=== PATIENT | female | born 1970 | race Caucasian/White ===

== ENCOUNTER 2017-04-10 21:24 | Inpatient (IN) | payer OTHER ==
[2017-04-10] MEDS ORDERED: NS 1,000 ML IV ONE ×2 (21:32)
[2017-04-10] MEDS ORDERED: PROTAMINE SULFATE 50 MG/5 ML VIAL IVP ONE (21:36)
[2017-04-10] MEDS ORDERED: TRANEXAMIC ACID 1,000 MG in NS 100 ML IV ONE (21:36)
[2017-04-10] MEDS ORDERED: TRANEXAMIC ACID 1,000 MG in NS 500 ML IV ONE (21:36)
[2017-04-10] MEDS: NORETHINDRONE ACET 5 MG TAB PO SCH (22:23)
--- NOTE | 2017-04-10 22:23 | EDPHY ---
H & P Stated Complaint: vaginal hemmorhage with hypotension HPI/ROS: CHIEF COMPLAINT: Vaginal bleeding, hypotension HISTORY OF PRESENT ILLNESS: The patient is a 47-year-old female with history of cervical cancer treated in [place] by oncologist Dr. Joshua. She is at [facility] and around 8:45 was noticed to have vaginal bleeding. When EMS arrived she is pale, tachycardic and had a blood pressure 64/40. They started a peripheral IV and brought her here. 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 She sees Dr. Fernandez and has bilateral nephrostomy tubes due to ureteral obstruction from tumors and ureterolithiasis. She is currently in the midst of chemotherapy and has completed radiation therapy. She has not had any uterine or vaginal surgery. I am unclear as to any metastasis. EMS reports that she has gone through 7 pads prior to arrival. REVIEW OF SYSTEMS: Constitutional: denies: chills, fever, recent illness, recent injury EENTM: denies: blurred vision, double vision, nose congestion Respiratory: denies: cough, shortness of breath Cardiac: denies: chest pain, irregular heart rate, lightheadedness, palpitations Gastrointestinal/Abdominal: denies: abdominal pain, diarrhea, nausea, vomiting, blood streaked stools Genitourinary: See HPI Musculoskeletal: denies: joint pain, muscle pain Skin: denies: lesions, rash, jaundice, bruising Neurological: denies: headache, numbness, paresthesia, tingling, dizziness, weakness Hematologic/Lymphatic: denies: blood clots, easy bleeding, easy bruising Immunologic/allergic: denies: HIV/AIDS, transplant EXAM: GENERAL: Pale, in severe distress HEAD: Atraumatic, normocephalic. EYES: Pupils equal round and reactive to light, extraocular movements intact, sclera anicteric, conjunctiva are pale. ENT: TMs normal, nares patent, oropharynx clear without exudates. Moist mucous membranes. NECK: Normal range of motion, supple without lymphadenopathy or JVD. LUNGS: Breath sounds clear to auscultation bilaterally and equal. No wheezes rales or rhonchi. HEART: Regular rate and rhythm without murmurs, rubs or gallops. ABDOMEN: Mild lower abdominal tenderness : I performed an external exam. The blood does appear to be coming from her vagina. Several clots were wiped away. No sign of rectal bleeding. BACK: Bilateral nephrostomy tubes in place, fruit punch colored fluid in left bag. No tenderness EXTREMITIES: Normal range of motion, no pitting or edema. No clubbing or cyanosis. NEUROLOGICAL: Cranial nerves II through XII grossly intact. Normal speech, normal gait. 5/5 strength, normal movement in all extremities, normal sensation PSYCH: Lightheaded, nauseous SKIN: Pale Source: Patient Exam Limitations: No limitations - Personal History LMP (Females 10-55): Unknown - Medical/Surgical History Hx Asthma: No Hx Diabetes: No Hx Cardiac Disease: No Hx Renal Disease: Yes Hx Cirrhosis: No Hx Alcoholism: No Other PMH: cervical CA, IVC filter, blood clots, GERD, nephrostomy tube bilaterally - Family History Significant Family History: No pertinent family hx - Social History Alcohol Use: Sober Constitutional: Initial Vital Signs Heart Rate 139 H 04/10/17 21:32 Respiratory Rate 20 04/10/17 21:32 Blood Pressure 80/54 L 04/10/17 21:32 O2 Sat (%) 99 04/10/17 21:32 O2 Delivery Mode Nasal Cannula O2 (L/minute) 2 Allergies/Adverse Reactions: No Known Allergies Allergy (Unverified 04/10/17 22:48) Home Medications: Medication Instructions Recorded Enoxaparin [Lovenox 100 MG (*)] 100 mg SQ BID@04/10/17 FLUoxetine [Prozac 10 MG (*)] 10 mg PO DAILY 04/10/17 Gabapentin [Neurontin 300 MG (*)] 300 mg PO TID 04/10/17 Levothyroxine [Synthroid 112 mcg 112 mcg PO DAILY06 04/10/17 (*)] OLANZapine [Zyprexa] 5 mg PO HS 04/10/17 Pantoprazole Sodium [Protonix 40mg 40 mg PO DAILY 04/10/17 (*)] oxyCODONE IR [Oxycodone Ir (*)] 5 - 10 mg PO Q4 PRN 04/10/17 traMADol [Ultram 50 mg (*)] 50 mg PO Q8 PRN 04/10/17 Acetaminophen [Tylenol 325mg (*)] 650 mg PO Q4 PRN 04/11/17 Herbals/Supplements -Info Only 1 ea PO DAILY 04/11/17 Loperamide HCl [Imodium 2 mg (*)] 2 mg PO PRN PRN 04/11/17 Ondansetron [Ondansetron Odt] 8 mg PO Q8 PRN 04/11/17 Medical Decision Making - Diagnostics EKG Interpretation: An EKG obtained and was read and documented in trace view. Please see trace view for full reading and report. Sinus tachycardia right bundle branch block Imaging: Discussed imaging studies w/ hat sizer Radiologist Procedures: Procedure: Central line placement. With ultrasound guidance Indication: Hypotension, transfusion. Emergency Verbal informed consent was obtained, with the risks explained to include but not be limited to bleeding, infection, and collapsed lung. A timeout was observed and patients identity and correct procedure location confirmed. Full maximal sterile barrier technique was uses including cap, gown , sterile gloves, large sheet, hand washing and chlorhexidine prep. Ultrasound was used for direct visualization in guidance. The area anesthetized with 1% lidocaine. The left IJ was punctured with a 19 gauge finder needle, then a triple-lumen was placed using standard Seldinger technique. There were no complications. Blood return low pressure, dark blood. Patient tolerated procedure well. CXR results: Central line in good placement. X-ray was interpreted by myself. The procedure was performed by myself. ED Course/Re-evaluation: The patient was brought to room 1 emergently. Her port was accessed and fluids began. We confirm that her blood pressure was low. We ordered fluids and O negative transfusion. Left IJ central line was placed emergently. She was given protamine and TXA. I spoke with OBEDEN Candelaria over the phone who recommends transvaginal ultrasound and initiation of Auygestin. They are on their way in. She has full code. Patient states that she has not had a period in 1 year. 10:55 p.m. I have also consulted medicine Rach because of the nephrostomy tubes and help with management. 11:10 p.m. the patient will remain in the ER as OBGYN attempts to stabilize and arrange transfer to NEEDLE STRAIGHTENER/ONC surgery. Care transferred to Dr. Gui Motta. Differential Diagnosis: Partial list of the Differential diagnosis considered include but were not limited to; hemorrhage, hypertension, cervical cancer, and although unlikely based on the history and physical exam, I also considered DIC, ischemia. Critical Care Time: Critical care time spent by Dr. Mary beverly exclusive with this patient was 45 minutes, exclusive of the PA time exclusive of procedures. The organ system that was at risk was cardiovascular, and I gave IV fluids, blood, consultation to prevent worsening of the patient's condition - Data Points Laboratory Results: Laboratory Results 04/10/17 22:54 04/10/17 22:21 04/10/17 22:21 Patient ABO/Rh A POSITIVE Antibody Screen NEGATIVE Crossmatch IS Only See Detail Medications Given: Gabapentin (Neurontin) 300 mg PO TID [facility] Stop: 10/08/17 15:59 Last Admin: 04/11/17 15:28 Dose: 300 mg Morphine Sulfate (Morphine) 2 - 4 mg IVP Q4HRS PRN PRN Reason: Pain, Severe Unable to Take PO Stop: 04/21/17 00:43 Last Admin: 04/11/17 15:28 Dose: 2 mg Norethindrone Acetate (Aygestin) 5 mg PO DAILY [facility] Stop: 10/07/17 22:29 Last Admin: 04/11/17 12:53 Dose: 5 mg Ondansetron HCl (Zofran) 4 mg IVP Q4HRS [facility] Stop: 10/08/17 13:59 Last Admin: 04/11/17 15:28 Dose: 4 mg Oxycodone HCl (Oxycodone Ir) 5 - 10 mg PO Q4HRS PRN PRN Reason: Pain, Severe Able to Take PO Stop: 04/21/17 00:43 Last Admin: 04/11/17 13:27 Dose: 10 mg Promethazine HCl (Phenergan) 6.25 mg IVP Q6HRS PRN PRN Reason: Nausea/Vomiting, Can't Take PO Stop: 10/08/17 11:21 Last Admin: 04/11/17 12:52 Dose: 6.25 mg Discontinued Medications Sodium Chloride (Ns) 1,000 mls @ 0 mls/hr IV ONCE ONE; Wide Open PRN Reason: Protocol Stop: 04/10/17 21:33 Last Admin: 04/10/17 21:32 Dose: 1,000 mls Sodium Chloride (Ns) 1,000 mls @ 0 mls/hr IV ONCE ONE; Wide Open PRN Reason: Protocol Stop: 04/10/17 21:33 Last Admin: 04/10/17 21:32 Dose: 1,000 mls Tranexamic Acid 1,000 mg/ (Sodium Chloride) 110 mls @ 660 mls/hr IV ONCE ONE Stop: 04/10/17 21:45 Last Admin: 04/10/17 22:22 Dose: 110 mls Tranexamic Acid 1,000 mg/ (Sodium Chloride) 510 mls @ 63.75 mls/hr IV ONCE ONE Stop: 04/11/17 05:35 Last Admin: 04/10/17 22:45 Dose: 510 mls Calcium Gluconate 2 gm/ (Dextrose) 70 mls @ 140 mls/hr IV EDNOW ONE Stop: 04/11/17 00:22 Last Admin: 04/11/17 00:25 Dose: 70 mls Calcium Gluconate (Calcium Gluconate 1 Gm (Premix)) 50 mls @ 100 mls/hr IV ONCE ONE Stop: 04/11/17 08:29 Last Admin: 04/11/17 11:13 Dose: 50 mls Potassium Chloride (Potassium Cl 20 Meq (Premix)) 50 mls @ 25 mls/hr IV Q2H SARAH Stop: 04/11/17 11:29 Last Admin: 04/11/17 10:21 Dose: 50 mls Magnesium Sulfate (Magnesium Sulf 2 Gm (Premix)) 50 mls @ 50 mls/hr IV ONCE ONE Stop: 04/11/17 09:29 Last Admin: 04/11/17 07:54 Dose: 50 mls Norethindrone Acetate (Aygestin) 5 mg PO EDNOW ONE Stop: 04/10/17 23:31 Last Admin: 04/10/17 23:42 Dose: 5 mg Ondansetron HCl (Zofran) 4 mg IVP Q4HRS PRN PRN Reason: Nausea/Vomiting, Can't Take PO Stop: 10/08/17 00:43 Last Admin: 04/11/17 09:02 Dose: 4 mg Oxycodone HCl (Oxycodone Ir) 10 mg PO ONCE ONE Stop: 04/11/17 00:31 Last Admin: 04/11/17 00:33 Dose: 10 mg Protamine Sulfate (Protamine Sulfate) 100 mg IVP ONCE ONE Stop: 04/10/17 21:37 Last Admin: 04/10/17 22:25 Dose: 100 mg Departure - Departure Disposition: [facility] Inpatient Acute Clinical Impression: Hemorrhage Hypotension Qualifiers: Hypotension type: unspecified hypotension type Qualified Code(s): I95.9 - Hypotension, unspecified Condition: Critical
[2017-04-10 22:39] LABS: INR 1.65 (0.83-1.16); PROTIME(PATIENT) 19.6 SEC (12.0-15.0)
[2017-04-10 22:40] LABS: APTT 54.2 SEC (23.0-38.0)
[2017-04-10 22:44] LABS: ABSOLUTE NRBC COUNT 0.03 10^3/uL (0-0.01); ADD DIFF? YES; ADD MORPH? NO; ATYPICAL LYMPHOCYTE FLAG 0 (0-99); FRAGMENT RBC FLAG 0 (0-99); HEMATOCRIT 27.3 % (38.0-47.0); HEMOGLOBIN 8.9 g/dL (12.6-16.3); LIPEMIA HEMOLYSIS FLAG 80 (0-99); MEAN CELL HEMOGLOBIN 29.7 pg (27.9-34.1); MEAN CELL HEMOGLOBIN CONCENTR. 32.6 g/dL (32.4-36.7); NRBC-AUTO% 0.3 % (0.0-0.2); PLATELET CLUMPS FLAG 0 (0-99); PLATELET COUNT 54 10^3/uL (150-400); RED CELL DISTRIBUTION WIDTH 15.5 % (11.5-15.2)
[2017-04-10 22:46] LABS: ANION GAP 9 mEq/L (8-16); CALCIUM 6.6 mg/dL (8.5-10.4); CARBON DIOXIDE 22 mEq/l (22-31); CHLORIDE 103 mEq/L (97-110); CREATININE 0.8 mg/dL (0.6-1.0); GLOMERULAR FILTRATION RATE > 60; GLUCOSE 127 mg/dL (70-100); LEFT SHIFT FLG 110 (0-99); POTASSIUM 3.7 mEq/L (3.5-5.2); SODIUM 134 mEq/L (134-144)
[2017-04-10 22:47] LABS: ADD SCAN? NO
--- NOTE | 2017-04-10 22:50 | CPEKG ---
Heart Rate: 131 RR Interval: 458 P-R Interval: 91 QRSD Interval: 102 QT Interval: 320 QTC Interval: 473 P Albion: 71 QRS Albion: 83 T Wave Albion: 49 EKG Severity - BORDERLINE ECG - EKG Impression: SINUS TACHYCARDIA EKG Impression: LOW VOLTAGE THROUGHOUT Electronically Signed By: Mark Hernandez 10-Apr-2017 23:03:20
[2017-04-10 23:20] LABS: ACANTHOCYTES 1+; PLATELET ESTIMATE DECREASED (ADEQ)
[2017-04-10 23:22] LABS: ABSOLUTE NRBC COUNT 0.03 10^3/uL (0-0.01); ADD DIFF? YES; ADD MORPH? NO; ATYPICAL LYMPHOCYTE FLAG 0 (0-99); FRAGMENT RBC FLAG 0 (0-99); HEMATOCRIT 27.4 % (38.0-47.0); LIPEMIA HEMOLYSIS FLAG 80 (0-99); MEAN CELL HEMOGLOBIN 29.6 pg (27.9-34.1); MEAN CELL HEMOGLOBIN CONCENTR. 32.8 g/dL (32.4-36.7); MEAN CELL VOLUME 90.1 fL (81.5-99.8); MEAN PLATELET VOLUME 10.8 fL (8.7-11.7); NRBC-AUTO% 0.4 % (0.0-0.2); PLATELET CLUMPS FLAG 0 (0-99); RED BLOOD CELL COUNT 3.04 10^6/uL (4.18-5.33); RED CELL DISTRIBUTION WIDTH 14.9 % (11.5-15.2)
[2017-04-10 23:26] LABS: LEFT SHIFT FLG 150 (0-99); PLATELET COUNT 37 10^3/uL (150-400)
[2017-04-10 23:27] LABS: ADD SCAN? NO
[2017-04-10] MEDS ORDERED: NORETHINDRONE ACET 5 MG TAB PO ONE (23:30)
[2017-04-10] MEDS ORDERED: CALCIUM GLUCONATE 2 GM in D5W 50 ML IV ONE (23:53)
[2017-04-11 00:24] LABS: ACANTHOCYTES 1+; PLATELET ESTIMATE DECREASED (ADEQ)
[2017-04-11] MEDS ORDERED: oxyCODONE IR 5 MG TAB PO ONE (00:30)
[2017-04-11] MEDS ORDERED: oxyCODONE IR 5 MG TAB ONE (00:33)
--- NOTE | 2017-04-11 00:48 | PDGENHP ---
History and Physical - Chief Complaint Vaginal bleeding - History of Present Illness 47 yo F w/ hx of cervical cancer and various blood clots presents with vaginal bleeding. She was recently discharged from [facility] to a [facility]. Today at the SNF she noticed vaginal bleeding, which is a new problem for her. She soaked several pads and was then brought to the ED for evaluation. Upon arrival to the ED she was hypotensive and tachycardic. She was resuscitated with 4 units of pRBCs, 2 units platelets, 2 L IVF. She was stable and conversing without confusion by the time of my evaluation. She has a hx of various blood clots, for which she is on therapeutic anticoagulation. She was previously on rivaroxaban but was discharged with Lovenox to be administered at the [facility]. As a result, she received protamine and TXA in the ED. History Information - Allergies/Home Medication List Allergies/Adverse Reactions: No Known Allergies Allergy (Unverified 04/10/17 22:48) Home Medications: Gabapentin 04/10/17 [Last Taken Unknown] Lactobacillus Acidophilus 04/10/17 [Last Taken Unknown] Lovenox 100 MG (*) 04/10/17 [Last Taken Unknown] Oxycodone HCl 04/10/17 [Last Taken Unknown] Protonix 04/10/17 [Last Taken Unknown] Prozac 10 MG (*) 04/10/17 [Last Taken Unknown] Synthroid 04/10/17 [Last Taken Unknown] Tramadol HCl 04/10/17 [Last Taken Unknown] Zyprexa 04/10/17 [Last Taken Unknown] I have personally reviewed and updated: family history, medical history - Past Medical History cancer, DVT - Surgical History Reports: no pertinent surgical hx - Family History Additional family history: Denies family hx of bleeding or clotting - Social History Smoking Status: Never smoked Alcohol Use: Sober Drug Use: None Review of Systems ROS: 10pt was reviewed & negative except for what was stated in HPI & below Physical Exam Temp Pulse Resp BP Pulse Ox 37.3 C 123 H 18 113/85 H 100 04/10/17 23:32 04/10/17 23:32 04/10/17 23:32 04/10/17 23:32 04/10/17 23:32 O2 (L/minute) 2 Constitutional: no apparent distress, chronically ill appearing Eyes: PERRL, EOMI, pale conjunctiva Ears, Nose, Mouth, Throat: no oral mucosal ulcers, dry mucous membranes Cardiovascular: no murmur, rub, or gallop, tachycardia Respiratory: no respiratory distress, clear to auscultation Gastrointestinal: normoactive bowel sounds, soft, non-tender abdomen, other ( Masses palpable in lower abdomen) Genitourinary: other (Bilateral nephrostomy tubes with bloody urine present ) Skin: warm, other (Pale) Musculoskeletal: full muscle strength, no muscle tenderness Neurologic: AAOx3, CN II-XII Intact Psychiatric: interacting appropriately, not anxious Lab Data & Imaging Review 04/10/17 22:54 04/10/17 22:21 WBC 8.43 10^3/uL (3.80-9.50) 04/10/17 22:54 RBC 3.04 10^6/uL (4.18-5.33) L 04/10/17 22:54 Hgb 9.0 g/dL (12.6-16.3) L 04/10/17 22:54 POC Hgb 8.5 gm/dL (12.6-16.3) L 04/10/17 22:29 Hct 27.4 % (38.0-47.0) L 04/10/17 22:54 POC Hct 25 % (38-47) L 04/10/17 22:29 MCV 90.1 fL (81.5-99.8) 04/10/17 22:54 MCH 29.6 pg (27.9-34.1) 04/10/17 22:54 MCHC 32.8 g/dL (32.4-36.7) 04/10/17 22:54 RDW 14.9 % (11.5-15.2) 04/10/17 22:54 Plt Count 37 10^3/uL (150-400) L 04/10/17 22:54 MPV 10.8 fL (8.7-11.7) 04/10/17 22:54 Neut % (Auto) Not Reported 04/10/17 22:54 Lymph % (Auto) Not Reported 04/10/17 22:54 [place] % (Auto) Not Reported 04/10/17 22:54 Eos % (Auto) Not Reported 04/10/17 22:54 Baso % (Auto) Not Reported 04/10/17 22:54 Nucleat RBC Rel Count 0.4 % (0.0-0.2) H 04/10/17 22:54 Absolute Neuts (auto) Not Reported 04/10/17 22:54 Absolute Lymphs (auto) Not Reported 04/10/17 22:54 Absolute Monos (auto) Not Reported 04/10/17 22:54 Absolute Eos (auto) Not Reported 04/10/17 22:54 Absolute Basos (auto) Not Reported 04/10/17 22:54 Absolute Nucleated RBC 0.03 10^3/uL (0-0.01) H 04/10/17 22:54 Immature Gran % Not Reported 04/10/17 22:54 Seg Neutrophils % 74 % 04/10/17 22:54 Band Neutrophils % 7 % 04/10/17 22:54 Lymphocytes % 13 % 04/10/17 22:54 Monocytes % 6 % 04/10/17 22:54 Metamyelocytes % 1 % 04/10/17 22:21 Immature Gran # Not Reported 04/10/17 22:54 Absolute Seg Neuts 6.24 10^/uL (1.70-6.50) 04/10/17 22:54 Absolute Band Neuts 0.59 10^3/uL (0.00-0.70) 04/10/17 22:54 Absolute Lymphocytes 1.10 10^3/uL (1.00-3.00) 04/10/17 22:54 Absolute Monocytes 0.51 10^3/uL (0.30-0.80) 04/10/17 22:54 Absolute Metamyelocyte 0.09 10^3/mL (0.00-0.00) H 04/10/17 22:21 Platelet Estimate DECREASED (ADEQ) L 04/10/17 22:54 Acanthocytes (Spur) 1+ H 04/10/17 22:54 PT 19.6 SEC (12.0-15.0) H 04/10/17 22:21 INR 1.65 (0.83-1.16) H 04/10/17 22:21 APTT 54.2 SEC (23.0-38.0) H 04/10/17 22:21 POC Sodium 140 mEq/L (134-144) 04/10/17 22:29 Sodium 134 mEq/L (134-144) 04/10/17 22:21 POC Potassium 3.8 mEq/L (3.3-5.0) 04/10/17 22:29 Potassium 3.7 mEq/L (3.5-5.2) 04/10/17 22:21 POC Chloride 101 mEq/L (97-110) 04/10/17 22:29 Chloride 103 mEq/L (97-110) 04/10/17 22:21 Carbon Dioxide 22 mEq/l (22-31) 04/10/17 22:21 Anion Gap 9 mEq/L (8-16) 04/10/17 22:21 POC BUN 9 mg/dL (7-23) 04/10/17 22:29 BUN 11 mg/dL (7-23) 04/10/17 22:21 Creatinine 0.8 mg/dL (0.6-1.0) 04/10/17 22:21 POC Creatinine 1.0 mg/dL (0.6-1.0) 04/10/17 22:29 Estimated GFR > 60 04/10/17 22:21 Glucose 127 mg/dL (70-100) H 04/10/17 22:21 POC Glucose 134 mg/dL (70-100) H 04/10/17 22:29 Calcium 6.3 mg/dL (8.5-10.4) L 04/10/17 23:00 Patient ABO/Rh A POSITIVE 04/10/17 22:21 Antibody Screen NEGATIVE 04/10/17 22:21 Crossmatch IS Only See Detail 04/10/17 22:21 Imaging Review: Indeterminate pelvic US performed in ED. Visualized and Interpreted EKG results: Yes EKG additional interpertation: Sinus tachycardia, incomplete RBBB, subtle ST depressions in lateral leads Assessment & Plan Assessment: 47 yo F w/ hx of cervical cancer and VTE presents with hypovolemic shock due to ABLA from cancer related vaginal bleeding. Plan: 1. Hemorrhagic shock - Copious vaginal bleeding related to gynecologic malignancy. Stabilized after 4u pRBCs, 2u platelets, norethindrone x2, TXA, protamine, and 2L IVF. Unclear if cancer progression is contributing, but clearly complicated by ongoing therapeutic anticoagulation. - Evaluated by pipe roller in ED who does not feel patient needs surgery at this time , appreciate ongoing assistance - IR aware, patient has stabilized and does not require embolization currently - Continue to closely monitor H/H - Hold anticoagulation 2. Thrombocytopenia - Perhaps due to chemotherapy and active malignancy. S/p 2u platelets, continue to monitor. 3. Hypocalcemia - Likely 2/2 transfusions, will place on replacement protocol. 4. Cervical CA - S/p chemotherapy and radiation, with last cycle of chemotherapy currently on hold 2/2 poor functional status. Genetics Teacher and Outside Operator/Onc aware. 5. Hx of VTE - Multiple blood clots over the course of the last year. Previously on rivaroxaban but more recently on Lovenox. - Hold anticoagulation as above Diet - NPO Code - Full Ppx - SCDs Dispo - Admit to ICU for close monitoring and supportive care
[2017-04-11] MEDS ORDERED: PROTOCOL CALCIUM 1 DOSE IV PRN (00:58)
[2017-04-11] MEDS: ONDANSETRON 4 MG/2 ML VIAL IVP PRN ×2 (01:26→09:02)
--- NOTE | 2017-04-11 01:26 | GHP ---
[f rep st] HISTORY AND PHYSICAL DATE OF ADMISSION: 04/10/2017 ADMITTING DIAGNOSES: 1. Vaginal bleeding. 2. History of cervical cancer. HISTORY OF PRESENT ILLNESS: The patient is a 47-year-old female, G1, P1, with past medical history notable for cervical cancer diagnosed early this year in December, who presents to the emergency room with complaints of heavy vaginal bleeding that started this evening. She states bright red active bleeding with small clots noted. She has soaked through 5-6 pads here in the emergency room. She endorses some nausea. No vomiting. Also endorses lower pelvic cramping and vaginal soreness. Denies any fevers, chills, chest pain, or shortness of breath. Patient is followed by gynecologic oncology, Dr. Sheba Cazares through [facility], and Dr. Joshua at the [facility]. She is currently undergoing chemo. She has completed 22 cycles of radiation and has a Caio sleeve placed for brachytherapy that was supposed to be removed. She had chemo 3 weeks ago and does not need any further chemo for at least 6 weeks. Patient was on Xarelto. This is being held due to thrombocytopenia. She is maintained on Lovenox, and she has been on this for the past 4 or 5 days, 100 mg twice a day. 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 She follows with Dr. Fernandez. She has plans to follow with Urology for ureteral stent exchange in mid April with Dr. Fernandez, and also for removal of the Caio sleeve by Dr. Sheba Cazares. Patient states she does not have a usability strategist, and she lives here at the [facility]. Patient also has a history of DVT , 2 in bilateral lower extremities and left arm with placement of an IVC filter early this year. Patient did receive 3 units of blood prior to me seeing her in the ER and 1 pack of platelets. PAST OBSTETRICAL HISTORY: A full-term, uncomplicated, vaginal delivery x1. GYNECOLOGICAL HISTORY: Notable for cervical cancer status post radiation and currently chemotherapy. Patient denies any history of sexually transmitted diseases and currently has not had a period for the last year or so, unsure due to chemoradiation or menopause. PAST MEDICAL HISTORY: Cervical cancer, history of DVT with IVC filter in place , ureteral obstruction secondary to tumors, urethrolysis with bilateral nephrostomy tube placement. MDR urine infections. PAST SURGICAL HISTORY: IVC filter, nephrostomy tube placement, ureteral stent. MEDICATIONS: Gabapentin, lactobacillus salivarius, Lovenox 100 mg, oxycodone HCL, Protonix, Prozac, Synthroid, tramadol, Zyprexa. ALLERGIES: No known drug allergies. FAMILY HISTORY: Noncontributory. SOCIAL HISTORY: Patient is in a longterm. Denies alcohol, tobacco, or illicit drug use. REVIEW OF SYSTEMS: A 10-point review of systems is negative. Pertinent positives noted in HPI. LABS: H and H were 8.9 and 27.3, white count 8.5, platelets 54. STUDIES: Transvaginal ultrasound was done. Pelvis was evaluated through a nondistended bladder. Uterus could not be visualized. No masses were appreciated. Subsequent endovaginal ultrasound was performed. There was a structure in the pelvis that was indeterminate. Could represent bowel versus uterus. This structure measured 6.7 x 3 cm longitudinal AP dimensions. Central along the echogenic structure measured 8 mm that could possibly represent endometrial stripe. Imaging was limited secondary to patient's medical condition. PHYSICAL EXAMINATION: ADMISSION VITAL SIGNS: Blood pressure 83/62, heart rate 137, saturating 96%. Patient did receive a couple liters of fluids and is now hemodynamically stable. Most recent blood pressure 113/85, heart rate 123, respiratory rate 18, and saturating at 100% with 2 L of oxygen. Temperature 37.3. GENERAL: Alert, oriented x3, well-nourished, well-developed female, pale , in mild distress. LUNGS: Clear to auscultation bilaterally. HEART: Regular rhythm. She is tachycardic. ABDOMEN: Mild lower abdominal tenderness bilaterally. No rebound, no guarding. PELVIC: There is active bleeding noted with blood clots in the vault. I think I see the Caio sleeve attached to the cervix. This is sutured in. No lacerations. No other abnormalities. ASSESSMENT AND PLAN: Patient is a 47-year-old, 1, para 1, with a past medical history notable for cervical cancer with vaginal bleeding. 1. Believe vaginal bleeding secondary to recent switch to Lovenox. Do not find other sources of vaginal bleeding at this time. 2. Did consult with her regulatory specialist oncologist, Delilah Cazares, as well as her doctor at the [facility], Dr. Joshua. They have recommended that surgery is not needed at this time and that they feel, too, it is the Lovenox, and that if she continues to bleed despite a reverse in Lovenox, to get in touch with Interventional Radiology for embolization. 3. Consulted with IR, Dr. Cornelio Sequeira who will see the patient in the morning. 4. Patient is hemodynamically stable at this time, and bleeding has slowed down immensely. 5. Patient will be admitted to the ICU for observation. 6. Will continue pad count throughout the night. 7. Will sign out to Dr. Sara Schneider, INTERNAL CONTROLS CONSULTANT, who will be incident response engineer in the morning. /[id number]/MODL MTDD
[2017-04-11 02:36] LABS: ABSOLUTE NRBC COUNT 0.03 10^3/uL (0-0.01); ADD DIFF? YES; ADD MORPH? NO; ATYPICAL LYMPHOCYTE FLAG 0 (0-99); FRAGMENT RBC FLAG 0 (0-99); HEMATOCRIT 28.6 % (38.0-47.0); HEMOGLOBIN 10.1 g/dL (12.6-16.3); LIPEMIA HEMOLYSIS FLAG 90 (0-99); MEAN CELL HEMOGLOBIN 30.5 pg (27.9-34.1); MEAN CELL HEMOGLOBIN CONCENTR. 35.3 g/dL (32.4-36.7); MEAN CELL VOLUME 86.4 fL (81.5-99.8); MEAN PLATELET VOLUME 10.2 fL (8.7-11.7); NRBC-AUTO% 0.2 % (0.0-0.2); PLATELET CLUMPS FLAG 0 (0-99); RED BLOOD CELL COUNT 3.31 10^6/uL (4.18-5.33); RED CELL DISTRIBUTION WIDTH 14.7 % (11.5-15.2)
[2017-04-11 02:38] LABS: ADD SCAN? NO; LEFT SHIFT FLG 190 (0-99); PLATELET COUNT 44 10^3/uL (150-400)
[2017-04-11 03:27] LABS: PLATELET ESTIMATE DECREASED (ADEQ)
[2017-04-11 06:48] LABS: ADD DIFF? YES; ADD MORPH? NO; ADD SCAN? YES; ATYPICAL LYMPHOCYTE FLAG 0 (0-99); FRAGMENT RBC FLAG 0 (0-99); HEMATOCRIT 27.3 % (38.0-47.0); HEMOGLOBIN 9.5 g/dL (12.6-16.3); LIPEMIA HEMOLYSIS FLAG 90 (0-99); MEAN CELL HEMOGLOBIN 30.2 pg (27.9-34.1); MEAN CELL HEMOGLOBIN CONCENTR. 34.8 g/dL (32.4-36.7); MEAN CELL VOLUME 86.7 fL (81.5-99.8); MEAN PLATELET VOLUME 10.8 fL (8.7-11.7); PLATELET CLUMPS FLAG 0 (0-99); RED BLOOD CELL COUNT 3.15 10^6/uL (4.18-5.33); RED CELL DISTRIBUTION WIDTH 15.2 % (11.5-15.2)
[2017-04-11 06:53] LABS: LEFT SHIFT FLG 170 (0-99); PLATELET COUNT 46 10^3/uL (150-400)
[2017-04-11 06:57] LABS: INR 1.45 (0.83-1.16); PROTIME(PATIENT) 17.6 SEC (12.0-15.0)
[2017-04-11 06:58] LABS: APTT 46.8 SEC (23.0-38.0)
[2017-04-11 06:59] LABS: IONIZED CALCIUM 1.02 MMOL/L (1.12-1.30)
[2017-04-11 07:11] LABS: ANION GAP 6 mEq/L (8-16); CALCIUM 6.7 mg/dL (8.5-10.4); CARBON DIOXIDE 24 mEq/l (22-31); CHLORIDE 106 mEq/L (97-110); CREATININE 0.8 mg/dL (0.6-1.0); GLOMERULAR FILTRATION RATE > 60; GLUCOSE 98 mg/dL (70-100); MAGNESIUM 1.2 mg/dL (1.6-2.3); POTASSIUM 3.2 mEq/L (3.5-5.2); SODIUM 136 mEq/L (134-144)
[2017-04-11] MEDS ORDERED: PROTOCOL MAGNESIUM 1 DOSE IV PRN (07:16)
[2017-04-11] MEDS ORDERED: PROTOCOL POTASSIUM 1 DOSE MISC PRN ×2 (07:16)
[2017-04-11 07:37] LABS: PLATELET ESTIMATE DECREASED (ADEQ)
[2017-04-11] MEDS ORDERED: CALCIUM GLUCONATE 50 ML IV ONE (08:00)
[2017-04-11] MEDS ORDERED: MAGNESIUM SULF 2 GM/WATER 50 ML IV ONE (08:30)
[2017-04-11] MEDS: POTASSIUM Cl (KCl) 50 ML IV SCH ×2 (08:58→10:21)
[2017-04-11] MEDS: PROMETHAZINE HCL 25 MG/ML INJ IVP PRN (12:52)
[2017-04-11] MEDS: NORETHINDRONE ACET 5 MG TAB PO SCH (12:53)
[2017-04-11] MEDS: oxyCODONE IR 5 MG TAB PO PRN ×3 (13:27→23:35)
[2017-04-11] MEDS ORDERED: oxyCODONE IR 5 MG TAB PO PRN (14:06)
[2017-04-11] MEDS ORDERED: traMADol 50 MG TAB PO PRN (14:06)
[2017-04-11] MEDS ORDERED: ONDANSETRON DISINTEGRATING 4 MG TAB PO PRN (14:13)
[2017-04-11] MEDS: ONDANSETRON 4 MG/2 ML VIAL IVP SCH ×3 (15:28→21:53)
[2017-04-11] MEDS: GABAPENTIN 300 MG CAP PO SCH ×2 (15:28→21:53)
[2017-04-11 15:42] LABS: POTASSIUM 3.7 mEq/L (3.5-5.2)
--- NOTE | 2017-04-11 16:00 | ASMTCMCOM ---
CM Note CM Note Notes: 47 year old female recently at [facility] due to cervical CA -for chemo and discharged to [facility] for rehab. Admitted to [facility] for vaginal bleeding, hemorrhage, HTN, DVT's. Patient lives in [place] but family in [facility]. Patient would like to go to [facility] on discharge [phone] Family aware that they will have to transport patient to her doctor appointments in the [place] area. Spoke to admissions and they asked to go through their company, [employer]-[phone]. Left message at that number. also sent a referral through [employer] to [facility]. Date Signed: 04/11/2017 03:59 PM Electronically Signed By:Caron Lama
[2017-04-11] MEDS ORDERED: POTASSIUM Cl (KCl) 50 ML IV ONE (16:18)
--- NOTE | 2017-04-11 17:35 | HOSPPROG ---
Hospitalist Progress Note Assessment/Plan: * Cervical cancer -XRT complete -chemo on hold until functional status improved * Vaginal bleed - improved with DC lovenox -Caio Sleeve in cervix for XRT - was due for removal weeks ago -d/w leathersmith/onc at [facility] - Dr. Cazares -cell [phone] or office [phone] -she requests leathersmith remove Caio Sleeve this admission -attempted call Dr. Schneider with no response -simple speculum procedure - remove sutures and sleeve comes out * ABL anemia - follow serial HH - bleeding significantly reduced off anti-coag -currently no indication for embolization - d/w Dr. Sequeira * Recurrent DVT - has IVC filter -when bleeding stopped, recommend start IV heparin -did better on Xarelto than SubQ lovenox -if tolerates heparin, then suggest Xarelto at discharge -removing Caio Sleeve may help * Bilateral nephrostomy tubes -has plastic ureteral stents - overdue for change -scheduled for change to metal stents at OP next week -difficult for patient to f/u as outpatient as she has not walked in weeks -Dr. Cazares requests urology procedure be performed at inpatient here -Dr. Gillis to see Subjective: Bleeding still continues but much much less Objective: Vital Signs Temp Pulse Resp BP Pulse Ox 36.7 C 97 16 98/66 L 100 04/11/17 16:00 04/11/17 16:00 04/11/17 16:00 04/11/17 16:00 04/11/17 16:00 Laboratory Results 04/11/17 06:10 04/11/17 15:20 04/10/17 04/11/17 04/12/17 05:59 05:59 05:59 Intake Total 4725 Output Total 330 Balance 4395 PT 17.6 SEC (12.0-15.0) H 04/11/17 06:10 INR 1.45 (0.83-1.16) H 04/11/17 06:10 tele - NSR - Physical Exam Constitutional: no apparent distress, appears nourished, not in pain Cardiovascular: regular rate and rhythym, no murmur, rub, or gallop Respiratory: no respiratory distress, no rales or rhonchi, clear to auscultation Gastrointestinal: normoactive bowel sounds, soft, non-tender abdomen, no palpable masses Skin: no rashes or abrasions, no fluctuance, no induration Neurologic: AAOx3, sensation intact bilaterally Psychiatric: interacting appropriately, not anxious, not encephalopathic, thought process linear ICD10 Worksheet Patient Problems: Problems Problem Status Onset Hemorrhage Acute Hypotension Acute
[2017-04-11] MEDS: POTASSIUM Cl (KCl) 100 ML IV SCH ×2 (18:10→19:35)
[2017-04-11] MEDS: OLANZapine 5 MG TAB PO SCH (22:15)
[2017-04-11] MEDS: NS 1,000 ML IV SCH (23:37)
--- NOTE | 2017-04-12 03:59 | GCON ---
[f rep st] CONSULTATION CRITICAL CARE CONSULT DATE OF CONSULTATION: 04/11/2017 HISTORY OF PRESENT ILLNESS: The patient is a 47-year-old female with a diagnosis of cervical cancer who has been treated with radiation and chemotherapy, whose radiation involved brachytherapy and admi nistered in high-dose radiation fashion involving a Caio sleeve approach. She also has a history of multiple deep vein thromboses in September and November of this year. Originally treated with Lovenox fo llowed by Meena. She had her recent hospitalization at [facility] due to nausea vomiting and diarrhea, as well as thrombocytopenia, thought to be due to her chemotherapy. Because of that, I bel ieve her Xarelto was changed to Lovenox and she was discharged to [facility] for ongoing recovery . There, she developed substantial vaginal bleeding requiring multiple pads and was brought to the e mergency department and was hypotensive. There she received 4 units of blood, as well as protamine t ranexamic acid as well as platelet transfusion with recovery of her hypotension. Since that time, th e bleeding has stopped. She has been hemodynamically stable and we await other consult of services. PAST MEDICAL HISTORY: Includes: 1. Cervical cancer, as described above. Deep vein thrombosis. 1. Ureteral obstruction. 2. Multi-drug resistant urinary tract infections in the past. PAST SURGICAL HISTORY: Includes: 1. Bilateral nephrostomy tubes. 2. Inferior vena cava filter placement. 3. Ureteral stents that are currently under evaluation for possible replacement. SOCIAL HISTORY: She is a nonsmoker. No alcohol or IV drug use. FAMILY HISTORY: Noncontributory. MEDICATIONS: Currently involve Prozac, Neurontin, Synthroid, norethindrone, Zofran, oxycodone, Ana nix, Phenergan, Ultram. PHYSICAL EXAMINATION: VITAL SIGNS: She was afebrile. Blood pressure 103/68. Heart rate 98, respir ations 13, oxygen saturation 100% on room air. GENERAL: She is a very pleasant woman in no apparent distress. She was able to speak in full sentences without using accessory muscles for breathing. S he was also obese. HEENT: Pupils equally round and reactive to light. Nonicteric and noninjected. Mucous membranes are moist without erythema or exudate. NECK: Supple without adenopathy or jugular vein distention. Breath sounds were clear to auscultation bilaterally without wheezes, rubs or rale s. HEART: Regular rate and rhythm without obvious murmur, rub, or gallop. ABDOMEN: Soft, nontende r, nondistended without hepatosplenomegaly. EXTREMITIES: Show no clubbing, cyanosis, or edema. JAMIN ROLOGIC: Nonfocal, including cranial nerves and deep tendon reflexes. OBJECTIVE DATA: Includes a white count today of 12.09, hematocrit 27.3 and stable, platelets of 46 w hich are up from 37 earlier. Her INR is 1.45. Basic metabolic panels are unremarkable, save for pot assium at 3.2, ionized calcium of 1.02, magnesium 1.2. ASSESSMENT AND PLAN: 1. Vaginal bleeding. This is likely due to a combination of factors which may involve the low molec ular weight heparin that she was given, as well as her cervical cancer and radiation therapy, which I believe has been completed. Apparently, a discussion was had with her existing FILLING TECHNICIAN oncologist who s uggested that the Caio sleeve be removed by either local FILLING TECHNICIAN or Interventional Radiology. We are akiko raineyg further followup from a current PRACTICE SUPPORT SPECIALIST for discussion about how this is to be accomplished, but she seems to be hemodynamically stable at this time and does not require any more blood products. 2. Deep vein thromboses. She had clots in both her lower extremities, as well as I believe left upp er extremity, and has an active malignancy I believe requires ongoing anticoagulation. I think that her thrombocytopenia may have been a factor here as well as the low molecular weight heparin. Until her platelets recover, which they should start to be recovering soon, if in fact they are from chemot herapy, then we can map out an anticoagulation plan. Low-molecular weight heparins such as daltepari n and Lovenox have shown to be very effective in preventing recurrence of venous thromboses without e xcess bleeding. Fondaparinux or Arixtra has been shown to be less effective, although is still a pos sible alternative. Oral anticoagulants have not been studied nearly as well with far less data, but is a reasonable way to anticoagulate somebody who was adverse to injections. Given her bleeding epis ode, we want to make sure that no procedures are planned, such as removal of the Caio sleeve and then I would treat her with unfractionated heparin, given its ability to rapidly reversed. When she prov es that she can tolerate anticoagulation, assuming that her platelets have recovered, then I would co nsider Xarelto or dalteparin moving forward to prevent recurrence of deep vein thrombosis. In the me antime, she does have an IVC filter in place. 3. Thrombocytopenia, presumably this is related to her chemo. May have been exacerbated by consumpt ion coagulopathy, given her recent bleeding. We will simply follow these for now and once she receiv es an adequate level of recovery, consider re-anticoagulating. 4. Ureteral stents. According to the patient, she currently has plastic ureteral stents in place an d her urologist at [place] suggested metal stents, as would be an alternative that might improve her urine output and result in removal of her current nephrostomy tubes. Urology has been consulted and we will await their 2nd opinion as requested by the family. /[id number]/MODL
[2017-04-12 04:53] LABS: POTASSIUM 3.6 mEq/L (3.5-5.2)
[2017-04-12 05:17] LABS: IONIZED CALCIUM 1.12 MMOL/L (1.12-1.30)
[2017-04-12 05:20] LABS: ADD DIFF? YES; ADD MORPH? NO; ATYPICAL LYMPHOCYTE FLAG 0 (0-99); FRAGMENT RBC FLAG 0 (0-99); HEMATOCRIT 23.7 % (38.0-47.0); HEMOGLOBIN 8.2 g/dL (12.6-16.3); LIPEMIA HEMOLYSIS FLAG 90 (0-99); MEAN CELL HEMOGLOBIN 30.5 pg (27.9-34.1); MEAN CELL HEMOGLOBIN CONCENTR. 34.6 g/dL (32.4-36.7); MEAN CELL VOLUME 88.1 fL (81.5-99.8); MEAN PLATELET VOLUME 10.4 fL (8.7-11.7); PLATELET CLUMPS FLAG 10 (0-99); PLATELET COUNT 91 10^3/uL (150-400); RED BLOOD CELL COUNT 2.69 10^6/uL (4.18-5.33); RED CELL DISTRIBUTION WIDTH 16.4 % (11.5-15.2)
[2017-04-12 05:24] LABS: ADD SCAN? NO; LEFT SHIFT FLG 120 (0-99)
[2017-04-12] MEDS: ONDANSETRON 4 MG/2 ML VIAL IVP SCH ×6 (05:24→21:17)
[2017-04-12] MEDS: LEVOTHYROXINE 112 MCG TAB PO SCH (05:26)
[2017-04-12 05:32] LABS: ANION GAP 5 mEq/L (8-16); CALCIUM 7.2 mg/dL (8.5-10.4); CARBON DIOXIDE 24 mEq/l (22-31); CHLORIDE 105 mEq/L (97-110); CREATININE 0.9 mg/dL (0.6-1.0); GLOMERULAR FILTRATION RATE > 60; GLUCOSE 70 mg/dL (70-100); MAGNESIUM 1.8 mg/dL (1.6-2.3); POTASSIUM 3.7 mEq/L (3.5-5.2); SODIUM 134 mEq/L (134-144)
[2017-04-12] MEDS: NS 1,000 ML IV SCH ×2 (06:27→13:17)
[2017-04-12 06:44] LABS: PLATELET ESTIMATE DECREASED (ADEQ)
[2017-04-12] MEDS ORDERED: POTASSIUM CL 10 MEQ TAB PO ONE ×2 (08:05→22:30)
[2017-04-12] MEDS: oxyCODONE IR 5 MG TAB PO PRN ×2 (10:37→18:00)
[2017-04-12] MEDS: PANTOPRAZOLE SODIUM 40 MG TAB PO SCH (10:37)
[2017-04-12] MEDS: GABAPENTIN 300 MG CAP PO SCH ×3 (10:38→21:17)
[2017-04-12] MEDS: FLUoxetine 10 MG CAP PO SCH (11:15)
[2017-04-12] MEDS: NORETHINDRONE ACET 5 MG TAB PO SCH (11:15)
--- NOTE | 2017-04-12 14:15 | SOAPPROG ---
CAM Progress Note Assessment/Plan: Assessment: Bilateral ureteral obstruction, s/p most recent replacement of bilateral nephroureteral stents on 03/27. Had extensive discussion w/ pt. last evening and her uncle (her POA) this afternoon and all questions answered regarding current drainage method vs. attempted insertion of metallic stents. It's basically a 50/50 chance that metallic stents will be effective in maintaining ureteral patency without the need for nephrostomy tubes. Plan: May discharge at anytime from a standpoint, then FU as scheduled on 04/19 for metallic ureteral stent placement w/ Dr. Fernandez at [facility]. (Full consult note dictated -- # [id number]). Objective: Vital Signs Temp Pulse Resp BP Pulse Ox 36.7 C 105 H 20 100/72 97 04/12/17 11:48 04/12/17 11:48 04/12/17 11:48 04/12/17 11:48 04/12/17 11:48 Laboratory Results 04/12/17 04:50 04/12/17 04:50 04/11/17 04/12/17 04/13/17 05:59 05:59 05:59 Intake Total 4725 200 2061 Output Total 330 300 350 Balance 4395 -100 1711 PT 17.6 SEC (12.0-15.0) H 04/11/17 06:10 INR 1.45 (0.83-1.16) H 04/11/17 06:10 ICD10 Worksheet Patient Problems: Problems Problem Status Onset Hemorrhage Acute Hypotension Acute
--- NOTE | 2017-04-12 15:23 | WOCRNPDOC ---
WOCRN Advanced Assessment Note - Skin Integrity Problem, Advanced Assess Perianal Dermatitis Dressing Type: Open to Air Deann Wound Tissue: Blanching, Erythema Wound Bed Color: [place], Red, Yellow Wound Bed Constitution: Smooth Tissue, Loose Slough Site Measurement - Head-to-Toe Length X Width X Depth (cm): 1.2x0.3x0.2 Skin Integrity Problem Comment: Moisture/incontinence associated dermatitis with skin breakdown. Treat with Calazime cream BID. Wound care will not follow. Right Sacrum Dressing Type: Open to Air Wound Bed Color: Purple Site Measurement - Head-to-Toe Length X Width X Depth (cm): 2x1x0 Skin Integrity Problem Comment: Uknown etiology. Surrounding skin is non erythematic and area is not tender. Query DTI vs contusion. Will round again to check next week at which point the etiology will be clear. If it begins to resolve without opening then it is a contusion, however if it opens then it is a DTI. Patient does not endorse falling recently nor hitting it on anything.
--- NOTE | 2017-04-12 17:02 | HOSPPROG ---
Hospitalist Progress Note Assessment/Plan: 47 yo F with complicated PMH including cervical cancer largely previously treated at [facility] presenting here with vaginal bleed # vaginal bleed: in setting of known cervical cancer and with fredi sleeve in cervix for XRT, has been seen by OB, bleeding seems to have largely resolved, s/ p transfusion of 4 units PRBC # cervical cancer: s/p XRT and chemo with associated ureteral obstruction as next. Is followed by WET END HELPER/Onc Dr. Joshua. Reviewed care plan with Dr. Castro who evaluated patient in ER and feels that patient needs to f/u with her primary medical/surgery registered nurse/onc and they do not feel that it is either appropriate or indicated to have the fredi sleeve removed by our medical/surgery registered nurse group in house. # bilateral ureteral obstruction: with bilateral nephrostomy tubes and B ureteral stents that are being considered for replacement with metal stents from plastic as these may lead to improvement in her kidney drainage. Appreciate urology evaluation, they recommend that she follow up with her usual urologist as scheduled for this procedure after discharge rather than proceed with any other interventions now. 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 H/h have trended down overnight though sorin bleeding seems to have ceased. Will start heparin gtt in am if h/h stable and no recurrent bleeding. Would likely opt to dc back on xarelto. # acute blood loss anemia: requiring 4 units PRBCs in the setting of above, again, overnight h/h have trended down, monitoring # thrombocytopenia: transfused 2 units of platelets given concurrent bleeding, improved today, monitoring # IP status Patient new to my care. Old records reviewed including records from [facility]. Care plan reviewed with Doctor Of Veterinary Medicine. Subjective: no significant overnight events, patient is currently feeling better than when she came in though she still feels quite weak Objective: Vital Signs Temp Pulse Resp BP Pulse Ox 36.7 C 105 H 20 100/72 97 04/12/17 11:48 04/12/17 11:48 04/12/17 11:48 04/12/17 11:48 04/12/17 11:48 Laboratory Results 04/12/17 04:50 04/12/17 04:50 04/11/17 04/12/17 04/13/17 05:59 05:59 05:59 Intake Total 4725 200 2061 Output Total 330 300 725 Balance 4395 -100 1336 PT 17.6 SEC (12.0-15.0) H 04/11/17 06:10 INR 1.45 (0.83-1.16) H 04/11/17 06:10 awake alert chronically ill appearing anicteric pale op clear rrr mildly tachy cta b to ant exam soft nt nd no cce warm dry pale oriented appropriate ICD10 Worksheet Patient Problems: Problems Problem Status Onset Hemorrhage Acute Hypotension Acute
[2017-04-12] MEDS: OLANZapine 5 MG TAB PO SCH (21:17)
[2017-04-12 21:37] LABS: POTASSIUM 3.7 mEq/L (3.5-5.2)
[2017-04-13] MEDS: NS 1,000 ML IV SCH ×3 (01:50→20:59)
[2017-04-13] MEDS: ONDANSETRON 4 MG/2 ML VIAL IVP SCH ×6 (01:53→21:02)
[2017-04-13] MEDS: LEVOTHYROXINE 112 MCG TAB PO SCH (05:45)
[2017-04-13 06:11] LABS: IONIZED CALCIUM 1.09 MMOL/L (1.12-1.30)
[2017-04-13 06:38] LABS: ADD MORPH? NO; ADD SCAN? YES; ANION GAP 4 mEq/L (8-16); ATYPICAL LYMPHOCYTE FLAG 0 (0-99); CALCIUM 7.1 mg/dL (8.5-10.4); CARBON DIOXIDE 22 mEq/l (22-31); CHLORIDE 107 mEq/L (97-110); CREATININE 0.9 mg/dL (0.6-1.0); FRAGMENT RBC FLAG 0 (0-99); GLOMERULAR FILTRATION RATE > 60; GLUCOSE 69 mg/dL (70-100); HEMATOCRIT 23.9 % (38.0-47.0); HEMOGLOBIN 7.9 g/dL (12.6-16.3); LIPEMIA HEMOLYSIS FLAG 80 (0-99); MAGNESIUM 1.5 mg/dL (1.6-2.3); MEAN CELL HEMOGLOBIN 29.9 pg (27.9-34.1); MEAN CELL HEMOGLOBIN CONCENTR. 33.1 g/dL (32.4-36.7); MEAN CELL VOLUME 90.5 fL (81.5-99.8); MEAN PLATELET VOLUME 10.2 fL (8.7-11.7); PLATELET CLUMPS FLAG 10 (0-99); PLATELET COUNT 81 10^3/uL (150-400); POTASSIUM 3.8 mEq/L (3.5-5.2); RED BLOOD CELL COUNT 2.64 10^6/uL (4.18-5.33); RED CELL DISTRIBUTION WIDTH 16.3 % (11.5-15.2); SODIUM 133 mEq/L (134-144)
[2017-04-13 06:39] LABS: LEFT SHIFT FLG 110 (0-99)
[2017-04-13 07:01] LABS: ADD DIFF? YES; SCAN POSITIVE
[2017-04-13 07:05] LABS: MACROCYTES 1+; PLATELET ESTIMATE DECREASED (ADEQ)
[2017-04-13] MEDS ORDERED: CALCIUM GLUCONATE 50 ML IV ONE (08:42)
[2017-04-13] MEDS ORDERED: POTASSIUM CL 10 MEQ TAB PO ONE (09:00)
[2017-04-13] MEDS: FLUoxetine 10 MG CAP PO SCH (09:00)
[2017-04-13] MEDS: PANTOPRAZOLE SODIUM 40 MG TAB PO SCH (09:00)
[2017-04-13] MEDS: NORETHINDRONE ACET 5 MG TAB PO SCH (09:00)
[2017-04-13] MEDS ORDERED: MAGNESIUM SULF 1 GM/DEXTROSE 100 ML IV ONE (09:00)
[2017-04-13] MEDS: GABAPENTIN 300 MG CAP PO SCH ×3 (09:00→21:03)
--- NOTE | 2017-04-13 14:18 | HOSPPROG ---
Hospitalist Progress Note Assessment/Plan: 47 yo F with complicated PMH including cervical cancer largely previously treated at [facility] presenting here with vaginal bleed # vaginal bleed: in setting of known cervical cancer and with fredi sleeve in cervix for XRT, has been seen by OB, bleeding has slowed but still having fairly constant oozing, s/p transfusion of 4 units PRBC on admission, h/h remains low but essentially stable # cervical cancer: s/p XRT and chemo with associated ureteral obstruction as next. Is followed by CUSTOMIZER/Onc Dr. Joshua. Reviewed care plan with Dr. Castro who evaluated patient in ER and feels that patient needs to f/u with her primary pipe coverer helper/onc and they do not feel that it is either appropriate or indicated to have the fredi sleeve removed by our pipe coverer helper group in house. # bilateral ureteral obstruction: with bilateral nephrostomy tubes and B ureteral stents that are being considered for replacement with metal stents from plastic as these may lead to improvement in her kidney drainage. Appreciate urology evaluation, they recommend that she follow up with her usual urologist as scheduled for this procedure after discharge rather than proceed with any other interventions now. 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 Given continued bleeding will not resume AC at this point and may be too high risk in the near future as well. Will # acute blood loss anemia: as above 2/2 vaginal bleeding, monitoring but h/h stable overnight # thrombocytopenia: transfused 2 units of platelets given concurrent bleeding, stable # IP status--will likely dc to SNF in the am. Subjective: no significant overnight events, discussed with patient what her goals are in terms of treatment, especially given that she has been largely immobile Objective: Vital Signs Temp Pulse Resp BP Pulse Ox 37.1 C 110 H 17 106/65 99 04/13/17 09:00 04/13/17 11:50 04/13/17 09:00 04/13/17 11:50 04/13/17 11:50 Laboratory Results 04/13/17 06:00 04/13/17 06:00 04/12/17 04/13/17 04/14/17 05:59 05:59 05:59 Intake Total 200 4217 Output Total 300 1300 350 Balance -100 2917 -350 PT 17.6 SEC (12.0-15.0) H 04/11/17 06:10 INR 1.45 (0.83-1.16) H 04/11/17 06:10 awake alert chronically ill appearing anicteric pale op clear rrr mildly tachy cta b to ant exam soft nt nd no cce warm dry pale oriented appropriate - Time Spent With Patient Time Spent with Patient: greater than 35 minutes Time Spent with Patient: Greater than 35 minutes spent on this patients care, greater than 50% of time spent counseling, educating, and coordinating care regarding the above mentioned plan. ICD10 Worksheet Patient Problems: Problems Problem Status Onset Hemorrhage Acute Hypotension Acute
[2017-04-13] MEDS: oxyCODONE IR 5 MG TAB PO PRN ×2 (14:47→20:38)
[2017-04-13 17:10] LABS: POTASSIUM 4.2 mEq/L (3.5-5.2)
[2017-04-13] MEDS: OLANZapine 5 MG TAB PO SCH (20:37)
--- NOTE | 2017-04-13 21:57 | GCON ---
[f rep st] CONSULTATION UROLOGY CONSULTATION PHYSICIAN REQUESTING CONSULTATION: Hospitalists service. REASON FOR CONSULTATION: Bilateral ureteral obstruction. HISTORY: This is a 47-year-old woman who was diagnosed with advanced cervical cancer earlier this year, at which time she was noted to have bilateral distal ureteral obstruction and underwent placement of nephroureteral stents. After previously discussing the case and the situation with Dr. Fernandez (who is her primary urologist) in the office, the patient opted to proceed with attempted metallic ureteral stent placement which is scheduled for April 19 at [facility]. Nonetheless, I was asked to see the patient for a "2nd opinion " regarding ureteral regarding the planned procedure and answer any other questions that she had regarding her urologic situation. She last underwent replacement of her nephroureteral stents on March 27 through [facility]. The patient denies any pain related to these nephroureteral stents and has no other voiding complaints at this time. PAST MEDICAL HISTORY: As noted above, notable for stage IV cervical cancer ( for which she has been undergoing chemotherapy and radiation), secondary extrinsic bilateral ureteral obstruction, history of acute renal failure, history of left upper extremity and right lower extremity deep venous thromboses , anemia of chronic disease, and bipolar disease. She was admitted earlier today because of vaginal bleeding, for which she has received 4 units of packed red blood cells. PAST SURGICAL HISTORY: Includes attempted retrograde bilateral ureteral stent placement previously earlier this year. ADMISSION MEDICATIONS: Include Prozac 10 mg daily, Neurontin 300 mg t.i.d., levothyroxine 112 mcg daily, morphine 2-4 mg IV q.4 hours p.r.n., norethindrone 5 mg daily, olanzapine 5 mg q.h.s., Zofran p.r.n., oxycodone IR 5-10 mg q.4 hours p.r.n., Protonix 40 mg daily, potassium chloride p.r.n., tramadol 50 mg q.8 hours p.r.n., and Lovenox 100 mg twice daily. MEDICAL ALLERGIES: None known. FAMILY HISTORY: Not contributory. SOCIAL HISTORY: The patient currently resides at [facility]. She is single and denies current use of tobacco and alcohol products. She has an uncle and aunt nearby, who both serve as Power of Exhauster Engineer. REVIEW OF SYSTEMS: Generalized malaise with intermittent nausea and emesis. She is essentially nonambulatory due to significant weakness. PHYSICAL EXAM: GENERAL: Chronically ill-appearing overweight white female lying supine in bed, in no acute distress. VITAL SIGNS: Blood pressure 98/66, pulse 97, respirations 16, oxygen saturation 100% on room air, temperature 36.7 Celsius. HEENT: Normocephalic, atraumatic. NECK: Supple. HEART: Regular rate. CHEST: Unlabored respiratory pattern. ABDOMEN: Obese with no palpable abnormal masses. No obvious tenderness. BACK: Bilateral nephrostomy tubes in place, draining relatively clear-colored urine. VASCULAR: Normal femoral and dorsalis pedis pulses bilaterally. NEUROLOGIC: She is alert and oriented. She answers all questions appropriately with normal mood and affect. PERTINENT LABORATORY: CBC today notable for white blood cell count 12,000, hemoglobin 9.5, hematocrit 27.3, platelet count 46,000. Chemistry panel notable for potassium 3.2, creatinine 0.8. RADIOGRAPHIC STUDIES: None pertinent related to this admission from a genitourinary standpoint. IMPRESSION: Bilateral distal ureteral obstruction secondary to advanced cervical cancer, status post most recent bilateral nephroureteral stent placement through [facility] Interventional Radiology on 03/27. Patient had numerous questions regarding the probable success of metallic stent placement. I reviewed the procedure in detail with the patient and answered all her questions regarding probability of success (which I would estimate to be approximately 50%, at best). I also reviewed the case with her uncle by telephone (who has Power of Exhauster Engineer) as well and answered all his questions. The case has also been reviewed with Dr. Fernandez by telephone. PLAN: The patient will proceed with scheduled bilateral metallic ureteral stent placement with Dr. Fernandez at [facility] on April 19. She understands that there is a possibility she will develop subsequent bilateral ureteral obstruction and thereafter require indefinite nephrostomy tubes to prevent the development of renal failure. Thank you for this consultation. Copy requested to: Dr. Debora Lynn /[id number]/MODL MTDD
[2017-04-13] MEDS ORDERED: MAGNESIUM CITRATE 300 ML BOTTLE PO ONE (23:33)
[2017-04-13] MEDS: HYDROmorphONE/DILAUDID 1 MG/ML INJ IVP PRN (23:42)
[2017-04-14] MEDS ORDERED: BISACODYL 10 MG SUPP PR PRN (00:15)
[2017-04-14] MEDS ORDERED: BISACODYL 10 MG SUPP PR ONE (00:15)
[2017-04-14 00:53] LABS: COLOR YELLOW; LEUKOCYTE ESTERASE,URINE 2+ (NEGATIVE); NITRITE,URINE NEGATIVE (NEGATIVE)
[2017-04-14] MEDS: LORazepam 2 MG/ML INJ IVP PRN (00:59)
[2017-04-14] MEDS: ONDANSETRON 4 MG/2 ML VIAL IVP SCH ×6 (01:02→21:31)
[2017-04-14 01:03] LABS: AMORPHOUS PRESENT /hpf (NONE-1+); BACTERIA 4+ /hpf (NONE SEEN); MUCUS 4+ /lpf (NONE-1+); RBC,URINE 50-182 /hpf (0-3); WBC,URINE 50-182 /hpf (0-3)
[2017-04-14] MEDS ORDERED: IOPAMIDOL (ISOVUE 370) 100 ML BTL IV ONE (01:56)
--- NOTE | 2017-04-14 02:03 | HOSPPROG ---
Hospitalist Progress Note Assessment/Plan: 45 minutes of critical care time spent with patient, at bedside with RN and patient, addressing the following issues: -earlier in the shift the nurse notified me that the patient was experiencing severe, 10/10, right lower quadrant pain which was refractory to 4 mg of IV morphine and 1 mg of IV Dilaudid, patient was experiencing tachycardia in the setting of this, and was mentating at her baseline which is fully oriented and conversant -abdominal x-ray was performed which demonstrated colonic distension pharmaceutical representative of constipation, possible partial small bowel obstruction, no evidence of free air -administered 1 mg of IV Ativan for adjuvant pain relief, patient's mental status abruptly became altered, minimally conversant, minimally verbally responsive, able to only follows some commands, but patient's pain did appear to be relieved and patient no longer appeared to be uncomfortable -despite adequate pain control, patient's heart rate rubi from the 130s to 150s , and has been persistent, systolic blood pressure around 110 -evaluated patient, she is alert awake oriented times 0, minimally verbally interactive, eyes are open but she is not consistently tracking, she may have a little bit of neglect on left side but is able to move both hands, with 5/5 motor strength, heart rhythm is regular with some intermittent irregularity, tachycardic, breath sounds are equal bilaterally but with poor inspiratory effort, abdomen is soft, tender to palpation in the bilateral lower quadrants, bowel sounds hypoactive -reviewed progress notes, noted patient's history of DVT with IVC filter, currently off systemic anticoagulation given vaginal bleeding -get EKG to ensure this is sinus tach, placed on telemetry -given her history of DVT, her clinical deterioration, will get CT angiogram of the chest to rule out evolving pulmonary embolism which would necessitate reconsideration of systemic anticoagulation -will get noncontrast head CT to rule out intracranial hemorrhage -will get abdominal CT with IV contrast to evaluate for perinephric stranding which could be indicative of urinary tract infection/pyelonephritis, rule out hydronephrosis, rule out appendicitis, rule out intra-abdominal abscess -will also repeat hemoglobin level to ensure no internal bleeding -will evaluate for end-organ hypoperfusion with lactic acid level -will evaluate for infection given her ureteral stricture and risk of recurrent urinary infections with urinalysis, urine culture, procalcitonin, CBC, blood cultures -will hold on antibiotics until the above information has been gathered, will hold on additional volume expanders but will choose albumin as our 1st option if needed -will transfer to step-down unit given the high complexity of care, critical illness, high risk of worsening morbidity and/or mortality Objective: Vital Signs Temp Pulse Resp BP Pulse Ox 37.3 C 145 H 20 122/80 H 86 L 04/14/17 01:16 04/14/17 01:16 04/14/17 01:16 04/14/17 01:16 04/14/17 01:16 Laboratory Results 04/13/17 06:00 04/13/17 16:45 04/12/17 04/13/17 04/14/17 05:59 05:59 05:59 Intake Total 200 4217 1036 Output Total 300 1300 1320 Balance -100 2917 -284 PT 17.6 SEC (12.0-15.0) H 04/11/17 06:10 INR 1.45 (0.83-1.16) H 04/11/17 06:10 ICD10 Worksheet Patient Problems: Problems Problem Status Onset Hemorrhage Acute Hypotension Acute
--- NOTE | 2017-04-14 02:06 | CPEKG ---
Heart Rate: 146 RR Interval: 411 QRSD Interval: 110 QT Interval: 296 QTC Interval: 462 QRS [place]: 67 T Wave [place]: 22 EKG Severity - ABNORMAL ECG - EKG Impression: LIKELY SINUS TACHYCARDIA EKG Impression: INCOMPLETE RIGHT BUNDLE BRANCH BLOCK Electronically Signed By: Jenny Cole 14-Apr-2017 21:35:43
[2017-04-14 02:18] LABS: ADD MORPH? NO; ADD SCAN? YES; ATYPICAL LYMPHOCYTE FLAG 0 (0-99); FRAGMENT RBC FLAG 0 (0-99); HEMATOCRIT 31.1 % (38.0-47.0); HEMOGLOBIN 10.3 g/dL (12.6-16.3); LIPEMIA HEMOLYSIS FLAG 80 (0-99); MEAN CELL HEMOGLOBIN 30.1 pg (27.9-34.1); MEAN CELL HEMOGLOBIN CONCENTR. 33.1 g/dL (32.4-36.7); MEAN CELL VOLUME 90.9 fL (81.5-99.8); PLATELET CLUMPS FLAG 0 (0-99); PLATELET COUNT 96 10^3/uL (150-400); RED BLOOD CELL COUNT 3.42 10^6/uL (4.18-5.33); RED CELL DISTRIBUTION WIDTH 16.4 % (11.5-15.2)
[2017-04-14 02:19] LABS: LEFT SHIFT FLG 180 (0-99)
[2017-04-14 02:21] LABS: ADD DIFF? YES; SCAN POSITIVE
[2017-04-14 02:44] LABS: GLUCOSE 73 mg/dL (70-100)
[2017-04-14 03:01] LABS: PLATELET ESTIMATE DECREASED (ADEQ)
[2017-04-14 03:04] LABS: POLYCHROMASIA 1+; TOXIC VACUOLIZATION PRESENT
[2017-04-14 03:07] LABS: PROCALCITONIN 0.89 ng/mL (0.02-0.10)
[2017-04-14] MEDS ORDERED: ERTAPENEM 1 GM in NS 100 ML IV ONE (03:39)
[2017-04-14 04:21] LABS: ANION GAP 9 mEq/L (8-16); CALCIUM 7.3 mg/dL (8.5-10.4); CARBON DIOXIDE 19 mEq/l (22-31); CHLORIDE 107 mEq/L (97-110); CREATININE 0.9 mg/dL (0.6-1.0); GLOMERULAR FILTRATION RATE > 60; GLUCOSE 66 mg/dL (70-100); SODIUM 135 mEq/L (134-144)
--- NOTE | 2017-04-14 04:56 | SOAPPROG ---
SOAP Progress Note Assessment/Plan: Assessment: UNFORTUNATE 47 FEMALE WITH CERVICAL CANCER ON CHEMO AND RADIATION AND OBSTRUCTED URETERS/ PRESENTED WITH VAGINAL BLEEDING APPEARS TO HAVE PERFED COLON WITH PERITONITIS AND SMALL AMOUNT OF FREE AIR THROMBOCYTOPENIA, ANEMIA, INR 1.7 LACTATE OK, AFEBRILE TACHY AT 140/ ABD SOFT BUT VERY TENDER LLQ RISKS AND OPTIONS FULLY DISCUSSED WITH PT AND POA Plan:LAPAROTOMY, PROBABLE COLOSTOMY 04/14/17 04:50 Objective: Vital Signs Temp Pulse Resp BP Pulse Ox 37.4 C 139 H 16 103/69 96 04/14/17 03:35 04/14/17 03:35 04/14/17 03:35 04/14/17 03:35 04/14/17 03:35 Laboratory Results 04/14/17 02:00 04/14/17 03:45 04/12/17 04/13/17 04/14/17 05:59 05:59 05:59 Intake Total 200 4217 1036 Output Total 300 1300 1320 Balance -100 2917 -284 PT 17.6 SEC (12.0-15.0) H 04/11/17 06:10 INR 1.45 (0.83-1.16) H 04/11/17 06:10 ICD10 Worksheet Patient Problems: Problems Problem Status Onset Hemorrhage Acute Hypotension Acute
[2017-04-14] MEDS: NS 1,000 ML IV SCH (05:11)
[2017-04-14] MEDS ORDERED: fentaNYL 100 MCG/2 ML INJ ONE ×2 (05:12→06:59)
[2017-04-14] MEDS ORDERED: PROPOFOL/EMULSION 500 MG/50 ML BOTTLE IV ONE (05:14)
[2017-04-14 05:18] LABS: INR 1.67 (0.83-1.16); PROTIME(PATIENT) 19.7 SEC (12.0-15.0)
--- NOTE | 2017-04-14 05:18 | PDANEPAE ---
ANE History of Present Illness septic with suspected bowel perforation. To OR for ex lap ANE Past Medical History - Cardiovascular History Hx Hypertension: No Hx Arrhythmias: No Hx Chest Pain: No Hx Coronary Artery / Peripheral Vascular Disease: No Hx CHF / Valvular Disease: No Hx Palpitations: No - Pulmonary History Hx COPD: No Hx Asthma/Reactive Airway Disease: No Hx Recent Upper Respiratory Infection: No Hx Oxygen in Use at Home: No Hx Sleep Apnea: No - Neurologic History Hx Cerebrovascular Accident: No Hx Seizures: No Hx Dementia: No - Endocrine History Hx Diabetes: No Hypothyroid: No Hyperthyroid: No Obesity: moderate - Renal History Hx Renal Disorders: Yes Renal History Comment: bilateral ureteral obstruction. Bilateral nephrostomy tubes - Liver History Hx Hepatic Disorders: No - Neurological & Psychiatric Hx Hx Neurological and Psychiatric Disorders: Yes Neurological / Psychiatric History Comment: acute mental status changes overnight, Bipolar - Cancer History Hx Cancer: Yes Cancer History Comment: cervical cancer s/p chemo radiation - Congenital Disorder History Hx Congenital Disorders: No - GI History Hx Gastrointestinal Disorders: No - Other Health History Other Health History: history of DVT s/p IVC filter - Chronic Pain History Chronic Pain: Yes - Surgical History Prior Surgeries: nephrostomy tubes, IVC filter ANE Review of Systems Review of systems is: negative Review of Systems: - Exercise capacity Exercise capacity: <4 METS ANE Patient History - Allergies Allergies/Adverse Reactions: No Known Allergies Allergy (Unverified 04/10/17 22:48) - Home Medications Home Medications: Enoxaparin [Lovenox 100 MG (*)] 100 mg SQ BID@05,17 04/10/17 [Last Taken 17:00] FLUoxetine [Prozac 10 MG (*)] 10 mg PO DAILY 04/10/17 [Last Taken 04/10/17 08:00 ] Gabapentin [Neurontin 300 MG (*)] 300 mg PO TID 04/10/17 [Last Taken 04/10/17 17 :00] Levothyroxine [Synthroid 112 mcg (*)] 112 mcg PO DAILY06 04/10/17 [Last Taken 07:00] OLANZapine [Zyprexa] 5 mg PO HS 04/10/17 [Last Taken 04/09/17 21:00] Pantoprazole Sodium [Protonix 40mg (*)] 40 mg PO DAILY 04/10/17 [Last Taken 11/21 08:00] oxyCODONE IR [Oxycodone Ir (*)] 5 - 10 mg PO Q4 PRN 04/10/17 [Last Taken 13:00] traMADol [Ultram 50 mg (*)] 50 mg PO Q8 PRN 04/10/17 [Last Taken Unknown] Acetaminophen [Tylenol 325mg (*)] 650 mg PO Q4 PRN 04/11/17 [Last Taken Unknown] Herbals/Supplements -Info Only 1 ea PO DAILY 04/11/17 [Last Taken 04/10/17 08:00 ] Loperamide HCl [Imodium 2 mg (*)] 2 mg PO PRN PRN 04/11/17 [Last Taken Unknown] Ondansetron [Ondansetron Odt] 8 mg PO Q8 PRN 04/11/17 [Last Taken 04/10/17 08:30 ] - NPO status NPO Status: no food or drink >8 hours - Smoking Hx Smoking Status: Never smoked - Alcohol Use Alcohol Use: Sober ANE Labs/Vital Signs - Labs Result Diagrams: 04/14/17 02:00 04/14/17 03:45 - Vital Signs Blood Pressure: 98/66 Heart Rate: 136 Respiratory Rate: 18 O2 Sat (%): 100 Height: 167.64 cm Weight: 220.9 kg ANE Physical Exam - Airway Neck exam: FROM Mallampati Score: Class 1 Mouth exam: normal dental/mouth exam - Pulmonary Pulmonary: no respiratory distress - Cardiovascular Cardiovascular: regular rate and rhythym - ASA Status ASA Status: IV, E ANE Anesthesia Plan Anesthesia Plan: general endotracheal anesthesia Lines/Monitors: arterial line Urgent/Emergent Case: Guille jimenes completed preop but documented later for safe timely pt care (septic acutely ill, to OR for emegergent ex-lap)
[2017-04-14] MEDS ORDERED: D5W LR 1,000 ML IV SCH (05:30)
--- NOTE | 2017-04-14 05:32 | GCON ---
[f rep st] CONSULTATION DATE OF CONSULTATION: 04/14/2017 HISTORY OF PRESENT ILLNESS: A 47-year-old female with cervical cancer, metastatic, causing her obstr ucted ureters bilaterally, who presented with vaginal bleeding after radiation treatment and chemothe rapy for cervical cancer. I was consulted tonight because of increasing abdominal pain, tachycardia, and probable perforated sigmoid colon with small amount of free air on a CAT scan. Present illness is complicated by recent anticoagulation which has been stopped, but she has bilateral nephroureteral stents. She does have some thrombocytopenia and anemia, and has received 4 units of blood. At the present time she is somewhat sedated from some Ativan, but I have discussed the risks and options wit h the patient and her POA, who wished to proceed with surgery. PAST MEDICAL HISTORY: Includes DVTs for which she has an IVC filter. She has had bilateral nephrost marcelina tubes and ureteral stents, and chemo radiation for cervical cancer. ALLERGIES: None. MEDICATIONS: Gabapentin, Lovenox, oxycodone, Protonix, Prozac, Synthroid, Zyprexa, tramadol. FAMILY HISTORY: Noncontributory. PHYSICAL EXAMINATION: GENERAL: Reveals a 47-year-old female who appears in some distress. She appe ars much older than her stated age. HEAD AND NECK: Reveals alopecia. She is nonicteric. Conjuncti va pale. No oral lesions. No cervical adenopathy. Pupils are normal. CHEST: Clear and symmetric except for some mild dullness in the left base. CARDIAC: Regular tachycardia. ABDOMEN: Soft but v hannah tender in the left lower quadrant with some rebound. Bowel sounds are decreased. She is not par ticularly distended. PELVIC: Reveals bloody foul discharge. EXTREMITIES: Reveal full range of mot ion. Full pulses. IMPRESSION: Probable perforated sigmoid colon of uncertain etiology. PLAN: A laparotomy with probable colostomy. Risks and options fully discussed and she wishes to pro ceed, as well as her POA. /[id number]/MODL
[2017-04-14] MEDS ORDERED: BUPIVACAINE 0.5% 30 ML SDV ONE (07:01)
--- NOTE | 2017-04-14 07:55 | POSTANESTH ---
Post Anesthetic Evaluation Cardiovascular Status: Similar to Pre-Op Cond Respiratory Status: Similar to Pre-op Cond. Level of Consciousness/Mental Status: Mildly Sleepy, Arousable Pain Control: Adequate, Prn Tx Ordered Nausea/Vomiting Control: Adequate, Prn Tx Ordered Complications Possibly Related to Anesthesia: None Noted
--- NOTE | 2017-04-14 08:04 | POSTOPPROG ---
Post Op Note Date of Operation: 04/14/17 Surgeon: Hung Gamez Anesthesiologist: ANN Pre-op Diagnosis: PERFED VISCUS Post-op Diagnosis: PERFED CECUM WITH PELVIC ABSCESS Indication: FREE AIR, PERITONITIS Procedure: LAPAROTOMY, DRAINAGE PELVIC ABSCESS, PARTIAL CECECTOMY, APPE Findings: PERFORATED CECUM WITH PELVIC ABSCESS Inf/Abcess present in the surg proc area at time of surgery?: Yes Depth: Organ Space EBL: Minimal Complications: 0 Drains: Bao Rahman Specimen(s): APPENDIX, SEGMENT OF CECUM
[2017-04-14] MEDS: D5W 1/2 NS W/ 20 KCl/L 1,000 ML IV SCH (08:24)
[2017-04-14] MEDS ORDERED: ALBUMIN 5% 500 ML BOTTLE IV ONE (08:38)
[2017-04-14] MEDS ORDERED: ALBUMIN 5% 500 ML IV ONE ×3 (08:38→11:04)
[2017-04-14] MEDS ORDERED: ERTAPENEM 1 GM in NS 100 ML IV SCH (09:00)
[2017-04-14 10:42] LABS: HEMATOCRIT 18.3 % (38.0-47.0)
[2017-04-14 10:44] LABS: HEMOGLOBIN 6.1 g/dL (12.6-16.3)
[2017-04-14] MEDS: FLUoxetine 10 MG CAP PO SCH (10:55)
[2017-04-14] MEDS: GABAPENTIN 300 MG CAP PO SCH ×3 (10:55→21:31)
[2017-04-14] MEDS: NORETHINDRONE ACET 5 MG TAB PO SCH (10:56)
[2017-04-14] MEDS ORDERED: LEVOTHYROXINE 100 MCG/5 ML SYR IVP SCH (11:00)
[2017-04-14 11:47] LABS: IONIZED CALCIUM 1.13 MMOL/L (1.12-1.30)
[2017-04-14] MEDS: LEVOTHYROXINE 100 MCG/5 ML SYR IVP SCH (11:48)
[2017-04-14 11:50] LABS: % IMMATURE GRANULYOCYTES 0.9 % (0.0-1.1); ABSOLUTE IMMATURE GRANULOCYTES 0.07 10^3/uL (0.00-0.10); ADD DIFF? NO; ADD MORPH? YES; ADD SCAN? YES; ATYPICAL LYMPHOCYTE FLAG 0 (0-99); FRAGMENT RBC FLAG 10 (0-99); HEMATOCRIT 18.1 % (38.0-47.0); LIPEMIA HEMOLYSIS FLAG 80 (0-99); MEAN CELL HEMOGLOBIN 30.7 pg (27.9-34.1); MEAN CELL HEMOGLOBIN CONCENTR. 33.7 g/dL (32.4-36.7); MEAN PLATELET VOLUME 9.7 fL (8.7-11.7); PLATELET CLUMPS FLAG 0 (0-99); PLATELET COUNT 68 10^3/uL (150-400); RED CELL DISTRIBUTION WIDTH 16.3 % (11.5-15.2)
[2017-04-14 11:58] LABS: HEMOGLOBIN 6.1 g/dL (12.6-16.3); LEFT SHIFT FLG 300 (0-99)
[2017-04-14 12:02] LABS: RED BLOOD CELL COUNT 1.99 10^6/uL (4.18-5.33)
[2017-04-14] MEDS: PANTOPRAZOLE SODIUM 40 MG in NS 100 ML IV SCH ×2 (12:02→20:27)
[2017-04-14 12:11] LABS: ALANINE AMINOTRANSFERASE 21 IU/L (9-52); ALBUMIN 2.2 g/dL (3.5-5.0); ALKALINE PHOSPHATASE 65 IU/L (38-126); ANION GAP 11 mEq/L (8-16); ASPARTATE AMINOTRANSFERASE 10 IU/L (14-46); BILIRUBIN,TOTAL 0.7 mg/dL (0.1-1.4); CALCIUM 7.3 mg/dL (8.5-10.4); CARBON DIOXIDE 20 mEq/l (22-31); CHLORIDE 106 mEq/L (97-110); CREATININE 0.9 mg/dL (0.6-1.0); GLOMERULAR FILTRATION RATE > 60; GLUCOSE 106 mg/dL (70-100); MAGNESIUM 1.3 mg/dL (1.6-2.3); POTASSIUM 3.6 mEq/L (3.5-5.2); SODIUM 137 mEq/L (134-144); TOTAL PROTEIN 4.1 g/dL (6.3-8.2)
[2017-04-14 12:29] LABS: SCAN POSITIVE
[2017-04-14 12:34] LABS: HYPOCHROMIA 1+; PLATELET ESTIMATE DECREASED (ADEQ)
[2017-04-14 12:35] LABS: POLYCHROMASIA 1+
[2017-04-14] MEDS: LEVOTHYROXINE 112 MCG TAB PO SCH (13:50)
[2017-04-14] MEDS: PANTOPRAZOLE SODIUM 40 MG TAB PO SCH (13:50)
--- NOTE | 2017-04-14 14:29 | HOSPPROG ---
Hospitalist Progress Note Assessment/Plan: 47 yo F with complicated PMH including cervical cancer largely previously treated at [facility] presenting here with vaginal bleed and hospital course complicated by colon perforation # colon perforation: with free air found on ct (personally reviewed) and taken urgently to OR overnight and found to have pelvic abscess with perforated cecum , s/p partial colectomy. Started on invanz and ID consulted. # acute blood loss anemia: h/h again decreasing over the course of the day today , is having continued vaginal bleeding as next and post op blood loss but unclear if other source of bleeding. Transfusing again today, will trend h/h. # vaginal bleed: in setting of known cervical cancer and with fredi sleeve in cervix for XRT, has been seen by OB, bleeding has slowed but still having fairly constant oozing, s/p transfusion of 4 units PRBC on admission, h/h trending back down post operatively # hypotension: so far has been responsive to albumin/fluid resuscitation, monitoring closely in ICU # cervical cancer: s/p XRT and chemo with associated ureteral obstruction as next. Is followed by [facility]/Onc Dr. Joshua. Reviewed care plan with Dr. Castro who evaluated patient in ER and feels that patient needs to f/u with her primary concrete paving supervisor/onc and they do not feel that it is either appropriate or indicated to have the fredi sleeve removed by our concrete paving supervisor group in house. # bilateral ureteral obstruction: with bilateral nephrostomy tubes and B ureteral stents that are being considered for replacement with metal stents from plastic as these may lead to improvement in her kidney drainage. Appreciate urology evaluation, they recommend that she follow up with her usual urologist as scheduled for this procedure after discharge rather than proceed with any other interventions now. 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 Given continued bleeding will not resume AC # thrombocytopenia: transfused 2 units of platelets given concurrent bleeding, has trended down slightly with recurrent bleeding, trending # IP status--currently in ICU given acute decompensation overnight and tenuous status Subjective: patient with acute decompensation overnight requiring urgent surgery , quite somnolent today and hypotensive Objective: Vital Signs Temp Pulse Resp BP Pulse Ox 36.8 C 116 H 18 103/76 100 04/14/17 12:00 04/14/17 14:00 04/14/17 14:00 04/14/17 14:00 04/14/17 14:00 Laboratory Results 04/14/17 11:15 04/14/17 11:15 04/13/17 04/14/17 04/15/17 05:59 05:59 05:59 Intake Total 4217 1036 Output Total 1300 1370 Balance 2917 -334 PT 19.7 SEC (12.0-15.0) H 04/14/17 04:50 INR 1.67 (0.83-1.16) H 04/14/17 04:50 chronically ill appearing, somnolent, arousable anicteric, pale op clear rrr tachy cta to ant exam soft, dec bs, mild ttp trace ble edema warm pale somnolent but arousable, moves all 4 ICD10 Worksheet Patient Problems: Problems Problem Status Onset Hemorrhage Acute Hypotension Acute
[2017-04-14] MEDS ORDERED: MAGNESIUM SULF 2 GM/WATER 50 ML IV ONE (14:34)
--- NOTE | 2017-04-14 15:08 | PDINTPN ---
City Surveyor Progress Note Assessment/Plan: Assessment/plan: 47 F with known cervical cancer treated with HDR via Caio sleeve, complicated by DVT in Sep and November 2016. She developed substantial vag bleeding after switching to LMWH recently, but stabilized after reversal and blood products. She was recovering on the floor when she developed abdominal symptoms and a CT revealed perforated viscous. She was taken to the OR 04/14 where she underwent laparotomy, partial cecectomy, appy, and pelvic abscess drainage. Postop she has been hypotensive but responsive to IVF (mostly albumin) and marginally hypoxic that recovers easily when she is more awake. * Peritonitis 2/2 perforated cecum and abscess- her WBC came down and is currently on ertapenem. Consider ID consult for clarification of abx. Blood cx pending, but no cultures from abscess. * Hypotension- she has been fluid responsive and her repeat Hct is down to 18. RBC pending, but may need repeat CT if followup H/H remain low. Some vaginal bleeding as well. Recheck INR now; transfuse FFP if >1.5. Platelets 67, so not likely required at the moment. Not needing pressors at the moment. Doubt ACS or sepsis (though possible). * DVT- IVC filter placed. Hold all anticoag for now. * Ureteral obstruction- bilateral nephrostomy tubes remain. Eventual re-eval for metal stents. Subjective: developed cecum perofration and required resection last PM. Objective: Vital Signs Temp Pulse Resp BP Pulse Ox 36.8 C 116 H 18 103/76 100 04/14/17 12:00 04/14/17 14:00 04/14/17 14:00 04/14/17 14:00 04/14/17 14:00 Laboratory Results 04/14/17 11:15 04/14/17 11:15 04/13/17 04/14/17 04/15/17 05:59 05:59 05:59 Intake Total 4217 1036 Output Total 1300 1370 1040 Balance 2917 -334 -1040 PT 19.7 SEC (12.0-15.0) H 04/14/17 04:50 INR 1.67 (0.83-1.16) H 04/14/17 04:50 Physical Exam - Physical Exam General Appearance: no apparent distress, other (sleepy but arousable) EENT: PERRL/EOMI Neck: supple Respiratory: lungs clear, normal breath sounds, No respiratory distress Cardiac/Chest: regular rate, rhythm, No edema Abdomen: non-tender, soft, No distended Skin: normal color, warm/dry Lymphatic: no adenopathy Extremities: No pedal edema Neuro/Psych: depressed affect ICD10 Worksheet Patient Problems: Problems Problem Status Onset Hemorrhage Acute Hypotension Acute
[2017-04-14] MEDS: POTASSIUM Cl (KCl) 50 ML IV SCH ×3 (15:15→15:38)
[2017-04-14 16:31] LABS: HEMATOCRIT 22.5 % (38.0-47.0); HEMOGLOBIN 7.8 g/dL (12.6-16.3)
[2017-04-14 16:41] LABS: INR 1.92 (0.83-1.16); PROTIME(PATIENT) 22.1 SEC (12.0-15.0)
--- NOTE | 2017-04-14 17:30 | SOAPPROG ---
SOAP Progress Note Assessment/Plan: Assessment: UNFORTUNATE 47 FEMALE WITH CERVICAL CANCER ON CHEMO AND RADIATION AND OBSTRUCTED URETERS/ PRESENTED WITH VAGINAL BLEEDING APPEARS TO HAVE PERFED COLON WITH PERITONITIS AND SMALL AMOUNT OF FREE AIR THROMBOCYTOPENIA, ANEMIA, INR 1.7 LACTATE OK, AFEBRILE TACHY AT 140/ ABD SOFT BUT VERY TENDER LLQ RISKS AND OPTIONS FULLY DISCUSSED WITH PT AND POA Plan:LAPAROTOMY, PROBABLE COLOSTOMY 04/14/17 04:50 04/14/17 17:29 POSTOP REASONABLY STABLE / BP 103 PULSE 100 / AFEBRILE / MODERATE SEROUS DRAINAGE FROM THE TAYE / WOUND OKAY / TRANSFUSING 2 UNITS FOR HEMATOCRIT OF 16 Objective: Vital Signs Temp Pulse Resp BP Pulse Ox 36.4 C 87 16 101/69 100 04/14/17 16:00 04/14/17 17:00 04/14/17 17:00 04/14/17 17:00 04/14/17 17:00 Laboratory Results 04/14/17 16:17 04/14/17 11:15 04/13/17 04/14/17 04/15/17 05:59 05:59 05:59 Intake Total 4217 1036 Output Total 1300 1370 1340 Balance 3777 -334 -1340 PT 22.1 SEC (12.0-15.0) H 04/14/17 16:17 INR 1.92 (0.83-1.16) H 04/14/17 16:17 ICD10 Worksheet Patient Problems: Problems Problem Status Onset Hemorrhage Acute Hypotension Acute
[2017-04-14] MEDS: OLANZapine 5 MG TAB PO SCH (20:28)
[2017-04-14 20:42] LABS: HEMATOCRIT 25.6 % (38.0-47.0); HEMOGLOBIN 8.7 g/dL (12.6-16.3)
[2017-04-14 20:58] LABS: POTASSIUM 3.9 mEq/L (3.5-5.2)
[2017-04-14] MEDS ORDERED: POTASSIUM Cl (KCl) 50 ML IV ONE (21:07)
[2017-04-14] MEDS: HYDROmorphONE/DILAUDID 1 MG/ML INJ IVP PRN (23:56)
[2017-04-15 02:40] LABS: HEMATOCRIT 25.5 % (38.0-47.0); HEMOGLOBIN 8.9 g/dL (12.6-16.3)
[2017-04-15] MEDS: ONDANSETRON 4 MG/2 ML VIAL IVP SCH ×6 (03:17→21:33)
[2017-04-15] MEDS: HYDROmorphONE/DILAUDID 1 MG/ML INJ IVP PRN ×3 (04:48→17:01)
[2017-04-15] MEDS: D5W 1/2 NS W/ 20 KCl/L 1,000 ML IV SCH ×3 (04:51→23:00)
[2017-04-15 06:15] LABS: IONIZED CALCIUM 1.16 MMOL/L (1.12-1.30)
[2017-04-15 06:31] LABS: INR 1.68 (0.83-1.16); PROTIME(PATIENT) 19.8 SEC (12.0-15.0)
[2017-04-15 06:32] LABS: APTT 38.3 SEC (23.0-38.0)
[2017-04-15 07:13] LABS: ALANINE AMINOTRANSFERASE 24 IU/L (9-52); ALBUMIN 2.2 g/dL (3.5-5.0); ALKALINE PHOSPHATASE 82 IU/L (38-126); ANION GAP 8 mEq/L (8-16); ASPARTATE AMINOTRANSFERASE 11 IU/L (14-46); CALCIUM 7.5 mg/dL (8.5-10.4); CARBON DIOXIDE 21 mEq/l (22-31); CHLORIDE 109 mEq/L (97-110); CREATININE 0.8 mg/dL (0.6-1.0); GLOMERULAR FILTRATION RATE > 60; GLUCOSE 77 mg/dL (70-100); MAGNESIUM 1.7 mg/dL (1.6-2.3); POTASSIUM 3.8 mEq/L (3.5-5.2); SODIUM 138 mEq/L (134-144); TOTAL PROTEIN 4.2 g/dL (6.3-8.2)
[2017-04-15 07:22] LABS: % IMMATURE GRANULYOCYTES 1.2 % (0.0-1.1); ADD DIFF? NO; ADD MORPH? NO; ADD SCAN? YES; ATYPICAL LYMPHOCYTE FLAG 0 (0-99); FRAGMENT RBC FLAG 0 (0-99); HEMATOCRIT 25.3 % (38.0-47.0); HEMOGLOBIN 8.6 g/dL (12.6-16.3); LIPEMIA HEMOLYSIS FLAG 90 (0-99); MEAN CELL HEMOGLOBIN 30.2 pg (27.9-34.1); MEAN CELL VOLUME 88.8 fL (81.5-99.8); MEAN PLATELET VOLUME 10.2 fL (8.7-11.7); PLATELET CLUMPS FLAG 0 (0-99); PLATELET COUNT 53 10^3/uL (150-400); RED BLOOD CELL COUNT 2.85 10^6/uL (4.18-5.33); RED CELL DISTRIBUTION WIDTH 16.3 % (11.5-15.2)
[2017-04-15 07:30] LABS: LEFT SHIFT FLG 240 (0-99)
[2017-04-15 07:58] LABS: SCAN POSITIVE
[2017-04-15 08:05] LABS: PLATELET ESTIMATE DECREASED (ADEQ)
[2017-04-15] MEDS ORDERED: MAGNESIUM SULF 1 GM/DEXTROSE 100 ML IV ONE (08:11)
[2017-04-15] MEDS ORDERED: POTASSIUM Cl (KCl) 50 ML IV ONE (08:11)
[2017-04-15] MEDS: PANTOPRAZOLE SODIUM 40 MG in NS 100 ML IV SCH ×2 (08:36→21:33)
[2017-04-15] MEDS: ERTAPENEM 1 GM in NS 100 ML IV SCH (08:49)
--- NOTE | 2017-04-15 10:52 | SOAPPROG ---
SOAP Progress Note Assessment/Plan: Assessment: UNFORTUNATE 47 FEMALE WITH CERVICAL CANCER ON CHEMO AND RADIATION AND OBSTRUCTED URETERS/ PRESENTED WITH VAGINAL BLEEDING APPEARS TO HAVE PERFED COLON WITH PERITONITIS AND SMALL AMOUNT OF FREE AIR THROMBOCYTOPENIA, ANEMIA, INR 1.7 LACTATE OK, AFEBRILE TACHY AT 140/ ABD SOFT BUT VERY TENDER LLQ RISKS AND OPTIONS FULLY DISCUSSED WITH PT AND POA Plan:LAPAROTOMY, PROBABLE COLOSTOMY 04/14/17 04:50 04/14/17 17:29 POSTOP REASONABLY STABLE / BP 103 PULSE 100 / AFEBRILE / MODERATE SEROUS DRAINAGE FROM THE TAYE / WOUND OKAY / TRANSFUSING 2 UNITS FOR HEMATOCRIT OF 16 04/15/17 10:50 ALERT/ VS IMPROVED AND STABLE/ LARGE SEROUS TAYE OUTPUT/ AFEBRILE/ WOUND OK/ UO ADEQUATE/ HCT 25,STABLE PLAN ADD DIFLUCAN/ ID CONSULT Objective: Vital Signs Temp Pulse Resp BP Pulse Ox 36.8 C 104 H 10 L 111/70 95 04/15/17 08:00 04/15/17 10:00 04/15/17 10:00 04/15/17 10:00 04/15/17 10:00 Laboratory Results 04/15/17 06:00 04/15/17 06:00 04/14/17 04/15/17 04/16/17 05:59 05:59 05:59 Intake Total 1036 4408 Output Total 1370 3110 270 Balance -334 1298 -270 PT 19.8 SEC (12.0-15.0) H 04/15/17 06:00 INR 1.68 (0.83-1.16) H 04/15/17 06:00 ICD10 Worksheet Patient Problems: Problems Problem Status Onset Hemorrhage Acute Hypotension Acute
[2017-04-15] MEDS: FLUoxetine 10 MG CAP PO SCH (11:07)
[2017-04-15] MEDS: GABAPENTIN 300 MG CAP PO SCH ×3 (11:11→21:33)
[2017-04-15] MEDS: NORETHINDRONE ACET 5 MG TAB PO SCH (11:12)
[2017-04-15 12:25] LABS: HEMATOCRIT 27.5 % (38.0-47.0); HEMOGLOBIN 9.3 g/dL (12.6-16.3)
[2017-04-15] MEDS: FLUCONAZOLE IV SCH (12:37)
[2017-04-15] MEDS: LEVOTHYROXINE 100 MCG/5 ML SYR IVP SCH (12:37)
[2017-04-15] MEDS: SODIUM CHLORIDE IV SCH (12:37)
--- NOTE | 2017-04-15 13:18 | HOSPPROG ---
Hospitalist Progress Note Assessment/Plan: 47 yo F with complicated PMH including cervical cancer largely previously treated at [facility] presenting here with vaginal bleed and hospital course complicated by colon perforation # colon perforation: with free air found on ct (personally reviewed) and taken urgently to OR overnight and found to have pelvic abscess with perforated cecum , s/p partial colectomy. Started on invanz and ID consulted. # acute blood loss anemia: h/h stable overnight since tx yesterday, in setting of post op state as well as continuous vaginal bleeding # vaginal bleed: in setting of known cervical cancer and with fredi sleeve in cervix for XRT, has been seen by OB, bleeding has slowed but still having fairly constant oozing, s/p transfusion of 6 units of prbcs since admission # hypotension: so far has been responsive to albumin/fluid resuscitation, monitoring closely in ICU # cervical cancer: s/p XRT and chemo with associated ureteral obstruction as next. Is followed by [facility]/Onc Dr. Joshua. Reviewed care plan with Dr. Castro who evaluated patient in ER and feels that patient needs to f/u with her primary marine consultant/onc and they do not feel that it is either appropriate or indicated to have the fredi sleeve removed by our marine consultant group in house. # bilateral ureteral obstruction: with bilateral nephrostomy tubes and B ureteral stents that are being considered for replacement with metal stents from plastic as these may lead to improvement in her kidney drainage. Appreciate urology evaluation, they recommend that she follow up with her usual urologist as scheduled for this procedure after discharge rather than proceed with any other interventions now. As below, would consider tx to [facility]. 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 Given continued bleeding will not resume AC # thrombocytopenia: transfused 2 units of platelets given concurrent bleeding, has trended down slightly with recurrent bleeding, trending # IP status--currently in ICU given acute decompensation overnight and tenuous status. Given her need to be followed with her usual doctors, if patient becomes more stable would strongly consider transfer to [facility] where her marine consultant/onc and urologists are located. Subjective: no significant overnight events, patient is currently feeling a bit better than yesterday though still very somnolent Objective: Vital Signs Temp Pulse Resp BP Pulse Ox 36.7 C 107 H 19 109/73 99 04/15/17 12:00 04/15/17 12:00 04/15/17 12:00 04/15/17 12:00 04/15/17 12:00 Laboratory Results 04/15/17 12:00 04/15/17 06:00 04/14/17 04/15/17 04/16/17 05:59 05:59 05:59 Intake Total 1036 4408 Output Total 1370 3110 270 Balance -334 1298 -270 PT 19.8 SEC (12.0-15.0) H 04/15/17 06:00 INR 1.68 (0.83-1.16) H 04/15/17 06:00 chronically ill appearing, somnolent, arousable anicteric, pale op clear rrr tachy cta to ant exam soft, dec bs, mild ttp trace ble edema warm pale somnolent but arousable, moves all 4 ICD10 Worksheet Patient Problems: Problems Problem Status Onset Hemorrhage Acute Hypotension Acute
--- NOTE | 2017-04-15 14:24 | PDINTPN ---
Lens Finisher Progress Note Assessment/Plan: Assessment/plan: 47 F with known cervical cancer treated with HDR via Caio sleeve, complicated by DVT in Sep and November 2016. She developed substantial vag bleeding after switching to LMWH recently, but stabilized after reversal and blood products. She was recovering on the floor when she developed abdominal symptoms and a CT revealed perforated viscous. She was taken to the OR 04/14 where she underwent laparotomy, partial cecectomy, appy, and pelvic abscess drainage. Postop she has been hypotensive but responsive to IVF (mostly albumin) and marginally hypoxic that recovers easily when she is more awake. * Peritonitis 2/2 perforated cecum and abscess- her WBC came down and is currently on ertapenem. ID consult pending * Hypotension- responded to IVF and blood transfusion with normalization of HCT after RBC and FFP. Watch closely today. * DVT- IVC filter placed. Hold all anticoag for now. * Ureteral obstruction- bilateral nephrostomy tubes remain. Eventual re-eval for metal stents. 04/15/17 14:23 Objective: Vital Signs Temp Pulse Resp BP Pulse Ox 36.4 C 108 H 15 101/70 94 04/15/17 13:58 04/15/17 13:58 04/15/17 13:58 04/15/17 13:58 04/15/17 13:58 Laboratory Results 04/15/17 12:00 04/15/17 06:00 04/14/17 04/15/17 04/16/17 05:59 05:59 05:59 Intake Total 1036 4408 Output Total 1370 3110 270 Balance -334 1298 -270 PT 19.8 SEC (12.0-15.0) H 04/15/17 06:00 INR 1.68 (0.83-1.16) H 04/15/17 06:00 Physical Exam - Physical Exam General Appearance: no apparent distress EENT: PERRL/EOMI Neck: supple Respiratory: lungs clear, normal breath sounds, No respiratory distress Cardiac/Chest: regular rate, rhythm, edema Abdomen: normal bowel sounds, soft, No distended Skin: normal color, warm/dry Lymphatic: no adenopathy Extremities: pedal edema Neuro/Psych: alert, oriented x 3 ICD10 Worksheet Patient Problems: Problems Problem Status Onset Hemorrhage Acute Hypotension Acute
--- NOTE | 2017-04-15 15:35 | GCON ---
[f rep st] CONSULTATION INFECTIOUS DISEASE CONSULTATION DATE OF CONSULTATION: 04/15/2017 REFERRING PHYSICIAN: Rubin Waite MD REASON FOR CONSULTATION: Peritonitis and pelvic abscess for further evaluation and opinion. CHIEF COMPLAINT: Abdominal pain. HISTORY OF PRESENT ILLNESS: This is a 47-year-old female with a past medical history signi ficant for cervical cancer (is on chemotherapy and radiation), ureteral obstruction (status post bila teral nephrostomy tubes), and multiple DVTs, who was admitted here on the due to excessive vaginal bleeding. She had apparently been at [facility] for nausea, vomiting and thrombocytopeni a, and at the time was transferred over to a residential facility. At that facility, she was not ed to have excessive vaginal bleeding and was transferred here for further evaluation. She was hypot ensive and tachycardic. During the course of her hospitalization, she began to have increasing abdom inal pain. She had an abdominal CAT done on April 14 which showed a 6 cm abnormal length of sig moid colon with adjacent free air and potential vaginal perforation. She was taken to the OR yesterd ay, and the preliminary operative note suggests a perforated cecum with pelvic abscess, and she is st atus post a laparotomy with drainage of the pelvic abscess, partial cecectomy, and appendectomy. She was started on Invanz therapy yesterday, and fluconazole was added today. She remains in the intens vern care unit and Infectious Disease consulted for further evaluation and opinion on above. REVIEW OF SYSTEMS: GENERAL: Diffuse shaking chills. EYES: No changes in vision. HEAD: No headac hes. ENT: No sore throat. She does have an NG tube in place. CARDIOVASCULAR: Denies any chest pa in or rapid heartbeat. RESPIRATORY: Denies any shortness of breath, cough, or sputum production. A BDOMEN: She continues to have some lower abdominal pain all across, which is about 6/10 in nature, w ith intermittent nausea. She is having loose stools, as well. : She has bilateral nephrostomy tu bes in place. MUSCULOSKELETAL: No joint pains or muscle aches. Rest of 10-point review of systems essentially negative except as above. PAST MEDICAL HISTORY: Significant for cervical cancer on chemotherapy and radiation, multiple DVTs, and ureteral obstruction. PAST SURGICAL HISTORY: Significant for IVC filter, ureteral stents, and bilateral nephrostomy tubes. SOCIAL HISTORY: She is a nonsmoker and nondrinker. She has an uncle who lives in [place] who i s her POA. ALLERGIES: No known drug allergies. FAMILY HISTORY: Reviewed and found to be noncontributory. PHYSICAL EXAMINATION: VITAL SIGNS: Temperature current 36.7, pulse is 107, blood pressure 109/73, r espiratory rate is 19, and saturation 99% on room air. GENERAL: Resting comfortably in bed. No acu te respiratory distress. Awake, alert, and oriented. HEENT: Eyes without conjunctival injection or petechiae. Oropharynx without thrush. NG tube in place. CARDIOVASCULAR: S1, S2. Regular rate an d rhythm. No obvious murmurs appreciated. RESPIRATORY: Limited exam but anteriorly sounds clear to auscultate. ABDOMEN: Bowel sounds are quiet. She has midline incision with poonam in place that are intact without drainage or erythema. She has 2 TAYE drains on either side with serosanguineous jericho inage in it. She also has bilateral nephrostomy tubes noted. EXTREMITIES: Lower extremity edema pr esent. No obvious joint effusions. LABORATORY DATA: White blood cell count 8.5, hemoglobin 8.6, platelets 53; neutrophil count is 90%, bands 9%. Sodium 138, potassium 3.8, chloride 79, bicarb is 21, BUN is 6, creatinine 0.8. AST 11, A LT 24, alk phos 82, total bilirubin 1.0. Blood cultures x2 sets done yesterday are no growth to date . Imaging results have all been reviewed by me. Chest CT done yesterday showed no new issues. Head CT : Nothing acute identified. ASSESSMENT: Perforated cecum with peritonitis/pelvic abscess, status post incision and drainage. PLAN: Continue with Invanz and fluconazole for now. Will continue to monitor her closely clinically , as well as with labs, to ensure she is improving on this current regimen. We will follow her blood cultures. Will cover her broadly for now given the above. Thank you much for providing the opportunity to care for your patient in consultation. /[id number]/MODL
--- NOTE | 2017-04-15 16:31 | SOAPPROG ---
SOAP Progress Note Assessment/Plan: Assessment: 47 yo F w h/o cervical ca, ureteral obstruction s/p bilat nephroureteral tubes, and DVT s/p filter who presented on 04/10 with vaginal bleeding, blood in her nephroureteral tubes and hypotension. She had recently started Lovenox for DVT. IR was initially consulted for consideration of embolization. She responded well to resuscitation and blood products. Bleeding from the vagina slowed and her nephroureteral output began to clear, so no embolization was indicated. Her hospital course was then complicated by bowel perf requiring urgent surg and continued ICU care. Per her nurse, the right-sided tube was working well until this am, when output essentially stopped. The left-sided tube works well. IR was called today for tube evaluation and possible exchange. On exam on bedside, the right-sided tube flushes easily but contains small dark clots which likely impeded flow. The tube was gently flushed with sterile NS until these clots were cleared. The left-sided tube was also flushed. She says that on admission, the right-sided tube had more blood in it that the left. Suspect that clots in the tube today represent old clot from earlier in the week, less likely slow continued oozing. Her tubes were last changed in December 2016. Plan/recs: 1. Monitor UOP overnight. If output from right-sided tube improves, will plan for routine bilateral exchange on Monday, 04/18, or Monday, 04/17, if schedule permits. She is currently due for bilateral exchange. 2. Trend H&H. 3. Continued care per primary team/ICU. Case and plan for exchange was discussed with Dr. Rubin Waite. She's Ok with routine exchange on Monday since it looks like we were able to get the right-sided tube working today. 04/15/17 16:31 04/15/17 16:32 04/15/17 21:03 04/15/17 21:21 04/15/17 21:57 Subjective: Pt seen and examined this afternoon. Fatigued with mild abdominal pain, but otherwise no specific complaints. Objective: Vital Signs Temp Pulse Resp BP Pulse Ox 36.4 C 108 H 19 109/75 98 04/15/17 13:58 04/15/17 16:00 04/15/17 16:00 04/15/17 16:00 04/15/17 16:00 Laboratory Results 04/15/17 12:00 04/15/17 06:00 04/14/17 04/15/17 04/16/17 05:59 05:59 05:59 Intake Total 1036 4408 Output Total 1370 3110 810 Balance -334 1298 -810 PT 19.8 SEC (12.0-15.0) H 04/15/17 06:00 INR 1.68 (0.83-1.16) H 04/15/17 06:00 Gen: Awake, somnolent, NAD Heart: Tachy Lungs: Normal effort, equal excursions Abd: Appropriately TTP, bilateral nephrostomy tubes in place, left back contains clear urine, right bag contains small blood-tinged urine and sediment, TAYE drains in place MSK: Trace BLE edema ICD10 Worksheet Patient Problems: Problems Problem Status Onset Hemorrhage Acute Hypotension Acute
[2017-04-15 18:10] LABS: HEMATOCRIT 27.7 % (38.0-47.0); HEMOGLOBIN 9.6 g/dL (12.6-16.3)
[2017-04-15 18:16] LABS: POTASSIUM 4.1 mEq/L (3.5-5.2)
[2017-04-15] MEDS: OLANZapine 5 MG TAB PO SCH (21:33)
[2017-04-16 00:50] LABS: HEMATOCRIT 26.2 % (38.0-47.0)
[2017-04-16] MEDS: ONDANSETRON 4 MG/2 ML VIAL IVP SCH ×5 (01:54→17:04)
[2017-04-16 05:18] LABS: IONIZED CALCIUM 1.16 MMOL/L (1.12-1.30)
[2017-04-16 05:19] LABS: HEMOGLOBIN 9.3 g/dL (12.6-16.3); LIPEMIA HEMOLYSIS FLAG 90 (0-99); MEAN CELL HEMOGLOBIN 30.6 pg (27.9-34.1); MEAN CELL HEMOGLOBIN CONCENTR. 34.4 g/dL (32.4-36.7); MEAN CELL VOLUME 88.8 fL (81.5-99.8); PLATELET CLUMPS FLAG 10 (0-99); RED BLOOD CELL COUNT 3.04 10^6/uL (4.18-5.33); RED CELL DISTRIBUTION WIDTH 16.4 % (11.5-15.2)
[2017-04-16 05:25] LABS: PLATELET COUNT 48 10^3/uL (150-400)
[2017-04-16 05:36] LABS: ALANINE AMINOTRANSFERASE 23 IU/L (9-52); ALBUMIN 2.1 g/dL (3.5-5.0); ALKALINE PHOSPHATASE 102 IU/L (38-126); ANION GAP 7 mEq/L (8-16); ASPARTATE AMINOTRANSFERASE 12 IU/L (14-46); BILIRUBIN,TOTAL 0.8 mg/dL (0.1-1.4); CALCIUM 7.5 mg/dL (8.5-10.4); CARBON DIOXIDE 20 mEq/l (22-31); CHLORIDE 108 mEq/L (97-110); CREATININE 0.8 mg/dL (0.6-1.0); GLOMERULAR FILTRATION RATE > 60; GLUCOSE 77 mg/dL (70-100); MAGNESIUM 1.6 mg/dL (1.6-2.3); POTASSIUM 4.2 mEq/L (3.5-5.2); SODIUM 135 mEq/L (134-144); TOTAL PROTEIN 4.2 g/dL (6.3-8.2)
[2017-04-16] MEDS: HYDROmorphONE/DILAUDID 1 MG/ML INJ IVP PRN ×5 (05:38→22:19)
[2017-04-16] MEDS: D5W 1/2 NS W/ 20 KCl/L 1,000 ML IV SCH ×2 (05:40→13:15)
[2017-04-16 05:41] LABS: PLATELET ESTIMATE DECREASED (ADEQ)
[2017-04-16] MEDS ORDERED: MAGNESIUM SULF 1 GM/DEXTROSE 100 ML IV ONE (07:21)
[2017-04-16] MEDS: GABAPENTIN 300 MG CAP PO SCH ×3 (08:31→22:19)
[2017-04-16] MEDS: ERTAPENEM 1 GM in NS 100 ML IV SCH (08:31)
[2017-04-16] MEDS: FLUoxetine 10 MG CAP PO SCH (08:31)
[2017-04-16] MEDS: NORETHINDRONE ACET 5 MG TAB PO SCH (08:31)
--- NOTE | 2017-04-16 08:39 | SOAPPROG ---
SOAP Progress Note Assessment/Plan: Assessment: UNFORTUNATE 47 FEMALE WITH CERVICAL CANCER ON CHEMO AND RADIATION AND OBSTRUCTED URETERS/ PRESENTED WITH VAGINAL BLEEDING APPEARS TO HAVE PERFED COLON WITH PERITONITIS AND SMALL AMOUNT OF FREE AIR THROMBOCYTOPENIA, ANEMIA, INR 1.7 LACTATE OK, AFEBRILE TACHY AT 140/ ABD SOFT BUT VERY TENDER LLQ RISKS AND OPTIONS FULLY DISCUSSED WITH PT AND POA Plan:LAPAROTOMY, PROBABLE COLOSTOMY 04/14/17 04:50 04/14/17 17:29 POSTOP REASONABLY STABLE / BP 103 PULSE 100 / AFEBRILE / MODERATE SEROUS DRAINAGE FROM THE ROSA / WOUND OKAY / TRANSFUSING 2 UNITS FOR HEMATOCRIT OF 16 04/15/17 10:50 ALERT/ VS IMPROVED AND STABLE/ LARGE SEROUS ROSA OUTPUT/ AFEBRILE/ WOUND OK/ UO ADEQUATE/ HCT 25,STABLE PLAN ADD DIFLUCAN/ ID CONSULT 04/16/17 08:37 more alert/ vs stable/ afebrile/ hct stable 27/ wounds ok/ rosa serous drainage/ +bs, -flatus or bm/ ng minimal out Objective: Vital Signs Temp Pulse Resp BP Pulse Ox 36.5 C 105 H 12 107/68 98 04/16/17 07:00 04/16/17 08:00 04/16/17 08:00 04/16/17 08:00 04/16/17 08:00 Laboratory Results 04/16/17 05:00 04/16/17 05:00 04/15/17 04/16/17 04/17/17 05:59 05:59 05:59 Intake Total 4408 3482 Output Total 3110 2100 130 Balance 1298 1382 -130 PT 19.8 SEC (12.0-15.0) H 04/15/17 06:00 INR 1.68 (0.83-1.16) H 04/15/17 06:00 ICD10 Worksheet Patient Problems: Problems Problem Status Onset Hemorrhage Acute Hypotension Acute
--- NOTE | 2017-04-16 08:55 | PDINTPN ---
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 She developed substantial vag bleeding after switching to LMWH recently, but stabilized after reversal and blood products. She was recovering on the floor when she developed abdominal symptoms and a CT revealed perforated viscous. She was taken to the OR 04/14 where she underwent laparotomy, partial cecectomy, appy, and pelvic abscess drainage. Postop she has been hypotensive but responsive to IVF (mostly albumin) and marginally hypoxic that recovers easily when she is more awake. * Peritonitis 2/2 perforated cecum and abscess- stable on ertapenem and flucon. No pressors. Normal wbc. * Hypotension- responded to IVF and blood transfusion with normalization of HCT after RBC and FFP. Stable Hct * DVT- IVC filter placed. Hold all anticoag for now. * Ureteral obstruction- bilateral nephrostomy tubes remain. Temporarily obstructed 04/15 but functioning normally today. Plan on changing 04/18 as they are due anyway via IR. Subjective: feels OK. Neprhostomy tube obstruction yesterday, cleared with flushing Objective: Vital Signs Temp Pulse Resp BP Pulse Ox 36.5 C 105 H 12 107/68 98 04/16/17 07:00 04/16/17 08:00 04/16/17 08:00 04/16/17 08:00 04/16/17 08:00 Laboratory Results 04/16/17 05:00 04/16/17 05:00 04/15/17 04/16/17 04/17/17 05:59 05:59 05:59 Intake Total 4408 3482 Output Total 3110 2100 130 Balance 1298 1382 -130 PT 19.8 SEC (12.0-15.0) H 04/15/17 06:00 INR 1.68 (0.83-1.16) H 04/15/17 06:00 Physical Exam - Physical Exam General Appearance: WD/WN, alert, obese EENT: PERRL/EOMI Neck: supple Respiratory: lungs clear, normal breath sounds, No respiratory distress Cardiac/Chest: normal peripheral pulses, regular rate, rhythm, edema Abdomen: non-tender, soft, No distended Skin: normal color, warm/dry Lymphatic: no adenopathy Extremities: pedal edema Neuro/Psych: alert, normal mood/affect, oriented x 3 ICD10 Worksheet Patient Problems: Problems Problem Status Onset Hemorrhage Acute Hypotension Acute
[2017-04-16] MEDS: PANTOPRAZOLE SODIUM 40 MG in NS 100 ML IV SCH (09:11)
[2017-04-16] MEDS: SODIUM CHLORIDE IV SCH (10:05)
[2017-04-16] MEDS: FLUCONAZOLE IV SCH (10:05)
[2017-04-16] MEDS: LEVOTHYROXINE 100 MCG/5 ML SYR IVP SCH (10:18)
--- NOTE | 2017-04-16 11:51 | HOSPPROG ---
Hospitalist Progress Note Assessment/Plan: 47 yo F with complicated PMH including cervical cancer largely previously treated at [facility] presenting here with vaginal bleed and hospital course complicated by colon perforation # colon perforation/peritonitis: with associated pelvic abscess and now s/p partial colectomy. On invanz/fluconazole without cx data. ID following. # acute blood loss anemia: h/h stable for last 2 days, in setting of post op state as well as continuous vaginal bleeding, has gotten 6 units prbcs # vaginal bleed: in setting of known cervical cancer and with fredi sleeve in cervix for XRT, has been seen by OB, bleeding has slowed but still having fairly constant oozing. Will need to f/u with her hardboard panel printer/oncologist # hypotension: has been fluid responsive, improved # cervical cancer: s/p XRT and chemo with associated ureteral obstruction as next. Is followed by [facility]ISTANT/Onc Dr. Joshua. Plan is for her to f/u with her usual hardboard panel printer/onc when she is ready for dc. # bilateral ureteral obstruction: with bilateral nephrostomy tubes and B ureteral stents that are being considered for replacement with metal stents from plastic as these may lead to improvement in her kidney drainage. Appreciate urology evaluation, they recommend that she follow up with her usual urologist as scheduled for this procedure after discharge rather than proceed with any other interventions now. Plan to change nephrostomy tubes per IR on Monday. 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 Given continued bleeding will not resume AC at this point. Could consider down the road if stabilizes # thrombocytopenia: transfused 2 units of platelets given concurrent bleeding, has trended down slightly with recurrent bleeding, trending # IP status--remains in ICU for ongoing high level of care needs. Given her need to be followed with her usual doctors, if patient becomes more stable would strongly consider transfer to [facility] where her hardboard panel printer/onc and urologists are located. Subjective: no significant overnight events, patient is currently stable and resting, still quite somnolent Objective: Vital Signs Temp Pulse Resp BP Pulse Ox 36.5 C 108 H 12 108/80 97 04/16/17 07:00 04/16/17 11:00 04/16/17 11:00 04/16/17 11:00 04/16/17 11:00 Laboratory Results 04/16/17 05:00 04/16/17 05:00 04/15/17 04/16/17 04/17/17 05:59 05:59 05:59 Intake Total 4408 3482 Output Total 3110 2100 130 Balance 1298 1382 -130 PT 19.8 SEC (12.0-15.0) H 04/15/17 06:00 INR 1.68 (0.83-1.16) H 04/15/17 06:00 chronically ill appearing, somnolent, arousable anicteric, pale op clear rrr tachy cta to ant exam soft, dec bs, mild ttp trace ble edema warm pale somnolent but arousable, moves all 4 ICD10 Worksheet Patient Problems: Problems Problem Status Onset Hemorrhage Acute Hypotension Acute
--- NOTE | 2017-04-16 12:11 | GOP ---
[f rep st] OPERATIVE REPORT DATE OF OPERATION: 04/14/2017 SURGEON: Hung Gamez MD LOGISTICS ACCOUNT MANAGER: There was no medical assistant cardiology. ANESTHESIOLOGIST: Dr. Umana. PREOPERATIVE DIAGNOSIS: Perforated viscus. POSTOPERATIVE DIAGNOSIS: Perforated cecum with pelvic abscess. PROCEDURE PERFORMED: Laparotomy, drainage of pelvic abscess, partial cecectomy and appendectomy. FINDINGS: The patient was found to have a perforated cecum with pelvic abscess. Her parapelvic area was somewhat frozen with inflammatory adhesions secondary to her previous radiation and the current infection. No obvious evidence of recurrent cancer was identified. INDICATIONS: The patient had peritonitis and free air on CT scan. DESCRIPTION OF PROCEDURE: The patient taken to the operating room where she received satisfactory general endotracheal anesthesia by Dr. Umana. Placed in the supine position, prepped and draped in usual sterile fashion. A lower abdominal midline incision was made, carried through the linea alba. The abdomen was carefully entered. Adhesions were taken down. The omentum was freed up and dissected off the anterior abdominal wall and out of the pelvis. The incision was steadily enlarged for better and better exposure. The sigmoid colon was fixed down in the area. It was dissected free and freed up from the lateral peritoneal reflection. However, no perforation in the sigmoid could be identified. The abscess pocket was encountered and this was sent for culture and suctioned free. The appendix was identified and appeared to be normal. The perforation site appeared to be in the cecum, separate from the appendix, and this was freed up from the inflammatory reaction. The appendix was freed up by dividing the mesoappendix with the Harmonic Scalpel and then the appendix was divided with a LELA stapler. The cecum was further mobilized by dividing the lateral peritoneal reflection until they could be elevated up out of the wound. The distal portion of the cecum was then excised using a LELA stapler, sparing the ileocecal valve. This staple line was then oversewn with a running 3-0 Vicryl suture and appeared to be adequate. The abscess pocket was copiously irrigated. A 15 round silicone TAYE drain was brought out through a separate stab incision and placed in this abscess cavity, secured to the skin with a 3-0 silk suture. The abdomen was fully explored and all interloop fluid collections were broken down and freed up and the wound was massively irrigated until clear. No other areas of major abnormality were encountered. The abdomen was then closed with a running #1 PDS suture. The skin was closed with skin poonam. This was done over a 15 round silicone TAYE drain, which was also brought out through a separate stab incision and secured to the skin with a 3-0 silk suture. She tolerated the procedure quite well. She was taken to the recovery room in good condition. /[id number]/MODL MTDD
--- NOTE | 2017-04-16 15:42 | PCMIDPN ---
Assessment/Plan: Assessment/Plan: 1. Sepsis secondary to perforated cecum/peritonitis/pelvic abscess: - s/p wash out, cecectomy 04/14/17 - Currently on empiric invanz, fluconzole -wbc has improved since surgery. -no fevers. -Will continue with this for now, with close clinical monitoring. if fevers recur, wbc increases, worsens clinically then will need to likely broaden atbx, re-image etc. 2. URine culture with PsA, Enterobacter -Patient with b/l nephrostomy tubes, stents. -Reviewed records from [facility]. REcent admit to [facility] revealed she had ; positive UA/culture with Enterobacter (greater than 100,000).Fairly resistant organism, only sensitve ti bactrim and gent. -She did recieved short course of bactrim. Stents were changed on 03/27 and tubes changed on 03/29. ATbx were stopped due to likely colonization. -Given she is not on any coverage and clinically not worse will hold off any broadening antibiotic coverage for now , but will monitor for clinical changes closely. -care coordinated with Rn. Shelly gr fluconazole. Subjective: Afebrile. remains in icu. disoriented today.c/o abd pain. foul smell in room. c/ o nausea. denies sob. Objective: Vital Signs Temp Pulse Resp BP Pulse Ox 36.9 C 104 H 11 L 118/88 H 98 04/16/17 12:00 04/16/17 15:00 04/16/17 15:00 04/16/17 13:00 04/16/17 15:00 Laboratory Results 04/16/17 05:00 04/16/17 05:00 04/15/17 04/16/17 04/17/17 05:59 05:59 05:59 Intake Total 4408 3482 Output Total 3110 2100 1150 Balance 1298 1382 -1150 - Physical Exam General Appearance: alert, other (intermittently disoriented) Respiratory: lungs clear (anteriorly,limited exam) Cardiac/Chest: regular rate, rhythm Extremities: swelling (anasarca) Abdomen: other (BS quiet, distended, tender to palpate bilaterally, midline incisoin, rosa drains on both sides, ) Back: other (bilateral nephrostomy tubes.) Skin: No erythema - Time Spent With Patient Time Spent with Patient: greater than 35 minutes Time Spent with Patient: Greater than 35 minutes spent on this patients care, greater than 50% of time spent counseling, educating, and coordinating care regarding the above mentioned plan. ICD10 Worksheet Patient Problems: Problems Problem Status Onset Hemorrhage Acute Hypotension Acute
--- NOTE | 2017-04-16 17:04 | ASMTCMCOM ---
CM Note CM Note Notes: Lima from [place] ([facility] [phone]) requested therapy notes and latest MD notes. They called back in PM after receiving updates. They have not decided whether or not they will take yet, mostly due to pt's continuing chemo treatments. Spoke with pt about treatment plan. She stated that she will not be receiving further chemo until after she regains her strength at a SNF. Alerted Lima to this. C/M to follow Date Signed: 04/12/2017 03:46 PM Electronically Signed By:Kelly Tarango
--- NOTE | 2017-04-16 17:05 | ASMTCMCOM ---
CM Note CM Note Notes: Lima from [place] ([facility] [phone]) has called throughout yesterday and today requesting additional information as they make their decision whether to take pt. Their first question was about chemo. Spoke with pt about treatment plan. She stated that she will not be receiving further chemo until after she regains her strength at a SNF. Also spoke with her uncle Young ([phone]). He plans to take pt to appts in [place]. [facility] finally agreed to accept but still awaiting ins auth. Level 2 PASRR submitted to Belinda Mcbride. She will evaluate tomorrow. If PASRR approved, and ins auth received, pt may be able to DC tomorrow. Transport to [facility] will need to be arranged. C/M to follow Date Signed: 04/13/2017 04:18 PM Electronically Signed By:Kelly Tarango
--- NOTE | 2017-04-16 17:05 | ASMTCMCOM ---
CM Note CM Note Notes: Pt had emergency surgery in middle of the night for a perforated bowel. Pt is now in ICU. Alerted [facility] that pt will not be going there at this time. LM with pt's Young to offer support. C/M will continue to follow. Date Signed: 04/14/2017 10:10 AM Electronically Signed By:Kelly Tarango
--- NOTE | 2017-04-16 17:07 | ASMTCMCOM ---
CM Note CM Note Notes: Spoke with Young, patient's uncle. Please see notes in patient chart for spiritual services. Patient's daughter and sister will arrive tonight. Made arrangements for Dr. Mejias to speak with Young re: the medical picture and prognosis so he is able to talk with her sister and daughter in a realistic manner. Informed Young of family meeting opportunities and let him know we can set that up to include Alise (daughter) and Roxy (sister). Daughter Alise may need Social Work support while she is here. She has just started college and hasn't been in close touch with her mom and what is going on. They have had a close relationship in the past. Alise is somewhat withdrawn currently and Young is concerned about her emotional process, how she is coping and how she is making decisions. CM will follow. Date Signed: 04/14/2017 04:22 PM Electronically Signed By:Hyun Fermin
--- NOTE | 2017-04-16 17:07 | ASMTCMCOM ---
CM Note CM Note Notes: Pt tx to ICU for emergency surgery early this AM. Spoke with pt's uncle Young, who was present at bedside, for support. Young stated that pt's dtr is coming from [place] and her sister is coming from [place]. Both are due to arrive late this evening. Young's frank will lalso be available. Young is scheduled to leave for a business trip tomorrow evening. C/M to follow. Date Signed: 04/14/2017 02:28 PM Electronically Signed By:Kelly Tarango
--- NOTE | 2017-04-16 17:09 | ASMTCMCOM ---
CM Note CM Note Notes: Patient has had a colon perforation, pelvic abscess and partial colectomy-ID following. Cervical CA with ureteral obstruction, vaginal bleeding, DVT, Hypotension. Hospitalist wonders if patient should return to [facility] where MD's familar with her care are located. Patient would like to go to [facility] in [facility]. They have accepted her. The Pasrr Level 2 has been completed and in the chart. Case Management to follow. Date Signed: 04/16/2017 04:42 PM Electronically Signed By:Caron Lama
[2017-04-16 19:01] LABS: POTASSIUM 4.4 mEq/L (3.5-5.2)
[2017-04-16] MEDS: OLANZapine 5 MG TAB PO SCH (22:19)
[2017-04-16] MEDS: PANTOPRAZOLE SODIUM 40 MG TAB PO SCH (22:19)
[2017-04-17] MEDS: ONDANSETRON 4 MG/2 ML VIAL IVP SCH ×7 (00:58→23:16)
[2017-04-17 05:19] LABS: IONIZED CALCIUM 1.15 MMOL/L (1.12-1.30)
[2017-04-17 05:39] LABS: ALANINE AMINOTRANSFERASE 25 IU/L (9-52); ALKALINE PHOSPHATASE 103 IU/L (38-126); ANION GAP 6 mEq/L (8-16); ASPARTATE AMINOTRANSFERASE 11 IU/L (14-46); BILIRUBIN,TOTAL 0.9 mg/dL (0.1-1.4); CALCIUM 7.7 mg/dL (8.5-10.4); CARBON DIOXIDE 21 mEq/l (22-31); CHLORIDE 106 mEq/L (97-110); CREATININE 0.9 mg/dL (0.6-1.0); GLOMERULAR FILTRATION RATE > 60; GLUCOSE 66 mg/dL (70-100); MAGNESIUM 1.7 mg/dL (1.6-2.3); POTASSIUM 4.3 mEq/L (3.5-5.2); SODIUM 133 mEq/L (134-144); TOTAL PROTEIN 4.3 g/dL (6.3-8.2)
[2017-04-17] MEDS ORDERED: MAGNESIUM SULF 1 GM/DEXTROSE 100 ML IV ONE (07:47)
[2017-04-17] MEDS: HYDROmorphONE/DILAUDID 1 MG/ML INJ IVP PRN ×3 (08:06→20:15)
--- NOTE | 2017-04-17 08:58 | HOSPPROG ---
Hospitalist Progress Note Assessment/Plan: #Sepsis: resolved. Due to perforated cecum/peritonitis/pelvic abscess, I/D by Dr. Gamez 04/14. -Ertapenem, Fluconazole #Pseudomonas/Enterobacter UTI: suspect colonization per ID's review OSH records. Hold off on additional abx #Acute blood loss anemia: stable. s/p 6 units RBCs. Due to surgical losses and vaginal bleed from cervical cancer #Cervical cancer: last chemo/XRT 3 weeks ago. 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 Hold AC with acute blood loss #Volume overload: trial Lasix and albumin #Ureteral obstruction: IR flushed 04/15. Plan for exchange this week #Hypotension: resolved with blood and IVFs. Caution with IVFs #Acute encephalopathy: multifactorial with infection, ICU. Zyprexa PRN #Diet: trial clears. Talk with surgery for enteral vs. TPN #DVT ppx: SCDs #Disp: warrants inpt admission with sepsis, blood loss Subjective: nausea this morning, intermittent abd pain Objective: Vital Signs Temp Pulse Resp BP Pulse Ox 37.1 C 104 H 17 110/75 97 04/17/17 08:00 04/17/17 08:00 04/17/17 08:00 04/17/17 08:00 04/17/17 08:00 Laboratory Results 04/16/17 05:00 04/17/17 05:10 04/16/17 04/17/17 04/18/17 05:59 05:59 05:59 Intake Total 3482 2225 Output Total 2100 3965 Balance 1382 -1740 PT 19.8 SEC (12.0-15.0) H 04/15/17 06:00 INR 1.68 (0.83-1.16) H 04/15/17 06:00 - Physical Exam Constitutional: chronically ill appearing Eyes: PERRL Ears, Nose, Mouth, Throat: moist mucous membranes Cardiovascular: regular rate and rhythym, No edema (+2-3 ) Respiratory: no respiratory distress, reduced air movement (at bases) Gastrointestinal: normoactive bowel sounds, other (surgical incision stapled. TAYE in place. ) Genitourinary: no bladder fullness Skin: warm Musculoskeletal: generalized weakness Neurologic: CN II-XII Intact Psychiatric: interacting appropriately, flat affect ICD10 Worksheet Patient Problems: Problems Problem Status Onset Hemorrhage Acute Hypotension Acute
[2017-04-17] MEDS: ERTAPENEM 1 GM in NS 100 ML IV SCH (09:47)
[2017-04-17] MEDS: SODIUM CHLORIDE IV SCH (09:47)
[2017-04-17] MEDS: FLUCONAZOLE IV SCH (09:47)
[2017-04-17] MEDS: FLUoxetine 10 MG CAP PO SCH (09:47)
[2017-04-17] MEDS: GABAPENTIN 300 MG CAP PO SCH ×3 (09:48→23:17)
[2017-04-17] MEDS: NORETHINDRONE ACET 5 MG TAB PO SCH (09:48)
[2017-04-17] MEDS: PANTOPRAZOLE SODIUM 40 MG TAB PO SCH ×2 (09:48→20:16)
--- NOTE | 2017-04-17 10:21 | SOAPPROG ---
SOAP Progress Note Assessment/Plan: Assessment: 47yo female POD #3 s/p laparotomy, drainage of pelvic abscess, partial cecectomy and appendectomy 2/2 perforated colon with peritonitis and free air. Hx of cervical cancer on chemo/ rad originally presented with obstructed ureters and vaginal bleeding. Afebrile, WBC wNL Clamp NGT and clear liquids today. TPN if not eating later today. Cont pain control Cont drains S: Pt drowsy after having received pain meds. Reporting no pain. Passing flatus , no BM. Appetite low. No N/V. O: Afebrile Tachy. Reg rate Lungs CTAB Minimal BS. Abdomen soft. TTP Objective: Vital Signs Temp Pulse Resp BP Pulse Ox 37.1 C 107 H 17 107/69 99 04/17/17 10:00 04/17/17 10:00 04/17/17 10:00 04/17/17 10:00 04/17/17 10:00 Laboratory Results 04/16/17 05:00 04/17/17 05:10 04/16/17 04/17/17 04/18/17 05:59 05:59 05:59 Intake Total 3482 2225 Output Total 2100 3965 Balance 1382 -1740 PT 19.8 SEC (12.0-15.0) H 04/15/17 06:00 INR 1.68 (0.83-1.16) H 04/15/17 06:00 ICD10 Worksheet Patient Problems: Problems Problem Status Onset Hemorrhage Acute Hypotension Acute
[2017-04-17] MEDS: LEVOTHYROXINE 100 MCG/5 ML SYR IVP SCH (14:40)
[2017-04-17 15:17] LABS: % IMMATURE GRANULYOCYTES 0.7 % (0.0-1.1); ABSOLUTE IMMATURE GRANULOCYTES 0.05 10^3/uL (0.00-0.10); ADD DIFF? NO; ADD MORPH? NO; ADD SCAN? YES; ATYPICAL LYMPHOCYTE FLAG 0 (0-99); FRAGMENT RBC FLAG 0 (0-99); HEMATOCRIT 27.9 % (38.0-47.0); HEMOGLOBIN 9.5 g/dL (12.6-16.3); LIPEMIA HEMOLYSIS FLAG 90 (0-99); MEAN CELL HEMOGLOBIN 30.5 pg (27.9-34.1); MEAN CELL HEMOGLOBIN CONCENTR. 34.1 g/dL (32.4-36.7); MEAN CELL VOLUME 89.7 fL (81.5-99.8); MEAN PLATELET VOLUME 11.1 fL (8.7-11.7); PLATELET CLUMPS FLAG 0 (0-99); RED BLOOD CELL COUNT 3.11 10^6/uL (4.18-5.33); RED CELL DISTRIBUTION WIDTH 16.3 % (11.5-15.2)
[2017-04-17 15:22] LABS: LEFT SHIFT FLG 120 (0-99); PLATELET COUNT 40 10^3/uL (150-400)
--- NOTE | 2017-04-17 15:25 | PDINTPN ---
K 9 Handler/ Deputy Progress Note Assessment/Plan: Assessment: 47 F with known cervical cancer treated with HDR via Caio sleeve, complicated by DVT in Sep and November 2016. She developed substantial vag bleeding after switching to LMWH recently, but stabilized after reversal and blood products. She was recovering on the floor when she developed abdominal symptoms and a CT revealed perforated viscous. She was taken to the OR 04/14 where she underwent laparotomy, partial cecectomy, appy, and pelvic abscess drainage. Postop she has been hypotensive but responsive to IVF (mostly albumin) and marginally hypoxic that recovers easily when she is more awake. * Peritonitis 2/2 perforated cecum and abscess- stable on ertapenem and flucon. No pressors. Normal wbc. * Cervical cancer s/p radiation/brachytherapy/chemotherapy * Hypotension- responded to IVF and blood transfusion with normalization of HCT after RBC and FFP. Stable Hct * DVT- IVC filter placed. Hold all anticoag for now. * Ureteral obstruction- bilateral nephrostomy tubes remain. Temporarily obstructed 04/15 but functioning normally today. Plan on changing 04/18 as they are due anyway via IR. * Thrombocytopenia: Trending down slightly last few days. Plan: Try to advance diet, although she has nausea that, at this point, will likely preclude her achieving 100% of her nutritional needs in the next few days. Will need to consider feeding tube or TPN. Follow H/H, Plt. Lasix/albumin for extensive edema with hypoalbuminemia and recent hypotension ( currently normal). 04/17/17 15:57 Subjective: Denies pain. Nauseated with attempts to eat, has taken only water and broth. Able to get to chair with assist. Objective: Vital Signs Temp Pulse Resp BP Pulse Ox 36.8 C 102 H 14 129/80 H 99 04/17/17 14:00 04/17/17 14:00 04/17/17 14:00 04/17/17 14:00 04/17/17 14:00 Microbiology 04/14/17 01:00 Blood Panel (PCR) - Final Blood No Organism Detected Laboratory Results 04/17/17 05:10 04/16/17 04/17/17 04/18/17 05:59 05:59 05:59 Intake Total 3482 2225 Output Total 2100 3965 585 Balance 1382 -1740 -585 PT 19.8 SEC (12.0-15.0) H 04/15/17 06:00 INR 1.68 (0.83-1.16) H 04/15/17 06:00 Physical Exam - Physical Exam General Appearance: alert, no apparent distress EENT: normal ENT inspection Neck: normal inspection Respiratory: normal breath sounds Cardiac/Chest: regular rate, rhythm, edema (3+ to hips) Abdomen: normal bowel sounds, non-tender Pelvic Exam: normal external exam Skin: normal color, warm/dry Extremities: normal inspection Neuro/Psych: alert, normal mood/affect, oriented x 3 ICD10 Worksheet Patient Problems: Problems Problem Status Onset Hemorrhage Acute Hypotension Acute
[2017-04-17 15:46] LABS: SCAN NEGATIVE
[2017-04-17 15:47] LABS: PLATELET ESTIMATE DECREASED (ADEQ)
[2017-04-17] MEDS ORDERED: ALBUMIN 25% 100 ML IV ONE (15:57)
[2017-04-17] MEDS: FUROSEMIDE 20 MG/2 ML VIAL IVP SCH ×2 (16:13→23:16)
--- NOTE | 2017-04-17 16:24 | PCMIDPN ---
Assessment/Plan: Assessment: Peritonitis secondary to perforated cecum. Patient has no cultures from abdominal source pending. Patient being managed on empiric ertapenem and fluconazole. Will continue this empiric regimen. Patient appears to be slowly improving. Plan: 1. Continue both IV ertapenem and fluconazole. 2. Ignore urinary isolates as possible pathogens at this point. They are likely colonizers. 3. Continue to follow lab data as well as clinical course. 04/17/17 16:21 Subjective: Patient is resting comfortably in her hospital bed. Patient states she is thirsty but is quite specific that she can only have certain types of liquid. Ice water is okay with her. No new fevers or chills. Objective: Ertapenem # 3 Fluconazole # 3 Vital Signs Temp Pulse Resp BP Pulse Ox 36.8 C 93 16 115/87 H 99 04/17/17 14:00 04/17/17 16:00 04/17/17 16:00 04/17/17 16:00 04/17/17 16:00 Microbiology 04/14/17 01:00 Blood Panel (PCR) - Final Blood No Organism Detected Laboratory Results 04/17/17 15:12 04/17/17 05:10 04/16/17 04/17/17 04/18/17 05:59 05:59 05:59 Intake Total 3482 2225 Output Total 2100 3965 585 Balance 1527 -4848 -865 - Physical Exam General Appearance: WD/WN, alert, no apparent distress, non-toxic Respiratory: lungs clear, normal breath sounds, No respiratory distress Cardiac/Chest: regular rate, rhythm, No tachycardia Extremities: non-tender, normal inspection Abdomen: soft, No non-tender, No mass, No rigid Skin: normal color, warm/dry, No rash Neuro/Psych: alert, normal mood/affect ICD10 Worksheet Patient Problems: Problems Problem Status Onset Hemorrhage Acute Hypotension Acute
--- NOTE | 2017-04-17 17:05 | ASMTCMCOM ---
CM Note CM Note Notes: Contacted [facility] and faxed additional reports, Therapy Notes, etc. Lima with [facility] reported that they had taken patient off their referral list because they had heard she had taken a turn for the worse. Brigette lee concerned that patient is still acute care and may need an LTAC on discharge. This Money Manager reported back that patient is still in ICU not ready for discharge but would like the referral to stay open. Date Signed: 04/17/2017 05:04 PM Electronically Signed By:Caron Lama
[2017-04-17] MEDS: OLANZapine 5 MG TAB PO SCH (20:16)
[2017-04-17] MEDS: LORazepam 2 MG/ML INJ IVP PRN (20:16)
[2017-04-17 23:49] LABS: POTASSIUM 3.9 mEq/L (3.5-5.2)
[2017-04-18] MEDS ORDERED: POTASSIUM Cl (KCl) 50 ML IV ONE (00:37)
[2017-04-18] MEDS: ONDANSETRON 4 MG/2 ML VIAL IVP SCH ×4 (02:00→13:51)
[2017-04-18 06:44] LABS: HEMATOCRIT 27.3 % (38.0-47.0); HEMOGLOBIN 9.2 g/dL (12.6-16.3); IONIZED CALCIUM 1.12 MMOL/L (1.12-1.30); LIPEMIA HEMOLYSIS FLAG 80 (0-99); MEAN CELL HEMOGLOBIN 30.5 pg (27.9-34.1); MEAN CELL HEMOGLOBIN CONCENTR. 33.7 g/dL (32.4-36.7); MEAN CELL VOLUME 90.4 fL (81.5-99.8); PLATELET CLUMPS FLAG 0 (0-99); RED BLOOD CELL COUNT 3.02 10^6/uL (4.18-5.33); RED CELL DISTRIBUTION WIDTH 16.3 % (11.5-15.2)
[2017-04-18 06:45] LABS: PLATELET COUNT 36 10^3/uL (150-400)
[2017-04-18 07:15] LABS: ANION GAP 9 mEq/L (8-16); CALCIUM 7.9 mg/dL (8.5-10.4); CARBON DIOXIDE 24 mEq/l (22-31); CHLORIDE 104 mEq/L (97-110); GLOMERULAR FILTRATION RATE 59; GLUCOSE 58 mg/dL (70-100); MAGNESIUM 1.5 mg/dL (1.6-2.3); POTASSIUM 4.3 mEq/L (3.5-5.2); SODIUM 137 mEq/L (134-144)
[2017-04-18 07:26] LABS: PLATELET ESTIMATE DECREASED (ADEQ)
[2017-04-18] MEDS ORDERED: MAGNESIUM SULF 1 GM/DEXTROSE 100 ML IV ONE (07:53)
[2017-04-18] MEDS ORDERED: CALCIUM GLUCONATE 50 ML IV ONE (07:53)
[2017-04-18] MEDS: FUROSEMIDE 20 MG/2 ML VIAL IVP SCH ×3 (08:05→21:42)
[2017-04-18] MEDS: FLUoxetine 10 MG CAP PO SCH (08:06)
[2017-04-18] MEDS: GABAPENTIN 300 MG CAP PO SCH ×2 (08:06→21:41)
[2017-04-18] MEDS: NORETHINDRONE ACET 5 MG TAB PO SCH (08:06)
[2017-04-18] MEDS: PANTOPRAZOLE SODIUM 40 MG TAB PO SCH ×2 (08:07→21:41)
[2017-04-18] MEDS ORDERED: D50W 25 GM/50 ML SYR IVP PRN (08:31)
[2017-04-18] MEDS: LEVOTHYROXINE 112 MCG TAB PO SCH (08:40)
[2017-04-18] MEDS ORDERED: FLUCONAZOLE/NaCl 100 ML IV SCH (09:00)
[2017-04-18] MEDS ORDERED: D10W 250 ML PRN HYPOGLYCEMIA IV (09:00)
[2017-04-18] MEDS ORDERED: D5W 1,000 ML IV SCH (10:00)
[2017-04-18] MEDS: ERTAPENEM 1 GM in NS 100 ML IV SCH (10:08)
[2017-04-18] MEDS: FLUCONAZOLE/NaCl 100 ML IV SCH (10:23)
--- NOTE | 2017-04-18 10:47 | SOAPPROG ---
SOAP Progress Note Assessment/Plan: Assessment: UNFORTUNATE 47 FEMALE WITH CERVICAL CANCER ON CHEMO AND RADIATION AND OBSTRUCTED URETERS/ PRESENTED WITH VAGINAL BLEEDING APPEARS TO HAVE PERFED COLON WITH PERITONITIS AND SMALL AMOUNT OF FREE AIR THROMBOCYTOPENIA, ANEMIA, INR 1.7 LACTATE OK, AFEBRILE TACHY AT 140/ ABD SOFT BUT VERY TENDER LLQ RISKS AND OPTIONS FULLY DISCUSSED WITH PT AND POA Plan:LAPAROTOMY, PROBABLE COLOSTOMY 04/14/17 04:50 04/14/17 17:29 POSTOP REASONABLY STABLE / BP 103 PULSE 100 / AFEBRILE / MODERATE SEROUS DRAINAGE FROM THE ROSA / WOUND OKAY / TRANSFUSING 2 UNITS FOR HEMATOCRIT OF 16 04/15/17 10:50 ALERT/ VS IMPROVED AND STABLE/ LARGE SEROUS ROSA OUTPUT/ AFEBRILE/ WOUND OK/ UO ADEQUATE/ HCT 25,STABLE PLAN ADD DIFLUCAN/ ID CONSULT 04/16/17 08:37 more alert/ vs stable/ afebrile/ hct stable 27/ wounds ok/ rosa serous drainage/ +bs, -flatus or bm/ ng minimal out 04/18/17 10:46 afebrile/ eating poorly/ abd soft/ wound ok/ +bs and flatus/ confused/ large serous rosa out/ large uo/ start tpn Objective: Vital Signs Temp Pulse Resp BP Pulse Ox 36.9 C 99 17 107/70 97 04/18/17 08:00 04/18/17 08:00 04/18/17 08:00 04/18/17 08:00 04/18/17 08:00 Microbiology 04/14/17 01:00 Blood Panel (PCR) - Final Blood No Organism Detected Laboratory Results 04/18/17 06:35 04/18/17 06:35 04/17/17 04/18/17 04/19/17 05:59 05:59 05:59 Intake Total 2225 650 Output Total 3858 5876 Balance -3267 -7970 PT 19.8 SEC (12.0-15.0) H 04/15/17 06:00 INR 1.68 (0.83-1.16) H 04/15/17 06:00 ICD10 Worksheet Patient Problems: Problems Problem Status Onset Hemorrhage Acute Hypotension Acute
[2017-04-18] MEDS: MELATONIN 3 MG TAB PO SCH ×2 (11:05→21:43)
--- NOTE | 2017-04-18 12:22 | PCMIDPN ---
Assessment/Plan: Assessment/Plan: 1. Sepsis secondary to perforated cecum/peritonitis/pelvic abscess: - s/p wash out, cecectomy 04/14/17 - Currently on empiric invanz, fluconzole -wbc has improved since surgery. -no fevers. -Will continue with this for now, with close clinical monitoring. if fevers recur, wbc increases, worsens clinically then will need to likely broaden atbx, re-image etc. - platelets continue to drop each day. ?etiology. meds such as fluconazole a possibility. if continues to drop may consider re-adjusting antimicrobials. -updated family , patient on plan of care. 2. URine culture with PsA, Enterobacter-colonized -Patient with b/l nephrostomy tubes, stents. -Reviewed records from [facility]. REcent admit to [facility] revealed she had ; positive UA/culture with Enterobacter (greater than 100,000).Fairly resistant organism, only sensitive only to bactrim and gent. -She did receive short course of bactrim per records. - Stents were changed on 03/27 and nephrostomy tubes changed on 03/29. ATbx were stopped due to likely colonization. -Given she is not on any current coverage for above and clinically not worse, will hold off any broadening antibiotic coverage for now , but will monitor for clinical changes closely. - for nephrostomy tube to be changes today -care coordinated with Rn. Shelly gr fluconazole. Subjective: afebrile. intermittent confusion/disorientation. no hallucinations today. Denies sob. continues with abd pain, similar to past several days. rosa drains in place. had BM today. off tpn. Objective: Vital Signs Temp Pulse Resp BP Pulse Ox 36.9 C 99 17 107/70 97 04/18/17 08:00 04/18/17 08:00 04/18/17 08:00 04/18/17 08:00 04/18/17 08:00 Microbiology 04/14/17 01:00 Blood Panel (PCR) - Final Blood No Organism Detected Laboratory Results 04/18/17 06:35 04/18/17 06:35 04/17/17 04/18/17 04/19/17 05:59 05:59 05:59 Intake Total 2225 650 600 Output Total 8605 5810 3040 Balance -0442 -3444 -0863 - Physical Exam General Appearance: alert, no apparent distress Respiratory: lungs clear (anteriorly) Cardiac/Chest: regular rate, rhythm Extremities: swelling (anasarca) Abdomen: normal bowel sounds, soft, other (less distended cmpared to two days ago. midline incision intact, no erythema or drainage noted. two rosa drains in place with serous drainage. ) Back: other (b/l nephrostomy tubes) Skin: No erythema ICD10 Worksheet Patient Problems: Problems Problem Status Onset Hemorrhage Acute Hypotension Acute
--- NOTE | 2017-04-18 13:04 | PDINTPN ---
Machine Shop Supervisor Progress Note Assessment/Plan: Assessment: 47 F with known cervical cancer treated with HDR via Caio sleeve, complicated by DVT in Sep and November 2016. She developed substantial vag bleeding after switching to LMWH recently, but stabilized after reversal and blood products. She was recovering on the floor when she developed abdominal symptoms and a CT revealed perforated viscous. She was taken to the OR 04/14 where she underwent laparotomy, partial cecectomy, appy, and pelvic abscess drainage. Postop she has been hypotensive but responsive to IVF (mostly albumin) and marginally hypoxic that recovers easily when she is more awake. * Peritonitis 2/2 perforated cecum and abscess- stable on ertapenem and fluconazole. No pressors. Normal wbc. * Cervical cancer s/p radiation/brachytherapy/chemotherapy * Hypotension- Improved * DVT- IVC filter placed. Hold all anticoag for now. * Ureteral obstruction- bilateral nephrostomy tubes remain. Temporarily obstructed 04/15 but functioning normally today. Plan on changing today. * Thrombocytopenia: Continues to trend down. * Anemia: Hgb stable. * Delerium: Worse in evening/nighttime * Edema: Large diuresis yesterday with Lasix/albumin. * Hypoglycemia: Mild. On D5 and remains on low side but not falling further. No Sx. Plan: Start TPN per Dr. Gamez today. Follow H/H, Plt. Rduce Lasix/albumin Follow BSs. Continue D5 for now, stop once TPN started. Add Melatonin at night. Continue zyprexa. 04/18/17 13:07 Subjective: Feels a bit stronger. Still with no appetite. Abdominal pain unchanged Objective: Vital Signs Temp Pulse Resp BP Pulse Ox 36.4 C 104 H 18 107/72 97 04/18/17 12:00 04/18/17 12:00 04/18/17 12:00 04/18/17 12:00 04/18/17 12:00 Microbiology 04/14/17 01:00 Blood Panel (PCR) - Final Blood No Organism Detected Laboratory Results 04/18/17 06:35 04/18/17 06:35 04/17/17 04/18/17 04/19/17 05:59 05:59 05:59 Intake Total 2225 650 600 Output Total 1796 9052 3210 Balance -9850 -9103 -2540 PT 19.8 SEC (12.0-15.0) H 04/15/17 06:00 INR 1.68 (0.83-1.16) H 04/15/17 06:00 Physical Exam - Physical Exam General Appearance: alert, no apparent distress EENT: normal ENT inspection Neck: normal inspection Respiratory: lungs clear Cardiac/Chest: regular rate, rhythm, edema (2+ anasarca to hips) Abdomen: soft, No normal bowel sounds (hypoactive), No non-tender Skin: normal color, warm/dry Extremities: non-tender, normal inspection Neuro/Psych: alert, normal mood/affect, No oriented x 3 (some delerium, particularly in the evening) ICD10 Worksheet Patient Problems: Problems Problem Status Onset Hemorrhage Acute Hypotension Acute
[2017-04-18] MEDS ORDERED: D10W 1,000 ML IV PRN (14:16)
[2017-04-18] MEDS ORDERED: LORazepam 2 MG/ML INJ IVP PRN (14:59)
[2017-04-18] MEDS ORDERED: LIDOCAINE 1% 300 MG/30 ML SDV ONE (15:09)
[2017-04-18] MEDS ORDERED: IOPAMIDOL (ISOVUE-300) 100 ML BTL ONE (15:09)
[2017-04-18] MEDS: HYDROmorphONE/DILAUDID 1 MG/ML INJ IVP PRN ×3 (15:16→22:09)
--- NOTE | 2017-04-18 17:45 | HOSPPROG ---
Hospitalist Progress Note Assessment/Plan: #Sepsis: resolved. Due to perforated cecum/peritonitis/pelvic abscess, I/D by Dr. Gamez 04/14. -Ertapenem, Fluconazole #Pseudomonas/Enterobacter UTI: suspect colonization per ID's review OSH records. Hold off on additional abx #Acute blood loss anemia: stable. s/p 6 units RBCs. Due to surgical losses and vaginal bleed from cervical cancer #Hypoglycemia: not eating. TPN this bettye. D5W off once this starts #Cervical cancer: last chemo/XRT 3 weeks ago. 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 Hold AC with acute blood loss #depression: increase Prozac to 20mg #Neuropathy: aunt says has not been on Gabapentin for some time, will decrease dose and wean #Volume overload: trial Lasix and albumin. Put out 6L last night, Cr and BP stable. But, will reduce Lasix to BID #Ureteral obstruction: IR flushed 04/15. Just had replaced 2 wks ago so no need to exchange now #Hypotension: resolved with blood and IVFs. Caution with IVFs #Acute encephalopathy: multifactorial with infection, ICU. Zyprexa PRN. Decrease sedative drugs. #Diet: trial clears. Talk with surgery for enteral vs. TPN #Deconditioning: will need SNF #DVT ppx: SCDs #Disp: warrants inpt admission with sepsis, blood loss. Transfer to floor Critical care time spent: 35 min bedside with patient, d/w Dr Desai and reviewing meds with aunt over phone Subjective: hypoglycemic this morning, not eating much Objective: Vital Signs Temp Pulse Resp BP Pulse Ox 36.8 C 98 18 105/86 H 98 04/18/17 15:14 04/18/17 15:14 04/18/17 15:14 04/18/17 15:14 04/18/17 15:14 Microbiology 04/14/17 01:00 Blood Panel (PCR) - Final Blood No Organism Detected Laboratory Results 04/18/17 06:35 04/18/17 06:35 04/17/17 04/18/17 04/19/17 05:59 05:59 05:59 Intake Total 2225 650 960 Output Total 3965 5810 3900 Balance -7102 -1632 -4691 PT 19.8 SEC (12.0-15.0) H 04/15/17 06:00 INR 1.68 (0.83-1.16) H 04/15/17 06:00 - Physical Exam Constitutional: chronically ill appearing Eyes: PERRL Ears, Nose, Mouth, Throat: moist mucous membranes, other (NG in place) Cardiovascular: tachycardia, edema (+3 LE edema to thighs ) Respiratory: no respiratory distress Gastrointestinal: other (surgical incision stapled, healing. 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
[2017-04-18 20:03] LABS: POTASSIUM 3.8 mEq/L (3.5-5.2)
[2017-04-18] MEDS ORDERED: POTASSIUM CL 10 MEQ TAB PO ONE (21:13)
[2017-04-18] MEDS: OLANZapine 5 MG TAB PO SCH (21:44)
[2017-04-18] MEDS: TPN 1 EA BAG IV SCH (21:54)
[2017-04-18] MEDS: ONDANSETRON 4 MG/2 ML VIAL IVP PRN (22:09)
[2017-04-19 05:27] LABS: IONIZED CALCIUM 1.07 MMOL/L (1.12-1.30)
[2017-04-19 05:29] LABS: % IMMATURE GRANULYOCYTES 1.5 % (0.0-1.1); ABSOLUTE IMMATURE GRANULOCYTES 0.07 10^3/uL (0.00-0.10); ADD DIFF? NO; ADD MORPH? NO; ADD SCAN? NO; ATYPICAL LYMPHOCYTE FLAG 90 (0-99); FRAGMENT RBC FLAG 0 (0-99); HEMATOCRIT 26.7 % (38.0-47.0); LEFT SHIFT FLG 20 (0-99); LIPEMIA HEMOLYSIS FLAG 80 (0-99); MEAN CELL HEMOGLOBIN 30.2 pg (27.9-34.1); MEAN CELL HEMOGLOBIN CONCENTR. 33.7 g/dL (32.4-36.7); MEAN CELL VOLUME 89.6 fL (81.5-99.8); MEAN PLATELET VOLUME 11.6 fL (8.7-11.7); PLATELET CLUMPS FLAG 0 (0-99); RED BLOOD CELL COUNT 2.98 10^6/uL (4.18-5.33); RED CELL DISTRIBUTION WIDTH 15.9 % (11.5-15.2)
[2017-04-19 05:36] LABS: PLATELET COUNT 31 10^3/uL (150-400)
[2017-04-19 05:43] LABS: ALANINE AMINOTRANSFERASE 24 IU/L (9-52); ALBUMIN 2.2 g/dL (3.5-5.0); ALKALINE PHOSPHATASE 97 IU/L (38-126); ANION GAP 6 mEq/L (8-16); ASPARTATE AMINOTRANSFERASE 10 IU/L (14-46); BILIRUBIN,TOTAL 0.9 mg/dL (0.1-1.4); CALCIUM 7.8 mg/dL (8.5-10.4); CARBON DIOXIDE 29 mEq/l (22-31); CHLORIDE 99 mEq/L (97-110); CREATININE 1.1 mg/dL (0.6-1.0); GLOMERULAR FILTRATION RATE 53; GLUCOSE 73 mg/dL (70-100); MAGNESIUM 1.7 mg/dL (1.6-2.3); POTASSIUM 3.5 mEq/L (3.5-5.2); SODIUM 134 mEq/L (134-144); TOTAL PROTEIN 4.6 g/dL (6.3-8.2); TRIGLYCERIDE 261 mg/dL (35-135)
[2017-04-19] MEDS: LEVOTHYROXINE 112 MCG TAB PO SCH ×2 (06:11→06:15)
[2017-04-19 06:19] LABS: PLATELET ESTIMATE DECREASED (ADEQ)
[2017-04-19] MEDS ORDERED: CALCIUM GLUCONATE 50 ML IV ONE (07:13)
[2017-04-19] MEDS ORDERED: MAGNESIUM SULF 1 GM/DEXTROSE 100 ML IV ONE (07:17)
[2017-04-19] MEDS: HYDROmorphONE/DILAUDID 1 MG/ML INJ IVP PRN ×2 (08:49→23:45)
[2017-04-19] MEDS: ONDANSETRON 4 MG/2 ML VIAL IVP PRN ×2 (08:50→20:49)
[2017-04-19] MEDS: ALTEPLASE 2 MG VIAL IVP PRN (09:19)
[2017-04-19 09:22] LABS: INR 1.42 (0.83-1.16); PROTIME(PATIENT) 17.3 SEC (12.0-15.0)
[2017-04-19 09:23] LABS: APTT 38.4 SEC (23.0-38.0)
[2017-04-19] MEDS: PANTOPRAZOLE SODIUM 40 MG TAB PO SCH ×2 (09:41→20:56)
[2017-04-19] MEDS: FUROSEMIDE 20 MG/2 ML VIAL IVP SCH (09:41)
[2017-04-19] MEDS: ERTAPENEM 1 GM in NS 100 ML IV SCH (10:21)
--- NOTE | 2017-04-19 10:26 | PCMIDPN ---
Assessment/Plan: #Peritonitis & pelvic abscess due to perforated cecum s/p washout 04/14. Abdomen is soft but significant pain to palpation, this is my first visit/exam. WBC normal & AF but normal through hospital course --continue ertapenem, fluconazole --discussed with surgery, consider CT # Urinary Colonization with MDRs - PsA. B nephrostomies in place --planned exchange today --contact precautions Meds ertapenem 1gm IV daily, #5 Fluconazole 200mg IV daily , #5 Subjective: Feels better than admit still with significant amount abdominal pain +flatus and BM on TPN Objective: Vital Signs Temp Pulse Resp BP Pulse Ox 36.8 C 102 H 16 100/70 96 04/19/17 08:00 04/19/17 08:00 04/19/17 08:00 04/19/17 08:00 04/19/17 08:00 Microbiology 04/14/17 01:00 Blood Panel (PCR) - Final Blood No Organism Detected 04/14/17 02:00 Blood Culture - Final Blood Laboratory Results 04/19/17 05:15 04/19/17 05:15 04/18/17 04/19/17 04/20/17 05:59 05:59 05:59 Intake Total 650 1446 Output Total 5813 7385 750 [facility]6060 -5889 -750 - Physical Exam General Appearance: alert, no apparent distress, other (chr ill appearin) EENT: dry mucous membranes, other (alopecia) Respiratory: other (shallow inspirations, decreased BS bases), No accessory muscle use Neck: supple Cardiac/Chest: tachycardia Extremities: pedal edema Abdomen: soft, tender, other (midline surgical scar without drainage/erythema; [address] with serosang fluid), No distended Skin: pallor, No rash Neuro/Psych: alert, depressed affect - Line/s Mediport Lines: No drainage, No erythema other Lines: other (L IJ TLC), No drainage, No erythema - Time Spent With Patient Time Spent with Patient: greater than 35 minutes Time Spent with Patient: Greater than 35 minutes spent on this patients care, greater than 50% of time spent counseling, educating, and coordinating care regarding the above mentioned plan. 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
[2017-04-19] MEDS: FLUCONAZOLE/NaCl 100 ML IV SCH (10:31)
[2017-04-19] MEDS: FLUoxetine 10 MG CAP PO SCH (10:36)
[2017-04-19] MEDS: NORETHINDRONE ACET 5 MG TAB PO SCH (10:36)
[2017-04-19] MEDS: PROMETHAZINE HCL 25 MG/ML INJ IVP PRN ×2 (11:01→21:41)
[2017-04-19] MEDS: POTASSIUM Cl (KCl) 100 ML IV SCH ×3 (11:08→14:24)
--- NOTE | 2017-04-19 11:14 | SOAPPROG ---
SOAP Progress Note Assessment/Plan: Assessment/Plan: 47 Y F metastatic cervical CA, high dose radiation therapy, hx DVT, s/p vaginal bleeding with lovenox, now s/p laparotomy with drainage and washout of abscess, partial cecectomy for perforated cecum with peritonitis. Seen with Dr. Gamez today. Abdomen is more tender today. No fever or leukocytosis. Plan for Abd/Pel CT c IV and oral contrast. 04/19/17 11:14 Objective: Vital Signs Temp Pulse Resp BP Pulse Ox 36.8 C 102 H 16 100/70 96 04/19/17 08:00 04/19/17 08:00 04/19/17 08:00 04/19/17 08:00 04/19/17 08:00 Microbiology 04/14/17 01:00 Blood Panel (PCR) - Final Blood No Organism Detected 04/14/17 02:00 Blood Culture - Final Blood Laboratory Results 04/19/17 05:15 04/19/17 05:15 04/18/17 04/19/17 04/20/17 05:59 05:59 05:59 Intake Total 650 1446 Output Total 5810 7335 1750 [facility] -5160 -5889 -1750 PT 17.3 SEC (12.0-15.0) H 04/19/17 09:05 INR 1.42 (0.83-1.16) H 04/19/17 09:05 ICD10 Worksheet Patient Problems: Problems Problem Status Onset Hemorrhage Acute Hypotension Acute 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
--- NOTE | 2017-04-19 12:08 | SOAPPROG ---
SOAP Progress Note Assessment/Plan: Assessment: UNFORTUNATE 47 FEMALE WITH CERVICAL CANCER ON CHEMO AND RADIATION AND OBSTRUCTED URETERS/ PRESENTED WITH VAGINAL BLEEDING APPEARS TO HAVE PERFED COLON WITH PERITONITIS AND SMALL AMOUNT OF FREE AIR THROMBOCYTOPENIA, ANEMIA, INR 1.7 LACTATE OK, AFEBRILE TACHY AT 140/ ABD SOFT BUT VERY TENDER LLQ RISKS AND OPTIONS FULLY DISCUSSED WITH PT AND POA Plan:LAPAROTOMY, PROBABLE COLOSTOMY 04/14/17 04:50 04/14/17 17:29 POSTOP REASONABLY STABLE / BP 103 PULSE 100 / AFEBRILE / MODERATE SEROUS DRAINAGE FROM THE ROSA / WOUND OKAY / TRANSFUSING 2 UNITS FOR HEMATOCRIT OF 16 04/15/17 10:50 ALERT/ VS IMPROVED AND STABLE/ LARGE SEROUS ROSA OUTPUT/ AFEBRILE/ WOUND OK/ UO ADEQUATE/ HCT 25,STABLE PLAN ADD DIFLUCAN/ ID CONSULT 04/16/17 08:37 more alert/ vs stable/ afebrile/ hct stable 27/ wounds ok/ rosa serous drainage/ +bs, -flatus or bm/ ng minimal out 04/18/17 10:46 afebrile/ eating poorly/ abd soft/ wound ok/ +bs and flatus/ confused/ large serous rosa out/ large uo/ start tpn 04/19/17 12:05 Afebrile but much more tender today/patient is also fully alert today for a change/wound okay/urine output good/ROSA drainage serous/WBC 5 K with normal ANC Will plan on abdominal pelvic CT scan to rule out recurrent abscess Objective: Vital Signs Temp Pulse Resp BP Pulse Ox 36.8 C 102 H 16 100/70 96 04/19/17 08:00 04/19/17 08:00 04/19/17 08:00 04/19/17 08:00 04/19/17 08:00 Microbiology 04/14/17 01:00 Blood Panel (PCR) - Final Blood No Organism Detected 04/14/17 02:00 Blood Culture - Final Blood Laboratory Results 04/19/17 05:15 04/19/17 05:15 04/18/17 04/19/17 04/20/17 05:59 05:59 05:59 Intake Total 650 1446 Output Total 9558 7984 9759 [facility] [place] -9259 -3400 -5074 PT 17.3 SEC (12.0-15.0) H 04/19/17 09:05 INR 1.42 (0.83-1.16) H 04/19/17 09:05 ICD10 Worksheet Patient Problems: Problems Problem Status Onset Hemorrhage Acute Hypotension Acute 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
[2017-04-19] MEDS ORDERED: IOPAMIDOL (ISOVUE-300) 100 ML BTL ONE (13:00)
--- NOTE | 2017-04-19 14:04 | HOSPPROG ---
Hospitalist Progress Note Assessment/Plan: #Sepsis: resolved. Due to perforated cecum/peritonitis/pelvic abscess, I/D by Dr. Gamez 04/14. -Ertapenem, Fluconazole Day 5 #Mild HUONG: has significant UOP with Lasix, will back down to once daily #Pseudomonas/Enterobacter UTI: suspect colonization per ID's review OSH records. Hold off on additional abx #Acute blood loss anemia: stable. s/p 6 units RBCs. Due to surgical losses and vaginal bleed from cervical cancer #Hypoglycemia: not eating. TPN this bettye. D5W off once this starts #Cervical cancer: last chemo/XRT 3 weeks ago. 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 Hold AC with acute blood loss #depression: increase Prozac to 20mg #Neuropathy: aunt says has not been on Gabapentin for some time, will decrease dose and wean #Volume overload: trial Lasix and albumin. Put out 6L last night, Cr and BP stable. But, will reduce Lasix to BID #Ureteral obstruction: IR flushed 04/15. Just had replaced 2 wks ago so no need to exchange now #Hypotension: resolved with blood and IVFs. Caution with IVFs #Acute encephalopathy: multifactorial with infection, ICU. Zyprexa PRN. Decrease sedative drugs. #Diet: trial clears. Talk with surgery for enteral vs. TPN #Deconditioning: will need SNF #DVT ppx: SCDs #Disp: warrants inpt admission with sepsis, blood loss. Transfer to floor Critical care time spent: 35 min bedside with patient, d/w Dr Desai and reviewing meds with aunt over phone Objective: Vital Signs Temp Pulse Resp BP Pulse Ox 36.8 C 102 H 16 100/70 96 04/19/17 08:00 04/19/17 08:00 04/19/17 08:00 04/19/17 08:00 04/19/17 08:00 Microbiology 04/14/17 01:00 Blood Panel (PCR) - Final Blood No Organism Detected 04/14/17 02:00 Blood Culture - Final Blood Laboratory Results 04/19/17 05:15 04/19/17 05:15 04/18/17 04/19/17 04/20/17 05:59 05:59 05:59 Intake Total 650 1446 910 Output Total 2245 5429 1370 Balance -4760 -5844 -1390 PT 17.3 SEC (12.0-15.0) H 04/19/17 09:05 INR 1.42 (0.83-1.16) H 04/19/17 09:05 ICD10 Worksheet Patient Problems: Problems Problem Status Onset Hemorrhage Acute Hypotension Acute 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
--- NOTE | 2017-04-19 16:27 | ASMTCMCOM ---
CM Note CM Note Notes: Placed call to román Amato for [facility] [phone], to discuss pt's referral. She said the referral had been closed by the weekend liaison 09/08 being told pt's condition had worsened, even though the [facility] CM had called Monday and asked the referral to be kept open. Referral re-sent at [facility]'s request. They will continue to follow until pt's d/c plan and date is determined. Received call back from [facility] - apparently they are working with their IT to reopen pt's file as they are unable to review the new referral documents. She will contact CM tomorrow with update. Date Signed: 04/19/2017 04:26 PM Electronically Signed By:PETE Funez
[2017-04-19 18:33] LABS: POTASSIUM 3.8 mEq/L (3.5-5.2)
[2017-04-19] MEDS: GABAPENTIN 300 MG CAP PO SCH (20:56)
[2017-04-19] MEDS: oxyCODONE IR 5 MG TAB PO PRN (20:56)
[2017-04-19] MEDS: MELATONIN 3 MG TAB PO SCH (20:57)
[2017-04-19] MEDS: OLANZapine 5 MG TAB PO SCH (20:57)
[2017-04-19] MEDS: TPN 1 EA BAG IV SCH (20:58)
[2017-04-19] MEDS ORDERED: POTASSIUM CL 10 MEQ TAB PO ONE (21:16)
[2017-04-20] MEDS: HYDROmorphONE/DILAUDID 1 MG/ML INJ IVP PRN ×2 (04:28→09:16)
[2017-04-20 04:29] LABS: IONIZED CALCIUM 1.12 MMOL/L (1.12-1.30)
[2017-04-20 04:39] LABS: APTT 35.6 SEC (23.0-38.0); INR 1.25 (0.83-1.16); PROTIME(PATIENT) 15.7 SEC (12.0-15.0)
[2017-04-20 05:14] LABS: % IMMATURE GRANULYOCYTES 2.3 % (0.0-1.1); ABSOLUTE IMMATURE GRANULOCYTES 0.11 10^3/uL (0.00-0.10); ADD DIFF? NO; ADD MORPH? NO; ADD SCAN? NO; ATYPICAL LYMPHOCYTE FLAG 60 (0-99); FRAGMENT RBC FLAG 0 (0-99); HEMATOCRIT 26.3 % (38.0-47.0); HEMOGLOBIN 8.7 g/dL (12.6-16.3); LEFT SHIFT FLG 20 (0-99); LIPEMIA HEMOLYSIS FLAG 80 (0-99); MEAN CELL HEMOGLOBIN 30.2 pg (27.9-34.1); MEAN CELL HEMOGLOBIN CONCENTR. 33.1 g/dL (32.4-36.7); MEAN CELL VOLUME 91.3 fL (81.5-99.8); MEAN PLATELET VOLUME 11.4 fL (8.7-11.7); PLATELET CLUMPS FLAG 10 (0-99); PLATELET COUNT 31 10^3/uL (150-400); RED BLOOD CELL COUNT 2.88 10^6/uL (4.18-5.33)
[2017-04-20 05:20] LABS: ALANINE AMINOTRANSFERASE 24 IU/L (9-52); ALBUMIN 2.2 g/dL (3.5-5.0); ALKALINE PHOSPHATASE 82 IU/L (38-126); ANION GAP 8 mEq/L (8-16); ASPARTATE AMINOTRANSFERASE 10 IU/L (14-46); BILIRUBIN,TOTAL 0.6 mg/dL (0.1-1.4); CALCIUM 7.4 mg/dL (8.5-10.4); CARBON DIOXIDE 29 mEq/l (22-31); CHLORIDE 99 mEq/L (97-110); CREATININE 1.1 mg/dL (0.6-1.0); GLOMERULAR FILTRATION RATE 53; GLUCOSE 80 mg/dL (70-100); MAGNESIUM 1.8 mg/dL (1.6-2.3); POTASSIUM 4.1 mEq/L (3.5-5.2); SODIUM 136 mEq/L (134-144); TOTAL PROTEIN 4.5 g/dL (6.3-8.2)
[2017-04-20] MEDS: LEVOTHYROXINE 112 MCG TAB PO SCH (05:39)
[2017-04-20 06:10] LABS: PLATELET ESTIMATE DECREASED (ADEQ)
[2017-04-20] MEDS ORDERED: MAGNESIUM SULF 1 GM/DEXTROSE 100 ML IV ONE (08:42)
[2017-04-20] MEDS ORDERED: CALCIUM GLUCONATE 50 ML IV ONE (08:42)
[2017-04-20] MEDS: ONDANSETRON 4 MG/2 ML VIAL IVP PRN ×2 (09:16→16:40)
[2017-04-20] MEDS: ERTAPENEM 1 GM in NS 100 ML IV SCH (09:16)
[2017-04-20] MEDS: FLUoxetine 10 MG CAP PO SCH (09:17)
[2017-04-20] MEDS: NORETHINDRONE ACET 5 MG TAB PO SCH (09:17)
[2017-04-20] MEDS: FUROSEMIDE 20 MG/2 ML VIAL IVP SCH (09:17)
[2017-04-20] MEDS: PANTOPRAZOLE SODIUM 40 MG TAB PO SCH ×2 (09:17→20:40)
[2017-04-20] MEDS: FLUCONAZOLE/NaCl 100 ML IV SCH (10:08)
--- NOTE | 2017-04-20 14:00 | HOSPPROG ---
Hospitalist Progress Note Assessment/Plan: #Sepsis: resolved. Due to perforated cecum/peritonitis/pelvic abscess, I/D by Dr. Gamez 04/14. -Ertapenem, Fluconazole Day 6 -CT 04/19 shows overall improvement, no free fluid #Mild HUONG: has significant UOP with Lasix. Still stable on daily dose #Pseudomonas/Enterobacter UTI: suspect colonization per ID's review OSH records. Hold off on additional abx #Acute blood loss anemia: stable. s/p 6 units RBCs. Due to surgical losses and vaginal bleed from cervical cancer #Hypoglycemia: stable #Cervical cancer: last chemo/XRT 3 weeks ago. 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 Hold AC with acute blood loss #depression: increase Prozac to 20mg. Mood is affecting motivation. Trial Ritalin tomorrow #Neuropathy: aunt says has not been on Gabapentin for some time, will decrease dose and wean off #Volume overload: improved. Cont daily lasix #Ureteral obstruction: IR flushed 04/15. Just had replaced 2 wks ago so no need to exchange now #Hypotension: resolved with blood and IVFs. Caution with IVFs #Acute encephalopathy: intermittent. multifactorial with infection, ICU. Zyprexa PRN. Decrease sedative drugs. #Diet: trial clears. Talk with surgery for enteral vs. TPN #Deconditioning: will need SNF #DVT ppx: SCDs #Disp: Critical care time spent: 35 min bedside with patient, d/w Dr Desai and reviewing meds with aunt over phone Subjective: out of bed to chair. Nauseated so doesnt' want to eat Objective: Vital Signs Temp Pulse Resp BP Pulse Ox 36.9 C 101 H 18 110/70 96 04/20/17 08:00 04/20/17 08:00 04/20/17 08:00 04/20/17 08:00 04/20/17 08:00 Microbiology 04/14/17 01:00 Blood Panel (PCR) - Final Blood No Organism Detected 04/14/17 14:41 Urine Culture - Final Urine,Kidney - Other Pseudomonas Aeruginosa Enterobacter Cloacae Laboratory Results 04/20/17 04:20 04/20/17 04:20 04/19/17 04/20/17 04/21/17 05:59 05:59 05:59 Intake Total 1446 1772 Output Total 8549 1883 1050 Balance -2489 3103 -1050 PT 15.7 SEC (12.0-15.0) H 04/20/17 04:20 INR 1.25 (0.83-1.16) H 04/20/17 04:20 - Physical Exam Constitutional: chronically ill appearing Eyes: PERRL Ears, Nose, Mouth, Throat: moist mucous membranes Cardiovascular: regular rate and rhythym, edema (+2 edema up to thighs) Respiratory: no respiratory distress Gastrointestinal: other (abd surgical incision stapled, CDI) Genitourinary: other (BL neph tubes, paniagua) Skin: warm, erythema (skin fragile over inner thigh and perineum) Musculoskeletal: generalized weakness Neurologic: AAOx3, CN II-XII Intact Psychiatric: depressed ICD10 Worksheet Patient Problems: Problems Problem Status Onset Hemorrhage Acute Hypotension Acute 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
--- NOTE | 2017-04-20 15:51 | SOAPPROG ---
SOAP Progress Note Assessment/Plan: Assessment: 47yo female POD #3 s/p laparotomy, drainage of pelvic abscess, partial cecectomy and appendectomy 2/2 perforated colon with peritonitis and free air. Hx of cervical cancer on chemo/ rad originally presented with obstructed ureters and vaginal bleeding. CT abd/pel demonstrating overall improvement. No free fluid appreciated Afebrile, WBC wNL Cont pain control Cont drains S: Feeling better today. Abdomen less tender. Pain controlled. Appetite low. No N/V. O: See while therapy was working with her Sitting up in chair Afebrile Lungs CTAB Minimal BS. Abdomen soft. Small TTP. Objective: Vital Signs Temp Pulse Resp BP Pulse Ox 36.9 C 101 H 18 110/70 96 04/20/17 08:00 04/20/17 08:00 04/20/17 08:00 04/20/17 08:00 04/20/17 08:00 Microbiology 04/14/17 01:00 Blood Panel (PCR) - Final Blood No Organism Detected 04/14/17 14:41 Urine Culture - Final Urine,Kidney - Other Pseudomonas Aeruginosa Enterobacter Cloacae Laboratory Results 04/20/17 04:20 04/20/17 04:20 04/19/17 04/20/17 04/21/17 05:59 05:59 05:59 Intake Total 1446 1772 Output Total 7335 4875 1050 [facility] -5889 -3103 -1050 PT 15.7 SEC (12.0-15.0) H 04/20/17 04:20 INR 1.25 (0.83-1.16) H 04/20/17 04:20 ICD10 Worksheet Patient Problems: Problems Problem Status Onset Hemorrhage Acute Hypotension Acute 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
[2017-04-20] MEDS: oxyCODONE IR 5 MG TAB PO PRN (16:39)
--- NOTE | 2017-04-20 16:43 | PCMIDPN ---
Assessment/Plan: Assessment/Plan: * Peritonitis/ pelvic abscess due to perforated cecum status post incision and drainage: Overall with decreasing abdominal pain. CT scan done yesterday shows improvement overall without findings of residual abscess. Continue ertapenem and fluconazole. * Urinary colonization with multidrug resistant Pseudomonas/Enterobacter cloacae and bilateral nephrostomies: Tobias to be most compatible colonization. Continue to observe without targeted anti-Pseudomonal therapy. 04/20/17 16:40 04/20/17 16:43 Subjective: Patient with less prominent abdominal pain. Objective: Vital Signs Temp Pulse Resp BP Pulse Ox 36.6 C 92 17 110/78 98 04/20/17 16:00 04/20/17 16:00 04/20/17 16:00 04/20/17 16:00 04/20/17 16:00 Microbiology 04/14/17 01:00 Blood Panel (PCR) - Final Blood No Organism Detected 04/14/17 14:41 Urine Culture - Final Urine,Kidney - Other Pseudomonas Aeruginosa Enterobacter Cloacae Laboratory Results 04/20/17 04:20 04/20/17 04:20 04/19/17 04/20/17 04/21/17 05:59 05:59 05:59 Intake Total 1446 1772 Output Total 7335 4875 1170 [facility] -5889 -3103 -1170 Ertapenem # 6 Fluconazole # 6 CT abdomen pelvis with overall improvement compared to preoperative study without residual inflammatory changes or fluid collection - Physical Exam General Appearance: alert, no apparent distress EENT: No scleral icterus, No thrush Abdomen: tender (diffusely), other ( poonam intact without erythema or dainage) , No distended Skin: No rash - Line/s Mediport Lines: No drainage, No erythema other Lines: other ( left IJ triple-lumen catheter), No drainage, No erythema ICD10 Worksheet Patient Problems: Problems Problem Status Onset Hemorrhage Acute Hypotension Acute 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
[2017-04-20] MEDS: ALTEPLASE 2 MG VIAL IVP PRN (16:49)
[2017-04-20 19:18] LABS: POTASSIUM 4.1 mEq/L (3.5-5.2)
[2017-04-20] MEDS: MELATONIN 3 MG TAB PO SCH (20:39)
[2017-04-20] MEDS: OLANZapine 5 MG TAB PO SCH (20:39)
[2017-04-20] MEDS: TPN 1 EA BAG IV SCH (20:39)
[2017-04-20] MEDS: GABAPENTIN 300 MG CAP PO SCH (20:39)
[2017-04-21 04:07] LABS: ADD DIFF? YES; ADD MORPH? NO; ADD SCAN? NO; ATYPICAL LYMPHOCYTE FLAG 80 (0-99); FRAGMENT RBC FLAG 0 (0-99); HEMATOCRIT 24.7 % (38.0-47.0); HEMOGLOBIN 8.1 g/dL (12.6-16.3); LEFT SHIFT FLG 40 (0-99); LIPEMIA HEMOLYSIS FLAG 80 (0-99); MEAN CELL HEMOGLOBIN 30.5 pg (27.9-34.1); MEAN CELL HEMOGLOBIN CONCENTR. 32.8 g/dL (32.4-36.7); MEAN CELL VOLUME 92.9 fL (81.5-99.8); MEAN PLATELET VOLUME 12.8 fL (8.7-11.7); PLATELET CLUMPS FLAG 0 (0-99); RED BLOOD CELL COUNT 2.66 10^6/uL (4.18-5.33); RED CELL DISTRIBUTION WIDTH 15.9 % (11.5-15.2)
[2017-04-21 04:12] LABS: PLATELET COUNT 38 10^3/uL (150-400)
[2017-04-21 04:16] LABS: INR 1.25 (0.83-1.16); PROTIME(PATIENT) 15.7 SEC (12.0-15.0)
[2017-04-21 04:17] LABS: APTT 35.2 SEC (23.0-38.0)
[2017-04-21 04:38] LABS: ALANINE AMINOTRANSFERASE 21 IU/L (9-52); ALBUMIN 2.2 g/dL (3.5-5.0); ALKALINE PHOSPHATASE 79 IU/L (38-126); ANION GAP 7 mEq/L (8-16); ASPARTATE AMINOTRANSFERASE 12 IU/L (14-46); BILIRUBIN,TOTAL 0.5 mg/dL (0.1-1.4); CALCIUM 7.3 mg/dL (8.5-10.4); CARBON DIOXIDE 29 mEq/l (22-31); CHLORIDE 99 mEq/L (97-110); GLOMERULAR FILTRATION RATE 59; GLUCOSE 77 mg/dL (70-100); POTASSIUM 4.3 mEq/L (3.5-5.2); SODIUM 135 mEq/L (134-144); TOTAL PROTEIN 4.6 g/dL (6.3-8.2)
[2017-04-21 05:28] LABS: PLATELET ESTIMATE DECREASED (ADEQ)
[2017-04-21] MEDS: LEVOTHYROXINE 112 MCG TAB PO SCH (05:30)
[2017-04-21] MEDS: FLUCONAZOLE/NaCl 100 ML IV SCH (08:23)
[2017-04-21] MEDS: ERTAPENEM 1 GM in NS 100 ML IV SCH (08:25)
[2017-04-21] MEDS: NORETHINDRONE ACET 5 MG TAB PO SCH (08:25)
[2017-04-21] MEDS: PANTOPRAZOLE SODIUM 40 MG TAB PO SCH ×2 (08:26→21:27)
[2017-04-21] MEDS: FLUoxetine 10 MG CAP PO SCH (08:26)
[2017-04-21] MEDS: FUROSEMIDE 20 MG/2 ML VIAL IVP SCH (08:26)
--- NOTE | 2017-04-21 10:26 | PCMIDPN ---
Assessment/Plan: #Peritonitis & pelvic abscess due to perforated cecum s/p washout 04/14. Less pain to my abdominal exam today. In addition had a CT scan 2 days ago that showed no evolving abdominal abscess or leak. --continue ertapenem, fluconazole, duration to be determined. Estimate approximately 2 weeks after surgery. # Urinary Colonization with MDRs - PsA. B nephrostomies in place --contact precautions # thrombocytopenia : Platelets are stable in the 30s. Could consider complication related to ertapenem or fluconazole. Continue to monitor and get input from Oncology. Meds ertapenem 1gm IV daily, #7 Fluconazole 200mg IV daily , #7 Subjective: Feeling slightly improved. Continued pain in her abdomen left greater than right. Flatus without BM. Objective: Vital Signs Temp Pulse Resp BP Pulse Ox 36.7 C 85 12 90/64 L 97 04/21/17 08:00 04/21/17 08:00 04/21/17 08:00 04/21/17 08:00 04/21/17 08:00 Microbiology 04/14/17 01:00 Blood Panel (PCR) - Final Blood No Organism Detected 04/14/17 14:41 Urine Culture - Final Urine,Kidney - Other Pseudomonas Aeruginosa Enterobacter Cloacae Laboratory Results 04/21/17 03:45 04/21/17 03:45 04/20/17 04/21/17 04/22/17 05:59 05:59 05:59 Intake Total 1772 1228 Output Total 4875 2001 Balance -1251 -246 - Physical Exam General Appearance: alert, no apparent distress EENT: pale conjunctiva, dry mucous membranes, No scleral icterus Respiratory: lungs clear, No accessory muscle use Cardiac/Chest: regular rate, rhythm Extremities: pedal edema Abdomen: soft, other (Discomfort to minimal palpation left greater than right. Bowel sounds are present, midline surgical scar is healing well without erythema or drainage, to TAYE drains in place with serosanguineous fluid) Skin: No rash Neuro/Psych: alert, oriented x 3, depressed affect - Line/s Mediport Lines: other (Right chest wall), No drainage, No erythema other Lines: other (Left IJ), No drainage, No erythema ICD10 Worksheet Patient Problems: Problems Problem Status Onset Hemorrhage Acute Hypotension Acute 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
--- NOTE | 2017-04-21 10:29 | SOAPPROG ---
SOAP Progress Note Assessment/Plan: Assessment: UNFORTUNATE 47 FEMALE WITH CERVICAL CANCER ON CHEMO AND RADIATION AND OBSTRUCTED URETERS/ PRESENTED WITH VAGINAL BLEEDING APPEARS TO HAVE PERFED COLON WITH PERITONITIS AND SMALL AMOUNT OF FREE AIR THROMBOCYTOPENIA, ANEMIA, INR 1.7 LACTATE OK, AFEBRILE TACHY AT 140/ ABD SOFT BUT VERY TENDER LLQ RISKS AND OPTIONS FULLY DISCUSSED WITH PT AND POA Plan:LAPAROTOMY, PROBABLE COLOSTOMY 04/14/17 04:50 04/14/17 17:29 POSTOP REASONABLY STABLE / BP 103 PULSE 100 / AFEBRILE / MODERATE SEROUS DRAINAGE FROM THE ROSA / WOUND OKAY / TRANSFUSING 2 UNITS FOR HEMATOCRIT OF 16 04/15/17 10:50 ALERT/ VS IMPROVED AND STABLE/ LARGE SEROUS ROSA OUTPUT/ AFEBRILE/ WOUND OK/ UO ADEQUATE/ HCT 25,STABLE PLAN ADD DIFLUCAN/ ID CONSULT 04/16/17 08:37 more alert/ vs stable/ afebrile/ hct stable 27/ wounds ok/ rosa serous drainage/ +bs, -flatus or bm/ ng minimal out 04/18/17 10:46 afebrile/ eating poorly/ abd soft/ wound ok/ +bs and flatus/ confused/ large serous rosa out/ large uo/ start tpn 04/19/17 12:05 Afebrile but much more tender today/patient is also fully alert today for a change/wound okay/urine output good/ROSA drainage serous/WBC 5 K with normal ANC Will plan on abdominal pelvic CT scan to rule out recurrent abscess 04/21/17 10:26 Afebrile but still eating poorly/abdomen soft/wound okay/midline drain DC'd/ anorexia has been longstanding/may need to try Marinol or some other diet stimulant Objective: Vital Signs Temp Pulse Resp BP Pulse Ox 36.7 C 85 12 90/64 L 97 04/21/17 08:00 04/21/17 08:00 04/21/17 08:00 04/21/17 08:00 04/21/17 08:00 Microbiology 04/14/17 01:00 Blood Panel (PCR) - Final Blood No Organism Detected 04/14/17 14:41 Urine Culture - Final Urine,Kidney - Other Pseudomonas Aeruginosa Enterobacter Cloacae Laboratory Results 04/21/17 03:45 04/21/17 03:45 04/20/17 04/21/1717 05:59 05:59 05:59 Intake Total 1772 1228 Output Total [address] [facility] -6322 -685 PT 15.7 SEC (12.0-15.0) H 04/21/17 03:45 INR 1.25 (0.83-1.16) H 04/21/17 03:45 ICD10 Worksheet Patient Problems: Problems Problem Status Onset Hemorrhage Acute Hypotension Acute 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
--- NOTE | 2017-04-21 10:30 | HOSPPROG ---
Hospitalist Progress Note Assessment/Plan: 47 yo female with h/o cervical cancer admitted with vaginal bleeding, found to have pelvic abscess and perforated cecum, underwent cecectomy and appendectomy, now with slow recovery, poor appetite. #Sepsis: resolved. Source is perforated cecum/peritonitis/pelvic abscess, I/D by Dr. Gamez 04/14. -Ertapenem, Fluconazole Day 7. Reviewed with ID, planning for at least 2 weeks tx course. -CT 04/19 shows overall improvement, no free fluid #Pseudomonas/Enterobacter UTI: suspect colonization per ID's review OSH records. #Acute blood loss anemia: s/p 6 units RBCs, now stable. Due to surgical losses and vaginal bleed from cervical cancer #Hypoglycemia: bg's stable over past several day, but poor oral intake #Cervical cancer: last chemo/XRT 3 weeks ago. 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 cont to hold AC with acute blood loss #depression: increased Prozac to 20mg. Mood is affecting motivation. Trial Ritalin today. #Neuropathy: not been on Gabapentin for some time, will decrease dose and wean off #Volume overload: wt on admission 88 kg, up to 101 kg, now down to 86.5 kg after daily lasix with excellent diuresis over past several days -d/c lasix, monitor volume status closely #Ureteral obstruction: B/L nephrostomy tubes. IR flushed 04/15. Just had replaced 2 wks ago so no need to exchange now. Planning for ureteral stents ( was to be done 04/19, but still hospitalized). -will discuss d/c'ing paniagua with urology, unclear if this needs to remain in place with b/l nephrostomy tubes #Hypotension: resolved with blood and IVFs. Caution with IVFs #Acute encephalopathy: intermittent. multifactorial with infection, ICU. Zyprexa PRN. Decrease sedative drugs. #Diet/FEN: Day 4 on TPN, cont clears as tolerated, but poor appetite, minimal oral intake. Discussed nutrition with surgery, increase zyprexa and trial marinol. #Deconditioning: will need SNF #DVT ppx: SCDs #Disp: Subjective: Pt is tired, not motivated to ambulate much. No fevers/chills. Pain relatively well controlled. RN reports leaking around paniagua. She has b/l nephrostomy tubes which are draining well. Objective: Vital Signs Temp Pulse Resp BP Pulse Ox 36.7 C 85 12 90/64 L 97 04/21/17 08:00 04/21/17 08:00 04/21/17 08:00 04/21/17 08:00 04/21/17 08:00 Microbiology 04/14/17 01:00 Blood Panel (PCR) - Final Blood No Organism Detected 04/14/17 14:41 Urine Culture - Final Urine,Kidney - Other Pseudomonas Aeruginosa Enterobacter Cloacae Laboratory Results 04/21/17 03:45 04/21/17 03:45 04/20/17 04/21/17 04/22/17 05:59 05:59 05:59 Intake Total 1772 1228 Output Total 4828 2002 Balance -5349 -435 PT 15.7 SEC (12.0-15.0) H 04/21/17 03:45 INR 1.25 (0.83-1.16) H 04/21/17 03:45 - Physical Exam Constitutional: no apparent distress Eyes: PERRL Ears, Nose, Mouth, Throat: moist mucous membranes Cardiovascular: regular rate and rhythym Gastrointestinal: normoactive bowel sounds, other (soft, appropriate TTP, incisions c/d/i, no peritoneal signs) Skin: warm Musculoskeletal: full muscle strength Neurologic: AAOx3 Psychiatric: interacting appropriately ICD10 Worksheet Patient Problems: Problems Problem Status Onset Hemorrhage Acute Hypotension Acute 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
[2017-04-21] MEDS ORDERED: OLANZapine 5 MG TAB PO SCH (10:31)
[2017-04-21] MEDS: HYDROmorphONE/DILAUDID 1 MG/ML INJ IVP PRN (11:00)
[2017-04-21] MEDS: DRONABINOL 2.5 MG CAP PO SCH ×2 (11:05→21:27)
--- NOTE | 2017-04-21 12:43 | ASMTCMCOM ---
CM Note CM Note Notes: Spoke with L[facility] at [facility] yesterday. The previous referral in [facility] was closed and a new one started. They are willing to consider pt again. However, last week insurance based their approval on pt being able to work with therapies for 5 out of 7 days. Pt has not worked with PT/OT since Monday so [facility] will hold off getting insurance approval until they have more recent therapy notes. Pt may also benefit from an LTAC. Spoke with pt's uncle, Young last week about that possibility. Faxed referral to Barbara at [facility]. Barbara stated that she will need to submit ins. auth before [facility] does. [facility] aware of this. C/M should know by later today if LTAC approved. Latest PT/OT notes faxed to both [facility] and [facility]. C/M will continue to follow. Date Signed: 04/21/2017 12:42 PM Electronically Signed By:Kelly Tarango LCSW
--- NOTE | 2017-04-21 12:54 | GCON ---
[f rep st] CONSULTATION PRIMARY ONCOLOGIST IS DR. NANCY JONES. Initial Consultation REASON FOR CONSULTATION: E and M for cervical cancer and DVT. HISTORY OF PRESENT ILLNESS: The patient is a 47-year-old woman who was diagnosed in September of 2016 with stage IVB (T3b N0 M1) cervical cancer. She was seen by Dr. Jones and started on paclitaxel , carboplatin, and bevacizumab on October 13, but developed severe uterine bleeding requiring hospital ization at [place], and underwent a coil embolization of the right uterine artery. Prior to this diagnosis, she also had bilateral percutaneous nephrostomy tubes placed due to hydronephrosis possib ly due to her malignancy. She was transferred to [facility] at their transitional care unit to undergo radiation by Dr. Ch, and she was receiving concurrent weekly cisplatin. She had a lot of problems with low blood counts post chemotherapy and during the treatment with the cisplatin , requiring dose modifications and holding doses. She last saw the Dr. Jones on March 16, and she was doing much better. The radiation had completed, and she completed brachytherapy on March 07. She was on anticoagulation, and her leg swelling was still present. She was scheduled to have t he IVC filter removed. It was recommended to continue chemotherapy with carboplatin, paclitaxel, and bevacizumab, and she was to follow up with Dr. Cazares. She received chemotherapy on the , an d the patient denies having any significant problems with it. Her platelet count at that time was 18 2,000. She was admitted to the hospital with heavy vaginal bleeding that was thought to be related to being on Lovenox. Her platelet count at the time of admission was 54,000. Her blood thinning was held. S he then about 3 or 4 days ago developed a perforated colon with peritonitis and free air, and underwe nt a partial cecectomy, appendectomy, and drainage of a pelvic abscess. She is currently slowly ricardo vering. She is on TPN and having anxiety with trying to eat, and she had a large bowel movement. Sh char has had some recent CT scans, and I was asked to comment on her low blood counts as well as her cer vical cancer. PAST MEDICAL HISTORY: 1. Stage IV cervical cancer as per HPI. 2. Large IVC DVT down into her right leg, with IVC filter placed. 3. Ureteral obstruction secondary to the tumor and bilateral nephrostomy tubes in place. 4. She also has a history of morbid obesity, status post gastric bypass surgery. 5. Sleep apnea. 6. Hypothyroidism. 7. Bipolar disorder, with anxiety and PTSD. SOCIAL HISTORY: She smoked for 15 years of half a pack a day, but quit years ago. No IV drugs, and she only drank alcohol occasionally. She works as a financial investment adviser. FAMILY HISTORY: Her parents committed suicide. No history of liver cancer. She has an 18-year-old daughter. REVIEW OF SYSTEMS: A 10-point review was performed. Pertinent positives per HPI; otherwise, negativ e. ECOG performance status is at 3. PHYSICAL EXAMINATION: VITAL SIGNS: Temp is 36.7, pulse is 85, and blood pressure is 90/64. GENERAL : She is an obese woman, chronically ill, but in no distress. HEENT: Unremarkable. LUNGS: Reveal ed some decreased breath sounds at the bases; otherwise, clear. CARDIAC: Regular, without murmur. ABDOMEN: Mildly tender, but soft. Bowel sounds are present, but decreased. EXTREMITIES: No rash. She does have 2+ edema bilaterally. The left may be slightly greater than the right. NEUROLOGIC: Appears to be grossly intact. DIAGNOSTIC DATA: The pathology from the surgery showed chronic inflammation, but no malignancy. Abd ominal CT shows that the abscess is resolving. The anasarca is better. The colonic wall thickening and free air have resolved. It shows bilateral nephrostomy stents in place, as well as an inferior v homero caval filter in place and a right iliac vein stent. There is an enlarged right iliac node. Her last PET scan on January 26, 2017, showed a bulky soft tissue mass involving the uterus, 8.9 x 10.8 x 6. 6 cm, but the metabolic activity had resolved. There was an ill-defined mass in the right iliopsoas muscle along the right pelvic sidewall, which also was about 3.1 x 5.9, with increased metabolic acti vity along the margin of this mass, down to 5.1 from 12.6. There were hypermetabolic periaortic lymp h nodes. Overall, the assessment was that there was a treatment response, with decrease in the bulky mass and other adenopathy, but still some residual active disease. LABORATORY DATA: Her white count was elevated last week, but is now down to normal. Her hemoglobin is down to 8.1, but on arrival, it was 8.9. She has needed some blood transfusions. Platelet count on arrival was 54,000. She has been as high as 96, but lately she has been stable between 30,000 and 40,000. IMPRESSION: 1. Stage IV cervical cancer, status post radiation with concurrent chemotherapy, brachytherapy, and 2 cycles of chemotherapy with carboplatin, paclitaxel, and bevacizumab. The last was on March 16. 2. Extensive inferior vena cava clot down into the right lower extremity, status post inferior vena cava filter and has been on anticoagulation, currently held. 3. Persistent thrombocytopenia. 4. Recent colonic perforation. 5. Recent vaginal bleed. She has a very difficult situation in that she has a fairly advanced cervical cancer, but has also garcia d difficulty tolerating standard therapy. She has completed radiation. This is the second hospitali zation after chemotherapy with bleeding. She also now has had a colonic perforation. I will let Dr. Jones know of her admission, and she might reconsider continuing the bevacizumab. Any further c hemotherapy is on hold at this time until she completely recovers. The CT scan shows no evidence alyson t she has significantly progressing disease, but will need restaging when she is out of the hospital. The thrombocytopenia is unclear. It could be related to the previous treatments and the acute illnes s. Hopefully, with nutrition and time, it will slowly rise. If it gets consistently above 50,000, w ith her history of significant clots, I would then recommend gently restarting at least prophylactic Lovenox and then increasing to full dose as she improves. /[id number]/MODL
[2017-04-21] MEDS: TPN 1 EA BAG IV SCH (21:26)
[2017-04-21] MEDS: GABAPENTIN 300 MG CAP PO SCH (21:27)
[2017-04-21] MEDS: MELATONIN 3 MG TAB PO SCH (22:07)
[2017-04-22 05:35] LABS: ABSOLUTE NRBC COUNT 0.02 10^3/uL (0-0.01); ADD DIFF? YES; ADD MORPH? NO; ADD SCAN? NO; ATYPICAL LYMPHOCYTE FLAG 60 (0-99); FRAGMENT RBC FLAG 0 (0-99); HEMATOCRIT 24.1 % (38.0-47.0); HEMOGLOBIN 7.9 g/dL (12.6-16.3); LEFT SHIFT FLG 80 (0-99); LIPEMIA HEMOLYSIS FLAG 80 (0-99); MEAN CELL HEMOGLOBIN 30.5 pg (27.9-34.1); MEAN CELL HEMOGLOBIN CONCENTR. 32.8 g/dL (32.4-36.7); MEAN CELL VOLUME 93.1 fL (81.5-99.8); MEAN PLATELET VOLUME 12.2 fL (8.7-11.7); NRBC-AUTO% 0.3 % (0.0-0.2); PLATELET CLUMPS FLAG 0 (0-99); PLATELET COUNT 68 10^3/uL (150-400); RED BLOOD CELL COUNT 2.59 10^6/uL (4.18-5.33); RED CELL DISTRIBUTION WIDTH 15.8 % (11.5-15.2)
[2017-04-22 06:35] LABS: PLATELET ESTIMATE DECREASED (ADEQ)
[2017-04-22] MEDS: PANTOPRAZOLE SODIUM 40 MG TAB PO SCH ×2 (08:46→20:25)
[2017-04-22] MEDS: LEVOTHYROXINE 112 MCG TAB PO SCH (08:46)
[2017-04-22] MEDS: DRONABINOL 2.5 MG CAP PO SCH (08:47)
[2017-04-22] MEDS: FLUoxetine 10 MG CAP PO SCH (08:47)
[2017-04-22] MEDS: ERTAPENEM 1 GM in NS 100 ML IV SCH (08:47)
[2017-04-22] MEDS: NORETHINDRONE ACET 5 MG TAB PO SCH (08:48)
--- NOTE | 2017-04-22 09:47 | SOAPPROG ---
SOAP Progress Note Assessment/Plan: Assessment: 47 yo female s/p laparotomy with drainage of pelvic abscess, partial cecectomy, and appendectomy POD#8 Plan: Neuro: pain well controlled with medications Wound: Midline abdominal wound, no dressings needed, may wash with soap and water. No baths, hot tubs, or swimming. FEN: Continue IV fluids but encourage liquid diet. Electrolytes stable. Clear liquid diet, advance as tolerated. Heme/ID: Psuedomonas infection managed by ID with ertapenem and fluconazole. Platelets are improving, gradually worsening anemia. May consider another transfusion in the future if anemia continues to worsen. GI: Stable, continue bowel protocol and attempts at advancing diet. Drains: continue abdominal TAYE : Nephrostomy tubes and leaking around paniagua. May need to discuss with urology Pt has had some delirium/hallucinations since last night. It is possibly due to medication interaction or side effects. Marinol was added yesterday which can contribute to delirium. I would recommend discontinuing marinol as the delirium began after this was prescribed and it is not an essential medication. Other possibilities include side effects of fluconazole, invanz and/or ritalin. Discussed case with Dr. Brunson. S: Pt is feeling ok when we spoke. Per the pt nurse, she has had some confusion this morning with hallucinations of dogs and people in the room with her. The patient remembers being confused. Otherwise she is doing well. O: HEENT: Some allopecia. NCAT, PER, no scleral icterus, mucus membranes moist Resp: No increased WOB Cor: Regular rate GI: clean, dry, and intact abdominal incision with no signs of infection at the site. Abdomen is soft, nontender/nondistended with bowel sounds x4. Taye with serous fluid : Nephrostomy in place and appears to be functioning. Neuro: Conversation seemed appropriate Psych: Patient appears to have depressed mood and affect. 04/22/17 10:05 04/22/17 11:06 Objective: Vital Signs Temp Pulse Resp BP Pulse Ox 36.8 C 90 18 102/58 L 99 04/22/17 08:12 04/22/17 08:12 04/22/17 08:12 04/22/17 08:12 04/22/17 08:12 Microbiology 04/14/17 01:00 Blood Culture - Final Blood Blood Panel (PCR) - Final No Organism Detected Laboratory Results 04/22/17 05:00 04/21/17 22:30 04/21/17 04/22/17 04/23/17 05:59 05:59 05:59 Intake Total 1228 1471 Output Total 2001 0322 Balance -774 -1506 PT 15.7 SEC (12.0-15.0) H 04/21/17 03:45 INR 1.25 (0.83-1.16) H 04/21/17 03:45 ICD10 Worksheet Patient Problems: Problems Problem Status Onset Hemorrhage Acute Hypotension Acute 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
[2017-04-22] MEDS: FLUCONAZOLE/NaCl 100 ML IV SCH (10:25)
--- NOTE | 2017-04-22 12:10 | ASMTCMCOM ---
CM Note CM Note Notes: Met with pt yesterday to discuss DC plans. Talked with pt about the possibility of going to [facility] first at DC. Pt in agreement with plan and asked that C/M talk with her aunt as well. Spoke with pts aunt Mitali at [phone]. She was happy with plan. [facility] has ins. Approval. Barbraa from [facility] will likely meet with pt on Monday. Contacted [facility] to let them know pt will likely go to [facility] but asked them to leave referral open until plan definite. They also stated they work well with [facility] for pts to come there at DC from [facility]. Also completed a distress with pt. She scored a 6. She checked her appearance And financial issues as her stressors. Spoke with TORRES Martinez about her appearance concerns. Discussed financial issues with her pt. Made a red lipstick request for pt. Also mailed her aunt al list of financial programs they can apply to. C/M will continue to follow. Date Signed: 04/22/2017 12:10 PM Electronically Signed By:Kelly Tarango LCSW
[2017-04-22] MEDS ORDERED: MAGNESIUM SULF 1 GM/DEXTROSE 100 ML IV ONE (12:43)
--- NOTE | 2017-04-22 13:10 | PCMIDPN ---
Assessment/Plan: # Bacteremia with GPC (likely anaerobic) --awaiting ID --ertapenem likely covers #Peritonitis & pelvic abscess due to perforated cecum s/p washout 04/14. Less pain to my abdominal exam today. In addition had a CT scan 2 days ago that showed no evolving abdominal abscess or leak. --continue ertapenem, fluconazole, tentatively plan 10 days post op, 04/25 # Urinary Colonization with MDRs - PsA. B nephrostomies in place --contact precautions # thrombocytopenia : platelets are increasing Meds ertapenem 1gm IV daily, #8 Fluconazole 200mg IV daily , #8 Subjective: decreasing abdominal pain no other specific c/o Objective: Vital Signs Temp Pulse Resp BP Pulse Ox 36.8 C 90 18 102/58 L 99 04/22/17 08:12 04/22/17 08:12 04/22/17 08:12 04/22/17 08:12 04/22/17 08:12 Microbiology 04/14/17 01:00 Blood Culture - Final Blood Blood Panel (PCR) - Final No Organism Detected Laboratory Results 04/22/17 05:00 04/21/17 22:30 04/21/17 04/22/17 04/23/17 05:59 05:59 05:59 Intake Total 1228 1471 Output Total 2001 0700 5755 [id number] -[phone] General Appearance: alert, no apparent distress EENT: pale conjunctiva, dry mucous membranes, No scleral icterus Respiratory: lungs clear, No accessory muscle use Cardiac/Chest: regular rate, rhythm, SM Extremities: pedal edema Abdomen: soft, mild discomfort to minimal palpation left greater than right. Bowel sounds are present, midline surgical scar is healing well without erythema or drainage, to TAYE drains in place with serosanguineous fluid, TAYE output 45/65cc Skin: No rash Neuro/Psych: alert, oriented x 3, depressed affect Mediport: Right chest wall: No drainage, No erythema Left IJ: No drainage, No erythema ICD10 Worksheet Patient Problems: Problems Problem Status Onset Hemorrhage Acute Hypotension Acute 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
--- NOTE | 2017-04-22 15:14 | HOSPPROG ---
Hospitalist Progress Note Assessment/Plan: 47 yo female with h/o cervical cancer admitted with vaginal bleeding, found to have pelvic abscess and perforated cecum, underwent cecectomy and appendectomy, now with slow recovery, poor appetite. #Sepsis: resolved. Source is perforated cecum/peritonitis/pelvic abscess, I/D by Dr. Gamez 04/14. -Ertapenem, Fluconazole Day 8. Reviewed with ID, planning for at least 2 weeks tx course. -CT 04/19 shows overall improvement, no free fluid #Pseudomonas/Enterobacter UTI: suspect colonization per ID's review OSH records. #Delirium: Suspect medication induced. Just started Marinol and Ritalin, both of which are d/c'd. Ertapenem can cause confusion. Also consider neurontin as factor, though she has a strong indication for this with neuropathy symptoms. -prn haldol #Acute blood loss anemia: s/p 6 units RBCs, now stable. Due to surgical losses and vaginal bleed from cervical cancer. She has been receiving daily Norethindrone since admission. Will d/c this as may hasten clotting issue. #Thrombocytopenia: plts up today, cont to monitor #Hypoglycemia: bg's stable over past several days, but poor oral intake #Cervical cancer: last chemo/XRT 3 weeks ago. 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 cont to hold AC with acute blood loss and thrombocytopenia. Resume low dose Lovenox when plts >80K. #depression: increased Prozac to 20mg. Mood is affecting motivation. #Neuropathy: on once daily neurontin, still with significant neuropathy symptoms , will continue #Volume overload: wt on admission 88 kg, up to 101 kg, now down to 86.5 kg after daily lasix with excellent diuresis over past several days -d/c'd lasix yesterday, monitor volume status closely -caution with IVF's #Ureteral obstruction: B/L nephrostomy tubes. IR flushed 04/15. Just had replaced 2 wks ago so no need to exchange now. Planning for ureteral stents ( was to be done 04/19, but still hospitalized). -d/c paniagua, unclear why she needs this with b/l nephrostomy tubes -will ask urology to reconsult monday #Hypotension: resolved with blood and IVFs. #Diet/FEN: Day 5 on TPN, cont clears as tolerated, but poor appetite, minimal oral intake. Discussed nutrition with surgery, increased zyprexa. Consider remeron, but reluctant to add more meds with acute delirium #Deconditioning: will need SNF #DVT ppx: SCDs #Disp: cont inpt Subjective: Pt delirious today, having some hallucinations. No pain. No fevers. Still poor oral intake. Objective: Vital Signs Temp Pulse Resp BP Pulse Ox 36.8 C 90 18 102/58 L 99 04/22/17 08:12 04/22/17 08:12 04/22/17 08:12 04/22/17 08:12 04/22/17 08:12 Microbiology 04/14/17 01:00 Blood Culture - Final Blood Blood Panel (PCR) - Final No Organism Detected Laboratory Results 04/22/17 05:00 04/21/17 22:30 04/21/17 04/22/17 04/23/17 05:59 05:59 05:59 Intake Total 1228 1471 Output Total 2001 0111 1050 Balance -774 -1505 -1050 PT 15.7 SEC (12.0-15.0) H 04/21/17 03:45 INR 1.25 (0.83-1.16) H 04/21/17 03:45 - Physical Exam Constitutional: chronically ill appearing Eyes: PERRL Ears, Nose, Mouth, Throat: moist mucous membranes Cardiovascular: regular rate and rhythym Respiratory: no respiratory distress Gastrointestinal: normoactive bowel sounds, other (soft, mild distention, +TTP, no peritoneal signs, incision c/d/i) Skin: warm Musculoskeletal: full muscle strength Psychiatric: encephalopathic ICD10 Worksheet Patient Problems: Problems Problem Status Onset 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 Hemorrhage Acute Hypotension Acute
[2017-04-22] MEDS: TPN 1 EA BAG IV SCH (20:25)
[2017-04-22] MEDS: MELATONIN 3 MG TAB PO SCH (20:25)
[2017-04-22] MEDS: GABAPENTIN 300 MG CAP PO SCH (20:26)
[2017-04-23] MEDS: OLANZapine 5 MG TAB PO PRN (03:18)
[2017-04-23] MEDS: LEVOTHYROXINE 112 MCG TAB PO SCH (03:18)
[2017-04-23] MEDS: HYDROmorphONE/DILAUDID 1 MG/ML INJ IVP PRN ×4 (03:42→20:02)
[2017-04-23] MEDS: ONDANSETRON 4 MG/2 ML VIAL IVP PRN (03:42)
[2017-04-23 04:19] LABS: HEMATOCRIT 23.4 % (38.0-47.0); HEMOGLOBIN 7.6 g/dL (12.6-16.3); MEAN CELL HEMOGLOBIN 30.4 pg (27.9-34.1); MEAN CELL HEMOGLOBIN CONCENTR. 32.5 g/dL (32.4-36.7); MEAN CELL VOLUME 93.6 fL (81.5-99.8); RED BLOOD CELL COUNT 2.5 10^6/uL (4.18-5.33); RED CELL DISTRIBUTION WIDTH 15.8 % (11.5-15.2)
[2017-04-23 04:34] LABS: CALCIUM 7.4 mg/dL (8.5-10.4); POTASSIUM 4.3 mEq/L (3.5-5.2)
[2017-04-23] MEDS: PANTOPRAZOLE SODIUM 40 MG TAB PO SCH ×2 (08:08→20:02)
[2017-04-23] MEDS: FLUoxetine 10 MG CAP PO SCH (08:08)
[2017-04-23] MEDS: ERTAPENEM 1 GM in NS 100 ML IV SCH (08:17)
[2017-04-23] MEDS: FLUCONAZOLE/NaCl 100 ML IV SCH (09:25)
--- NOTE | 2017-04-23 10:14 | SOAPPROG ---
SOAP Progress Note Assessment/Plan: Assessment/Plan: 47 yo woman dx in 09/2016 w [id number] cervical ca. Sh edeveloped severe uterine bleeding 10/13/16 after paclitaxel/carboplatin/bevacizumab requiring coil embolization of R uterine artery. She has bilateral nephrostomy tubes due to hydronephrosis. She underwent XRT and weekly cisplatin w DR Ch. She also completed bracytherapy. Last chemotherapy March 16. IVC filter in place; she has had recurrent DVT and issue w vaginal bleeding Presented to ER this admission w heavy vaginal bleeding on lovenox plt count was 54,000 she developed perforated colon w peritonitis and required drainage of pelvic abscess 1. Stage IV cervical ca - s/p XRT w concurrent chemo, brachytherapy and 2 cycles of chemotherapy w carbo/paclitaxel/john - last Mar 16 Chemo on hold would reconsider EGFR inhibitor 2. IVC clot down to RLE s/p IVC - restart AC at full dose will start w heparin and monitor bleeding closely 3. Thrombocytopenia - improved without intervention watch closely w heparin 4. Colon perf s/p surgery repair - on abx and tpn 5. vaginal bleed - resolved, monitor on AC 04/23/17 10:10 04/23/17 10:13 Subjective: No acute events abd pain today no acute events wound care seeing Objective: Vital Signs Temp Pulse Resp BP Pulse Ox 36.3 C 86 18 112/70 99 04/23/17 09:20 04/23/17 09:20 04/23/17 09:20 04/23/17 09:20 04/23/17 09:20 Laboratory Results 04/23/17 03:40 04/23/17 03:40 04/22/17 04/23/17 04/24/17 05:59 05:59 05:59 Intake Total 1471 Output Total 2976 2795 320 Balance -1505 -2795 -320 PT 15.7 SEC (12.0-15.0) H 04/21/17 03:45 INR 1.25 (0.83-1.16) H 04/21/17 03:45 Gen - chronically ill appearing HEENT - anicteric CV - RRR Resp - clear anteriorly Abd - diffusely tender w guarding (present before), BS+ Ext - mild edema skin - wounds noted, lines intact without bleeding TAYE drain and nephrostomy tubes intact ICD10 Worksheet Patient Problems: Problems Problem Status Onset Hemorrhage Acute Hypotension Acute 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
--- NOTE | 2017-04-23 10:32 | WOCRNPDOC ---
WOCRN Advanced Assessment Note - Skin Integrity Problem, Advanced Assess Right Sacrum Dressing Type: Open to Air (Calazime cream over site) Exudate Amount: None Exudate Characteristic(s): None Integumentary Issue Intervention: Barrier Cream Applied (Calazime) Chayo Wound Tissue: Blanching, Intact, Scarred Chayo Wound Swelling: None Skin Integrity Problem Comment: Scarred tissue noted throughout patient's sacrum and chayo-anal region., Appearance of over-lying skin consistent w/ moisture-associated dermatitis. Patient may have had deeper, more extensive injury to this area previously. Presently, skin throughout is healing. Friable tissue noted over gluteal cleft/coccyx, also moisture-related. Re-applied Calazime over entire gluteal cleft and medial buttocks. Patient denied pain to this site during assessment. Will continue w/ tx of barrier cream and off- loading site to mitigate pressure to area. word processor technician January present and assisting. Right Upper Medial Thigh Pressure Injury Dressing Type: Open to Air Exudate Amount: None Exudate Characteristic(s): None Integumentary Issue Intervention: Barrier Cream Applied (Calazime) Chayo Wound Tissue: Intact Chayo Wound Swelling: None Wound Bed Color: Red Wound Bed Constitution: Smooth Tissue (epithelium, non-granulating) Site Odor: None Site Measurement - Head-to-Toe Length X Width X Depth (cm): [id number] Pressure Injury Stage: Stage 2, Principal Java Developer Related Pressure Injury (r/t catheter tubing) Pressure Injury Present on Admit: No Skin Integrity Problem Comment: Linear, partial-thickness tissue loss noted on R upper/inner thigh, consistent in appearance w/ stage 2 pressure injury. Patient had a Alejandro catheter previously, and the appearance of this wound supports this was the cause. Alejandro has since been dc'd, and presently there is no pressure over these tissues. Chayo-wound skin is intact, though there continues to be some mild moisture-associated dermatitis r/t incontinence. In addition, patient's anatomy is such that there are skin folds trapping moisture to this site. Applied Calazime skin protectant. Wound RN will follow up w/ patient for this injury on Saturday 04/28. word processor technician January present and assisting.
--- NOTE | 2017-04-23 12:26 | HOSPPROG ---
Hospitalist Progress Note Assessment/Plan: 47 yo female with h/o stage IV cervical cancer admitted with vaginal bleeding, found to have pelvic abscess and perforated cecum, underwent cecectomy and appendectomy, now with slow recovery, poor appetite. #Sepsis: resolved. Source is perforated cecum/peritonitis/pelvic abscess, I/D by Dr. Gamez 04/14. -Ertapenem, Fluconazole Day 9. Reviewed with ID, planning for at least 2 weeks tx course. -CT 04/19 shows overall improvement, no free fluid #Pseudomonas/Enterobacter UTI: suspect colonization per ID's review OSH records. #Delirium: Suspect medication induced, although underlying psych hx likely a factor. Just started Marinol and Ritalin, both of which are d/c'd. Ertapenem can cause confusion. Also consider neurontin as factor, though she has a strong indication for this with neuropathy symptoms. -prn haldol #Acute blood loss anemia: s/p 6 units RBCs, now stable. Due to surgical losses and vaginal bleed from cervical cancer. #Thrombocytopenia: plts now >100 #Hypoglycemia: bg's stable over past several days, but poor oral intake #Cervical cancer: last chemo/XRT 3 weeks ago. Reviewed op note from [facility] family [facility] onc, Dr. Benites. Pt has cervical obturator in place. -will communicate with Dr. Benites tomorrow regarding obturator and if / when this needs to be removed, ?if this increases her risk of bleeding, seems like a sharp device #Recurrent DVT: IVC filter in place. Now that plts at 100, will resume LMWH at prophylactic dose. If she tolerates this without bleeding over next 24 hrs, will consider full dose LMWH vs heparin drip and close monitoring. #depression: increased Prozac to 20mg. Mood is affecting motivation. #Neuropathy: on once daily neurontin, still with significant neuropathy symptoms , will continue #Volume overload: wt on admission 88 kg, up to 101 kg, now down to 86.5 kg after daily lasix with excellent diuresis over past several days -d/c'd lasix 04/21, monitor volume status closely -caution with IVF's #Ureteral obstruction: B/L nephrostomy tubes. IR flushed 04/15. Just had replaced 2 wks ago so no need to exchange now. Planning for ureteral stents ( was to be done 04/19, but still hospitalized). -d/c paniagua 04/21, tubing was causing skin breakdown -will ask urology to reconsult monday #Hypotension: resolved with blood and IVFs. #Diet/FEN: Day 6 on TPN, cont clears as tolerated, but poor appetite, minimal oral intake. Discussed nutrition with surgery, increased zyprexa. Consider remeron, but reluctant to add more meds with acute delirium #Deconditioning: will need SNF #DVT ppx: SCDs #Disp: cont inpt Subjective: Pt still a bit confused, but doesn't seem to be hallucinating today. No fevers. Pain persists, though fairly well controlled. Still not eating, ambulating. Objective: Vital Signs Temp Pulse Resp BP Pulse Ox 36.3 C 86 18 112/70 99 04/23/17 09:20 04/23/17 09:20 04/23/17 09:20 04/23/17 09:20 04/23/17 09:20 Laboratory Results 04/23/17 03:40 04/23/17 03:40 04/22/17 04/23/17 04/24/17 05:59 05:59 05:59 Intake Total 1471 Output Total 2976 2795 320 Balance -1505 -2795 -320 PT 15.7 SEC (12.0-15.0) H 04/21/17 03:45 INR 1.25 (0.83-1.16) H 04/21/17 03:45 - Physical Exam Constitutional: no apparent distress Eyes: PERRL Ears, Nose, Mouth, Throat: moist mucous membranes Cardiovascular: regular rate and rhythym Respiratory: no respiratory distress, clear to auscultation Gastrointestinal: other (soft, mild distention, +tenderness, no peritoneal signs , TAYE drain with cloudy output, incision c/d/i) Skin: warm Musculoskeletal: generalized weakness Psychiatric: encephalopathic ICD10 Worksheet Patient Problems: Problems Problem Status Onset Hemorrhage Acute Hypotension Acute 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
[2017-04-23] MEDS ORDERED: HEPARIN 10,000 UNIT/10 ML MDV IVP PRN (12:57)
[2017-04-23] MEDS ORDERED: HEPARIN/DEXTROSE 500 ML IV SCH (13:00)
--- NOTE | 2017-04-23 13:00 | PCMIDPN ---
Assessment/Plan: # Bacteremia with GPC (likely anaerobic). History of bacteroides bacteremia 2016 --awaiting ID --ertapenem likely covers #Peritonitis & pelvic abscess due to perforated cecum s/p washout 04/14. Less pain to my abdominal exam today. In addition had a CT scan 2 days ago that showed no evolving abdominal abscess or leak. --continue ertapenem, fluconazole, tentatively plan 10 days post op with complete resolution of fluid collections; stop date 04/25/17. MAR adjusted --will follow up peripherally --even if ertapenem contributing to confusion, only 2 more days of therapy # Urinary Colonization with MDRs - PsA. B nephrostomies in place --contact precautions # thrombocytopenia : platelets are continuing to increase Meds ertapenem 1gm IV daily, #9 Fluconazole 200mg IV daily , #9 Subjective: still with some abdominal pain and nausea no vaginal bleeding confusion is a bit better one TAYE drain on L pulled Objective: Vital Signs Temp Pulse Resp BP Pulse Ox 36.3 C 86 18 112/70 99 04/23/17 09:20 04/23/17 09:20 04/23/17 09:20 04/23/17 09:20 04/23/17 09:20 Laboratory Results 04/23/17 03:40 04/23/17 03:40 04/22/17 04/23/17 04/24/17 05:59 05:59 05:59 Intake Total 1471 Output Total 7399 5288 520 Balance -1505 -2795 -520 General Appearance: alert, no apparent distress EENT: pale conjunctiva, dry mucous membranes, No scleral icterus Respiratory: lungs clear, No accessory muscle use Cardiac/Chest: regular rate, rhythm, SM Extremities: pedal edema Abdomen: soft, mild discomfort to minimal palpation left greater than right. Bowel sounds are present, midline surgical scar is healing well without erythema or drainage, to TAYE drain in place right with serosanguineous fluid, TAYE output 70cc Skin: No rash Neuro/Psych: alert, oriented x 3, depressed affect, unable to repeat number series Mediport: Right chest wall: No drainage, No erythema Left IJ: No drainage, No erythema ICD10 Worksheet Patient Problems: Problems Problem Status Onset Hemorrhage Acute Hypotension Acute 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
[2017-04-23 13:47] LABS: ABSOLUTE NRBC COUNT 0.04 10^3/uL (0-0.01); ADD DIFF? YES; ADD MORPH? NO; ADD SCAN? NO; ATYPICAL LYMPHOCYTE FLAG 60 (0-99); FRAGMENT RBC FLAG 0 (0-99); HEMATOCRIT 23.7 % (38.0-47.0); HEMOGLOBIN 7.7 g/dL (12.6-16.3); LEFT SHIFT FLG 80 (0-99); LIPEMIA HEMOLYSIS FLAG 80 (0-99); MEAN CELL HEMOGLOBIN 30.7 pg (27.9-34.1); MEAN CELL HEMOGLOBIN CONCENTR. 32.5 g/dL (32.4-36.7); MEAN CELL VOLUME 94.4 fL (81.5-99.8); MEAN PLATELET VOLUME 10.6 fL (8.7-11.7); NRBC-AUTO% 0.4 % (0.0-0.2); PLATELET CLUMPS FLAG 10 (0-99); PLATELET COUNT 112 10^3/uL (150-400); RED BLOOD CELL COUNT 2.51 10^6/uL (4.18-5.33)
[2017-04-23 13:57] LABS: INR 1.16 (0.83-1.16); PROTIME(PATIENT) 14.8 SEC (12.0-15.0)
[2017-04-23 13:58] LABS: APTT 35.9 SEC (23.0-38.0)
[2017-04-23 14:50] LABS: HYPOCHROMIA 1+; MACROCYTES 1+; MICROCYTES 1+; PLATELET ESTIMATE ADEQUATE (ADEQ)
[2017-04-23] MEDS: ENOXAPARIN 40 MG/0.4 ML SYR SC SCH (14:50)
--- NOTE | 2017-04-23 15:54 | SOAPPROG ---
SOAP Progress Note Assessment/Plan: Assessment: 47 yo female s/p laparotomy with drainage of pelvic abscess, partial cecectomy, and appendectomy POD#9 Plan: Neuro: pain well controlled with medications Wound: Midline abdominal wound, no dressings needed, may wash with soap and water. No baths, hot tubs, or swimming. FEN: Continue IV fluids but encourage liquid diet. Electrolytes stable. Clear liquid diet, advance as tolerated. Heme/ID: Psuedomonas infection managed by ID with ertapenem and fluconazole. Platelets are improving, gradually worsening anemia. May consider another transfusion in the future if anemia continues to worsen. GI: Stable, continue bowel protocol and attempts at advancing diet. Drains: continue abdominal TAYE : Nephrostomy tubes and leaking around paniagua. May need to discuss with urology Still with hallucinations Discussed case with Dr. Brunson. S: Pt is feeling ok when we spoke. Pt states she is still having some hallucinations. The patient remembers being confused. Otherwise she is doing well. O: HEENT: Some allopecia. NCAT, PER, no scleral icterus, mucus membranes moist Resp: No increased WOB Cor: Regular rate GI: clean, dry, and intact abdominal incision with no signs of infection at the site. Abdomen is soft, nontender/nondistended with bowel sounds x4. Taye with serous fluid : Nephrostomy in place and appears to be functioning. Neuro: Conversation seemed appropriate Psych: Patient appears to have depressed mood and affect. 04/22/17 10:05 04/22/17 11:06 04/23/17 15:53 04/23/17 15:54 04/23/17 16:20 Objective: Vital Signs Temp Pulse Resp BP Pulse Ox 36.3 C 86 18 112/70 99 04/23/17 09:20 04/23/17 09:20 04/23/17 09:20 04/23/17 09:20 04/23/17 09:20 Laboratory Results 04/23/17 13:40 04/23/17 03:40 04/22/17 04/23/17 04/24/17 05:59 05:59 05:59 Intake Total 1471 200 Output Total 2976 2795 550 Balance -1505 -2795 -350 PT 14.8 SEC (12.0-15.0) 04/23/17 13:40 INR 1.16 (0.83-1.16) 04/23/17 13:40 ICD10 Worksheet Patient Problems: Problems Problem Status Onset Hemorrhage Acute Hypotension Acute 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
[2017-04-23] MEDS: MELATONIN 3 MG TAB PO SCH (20:02)
[2017-04-23] MEDS: GABAPENTIN 300 MG CAP PO SCH (20:02)
[2017-04-23] MEDS: TPN 1 EA BAG IV SCH (20:18)
[2017-04-23 20:46] LABS: POTASSIUM 4.7 mEq/L (3.5-5.2)
[2017-04-24] MEDS: HYDROmorphONE/DILAUDID 1 MG/ML INJ IVP PRN ×4 (02:20→21:46)
[2017-04-24] MEDS: LEVOTHYROXINE 112 MCG TAB PO SCH (05:45)
[2017-04-24 06:01] LABS: ABSOLUTE NRBC COUNT 0.04 10^3/uL (0-0.01); ADD DIFF? YES; ADD MORPH? NO; ADD SCAN? NO; ATYPICAL LYMPHOCYTE FLAG 40 (0-99); FRAGMENT RBC FLAG 0 (0-99); HEMATOCRIT 22.9 % (38.0-47.0); HEMOGLOBIN 7.3 g/dL (12.6-16.3); LEFT SHIFT FLG 80 (0-99); LIPEMIA HEMOLYSIS FLAG 80 (0-99); MEAN CELL HEMOGLOBIN 30.4 pg (27.9-34.1); MEAN CELL HEMOGLOBIN CONCENTR. 31.9 g/dL (32.4-36.7); MEAN CELL VOLUME 95.4 fL (81.5-99.8); NRBC-AUTO% 0.3 % (0.0-0.2); PLATELET CLUMPS FLAG 0 (0-99); PLATELET COUNT 141 10^3/uL (150-400); RED CELL DISTRIBUTION WIDTH 16.5 % (11.5-15.2)
[2017-04-24 06:30] LABS: ALANINE AMINOTRANSFERASE 23 IU/L (9-52); ALBUMIN 2.4 g/dL (3.5-5.0); ALKALINE PHOSPHATASE 100 IU/L (38-126); ANION GAP 7 mEq/L (8-16); ASPARTATE AMINOTRANSFERASE 20 IU/L (14-46); BILIRUBIN,TOTAL 0.5 mg/dL (0.1-1.4); CALCIUM 7.4 mg/dL (8.5-10.4); CARBON DIOXIDE 22 mEq/l (22-31); CHLORIDE 107 mEq/L (97-110); CREATININE 0.8 mg/dL (0.6-1.0); GLOMERULAR FILTRATION RATE > 60; GLUCOSE 83 mg/dL (70-100); MAGNESIUM 2.2 mg/dL (1.6-2.3); POTASSIUM 4.7 mEq/L (3.5-5.2); SODIUM 136 mEq/L (134-144); TRIGLYCERIDE 317 mg/dL (35-135)
[2017-04-24 06:57] LABS: MACROCYTES 1+; MICROCYTES 1+; POLYCHROMASIA 1+
[2017-04-24 06:58] LABS: PLATELET ESTIMATE DECREASED (ADEQ)
--- NOTE | 2017-04-24 08:49 | SOAPPROG ---
CAM Progress Note Assessment/Plan: Assessment: 1) [id number] stage 4 cervical cancer 2) Colonic perforation s/p surgery 04/16/17 3) Bilateral hydronephrosis with bilateral PCN's 4) Intermittent vaginal bleeding 5) Extensive Right LE DVT with IVC filter 6) Protein calorie malnutrition 7) Multifactorial anemia Plan: Patient is recovering from her surgery. I discussed her case with Dr. Gamez. She is cleared to eat from a surgical standpoint, but her appetite remains poor. She remains on TPN. Pharmacy plans to switch her to cyclic TPN, as it is unlikely that she will be able to completely wean off of TPN in the near future. She has lost an extensive amount of weight since her diagnosis. She s meeting with dietary today to discuss options. I have recommended a 1 unit PRBC transfusion today. She consents. Will cotinue prophylactic dose Lovenox for now in light of her recent bleeding. She has completed a course of XRT which should stop this over the lcpc. Will consider advancing Lovenox to full dose over the next few days. She still has a cervical sleeve in place from recent brachytherapy. This is to be removed by [facility] (Dr. Cazares) once she is discharged. Plan d/w patient. Her questions were answered. Subjective: Denies pain. Has had a few episodes of vaginal spotting. Appetite remains poor. Objective: Vital Signs Temp Pulse Resp BP Pulse Ox 36.8 C 82 16 104/72 97 04/24/17 05:33 04/24/17 05:33 04/24/17 05:33 04/24/17 05:33 04/24/17 05:33 Laboratory Results 04/24/17 05:47 04/24/17 05:47 04/23/17 04/24/17 04/25/17 05:59 05:59 05:59 Intake Total 1200 Output Total 2795 1465 Balance -2795 -265 PT 14.8 SEC (12.0-15.0) 04/23/17 13:40 INR 1.16 (0.83-1.16) 04/23/17 13:40 - Time Spent With Patient Time Spent With Patient: 30 minutes Physical Exam - Physical Exam General Appearance: alert, no apparent distress EENT: PERRL/EOMI Respiratory: lungs clear Cardiac/Chest: regular rate, rhythm Abdomen: other (Midline incision looks clean. Mild diffuse tenderness. Hypoactive BS. Bilateral PCN's) Skin: pallor Extremities: other (Bilateral LE edema ) ICD10 Worksheet Patient Problems: Problems Problem Status Onset Hemorrhage Acute Hypotension Acute 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
--- NOTE | 2017-04-24 09:05 | SOAPPROG ---
SOAP Progress Note Assessment/Plan: Assessment/Plan: 47 Y F metastatic cervical CA, high dose radiation therapy, hx DVT, now with IVC filter, s/p vaginal bleeding with lovenox, now s/p laparotomy with drainage and washout of abscess, partial cecectomy for perforated cecum with peritonitis POD#10. Nephrostomy tube in place. No major changes aside from better mental status clearing. Plan: Neuro: pain well controlled with medications Wound: Midline abdominal wound, no dressings needed, may wash with soap and water. No baths, hot tubs, or swimming. Kilo out soon. FEN: Continue IV fluids but encourage diet. Nutrition seeing patient today. Electrolytes stable. Advance as tolerated. Heme/ID: Psuedomonas infection managed by ID with ertapenem and fluconazole. Platelets are improving, gradually worsening anemia. May consider another transfusion in the future if anemia continues to worsen. GI: Stable, continue bowel protocol and attempts at advancing diet. Passing flatus. Drains: continue abdominal MAXIMUS. out soon? very serous. : Nephrostomy tubes and paniagua. Urology involved. Dr. Guajardo. Seen and examined with Dr. Gamez. S: Doesn't remember feeling confused. Ate cottage cheese, a banana. O: HEENT: Some allopecia. NCAT, PER, no scleral icterus, mucus membranes moist Resp: No increased WOB Cor: Regular rate GI: clean, dry, and intact abdominal incision with no signs of infection at the site. Abdomen is soft, nontender/nondistended with bowel sounds x4. Maximus with serous fluid : Nephrostomy in place and appears to be functioning. Neuro: Conversation seemed appropriate Psych: Patient appears to have depressed mood and affect. 04/24/17 09:00 Objective: Vital Signs Temp Pulse Resp BP Pulse Ox 36.8 C 82 16 104/72 97 04/24/17 05:33 04/24/17 05:33 04/24/17 05:33 04/24/17 05:33 04/24/17 05:33 Laboratory Results 04/24/17 05:47 04/24/17 05:47 04/23/17 04/24/17 04/25/17 05:59 05:59 05:59 Intake Total 1200 Output Total 2795 1465 Balance -2795 -265 PT 14.8 SEC (12.0-15.0) 04/23/17 13:40 INR 1.16 (0.83-1.16) 04/23/17 13:40 ICD10 Worksheet Patient Problems: Problems Problem Status Onset Hemorrhage Acute Hypotension Acute 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
[2017-04-24] MEDS: ERTAPENEM 1 GM in NS 100 ML IV SCH (09:10)
[2017-04-24] MEDS: ENOXAPARIN 40 MG/0.4 ML SYR SC SCH (09:10)
[2017-04-24] MEDS: FLUoxetine 10 MG CAP PO SCH (09:10)
[2017-04-24] MEDS: PANTOPRAZOLE SODIUM 40 MG TAB PO SCH ×2 (09:12→20:17)
[2017-04-24] MEDS: FLUCONAZOLE/NaCl 100 ML IV SCH (10:04)
--- NOTE | 2017-04-24 11:32 | HOSPPROG ---
Hospitalist Progress Note Assessment/Plan: 47 yo female with h/o stage IV cervical cancer presented with severe vaginal bleeding, found to have pelvic abscess and perforated cecum, underwent cecectomy and appendectomy, now with slow recovery, poor appetite. #Sepsis: resolved. Source is perforated cecum/peritonitis/pelvic abscess, I/D by Dr. Gamez 04/14. -Ertapenem, Fluconazole Day 10. Reviewed with ID, stop date 04/25/2017 -CT 04/19 shows overall improvement, no free fluid #Pseudomonas/Enterobacter UTI: suspect colonization per ID's review of OSH records. #Delirium: Meds vs prolonged hospitalization, underlying psych hx may also be a factor. Marinol and Ritalin d/c'd. Ertapenem can cause confusion, will dc this tomorrow. Also consider neurontin, though she has a strong indication for this with neuropathy symptoms and has been on this in the past -prn haldol #Acute blood loss anemia: Due to surgical losses and vaginal bleed from cervical cancer. s/p 6 units RBCs. Hgb trending down. -transfuse 1 u prbc's today #Thrombocytopenia ?09/08 chemo: plts now >100 #Cervical cancer: Stage IVB, last chemo/XRT 3 weeks ago. Reviewed 01/2017 op note from manager agriculture onc, Dr. Cazares. No hys performed due to extensive dz. Med onc- [facility], rad onc- [facility] Manuel. -f/u with Dr. Cazares as outpt for removal of fredi sleeve, which was used for brachytherapy and is due to be removed #Recurrent DVT (LUE and RLE): IVC filter in place since 12/2016. Anticoagulation held due to bleeding and low plts. Plts now >100. -continue pplx dose Lovenox for now and if no e/o bleeding, will resume full dose AC. #depression: increased Prozac to 20mg. Mood is affecting motivation. #Neuropathy: cont neurontin #Volume overload: wt on admission 88 kg, up to 101 kg, now down to 86.5 kg after daily lasix with excellent diuresis -d/c'd lasix 04/21, monitor volume status closely -caution with IVF's #Ureteral obstruction secondary to cervical ca: B/L nephrostomy tubes. IR flushed 04/15, draining well. Just had replaced 2 wks ago so no need to exchange now. Planning for ureteral stents (was to be done 04/19, but still hospitalized) . -d/c'd paniagua 04/21, tubing was causing skin breakdown -will need urology f/u for stent placement or will eventually need nephrostomy tubes replaced #Hypotension: resolved with blood and IVFs. #Diet/FEN: Day 7 on TPN, cont diet tolerated, but poor appetite, minimal oral intake. Discussed nutrition with surgery. Consider remeron, but reluctant to add more meds with acute delirium (marinol and ritalin previously ordered have been d/c'd) #Deconditioning: will need SNF #DVT ppx: SCDs #Disp: cont inpt Subjective: Pt a little less confused today. Not actively hallucinating. Tried some cottage cheese and apple sauce today but still poor appetite. No fevers. Pain controlled. Not ambulating. No motivation. Objective: Vital Signs Temp Pulse Resp BP Pulse Ox 36.8 C 82 16 104/72 97 04/24/17 05:33 04/24/17 05:33 04/24/17 05:33 04/24/17 05:33 04/24/17 05:33 Laboratory Results 04/24/17 05:47 04/24/17 05:47 04/23/17 04/24/17 04/25/17 05:59 05:59 05:59 Intake Total 1200 125 Output Total 2795 1465 195 Balance -2795 -265 -70 PT 14.8 SEC (12.0-15.0) 04/23/17 13:40 INR 1.16 (0.83-1.16) 04/23/17 13:40 - Physical Exam Constitutional: chronically ill appearing Eyes: PERRL Ears, Nose, Mouth, Throat: moist mucous membranes Cardiovascular: regular rate and rhythym Respiratory: no respiratory distress Gastrointestinal: other (soft, mild distention, +TTP, no peritoneal signs) Skin: warm Musculoskeletal: generalized weakness Psychiatric: encephalopathic ICD10 Worksheet Patient Problems: Problems Problem Status Onset Hemorrhage Acute Hypotension Acute 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
[2017-04-24] MEDS: TPN 1 EA BAG IV SCH (20:15)
[2017-04-24] MEDS: OLANZapine 5 MG TAB PO PRN (20:16)
[2017-04-24] MEDS: MELATONIN 3 MG TAB PO SCH (20:16)
[2017-04-24] MEDS: GABAPENTIN 300 MG CAP PO SCH (20:16)
[2017-04-25] MEDS: HYDROmorphONE/DILAUDID 1 MG/ML INJ IVP PRN ×4 (02:02→12:55)
[2017-04-25] MEDS: LEVOTHYROXINE 112 MCG TAB PO SCH (05:11)
[2017-04-25 06:02] LABS: ABSOLUTE NRBC COUNT 0.04 10^3/uL (0-0.01); ADD DIFF? YES; ADD MORPH? NO; ADD SCAN? NO; ATYPICAL LYMPHOCYTE FLAG 20 (0-99); FRAGMENT RBC FLAG 0 (0-99); HEMATOCRIT 27.2 % (38.0-47.0); HEMOGLOBIN 8.7 g/dL (12.6-16.3); LEFT SHIFT FLG 70 (0-99); LIPEMIA HEMOLYSIS FLAG 80 (0-99); MEAN CELL HEMOGLOBIN 30.1 pg (27.9-34.1); MEAN CELL VOLUME 94.1 fL (81.5-99.8); MEAN PLATELET VOLUME 10.6 fL (8.7-11.7); NRBC-AUTO% 0.3 % (0.0-0.2); PLATELET CLUMPS FLAG 0 (0-99); PLATELET COUNT 178 10^3/uL (150-400); RED BLOOD CELL COUNT 2.89 10^6/uL (4.18-5.33); RED CELL DISTRIBUTION WIDTH 17.1 % (11.5-15.2)
[2017-04-25 06:54] LABS: PLATELET ESTIMATE ADEQUATE (ADEQ)
[2017-04-25] MEDS: ENOXAPARIN 40 MG/0.4 ML SYR SC SCH (08:33)
[2017-04-25] MEDS: PANTOPRAZOLE SODIUM 40 MG TAB PO SCH ×2 (08:37→20:56)
[2017-04-25] MEDS: FLUoxetine 10 MG CAP PO SCH (08:37)
[2017-04-25] MEDS: ERTAPENEM 1 GM in NS 100 ML IV SCH (08:38)
[2017-04-25] MEDS: FLUCONAZOLE/NaCl 100 ML IV SCH (08:38)
--- NOTE | 2017-04-25 10:42 | SOAPPROG ---
SOAP Progress Note Assessment/Plan: Assessment/Plan: 47 Y F metastatic cervical CA, high dose radiation therapy, hx DVT, now with IVC filter, s/p vaginal bleeding with lovenox, now s/p laparotomy with drainage and washout of abscess, partial cecectomy for perforated cecum with peritonitis POD#11. Nephrostomy tube in place. Seen and examined with Dr. Gamez. Removed TAYE drain. Plan to remove 1/2 poonam today and the remainder soon. Encourage PO intake. S: Not feeling great today. No specific complaint. O: HEENT: no scleral icterus, mucus membranes moist Resp: No increased WOB Cor: Regular rate GI: clean, dry, and intact abdominal incision with no signs of infection at the site. Abdomen is soft, nontender/nondistended with bowel sounds x4. Taye with serous fluid : Nephrostomy in place and appears to be functioning. Neuro: Conversation seemed appropriate Psych: affect more flat today. 04/25/17 10:40 Objective: Vital Signs Temp Pulse Resp BP Pulse Ox 37.1 C 91 18 116/68 96 04/25/17 09:25 04/25/17 09:25 04/25/17 09:25 04/25/17 09:25 04/25/17 09:25 Laboratory Results 04/25/17 05:15 04/24/17 05:47 04/24/17 04/25/17 04/26/17 05:59 05:59 05:59 Intake Total 1200 1910 Output Total 1465 1215 140 Balance -265 695 -140 PT 14.8 SEC (12.0-15.0) 04/23/17 13:40 INR 1.16 (0.83-1.16) 04/23/17 13:40 ICD10 Worksheet Patient Problems: Problems Problem Status Onset Hemorrhage Acute Hypotension Acute 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
--- NOTE | 2017-04-25 12:01 | ASMTCMCOM ---
CM Note CM Note Notes: Updated information forwarded to Barbara at [facility] for renewed insurance review. They had thought patient would discharge last Monday so need to get new authorization from Insurance. Discharge time still TBD. Case management will follow. Date Signed: 04/25/2017 12:00 PM Electronically Signed By:PETE Teixeira
--- NOTE | 2017-04-25 13:57 | HOSPPROG ---
Hospitalist Progress Note Assessment/Plan: 47 yo female with h/o stage IV cervical cancer presented with severe vaginal bleeding, found to have pelvic abscess and perforated cecum, underwent cecectomy and appendectomy, now with slow recovery, poor appetite, on TPN. It' s unclear why she is doing so poorly, suspect mental health a factor. Consider psych eval. #Sepsis: resolved. Source is perforated cecum/peritonitis/pelvic abscess, I/D by Dr. Gamez 04/14. -Ertapenem, Fluconazole. Reviewed with ID, stop date 04/25/2017 -CT 04/19 shows overall improvement, no free fluid #Pseudomonas/Enterobacter UTI: suspect colonization per ID's review of OSH records. #Delirium: Meds vs prolonged hospitalization, underlying psych hx may also be a factor. Marinol and Ritalin d/c'd. Ertapenem can cause confusion, course completed today. Also consider neurontin, though she has a strong indication for this with neuropathy symptoms and has been on this in the past. She is receiving a lot of IV dilaudid. -decrease IV dilaudid -prn haldol #Acute blood loss anemia: Due vaginal bleed from cervical cancer in setting of low plts and lovenox. s/p 6 units RBCs on arrival, 1 unit rbc's yesterday. No further bleeding, plts normalized. Has tolerated pplx dose lovenox. -follow, transfuse as indicated #Thrombocytopenia ?2/2 chemo: plts now normal #Cervical cancer: Stage IVB, last chemo/XRT 3 weeks ago. Reviewed 01/2017 op note from organizational effectiveness director onc, Dr. Cazares. No hys performed due to extensive dz. Med onc- [facility], rad onc- [facility]. -f/u with Dr. Cazares as outpt for removal of fredi sleeve, which was used for brachytherapy and is due to be removed #Recurrent DVT (LUE and RLE): IVC filter in place since 12/2016. Anticoagulation held on admission due to bleeding and low plts. Plts now normal. D/W heme. -resume full dose Lovenox, follow closely for bleeding #depression / ?bipolar: increased Prozac to 20mg. Mood is affecting motivation. -consider psych eval #Neuropathy: cont neurontin #Volume overload: wt on admission 88 kg, up to 101 kg, now down to 85 kg after daily lasix with excellent diuresis -d/c'd lasix 04/21, monitor volume status closely -caution with IVF's #Ureteral obstruction secondary to cervical ca: B/L nephrostomy tubes. IR flushed 04/15, draining well. Just had replaced 2 wks ago so no need to exchange now. Planning for ureteral stents (was to be done 04/19, but still hospitalized) . -d/c'd paniagua 04/21, tubing was causing skin breakdown -will need urology f/u for stent placement or will eventually need nephrostomy tubes replaced #Hypotension: resolved with blood and IVFs. #Diet/FEN: Day 8 on TPN, cont diet as tolerated, but poor appetite, minimal oral intake. Discussed nutrition with surgery. Tried Ritalin and Marinol, but these were d/c'd due to worsening delirium. -Trial Remeron to stimulate appetite. #Deconditioning: will need SNF #DVT ppx: SCDs #Disp: cont inpt Subjective: Pt confused, just had 1 mg IV dilaudid per RN. Poor appetite. Not ambulating. No N/V. No fevers. Pain controlled. Objective: Vital Signs Temp Pulse Resp BP Pulse Ox 37.1 C 91 18 116/68 96 04/25/17 09:25 04/25/17 09:25 04/25/17 09:25 04/25/17 09:25 04/25/17 09:25 Laboratory Results 04/25/17 05:15 04/24/17 05:47 04/24/17 04/25/17 04/26/17 05:59 05:59 05:59 Intake Total 1200 1910 Output Total 1465 1215 355 Balance -265 695 -355 PT 14.8 SEC (12.0-15.0) 04/23/17 13:40 INR 1.16 (0.83-1.16) 04/23/17 13:40 - Physical Exam Constitutional: chronically ill appearing Ears, Nose, Mouth, Throat: moist mucous membranes Cardiovascular: regular rate and rhythym Respiratory: no respiratory distress, clear to auscultation Gastrointestinal: normoactive bowel sounds, other (soft, nd, mild diffuse TTP, no r/r/g, +BS, incision c/d/i) Skin: warm Musculoskeletal: generalized weakness Psychiatric: encephalopathic ICD10 Worksheet Patient Problems: Problems Problem Status Onset Hemorrhage Acute Hypotension Acute 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
[2017-04-25] MEDS ORDERED: ENOXAPARIN 40 MG/0.4 ML SYR SC SCH (13:59)
[2017-04-25] MEDS ORDERED: HYDROmorphONE/DILAUDID 1 MG/ML INJ IVP PRN (14:59)
--- NOTE | 2017-04-25 15:05 | SOAPPROG ---
[facility] Progress Note Assessment/Plan: Assessment: 1) [id number] stage 4 cervical cancer 2) Colonic perforation s/p surgery 04/16/17 3) Bilateral hydronephrosis with bilateral PCN's 4) Intermittent vaginal bleeding 5) Extensive Right LE DVT with IVC filter 6) Protein calorie malnutrition 7) Multifactorial anemia Plan: Patient is recovering from her surgery. Her appetite remains poor. She remains on cyclic TPN, as it is unlikely that she will be able to completely wean off of TPN in the near future. She has lost an extensive amount of weight since her diagnosis. Dietary service has been involved in her care. She received a 1 unit PRBC transfusion yesterday with good response Treatment dose Lovenox has been resumed today. Will monitor for signs of recurrent bleeding. She has completed a course of XRT which should stop this over the long term acute care registered nurse. She still has a cervical sleeve in place from recent brachytherapy. This is to be removed by [facility] (Dr. Cazares) once she is discharged. It is somewhat unclear to me why her overall progress has been so slow in terms of activity and oral intake. I discussed her case with Dr. Brunson. Will taper her Dilaudid as she does appear to have some degree of oversedation. I am hopeful that this will result in improvement in her activity level. She is receiving PT/OT, and will require a SNF at discharge. 04/25/17 14:51 04/25/17 15:06 Subjective: Remains weak and fatigued. Objective: Vital Signs Temp Pulse Resp BP Pulse Ox 37.1 C 91 18 116/68 96 04/25/17 09:25 04/25/17 09:25 04/25/17 09:25 04/25/17 09:25 04/25/17 09:25 Laboratory Results 04/25/17 05:15 04/24/17 05:47 04/24/17 04/25/17 04/26/17 05:59 05:59 05:59 Intake Total 1200 1910 Output Total 1465 1215 355 Balance -265 695 -355 PT 14.8 SEC (12.0-15.0) 04/23/17 13:40 INR 1.16 (0.83-1.16) 04/23/17 13:40 - Time Spent With Patient Time Spent With Patient: 25 minutes Physical Exam - Physical Exam General Appearance: other (fatigued, and lethargic) Cardiac/Chest: regular rate, rhythm Abdomen: non-tender, soft Neuro/Psych: other (Lethargic, though answeres questions appropriately) ICD10 Worksheet Patient Problems: Problems Problem Status Onset Hemorrhage Acute Hypotension Acute 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
[2017-04-25] MEDS: ONDANSETRON 4 MG/2 ML VIAL IVP PRN (16:35)
[2017-04-25] MEDS: ENOXAPARIN 80 MG/0.8 ML SYR SC SCH (20:53)
[2017-04-25] MEDS: GABAPENTIN 300 MG CAP PO SCH (20:56)
[2017-04-25] MEDS: MELATONIN 3 MG TAB PO SCH (20:56)
[2017-04-25] MEDS ORDERED: MIRTAZAPINE 15 MG TAB PO SCH (21:00)
[2017-04-25] MEDS: TPN 1 EA BAG IV SCH (21:03)
[2017-04-26] MEDS: ALTEPLASE 2 MG VIAL IVP PRN (02:44)
[2017-04-26] MEDS: LEVOTHYROXINE 112 MCG TAB PO SCH (05:31)
[2017-04-26 05:41] LABS: HEMOGLOBIN 8.3 g/dL (12.6-16.3); MEAN CELL HEMOGLOBIN 30.9 pg (27.9-34.1); MEAN CELL HEMOGLOBIN CONCENTR. 33.2 g/dL (32.4-36.7); MEAN CELL VOLUME 92.9 fL (81.5-99.8); RED BLOOD CELL COUNT 2.69 10^6/uL (4.18-5.33)
[2017-04-26 05:57] LABS: ANION GAP 9 mEq/L (8-16); CALCIUM 7.6 mg/dL (8.5-10.4); CARBON DIOXIDE 20 mEq/l (22-31); CHLORIDE 106 mEq/L (97-110); CREATININE 0.9 mg/dL (0.6-1.0); GLOMERULAR FILTRATION RATE > 60; GLUCOSE 110 mg/dL (70-100); POTASSIUM 4.6 mEq/L (3.5-5.2); SODIUM 135 mEq/L (134-144)
[2017-04-26] MEDS: FLUoxetine 10 MG CAP PO SCH (09:16)
[2017-04-26] MEDS: ENOXAPARIN 80 MG/0.8 ML SYR SC SCH (09:16)
[2017-04-26] MEDS: PANTOPRAZOLE SODIUM 40 MG TAB PO SCH ×2 (09:16→20:42)
--- NOTE | 2017-04-26 10:18 | SOAPPROG ---
SOAP Progress Note Assessment/Plan: Assessment/Plan: 47 Y F metastatic cervical CA, high dose radiation therapy, hx DVT, now with IVC filter, s/p vaginal bleeding with lovenox, now s/p laparotomy with drainage and washout of abscess, partial cecectomy for perforated cecum with peritonitis POD#12. Nephrostomy tube in place. Not eating. Low appetite. +BMs--gut seems to be working. Need to consider nutrition soon--enteral or TPN. D/c poonam. Nephrostomy drainage appears greenish--not sure of significance--will d/w Dr. Gamez. S: +BMs. No appetite. Picking at chest wall dressing. O: gen: mentions something about eagles, which didn't make sense to me, but then alert and oriented x 3--able to give me exact date. HEENT: no scleral icterus, mucus membranes moist Resp: No increased WOB Cor: Regular rate GI: clean, dry, and intact abdominal incision with no signs of infection at the site. Abdomen is soft, nontender/nondistended with bowel sounds x4. Maximus with serous fluid Psych: affect flat 04/26/17 10:19 Objective: Vital Signs Temp Pulse Resp BP Pulse Ox 36.4 C 99 16 121/77 H 98 04/26/17 08:00 04/26/17 08:00 04/26/17 08:00 04/26/17 08:00 04/26/17 08:00 Laboratory Results 04/26/17 05:33 04/26/17 05:33 04/25/17 04/26/17 04/27/17 05:59 05:59 05:59 Intake Total 1910 1003 Output Total 1215 680 200 Balance 695 323 -200 PT 14.8 SEC (12.0-15.0) 04/23/17 13:40 INR 1.16 (0.83-1.16) 04/23/17 13:40 ICD10 Worksheet Patient Problems: Problems Problem Status Onset Hemorrhage Acute Hypotension Acute 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
[2017-04-26] MEDS ORDERED: OLANZapine 5 MG TAB PO PRN (13:26)
[2017-04-26] MEDS ORDERED: OLANZapine 2.5 MG TAB PO PRN (15:29)
--- NOTE | 2017-04-26 15:29 | HOSPPROG ---
Hospitalist Progress Note Assessment/Plan: * Perforated cecum with peritonitis and pelvic abscess -s/p cecal resection and appy -antibiotics complete - consider repeat CT abd/pelvis if leukocytosis persists * Severe sepsis * Cervical cancer - no residual disease on CT * Vaginal bleed -bleeding stopped - tolerating anti-coagulation again -weed control inspector/onc at [facility] - Dr. Cazares -cell [phone] or office [phone] -Caio Sleeve in cervix for XRT - was due for removal weeks ago -f/u outpatient for Caio Sleeve removal * Recurrent DVT with right iliac vein stent - has IVC filter -change anti-coagulation to Eliquis (hold until after procedure) * Bilateral nephrostomy tubes - previous ureteral obstruction due to pelvic mass -CT reviewed - mass is now gone -plastic ureteral stents - overdue for change -case d/w Dr. Guajardo and Eliezer -IR to remove tubes in am -will assess with dye patency of ureters -if open - no stents -if obstructed - change to new internal stents * Pseudomonas/Enterobacter from nephrostomy tube -per ID likely contaminant -continue to monitor * Metabolic encephalopathy - severe - very confused - hallucinations -check MRI brain * Anasarca s/p IV lasix * Nutrition -poor PO - on TPN -consider change to tube feeds * Previous morbid obesity - >100 lb weight loss in last year * Overall failure to thrive - unclear why she is doing so poorly -per oncology - cancer essentially in remission and no residual disease evident -? chronic low grade infection of ureteral stents -remove stents tomorrow as above Subjective: Very confused, hallucinting Objective: Vital Signs Temp Pulse Resp BP Pulse Ox 36.4 C 99 16 121/77 H 98 04/26/17 08:00 04/26/17 08:00 04/26/17 08:00 04/26/17 08:00 04/26/17 08:00 Laboratory Results 04/26/17 05:33 04/26/17 05:33 04/25/17 04/26/17 04/27/17 05:59 05:59 05:59 Intake Total 1910 1003 Output Total 1215 680 200 Balance 695 323 -200 PT 14.8 SEC (12.0-15.0) 04/23/17 13:40 INR 1.16 (0.83-1.16) 04/23/17 13:[address] Guajardo - he has spoken with Dr. Martins regarding ureteral stent change CT abd/pelvis - no residual abscess, no residual tumor - Physical Exam Constitutional: no apparent distress, appears nourished, not in pain Cardiovascular: regular rate and rhythym, no murmur, rub, or gallop Respiratory: no respiratory distress, no rales or rhonchi, clear to auscultation Skin: no rashes or abrasions, no fluctuance, no induration Neurologic: No AAOx3 Psychiatric: encephalopathic, agitated, poor insight, poor judgement, poor memory, No interacting appropriately, No thought process linear ICD10 Worksheet Patient Problems: Problems Problem Status Onset Hemorrhage Acute Hypotension Acute 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
--- NOTE | 2017-04-26 16:10 | SOAPPROG ---
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 She currently is without evidence of disease. She has no residual hydronephrosis, and I think that her nephrostomy tubes could potentially be removed. IR has agreed to evaluate / change or remove her stents tomorrow. It is possible that they are a source of chronic infection. Her confusion is likely medication related. Pain meds are being switched. Ativan will be stopped. MRI of brain ordered, but likely low yield. She appears to have polyneuropathy of critical illness, and has been chronically malnourished. I favor placing an NG tube tomorrow and starting Tube feedings to improve her nutritional status over TPN. Treatment dose Lovenox has been resumed on 04/25. She has not had evidence of recurrent vaginal bleeding. Will monitor for signs of recurrent bleeding. She has completed a course of XRT which should stop this over the termite control representative. She still has a cervical sleeve in place from recent brachytherapy. This is to be removed by [facility] (Dr. Cazares) once she is discharged. She is receiving PT/OT, and will require a SNF at discharge. Case d/w Dr. Keith and Dr. Martins. 04/25/17 14:51 04/25/17 15:06 04/26/17 16:04 Subjective: More confused today. Denies pain. Objective: Vital Signs Temp Pulse Resp BP Pulse Ox 36.5 C 96 16 114/81 H 97 04/26/17 15:31 04/26/17 15:31 04/26/17 15:31 04/26/17 15:31 04/26/17 15:31 Laboratory Results 04/26/17 05:33 04/26/17 05:33 04/25/17 04/26/17 04/27/17 05:59 05:59 05:59 Intake Total 1910 1003 Output Total 1215 680 200 Balance 695 323 -200 PT 14.8 SEC (12.0-15.0) 04/23/17 13:40 INR 1.16 (0.83-1.16) 04/23/17 13:40 - Time Spent With Patient Time Spent With Patient: 40 minutes Physical Exam - Physical Exam General Appearance: other (Confused. Answers questions with redirecting. Speech tangential) EENT: PERRL/EOMI Respiratory: lungs clear Abdomen: non-tender, soft Back: Other (Bilateral PCN's) ICD10 Worksheet Patient Problems: Problems Problem Status Onset Hemorrhage Acute Hypotension Acute 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
[2017-04-26] MEDS: traMADol 50 MG TAB PO PRN ×2 (16:11→23:01)
--- NOTE | 2017-04-26 16:23 | SOAPPROG ---
SOAP Progress Note Assessment/Plan: Assessment: 47 yo F w h/o cervical ca, ureteral obstruction s/p bilat nephroureteral tubes, and DVT s/p filter who was admitted on 04/10 with vaginal bleeding, blood in her nephroureteral tubes and hypotension. Her hospital course has been complicated by sepsis and bowel perf requiring urgent surg and ICU-level care. Initially, it was believed that her nephroureteral tubes were overdue to be changed, and she was referred to IR for exchange on 04/18. This was deferred when family discovered that the tubes were changed approximately 2 wks prior to admission. The patient continues to be ill, and her tubes are growing pseudomonas. Re- evaluation by IR requested. Spoke with hospitalist Dr. Keith in person. Given concern for some sort of indolent infxn, she would like the tubes removed or replaced with internal double J stents, if possible. Spoke to patient's aunt and [facility] power of lie detector operator Mitali Wilson today by phone at 1630 hrs. She re-confirmed that tubes were exchanged approximately two wks prior to this admission. She said patient had been planning to have internal stents placed but was unable to make those appointments due to this admission. She supports stent placement. Plan/recs: 1. Plan for bilateral nephrostograms tomorrow. If persistent obstruction, will place internal stents. If no obstruction, may pull tubes altogether. Will need anesthesia assistance due to patient's difficulty lying prone. 2. NPO after midnight. 3. Hold anticoagulation. 04/15/17 16:31 04/15/17 16:32 04/15/17 21:03 04/15/17 21:21 04/15/17 21:57 04/26/17 16:23 04/26/17 17:55 04/26/17 18:14 04/26/17 18:28 Subjective: Pt awake but confused. No specific complaints. Objective: Vital Signs Temp Pulse Resp BP Pulse Ox 36.5 C 96 16 114/81 H 97 04/26/17 15:31 04/26/17 15:31 04/26/17 15:31 04/26/17 15:31 04/26/17 15:31 Laboratory Results 04/26/17 05:33 04/26/17 05:33 04/25/17 04/26/17 04/27/17 05:59 05:59 05:59 Intake Total 1910 1003 Output Total 1215 680 200 Balance 695 323 -200 PT 14.8 SEC (12.0-15.0) 04/23/17 13:40 INR 1.16 (0.83-1.16) 04/23/17 13:40 Gen: Awake, NAD Heart: RRR Lungs: Normal effort, equal excursions Abd: Mildly TTP, bilateral nephrostomy tubes and TAYE drains in place MSK: Trace BLE edema ICD10 Worksheet Patient Problems: Problems Problem Status Onset Hemorrhage Acute Hypotension Acute 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
--- NOTE | 2017-04-26 17:13 | ASMTCMCOM ---
CM Note CM Note Notes: Pt mmay switch from TPN to tube feedings tomorrow. Sent MD zelaya notes from today to [facility] at [facility]. Date Signed: 04/26/2017 05:12 PM Electronically Signed By:Kelly Tarango LCSW
[2017-04-26] MEDS ORDERED: LORazepam 2 MG/ML INJ IVP ONE (17:15)
[2017-04-26] MEDS ORDERED: GADOBUTROL 10 ML VIAL IVP ONE (17:42)
[2017-04-26] MEDS: GABAPENTIN 300 MG CAP PO SCH (20:41)
[2017-04-26] MEDS: TPN 1 EA BAG IV SCH (20:41)
[2017-04-26] MEDS: PROMETHAZINE HCL 25 MG/ML INJ IVP PRN (23:01)
[2017-04-27] MEDS: LEVOTHYROXINE 112 MCG TAB PO SCH (05:09)
[2017-04-27 05:21] LABS: ADD DIFF? YES; ADD MORPH? NO; ADD SCAN? NO; ATYPICAL LYMPHOCYTE FLAG 20 (0-99); FRAGMENT RBC FLAG 0 (0-99); HEMATOCRIT 24.7 % (38.0-47.0); HEMOGLOBIN 8.1 g/dL (12.6-16.3); LEFT SHIFT FLG 30 (0-99); LIPEMIA HEMOLYSIS FLAG 80 (0-99); MEAN CELL HEMOGLOBIN 30.7 pg (27.9-34.1); MEAN CELL HEMOGLOBIN CONCENTR. 32.8 g/dL (32.4-36.7); MEAN CELL VOLUME 93.6 fL (81.5-99.8); PLATELET CLUMPS FLAG 0 (0-99); PLATELET COUNT 196 10^3/uL (150-400); RED BLOOD CELL COUNT 2.64 10^6/uL (4.18-5.33); RED CELL DISTRIBUTION WIDTH 16.9 % (11.5-15.2)
[2017-04-27 05:36] LABS: ANION GAP 8 mEq/L (8-16); CALCIUM 7.8 mg/dL (8.5-10.4); CARBON DIOXIDE 20 mEq/l (22-31); CHLORIDE 108 mEq/L (97-110); CREATININE 0.9 mg/dL (0.6-1.0); GLOMERULAR FILTRATION RATE > 60; GLUCOSE 106 mg/dL (70-100); POTASSIUM 4.2 mEq/L (3.5-5.2); SODIUM 136 mEq/L (134-144)
[2017-04-27 05:46] LABS: PLATELET ESTIMATE ADEQUATE (ADEQ)
[2017-04-27 05:47] LABS: MACROCYTES 1+; POLYCHROMASIA 1+
[2017-04-27] MEDS: traMADol 50 MG TAB PO PRN ×2 (08:30→18:08)
[2017-04-27] MEDS: FLUoxetine 10 MG CAP PO SCH (08:30)
[2017-04-27] MEDS: PANTOPRAZOLE SODIUM 40 MG TAB PO SCH ×2 (08:31→21:26)
--- NOTE | 2017-04-27 09:19 | PDANEPAE ---
ANE History of Present Illness Patient presents for IR ureteral stent exchange ANE Past Medical History - Cardiovascular History Hx Hypertension: No Hx Arrhythmias: No Hx Chest Pain: No Hx Coronary Artery / Peripheral Vascular Disease: No Hx CHF / Valvular Disease: No Hx Palpitations: No - Pulmonary History Hx COPD: No Hx Asthma/Reactive Airway Disease: No Hx Recent Upper Respiratory Infection: No Hx Oxygen in Use at Home: No Hx Sleep Apnea: No Sleep Apnea Screening Result - Last Documented: Negative - Neurologic History Hx Cerebrovascular Accident: No Hx Seizures: No Hx Dementia: No - Endocrine History Hx Diabetes: No Hypothyroid: No Hyperthyroid: No Obesity: moderate - Renal History Hx Renal Disorders: Yes Renal History Comment: bilateral ureteral obstruction. Bilateral nephrostomy tubes - Liver History Hx Hepatic Disorders: No - Neurological & Psychiatric Hx Hx Neurological and Psychiatric Disorders: Yes Neurological / Psychiatric History Comment: acute mental status changes overnight, Bipolar - Cancer History Hx Cancer: Yes Cancer History Comment: cervical cancer s/p chemo radiation - Congenital Disorder History Hx Congenital Disorders: No - GI History Hx Gastrointestinal Disorders: No - Other Health History Other Health History: history of DVT s/p IVC filter - Chronic Pain History Chronic Pain: Yes - Surgical History Prior Surgeries: nephrostomy tubes, IVC filter ANE Review of Systems Review of Systems: - Exercise capacity Exercise capacity: <4 METS ANE Patient History - Allergies Allergies/Adverse Reactions: No Known Allergies Allergy (Unverified 04/10/17 22:48) - Home Medications Home medications: home medication list seen and reviewed Home Medications: Enoxaparin [Lovenox 100 MG (*)] 100 mg SQ BID@04/10/17 [Last Taken 17:00] FLUoxetine [Prozac 10 MG (*)] 10 mg PO DAILY 04/10/17 [Last Taken 04/10/17 08:00 ] Gabapentin [Neurontin 300 MG (*)] 300 mg PO TID 04/10/17 [Last Taken 04/10/17 17 :00] Levothyroxine [Synthroid 112 mcg (*)] 112 mcg PO DAILY06 04/10/17 [Last Taken 07:00] OLANZapine [Zyprexa] 5 mg PO HS 04/10/17 [Last Taken 04/09/17 21:00] Pantoprazole Sodium [Protonix 40mg (*)] 40 mg PO DAILY 04/10/17 [Last Taken 11/21 08:00] oxyCODONE IR [Oxycodone Ir (*)] 5 - 10 mg PO Q4 PRN 04/10/17 [Last Taken 13:00] traMADol [Ultram 50 mg (*)] 50 mg PO Q8 PRN 04/10/17 [Last Taken Unknown] Acetaminophen [Tylenol 325mg (*)] 650 mg PO Q4 PRN 04/11/17 [Last Taken Unknown] Herbals/Supplements -Info Only 1 ea PO DAILY 04/11/17 [Last Taken 04/10/17 08:00 ] Loperamide HCl [Imodium 2 mg (*)] 2 mg PO PRN PRN 04/11/17 [Last Taken Unknown] Ondansetron [Ondansetron Odt] 8 mg PO Q8 PRN 04/11/17 [Last Taken 04/10/17 08:30 ] - NPO status NPO Status: no food or drink >8 hours - Anes Hx Anes Hx: no prior problems - Smoking Hx Smoking Status: Never smoked - Alcohol Use Alcohol Use: Sober ANE Labs/Vital Signs - Labs Result Diagrams: 04/27/17 05:10 04/27/17 05:10 - Vital Signs Blood Pressure: 118/80 Heart Rate: 94 Respiratory Rate: 18 O2 Sat (%): 98 Height: 167.64 cm Weight: 82.3 kg ANE Physical Exam - Airway Neck exam: decreased ROM Mallampati Score: Class 3 Mouth exam: small mouth opening - Pulmonary Pulmonary: no respiratory distress - Cardiovascular Cardiovascular: regular rate and rhythym - ASA Status ASA Status: IV ANE Anesthesia Plan Anesthesia Plan: general endotracheal anesthesia (RBA discussed)
[2017-04-27] MEDS ORDERED: fentaNYL 100 MCG/2 ML INJ ONE (09:29)
[2017-04-27] MEDS ORDERED: PROPOFOL 200 MG/20 ML VIAL ONE (09:29)
[2017-04-27] MEDS ORDERED: LIDOCAINE 2% 5 ML SDV ONE (09:29)
[2017-04-27] MEDS ORDERED: ROCURONIUM 50 MG/5 ML VIAL ONE (09:35)
--- NOTE | 2017-04-27 09:56 | PCMIDPN ---
Assessment/Plan: # Leukocytosis, AF --collect blood cx --continue to monitor closely s/s of infection --internalization of nephrostomy tubes/stent placement, periop antibiotics with high dose cefepime based on prior urine culture --ID will re-eval tomorrow for continued need of antibiotics # Bacteremia with GPC (likely anaerobic)- unable to be identified. source likely related to Colonic perf,peritonitis, pelvic abscess.History of bacteroides bacteremia 01/2017 --s/p 14 days of ertapenem, which likely covered anaerobe #Peritonitis & pelvic abscess due to perforated cecum s/p washout 04/14. Less pain to my abdominal exam, incision healing. s/p ertapenem times 14 days # Urinary Colonization with MDRs - PsA. B nephrostomies in place --contact precautions --periop high dose cefepime today for removal nephrostomies, placement of stents # thrombocytopenia : normalized now Subjective: patient describes B leg pain and lower back pain 1 soft BM this AM no diarrhea RN reports significant improvement in mental status today Objective: Vital Signs Temp Pulse Resp BP Pulse Ox 36.6 C 94 18 118/80 98 04/27/17 08:00 04/27/17 09:19 04/27/17 09:19 04/27/17 09:19 04/27/17 09:19 Laboratory Results 04/27/17 05:10 04/27/17 05:10 04/26/17 04/27/17 04/28/17 05:59 05:59 05:59 Intake Total 1003 818 Output Total 680 425 Balance 323 393 - Physical Exam General Appearance: alert, other (chr ill appearing) EENT: pale conjunctiva, No scleral icterus, No thrush Respiratory: lungs clear, No accessory muscle use Cardiac/Chest: regular rate, rhythm Abdomen: normal bowel sounds, non-tender, soft, other ( midline surgical scar healing well, every other staple has been removed, TAYE drains out) Pelvic Exam: No [place] Skin: pallor, No rash Neuro/Psych: alert, normal mood/affect, oriented x 3 - Line/s other Lines: other ( left IJ), No drainage, No erythema Mediport Lines: other ( right chest wall), No drainage, No erythema - Time Spent With Patient Time Spent with Patient: greater than 35 minutes (care was coordinated with Hospitalists and Interventional Radiology) Time Spent with Patient: Greater than 35 minutes spent on this patients care, greater than 50% of time spent counseling, educating, and coordinating care regarding the above mentioned plan. 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
[2017-04-27] MEDS: CEFEPIME HCL 2 GM in D5W 100 ML IV SCH ×3 (10:10→21:33)
[2017-04-27] MEDS ORDERED: DEXAMETHASONE 4 MG/ML VIAL ONE (11:00)
[2017-04-27] MEDS ORDERED: SUGAMMADEX SODIUM 200 MG/2 ML VIAL IVP ONE (11:14)
[2017-04-27] MEDS ORDERED: IOPAMIDOL (ISOVUE-300) 100 ML BTL ONE (12:07)
--- NOTE | 2017-04-27 13:02 | HOSPPROG ---
Hospitalist Progress Note Assessment/Plan: First encounter with this patient. Seen with ID at bedside * Perforated cecum with peritonitis and pelvic abscess -s/p cecal resection and appy -antibiotics complete - consider repeat CT abd/pelvis if leukocytosis persists. Leukocytosis is improving -abd pain is improving * Severe sepsis - resolved * Cervical cancer - no residual disease on CT * Vaginal bleed -bleeding stopped - tolerating anti-coagulation again -dispute coordinator/onc at [facility] - Dr. 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 Guajardo and Mao -IR to remove tubes this morning -will assess with dye patency of ureters -if open - no stents -if obstructed - change to new internal stents -periop abx to be given per ID. * Pseudomonas/Enterobacter from nephrostomy tube -per ID likely contaminant -continue to monitor * Metabolic encephalopathy - Brain MRI unrembarkable. Mentation is much better today. * Anasarca s/p IV lasix * Nutrition -poor PO - on TPN -consider change to tube feeds soon if does not tolerate good PO. Mentation is better today and would expect better nutrition with improved mentation. * Previous morbid obesity - >100 lb weight loss in last year * Overall failure to thrive - unclear why she is doing so poorly -per oncology - cancer essentially in remission and no residual disease evident -? chronic low grade infection of ureteral stents -remove stents today as above Subjective: less abdominal pain. mentation is better. less confused. afebrile , leukocytosis is improving. tubes to be removed possibly today Objective: Vital Signs Temp Pulse Resp BP Pulse Ox 36.6 C 94 18 118/80 98 04/27/17 08:00 04/27/17 09:19 04/27/17 09:19 04/27/17 09:19 04/27/17 09:19 Laboratory Results 04/27/17 05:10 04/27/17 05:10 04/26/17 04/27/17 04/28/17 05:59 05:59 05:59 Intake Total 1003 818 Output Total 680 425 Balance 323 393 PT 14.8 SEC (12.0-15.0) 04/23/17 13:40 INR 1.16 (0.83-1.16) 04/23/17 13:40 - Physical Exam Constitutional: chronically ill appearing Eyes: PERRL, EOMI Ears, Nose, Mouth, Throat: moist mucous membranes, hearing normal Cardiovascular: regular rate and rhythym, No JVD, No edema Respiratory: no respiratory distress, clear to auscultation Gastrointestinal: tenderness (still with mild TTP of right side) Neurologic: AAOx3 Psychiatric: poor judgement, poor memory ICD10 Worksheet Patient Problems: Problems Problem Status Onset Hemorrhage Acute Hypotension Acute 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
--- NOTE | 2017-04-27 13:25 | POSTOPPROG ---
Post Op Note Date of Operation: 04/27/17 Surgeon: Cornelio Sequeira Pre-op Diagnosis: Cervical ca, ureteral obstruction Post-op Diagnosis: Vesicovaginal fistula, lt ureteral fistulae, rt ureteral obstruction/extrav Indication: Ureteral obstruction s/p bilateral nephu tubes Procedure: Bilateral nephrostogram, nephrostomy placement Findings: See report Inf/Abcess present in the surg proc area at time of surgery?: Yes Depth: Organ Space (Percutaneous, retroperitoneal) Complications: No immediate Drains: Nephrostomy (Bilateral 10-Fr)
[2017-04-27] MEDS ORDERED: LR 500 ML IV PRN (13:39)
[2017-04-27] MEDS ORDERED: ONDANSETRON 4 MG/2 ML VIAL IVP PRN (13:39)
[2017-04-27] MEDS ORDERED: NALOXONE HCL 0.4 MG/ML INJ IVP PRN (13:39)
--- NOTE | 2017-04-27 13:40 | POSTANESTH ---
Post Anesthetic Evaluation Cardiovascular Status: Similar to Pre-Op Cond Respiratory Status: Similar to Pre-op Cond. Level of Consciousness/Mental Status: Mildly Sleepy, Arousable Pain Control: Adequate, Prn Tx Ordered Nausea/Vomiting Control: Adequate, Prn Tx Ordered Complications Possibly Related to Anesthesia: None Noted (Sleepy, but as per pre -op)
--- NOTE | 2017-04-27 15:42 | SOAPPROG ---
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 She underwent an attempt to internalize/remove her PCN's today. Unfortunately this could not be done due to a large fistula between bladder and vagina. Her bilateral PCN's were replaced. Her confusion is likely medication related. Pain meds have being switched. MRI of brain done yesterday was unremarkable. Her MS is slowly improving. She appears to have polyneuropathy of critical illness, and has been chronically malnourished. I favor placing an NG tube tomorrow and starting Tube feedings to improve her nutritional status over TPN. Treatment dose Lovenox has been resumed on 04/25. She has not had evidence of recurrent vaginal bleeding. Will monitor for signs of recurrent bleeding. She has completed a course of XRT which should stop this over the credit control manager. She still has a cervical sleeve in place from recent brachytherapy. This is to be removed by FORM TAMPING MACHINE OPERATOR/ONC (Dr. Cazares) once she is discharged. She is receiving PT/OT, and will require a SNF at discharge. Case d/w Dr. Luong and nursing. Subjective: PCN's were replaced today. Patient very fatigued after the procedure. Denies pain. Objective: Vital Signs Temp Pulse Resp BP Pulse Ox 36.5 C 82 16 127/86 H 98 04/27/17 15:15 04/27/17 15:15 04/27/17 15:15 04/27/17 15:15 04/27/17 15:15 Laboratory Results 04/27/17 05:10 04/27/17 05:10 04/26/17 04/27/17 04/28/17 05:59 05:59 05:59 Intake Total 1003 818 100 Output Total 680 425 Balance 323 393 100 PT 14.8 SEC (12.0-15.0) 04/23/17 13:40 INR 1.16 (0.83-1.16) 04/23/17 13:40 - Time Spent With Patient Time Spent With Patient: 25 minutes Physical Exam - Physical Exam General Appearance: other (Asleep. Awakens. Answers simple questions) EENT: PERRL/EOMI Respiratory: lungs clear, normal breath sounds Abdomen: non-tender, soft Extremities: other (Bilateral LE edema right > left) ICD10 Worksheet Patient Problems: Problems Problem Status Onset Hemorrhage Acute Hypotension Acute 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
--- NOTE | 2017-04-27 18:51 | SOAPPROG ---
SOAP Progress Note Assessment/Plan: Assessment: 47yo female POD #13 s/p laparotomy, drainage of pelvic abscess, partial cecectomy and appendectomy 2/2 perforated colon with peritonitis and free air. Hx of cervical cancer on chemo/ rad originally presented with obstructed ureters and vaginal bleeding on lovenox. Hx of DVT, now with IVC filter. Nephrostomy tube in place. Considering nutrition if appetite not improved Nephrostomy with normal appearing light yellow drainage S: Pt asleep when seen. O: pt sleeping, appears comfortable No increased WOB Nephrostomy drainage normal appearing light yellow TAYE serous Objective: Vital Signs Temp Pulse Resp BP Pulse Ox 36.6 C 88 16 104/71 96 04/27/17 17:57 04/27/17 17:57 04/27/17 17:57 04/27/17 17:57 04/27/17 17:57 Laboratory Results 04/27/17 05:10 04/27/17 05:10 04/26/17 04/27/17 04/28/17 05:59 05:59 05:59 Intake Total 1003 818 100 Output Total 680 425 675 Balance 323 393 -575 PT 14.8 SEC (12.0-15.0) 04/23/17 13:40 INR 1.16 (0.83-1.16) 04/23/17 13:40 ICD10 Worksheet Patient Problems: Problems Problem Status Onset Hemorrhage Acute Hypotension Acute 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
[2017-04-27] MEDS: GABAPENTIN 300 MG CAP PO SCH (21:26)
[2017-04-27] MEDS: TPN 1 EA BAG IV SCH (21:27)
[2017-04-28] MEDS: LEVOTHYROXINE 112 MCG TAB PO SCH (06:14)
[2017-04-28] MEDS: FLUoxetine 10 MG CAP PO SCH (08:04)
[2017-04-28] MEDS: PANTOPRAZOLE SODIUM 40 MG TAB PO SCH ×2 (08:04→20:14)
[2017-04-28 08:55] LABS: ANION GAP 7 mEq/L (8-16); CALCIUM 7.6 mg/dL (8.5-10.4); CARBON DIOXIDE 19 mEq/l (22-31); CHLORIDE 111 mEq/L (97-110); CREATININE 0.9 mg/dL (0.6-1.0); GLOMERULAR FILTRATION RATE > 60; GLUCOSE 92 mg/dL (70-100); MAGNESIUM 2.5 mg/dL (1.6-2.3); POTASSIUM 4.5 mEq/L (3.5-5.2); SODIUM 137 mEq/L (134-144)
--- NOTE | 2017-04-28 10:33 | HOSPPROG ---
Hospitalist Progress Note Assessment/Plan: * Perforated cecum with peritonitis and pelvic abscess -s/p cecal resection and appy POD # 14 -antibiotics complete - -denies abd pain today * Severe sepsis - resolved * Cervical cancer - no residual disease on CT * Vaginal bleed -bleeding stopped - tolerating anti-coagulation again -electrical power engineer/onc at [facility] - Dr. 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 Was held yesterday, will restart today * Bilateral nephrostomy tubes - previous ureteral obstruction due to pelvic mass -CT reviewed - mass is now gone -Attempt to internalize PCN on 04/27 unsuccessful due to large fistula between bladder and vagina. Bilateral PCN replaced * Pseudomonas/Enterobacter from nephrostomy tube -per ID likely contaminant -continue to monitor -tubes changed per above * Metabolic encephalopathy - Brain MRI unrembarkable. Mentation is much better today, even better than yesterday * Anasarca s/p IV lasix * Nutrition -poor PO - on TPN -She attributes her poor intake due to gag reflex. I offered NGT and TF's today but she wants to think about it overnight and decide tomorrow. Given her recent surgery I would avoid PEG tube and place NGT for access -D/W Pharmacy -Nutrition to eval * Previous morbid obesity - >100 lb weight loss in last year * Overall failure to thrive - unclear why she is doing so poorly -per oncology - cancer essentially in remission and no residual disease evident Subjective: Much more alert, remembered me from yesterady. No CP or SOB. Denies pain Objective: Vital Signs Temp Pulse Resp BP Pulse Ox 36.8 C 95 15 94/67 L 98 04/28/17 08:05 04/28/17 08:05 04/28/17 08:05 04/28/17 08:05 04/28/17 08:05 Laboratory Results 04/27/17 05:10 04/28/17 08:15 04/27/17 04/28/17 04/29/17 05:59 05:59 05:59 Intake Total 818 150 860 Output Total 425 1200 Balance 393 -1050 860 PT 14.8 SEC (12.0-15.0) 04/23/17 13:40 INR 1.16 (0.83-1.16) 04/23/17 13:40 - Physical Exam Constitutional: chronically ill appearing Eyes: PERRL, EOMI Ears, Nose, Mouth, Throat: moist mucous membranes, hearing normal Cardiovascular: regular rate and rhythym, No JVD, No edema Respiratory: no respiratory distress, no rales or rhonchi, clear to auscultation Gastrointestinal: normoactive bowel sounds, No distension Skin: warm Neurologic: AAOx3 Psychiatric: interacting appropriately, not encephalopathic, thought process linear ICD10 Worksheet Patient Problems: Problems Problem Status Onset Hemorrhage Acute Hypotension Acute 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
--- NOTE | 2017-04-28 11:00 | WOCRNPDOC ---
WOCRN Advanced Assessment Note - Skin Integrity Problem, Advanced Assess Perianal Dermatitis Dressing Type: Open to Air Exudate Amount: None Exudate Characteristic(s): None Integumentary Issue Intervention: Barrier Cream Applied (Calazime) Deann Wound Tissue: Blanching, Denuded, Scarred Deann Wound Swelling: None Skin Integrity Problem Comment: Moiture-associated dermatitis over medial buttocks, now healing. Skin is blanching throughout, and denudement is resolving. Applied Calazime cream, and repositioned patient on R side. Report given to retail advertising sales managerTORRES Burden. Wound care does not need to follow ongoing. Right Upper Medial Thigh Pressure Injury Dressing Type: Open to Air Exudate Amount: None Exudate Characteristic(s): None Skin Integrity Problem Comment: Previous pressure injury r/t cath tubing is now healed. Nursing should continue to assess, but wound care does not need to follow ongoing.
--- NOTE | 2017-04-28 11:51 | SOAPPROG ---
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 She underwent an attempt to internalize/remove her PCN's on 04/27. Unfortunately this could not be done due to a large fistula between bladder and vagina. Her bilateral PCN's were replaced on 04/27 Her confusion appears to have been medication related. Pain meds were switched on 04/26. MRI of brain done 04/26 was unremarkable. Her MS has improved dramatically. She appears to have polyneuropathy of critical illness, and has been chronically malnourished. We recommended NG tube placement and starting Tube feedings to improve her nutritional status over TPN. She wants to avoid an NG tube, and is doing better in terms of oral intake today. Calorie counts ordered. If she does well could consider d/c of TPN over weeksnd. If she does not eat enough, will requie NG with tube feedings. She is now on Eloquis. She has not had evidence of recurrent vaginal bleeding. Will monitor for signs of recurrent bleeding. She has completed a course of XRT which should stop this over the intermediate. She still has a cervical sleeve in place from recent brachytherapy. This is to be removed by SECTION CHIEF/ONC (Dr. Cazares) once she is discharged. She is receiving PT/OT, and will require a SNF at discharge. Case d/w patient, nutrition service, pharmacy, and nursing. 04/28/17 11:48 04/28/17 11:51 Subjective: Doing much better today. More awake. Fully oriented. Sitting in chair when seen. Denies pain. Objective: Vital Signs Temp Pulse Resp BP Pulse Ox 36.8 C 95 15 94/67 L 98 04/28/17 08:05 04/28/17 08:05 04/28/17 08:05 04/28/17 08:05 04/28/17 08:05 Laboratory Results 04/27/17 05:10 04/28/17 08:15 04/27/17 04/28/17 04/29/17 05:59 05:59 05:59 Intake Total 818 150 860 Output Total 425 1200 Balance 393 -1050 860 PT 14.8 SEC (12.0-15.0) 04/23/17 13:40 INR 1.16 (0.83-1.16) 04/23/17 13:40 - Time Spent With Patient Time Spent With Patient: 25 minutes Physical Exam - Physical Exam General Appearance: alert, no apparent distress EENT: PERRL/EOMI, normal ENT inspection Respiratory: lungs clear Cardiac/Chest: normal peripheral pulses Abdomen: non-tender, soft, other (Bilateral PCN sites clear and w/o infection or bleeding) Neuro/Psych: alert, oriented x 3 ICD10 Worksheet Patient Problems: Problems Problem Status Onset Hemorrhage Acute Hypotension Acute 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
--- NOTE | 2017-04-28 13:49 | SOAPPROG ---
SOAP Progress Note Assessment/Plan: Assessment: 47yo female POD #14 s/p laparotomy, drainage of pelvic abscess, partial cecectomy and appendectomy 2/2 perforated colon with peritonitis and free air. Hx of cervical cancer on chemo/ rad originally presented with obstructed ureters and vaginal bleeding on lovenox. Hx of DVT, now with IVC filter. Nephrostomy tube in place. Cont TPN Encourage PO intake Cont pain control S: Pt has no complaints today. Pain controlled. Talked about taking in more PO to help regain bowel function. No BM yet O: pt sitting in chair, NAD No increased WOB Nephrostomy drainage normal appearing light yellow TAYE serous Abd soft, nontender, + BS Incision C/D/I with poonam and steris in place Objective: Vital Signs Temp Pulse Resp BP Pulse Ox 36.8 C 95 15 94/67 L 98 04/28/17 08:05 04/28/17 08:05 04/28/17 08:05 04/28/17 08:05 04/28/17 08:05 Laboratory Results 04/27/17 05:10 04/28/17 08:15 04/27/17 04/28/17 04/29/17 05:59 05:59 05:59 Intake Total 818 150 860 Output Total 425 1200 Balance 393 -1050 860 PT 14.8 SEC (12.0-15.0) 04/23/17 13:40 INR 1.16 (0.83-1.16) 04/23/17 13:40 ICD10 Worksheet Patient Problems: Problems Problem Status Onset Hemorrhage Acute Hypotension Acute 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
--- NOTE | 2017-04-28 15:20 | ASMTCMCOM ---
CM Note CM Note Notes: Per MD patient to have NG placed for nutritional support vs TPN. Per notes she has strong gag reflex and is reluctant to proceed will consider option overnight. Spoke with Beronica at [facility]. Pt is appropriate for admission to LTAC at this time. No definitive discharge date as of this time. CM to follow. Date Signed: 04/28/2017 03:19 PM Electronically Signed By:Sumaya Dhillon RN
[2017-04-28] MEDS: GABAPENTIN 300 MG CAP PO SCH (20:14)
[2017-04-28] MEDS: APIXABAN 5 MG TAB PO SCH (20:14)
[2017-04-28] MEDS: TPN 1 EA BAG IV SCH (20:14)
[2017-04-28] MEDS: traMADol 50 MG TAB PO PRN (20:14)
[2017-04-29] MEDS: traMADol 50 MG TAB PO PRN ×2 (02:23→13:37)
[2017-04-29] MEDS: LEVOTHYROXINE 112 MCG TAB PO SCH (06:22)
[2017-04-29] MEDS: oxyCODONE IR 5 MG TAB PO PRN ×3 (06:23→22:39)
[2017-04-29] MEDS: FLUoxetine 10 MG CAP PO SCH (08:06)
[2017-04-29] MEDS: APIXABAN 5 MG TAB PO SCH ×2 (08:07→20:30)
[2017-04-29] MEDS: PANTOPRAZOLE SODIUM 40 MG TAB PO SCH ×2 (08:07→20:31)
--- NOTE | 2017-04-29 10:24 | SOAPPROG ---
SOAP Progress Note Assessment/Plan: Assessment: Assessment: 1) [id number] stage 4 cervical cancer 2) Colonic perforation s/p surgery 04/16/17 3) Bilateral hydronephrosis with bilateral PCN's--replaced 04/27 4) Intermittent vaginal bleeding 5) Extensive Right LE DVT with IVC filter 6) Protein calorie malnutrition 7) Multifactorial anemia 8) Pseudomonas in urine (chronic) 9) Confusion (suspect toxic, metabolic encephalopathy) 10) Polyneuropathy of critical illness 11) Large vesiculovaginal fistula Plan: She currently is without evidence of disease per recent CT. She underwent an attempt to internalize/remove her PCN's on 04/27. Unfortunately this could not be done due to a large fistula between bladder and vagina. Her bilateral PCN's were replaced on 04/27 Her confusion appears to have been medication related. Pain meds were switched on 04/26. MRI of brain done 04/26 was unremarkable. Her MS has improved dramatically. She appears to have polyneuropathy of critical illness, and has been chronically malnourished. We recommended NG tube placement and starting Tube feedings to improve her nutritional status over TPN. She wants to avoid an NG tube, and is doing better in terms of oral intake today. Calorie counts ordered. If she does well could consider d/c of TPN over weekend. If she does not eat enough, will require NG with tube feedings. I encouraged po intake, and told her feeding tube tomorrow if intake does not supervisor opening and picking She is now on Eloquis. She has not had evidence of recurrent vaginal bleeding. Will monitor for signs of recurrent bleeding. She has completed a course of XRT which should stop this over the correction. She still has a cervical sleeve in place from recent brachytherapy. This is to be removed by SUPERINTENDENT RECREATION/ONC (Dr. Cazares) once she is discharged 04/29/17 10:21 04/29/17 10:27 Subjective: Says she feels ok, looks a bit depressed Objective: Vital Signs Temp Pulse Resp BP Pulse Ox 98.2 F 102 H 17 120/86 H 96 04/29/17 08:00 04/29/17 08:00 04/29/17 08:00 04/29/17 08:00 04/29/17 08:00 Laboratory Results 04/27/17 05:10 04/28/17 08:15 04/28/17 04/29/17 04/30/17 05:59 05:59 05:59 Intake Total 150 1760 Output Total 1200 1975 Balance -1050 -215 PT 14.8 SEC (12.0-15.0) 04/23/17 13:40 INR 1.16 (0.83-1.16) 04/23/17 13:40 Physical Exam - Physical Exam General Appearance: alert, mild distress Respiratory: lungs clear Abdomen: normal bowel sounds, non-tender ICD10 Worksheet Patient Problems: Problems Problem Status Onset Hemorrhage Acute Hypotension Acute 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
--- NOTE | 2017-04-29 15:41 | HOSPPROG ---
Hospitalist Progress Note Assessment/Plan: Peritonitis and pelvic abscess, 2/2 perf'd cecum, s/p cecal resection/jaki -completed IV Abx. -Gen Surg planning for ex-lap Gen weakness, fatigue, FTT -PT/OT/ISU Severe protein calorie malnutrition -encouraged po intake -dietary consult St IV cervical cancer, s/p Tx -in remission -has Caio sleeve for XRT - was supposed to be removed - GynOnc Dr. Cazares for Caio sleeve removal. Recurrent DVT, sp R iliac vein stent Uteretal obstruction/hydronephrosis, s/p b/l nephrostomy tubes Vesiculovaginal fistula Metabolic encephalopathy - improved. Anasarca Anemia Thrombocytopenia Subj: Pt feels tired today. Obj: General: The patient is a female who is alert and in no acute distress. Very fatigued. HEENT: normocephalic, extraocular movements intact, conjunctivae clear, no lesions on face. Mucous membranes moist. Neck: trachea midline, no visible masses, no external lesions. CV: +S1/S2, RRR, no MRG. Resp: unlabored, CTAB no RRW. Abd: soft and mildly distended. Neuro: cranial nerves II XII grossly intact. Intact gross motor and sensory function. Psych: appropriate mood/affect. Skin: + pallor. Heme/lymph: +3 peripheral edema. This pt was new to me. Reviewed chart/records. Objective: Vital Signs Temp Pulse Resp BP Pulse Ox 36.8 C 102 H 17 120/86 H 96 04/29/17 08:00 04/29/17 08:00 04/29/17 08:00 04/29/17 08:00 04/29/17 08:00 Laboratory Results 04/27/17 05:10 04/28/17 08:15 04/28/17 04/29/17 04/30/17 05:59 05:59 05:59 Intake Total 150 1760 Output Total 1200 1975 200 Balance -1050 -215 -200 PT 14.8 SEC (12.0-15.0) 04/23/17 13:40 INR 1.16 (0.83-1.16) 04/23/17 13:40 ICD10 Worksheet Patient Problems: Problems Problem Status Onset Hemorrhage Acute Hypotension Acute 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
--- NOTE | 2017-04-29 17:18 | SOAPPROG ---
SOAP Progress Note Assessment/Plan: Assessment: UNFORTUNATE 47 FEMALE WITH CERVICAL CANCER ON CHEMO AND RADIATION AND OBSTRUCTED URETERS/ PRESENTED WITH VAGINAL BLEEDING APPEARS TO HAVE PERFED COLON WITH PERITONITIS AND SMALL AMOUNT OF FREE AIR THROMBOCYTOPENIA, ANEMIA, INR 1.7 LACTATE OK, AFEBRILE TACHY AT 140/ ABD SOFT BUT VERY TENDER LLQ RISKS AND OPTIONS FULLY DISCUSSED WITH PT AND POA Plan:LAPAROTOMY, PROBABLE COLOSTOMY 04/14/17 04:50 04/14/17 17:29 POSTOP REASONABLY STABLE / BP 103 PULSE 100 / AFEBRILE / MODERATE SEROUS DRAINAGE FROM THE ROSA / WOUND OKAY / TRANSFUSING 2 UNITS FOR HEMATOCRIT OF 16 04/15/17 10:50 ALERT/ VS IMPROVED AND STABLE/ LARGE SEROUS ROSA OUTPUT/ AFEBRILE/ WOUND OK/ UO ADEQUATE/ HCT 25,STABLE PLAN ADD DIFLUCAN/ ID CONSULT 04/16/17 08:37 more alert/ vs stable/ afebrile/ hct stable 27/ wounds ok/ rosa serous drainage/ +bs, -flatus or bm/ ng minimal out 04/18/17 10:46 afebrile/ eating poorly/ abd soft/ wound ok/ +bs and flatus/ confused/ large serous rosa out/ large uo/ start tpn 04/19/17 12:05 Afebrile but much more tender today/patient is also fully alert today for a change/wound okay/urine output good/ROSA drainage serous/WBC 5 K with normal ANC Will plan on abdominal pelvic CT scan to rule out recurrent abscess 04/21/17 10:26 Afebrile but still eating poorly/abdomen soft/wound okay/midline drain DC'd/ anorexia has been longstanding/may need to try Marinol or some other diet stimulant 04/29/17 17:15 STABLE TODAY, AFEBRILE/ABDOMEN SOFT AN WOUND OKAY/NEPHROSOSTOMY OUTPUT GOOD/ FULLY CATHETER IN PLACE TO HELP CONTROL HER CYSTO VAGINAL FISTULA NUTRITION STILL MAJOR ISSUE WITH MARGINAL P.O. INTAKE/MENTAL CONFUSION SEEMS TO BE RESOLVED Objective: Vital Signs Temp Pulse Resp BP Pulse Ox 36.8 C 102 H 17 120/86 H 96 04/29/17 08:00 04/29/17 08:00 04/29/17 08:00 04/29/17 08:00 04/29/17 08:00 Laboratory Results 04/27/17 05:10 04/28/17 08:15 04/28/17 04/29/17 04/30/17 05:59 05:59 05:59 Intake Total 150 1760 Output Total 1200 1975 200 Balance -1050 -215 -200 PT 14.8 SEC (12.0-15.0) 04/23/17 13:40 INR 1.16 (0.83-1.16) 04/23/17 13:40 ICD10 Worksheet Patient Problems: Problems Problem Status Onset Hemorrhage Acute Hypotension Acute 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
[2017-04-29] MEDS: GABAPENTIN 300 MG CAP PO SCH (20:30)
[2017-04-29] MEDS: TPN 1 EA BAG IV SCH (21:06)
[2017-04-30] MEDS: LEVOTHYROXINE 112 MCG TAB PO SCH (05:14)
[2017-04-30 05:25] LABS: ADD DIFF? YES; ADD MORPH? YES; ADD SCAN? NO; ATYPICAL LYMPHOCYTE FLAG 20 (0-99); FRAGMENT RBC FLAG 0 (0-99); HEMATOCRIT 20.4 % (38.0-47.0); LEFT SHIFT FLG 30 (0-99); LIPEMIA HEMOLYSIS FLAG 80 (0-99); MEAN CELL HEMOGLOBIN CONCENTR. 32.4 g/dL (32.4-36.7); MEAN CELL VOLUME 95.8 fL (81.5-99.8); PLATELET CLUMPS FLAG 0 (0-99); PLATELET COUNT 223 10^3/uL (150-400); RED BLOOD CELL COUNT 2.13 10^6/uL (4.18-5.33); RED CELL DISTRIBUTION WIDTH 16.8 % (11.5-15.2)
[2017-04-30 05:26] LABS: HEMOGLOBIN 6.6 g/dL (12.6-16.3)
[2017-04-30 05:46] LABS: ANION GAP 8 mEq/L (8-16); CARBON DIOXIDE 22 mEq/l (22-31); CHLORIDE 107 mEq/L (97-110); CREATININE 0.9 mg/dL (0.6-1.0); GLOMERULAR FILTRATION RATE > 60; GLUCOSE 89 mg/dL (70-100); MAGNESIUM 1.9 mg/dL (1.6-2.3); POTASSIUM 4.4 mEq/L (3.5-5.2); SODIUM 137 mEq/L (134-144)
[2017-04-30 05:56] LABS: PLATELET ESTIMATE ADEQUATE (ADEQ)
[2017-04-30 05:57] LABS: MACROCYTES 1+
[2017-04-30] MEDS: PANTOPRAZOLE SODIUM 40 MG TAB PO SCH ×2 (09:26→21:02)
[2017-04-30] MEDS: FLUoxetine 10 MG CAP PO SCH (09:26)
[2017-04-30] MEDS: oxyCODONE IR 5 MG TAB PO PRN ×2 (09:26→15:15)
[2017-04-30] MEDS: APIXABAN 5 MG TAB PO SCH ×2 (09:27→21:01)
[2017-04-30] MEDS ORDERED: IPRATROPIUM/ALBUTEROL 3 ML DEYVIAL IH PRN (10:39)
--- NOTE | 2017-04-30 11:25 | SOAPPROG ---
SOAP Progress Note Assessment/Plan: Assessment: Assessment: 1) [id number] stage 4 cervical cancer 2) Colonic perforation s/p surgery 04/16/17 3) Bilateral hydronephrosis with bilateral PCN's--replaced 04/27 4) Intermittent vaginal bleeding 5) Extensive Right LE DVT with IVC filter 6) Protein calorie malnutrition 7) Multifactorial anemia, transfusion today, will check iron studies, b12 and retic count 8) Pseudomonas in urine (chronic) 9) Confusion (suspect toxic, metabolic encephalopathy) 10) Polyneuropathy of critical illness 11) Large vesiculovaginal fistula Plan: She currently is without evidence of disease per recent CT. She underwent an attempt to internalize/remove her PCN's on 04/27. Unfortunately this could not be done due to a large fistula between bladder and vagina. Her bilateral PCN's were replaced on 04/27 Her confusion appears to have been medication related. Pain meds were switched on 04/26. MRI of brain done 04/26 was unremarkable. Her MS has improved dramatically. She appears to have polyneuropathy of critical illness, and has been chronically malnourished. We recommended NG tube placement and starting Tube feedings to improve her nutritional status over TPN. Her po intake remains quite porr, and we will place weighted feeding tube today and start tube feedings, continue cyclic tpn for now She is now on Eliquis. She has not had evidence of recurrent vaginal bleeding. Will monitor for signs of recurrent bleeding. She has completed a course of XRT which should stop this over the elastic tape inserter. She still has a cervical sleeve in place from recent brachytherapy. This is to be removed by PSYCHIATRIC THERAPIST/ONC (Dr. Cazares) once she is discharged 04/29/17 10:21 04/29/17 10:27 04/30/17 11:22 04/30/17 11:24 Subjective: Feels ok, tired, really does not feel like eating Objective: Vital Signs Temp Pulse Resp BP Pulse Ox 98.6 F 106 H 18 122/83 H 98 04/30/17 08:00 04/30/17 08:00 04/30/17 08:00 04/30/17 08:00 04/30/17 08:00 Laboratory Results 04/30/17 05:10 04/30/17 05:10 04/29/17 04/30/17 05/01/17 05:59 05:59 05:59 Intake Total 1760 1045 Output Total 4098 1225 600 Balance -215 -180 -600 PT 14.8 SEC (12.0-15.0) 04/23/17 13:40 INR 1.16 (0.83-1.16) 04/23/17 13:40 Physical Exam - Physical Exam General Appearance: alert, mild distress Respiratory: decreased breath sounds Abdomen: soft ICD10 Worksheet Patient Problems: Problems Problem Status Onset Hemorrhage Acute Hypotension Acute 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
[2017-04-30] MEDS: PROMETHAZINE HCL 25 MG/ML INJ IVP PRN (11:43)
--- NOTE | 2017-04-30 11:44 | SOAPPROG ---
SOAP Progress Note Assessment/Plan: Assessment: UNFORTUNATE 47 FEMALE WITH CERVICAL CANCER ON CHEMO AND RADIATION AND OBSTRUCTED URETERS/ PRESENTED WITH VAGINAL BLEEDING APPEARS TO HAVE PERFED COLON WITH PERITONITIS AND SMALL AMOUNT OF FREE AIR THROMBOCYTOPENIA, ANEMIA, INR 1.7 LACTATE OK, AFEBRILE TACHY AT 140/ ABD SOFT BUT VERY TENDER LLQ RISKS AND OPTIONS FULLY DISCUSSED WITH PT AND POA Plan:LAPAROTOMY, PROBABLE COLOSTOMY 04/14/17 04:50 04/14/17 17:29 POSTOP REASONABLY STABLE / BP 103 PULSE 100 / AFEBRILE / MODERATE SEROUS DRAINAGE FROM THE ROSA / WOUND OKAY / TRANSFUSING 2 UNITS FOR HEMATOCRIT OF 16 04/15/17 10:50 ALERT/ VS IMPROVED AND STABLE/ LARGE SEROUS ROSA OUTPUT/ AFEBRILE/ WOUND OK/ UO ADEQUATE/ HCT 25,STABLE PLAN ADD DIFLUCAN/ ID CONSULT 04/16/17 08:37 more alert/ vs stable/ afebrile/ hct stable 27/ wounds ok/ rosa serous drainage/ +bs, -flatus or bm/ ng minimal out 04/18/17 10:46 afebrile/ eating poorly/ abd soft/ wound ok/ +bs and flatus/ confused/ large serous rosa out/ large uo/ start tpn 04/19/17 12:05 Afebrile but much more tender today/patient is also fully alert today for a change/wound okay/urine output good/ROSA drainage serous/WBC 5 K with normal ANC Will plan on abdominal pelvic CT scan to rule out recurrent abscess 04/21/17 10:26 Afebrile but still eating poorly/abdomen soft/wound okay/midline drain DC'd/ anorexia has been longstanding/may need to try Marinol or some other diet stimulant 04/29/17 17:15 STABLE TODAY, AFEBRILE/ABDOMEN SOFT AN WOUND OKAY/NEPHROSOSTOMY OUTPUT GOOD/ FULLY CATHETER IN PLACE TO HELP CONTROL HER CYSTO VAGINAL FISTULA NUTRITION STILL MAJOR ISSUE WITH MARGINAL P.O. INTAKE/MENTAL CONFUSION SEEMS TO BE RESOLVED 04/30/17 11:42 AFEBRILE/ABDOMEN SOFT/WOUND OKAY/HEMATOCRIT 21 WITH NO OBVIOUS SIGNS OF BLEEDING /WILL RECHECK HEMATOCRIT Objective: Vital Signs Temp Pulse Resp BP Pulse Ox 37.0 C 106 H 18 122/83 H 98 04/30/17 08:00 04/30/17 08:00 04/30/17 08:00 04/30/17 08:00 04/30/17 08:00 Laboratory Results 04/30/17 05:10 04/30/17 05:10 04/29/17 04/30/17 05/01/17 05:59 05:59 05:59 Intake Total 1760 1045 Output Total 1347 1225 600 Balance -215 -180 -600 PT 14.8 SEC (12.0-15.0) 04/23/17 13:40 INR 1.16 (0.83-1.16) 04/23/17 13:40 ICD10 Worksheet Patient Problems: Problems Problem Status Onset Hemorrhage Acute Hypotension Acute 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
[2017-04-30 11:59] LABS: HEMATOCRIT 27.1 % (38.0-47.0); HEMOGLOBIN 8.6 g/dL (12.6-16.3)
[2017-04-30 12:21] LABS: % SATURATION 14 % (20-55); TOTAL IRON BINDING CAPACITY 154 ug/dL (260-490)
--- NOTE | 2017-04-30 14:59 | SOAPPROG ---
SOAP Progress Note Assessment/Plan: Assessment: UNFORTUNATE 47 FEMALE WITH CERVICAL CANCER ON CHEMO AND RADIATION AND OBSTRUCTED URETERS/ PRESENTED WITH VAGINAL BLEEDING APPEARS TO HAVE PERFED COLON WITH PERITONITIS AND SMALL AMOUNT OF FREE AIR THROMBOCYTOPENIA, ANEMIA, INR 1.7 LACTATE OK, AFEBRILE TACHY AT 140/ ABD SOFT BUT VERY TENDER LLQ RISKS AND OPTIONS FULLY DISCUSSED WITH PT AND POA Plan:LAPAROTOMY, PROBABLE COLOSTOMY 04/14/17 04:50 04/14/17 17:29 POSTOP REASONABLY STABLE / BP 103 PULSE 100 / AFEBRILE / MODERATE SEROUS DRAINAGE FROM THE ROSA / WOUND OKAY / TRANSFUSING 2 UNITS FOR HEMATOCRIT OF 16 04/15/17 10:50 ALERT/ VS IMPROVED AND STABLE/ LARGE SEROUS ROSA OUTPUT/ AFEBRILE/ WOUND OK/ UO ADEQUATE/ HCT 25,STABLE PLAN ADD DIFLUCAN/ ID CONSULT 04/16/17 08:37 more alert/ vs stable/ afebrile/ hct stable 27/ wounds ok/ rosa serous drainage/ +bs, -flatus or bm/ ng minimal out 04/18/17 10:46 afebrile/ eating poorly/ abd soft/ wound ok/ +bs and flatus/ confused/ large serous rosa out/ large uo/ start tpn 04/19/17 12:05 Afebrile but much more tender today/patient is also fully alert today for a change/wound okay/urine output good/ROSA drainage serous/WBC 5 K with normal ANC Will plan on abdominal pelvic CT scan to rule out recurrent abscess 04/21/17 10:26 Afebrile but still eating poorly/abdomen soft/wound okay/midline drain DC'd/ anorexia has been longstanding/may need to try Marinol or some other diet stimulant 04/29/17 17:15 STABLE TODAY, AFEBRILE/ABDOMEN SOFT AN WOUND OKAY/NEPHROSOSTOMY OUTPUT GOOD/ FULLY CATHETER IN PLACE TO HELP CONTROL HER CYSTO VAGINAL FISTULA NUTRITION STILL MAJOR ISSUE WITH MARGINAL P.O. INTAKE/MENTAL CONFUSION SEEMS TO BE RESOLVED 04/30/17 11:42 AFEBRILE/ABDOMEN SOFT/WOUND OKAY/HEMATOCRIT 21 WITH NO OBVIOUS SIGNS OF BLEEDING /WILL RECHECK HEMATOCRIT 04/30/17 14:58 FOLLOW-UP HEMATOCRIT IS 27 WHICH IS MORE CONSISTENT WITH THE CLINICAL PICTURE Objective: Vital Signs Temp Pulse Resp BP Pulse Ox 37.0 C 106 H 18 122/83 H 98 04/30/17 08:00 04/30/17 08:00 04/30/17 08:00 04/30/17 08:00 04/30/17 08:00 Laboratory Results 04/30/17 11:45 04/30/17 05:10 04/29/17 04/30/17 05/01/17 05:59 05:59 05:59 Intake Total 1760 1045 Output Total 1975 1225 600 Balance -215 -180 -600 PT 14.8 SEC (12.0-15.0) 04/23/17 13:40 INR 1.16 (0.83-1.16) 04/23/17 13:40 ICD10 Worksheet Patient Problems: Problems Problem Status Onset Hemorrhage Acute Hypotension Acute 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
[2017-04-30] MEDS ORDERED: FUROSEMIDE 20 MG/2 ML VIAL IVP ONE (15:30)
[2017-04-30] MEDS: FUROSEMIDE 20 MG/2 ML VIAL IVP ONE ×2 (15:32→15:39)
[2017-04-30] MEDS: ONDANSETRON 4 MG/2 ML VIAL IVP PRN (15:32)
[2017-04-30 16:36] LABS: HEMATOCRIT 28.3 % (38.0-47.0); HEMOGLOBIN 9.4 g/dL (12.6-16.3)
[2017-04-30] MEDS: GABAPENTIN 300 MG CAP PO SCH (21:01)
[2017-04-30] MEDS: TPN 1 EA BAG IV SCH (21:01)
--- NOTE | 2017-04-30 21:30 | HOSPPROG ---
Hospitalist Progress Note Assessment/Plan: Peritonitis and pelvic abscess, 2/2 perf'd cecum, s/p cecal resection/ appendectomy -completed IV Abx. -Gen Surg planning for ex-lap Uteretal obstruction/hydronephrosis, s/p b/l nephrostomy tubes Vesiculovaginal fistula Anasarca Gen weakness, fatigue, FTT -PT/OT/ISU Anemia -suspect 2/2 chronic inflammation w/ high ferritin -Periph blood smear pending -1u PRBC given today. Severe protein calorie malnutrition -encouraged po intake -dietary consulted -NGT placed today - starting TF St IV cervical cancer, s/p Tx -in remission -has Caio sleeve for XRT - was supposed to be removed - GynOnc Dr. Cazares for Caio sleeve removal. Recurrent DVT, sp R iliac vein stent Metabolic encephalopathy - improved. Thrombocytopenia Subj: Pt feels tired today. Obj: General: The patient is a female who is alert and in no acute distress. Very fatigued. HEENT: normocephalic, extraocular movements intact, conjunctivae clear, no lesions on face. Mucous membranes moist. Neck: trachea midline, no visible masses, no external lesions. CV: +S1/S2, RRR, no MRG. Resp: unlabored, CTAB no RRW. Abd: soft and mildly distended. +TTP throughout, worse b/l LQ. Incision w/ poonam, no erythema or purulent drainage from incision. Neuro: cranial nerves II XII grossly intact. Intact gross motor and sensory function. Psych: appropriate mood/affect. Skin: + pallor. Heme/lymph: +3 peripheral edema. Discussed w/ Oncology and RN. Objective: Vital Signs Temp Pulse Resp BP Pulse Ox 36.7 C 94 14 131/79 H 95 04/30/17 19:16 04/30/17 19:16 04/30/17 19:16 04/30/17 19:16 04/30/17 19:16 Laboratory Results 04/30/17 15:44 04/30/17 05:10 04/29/17 04/30/17 05/01/17 05:59 05:59 05:59 Intake Total 1760 1045 Output Total 1974 1225 2049 Balance -215 -180 -2049 PT 14.8 SEC (12.0-15.0) 04/23/17 13:40 INR 1.16 (0.83-1.16) 04/23/17 13:40 ICD10 Worksheet Patient Problems: Problems Problem Status Onset Hemorrhage Acute Hypotension Acute 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
[2017-05-01] MEDS: LEVOTHYROXINE 112 MCG TAB PO SCH (05:15)
[2017-05-01 05:20] LABS: ADD DIFF? YES; ADD MORPH? NO; ADD SCAN? NO; ATYPICAL LYMPHOCYTE FLAG 20 (0-99); FRAGMENT RBC FLAG 0 (0-99); LEFT SHIFT FLG 20 (0-99); LIPEMIA HEMOLYSIS FLAG 80 (0-99); MEAN CELL HEMOGLOBIN 30.7 pg (27.9-34.1); MEAN CELL HEMOGLOBIN CONCENTR. 33.3 g/dL (32.4-36.7); MEAN CELL VOLUME 92.2 fL (81.5-99.8); MEAN PLATELET VOLUME 10.3 fL (8.7-11.7); PLATELET CLUMPS FLAG 0 (0-99); PLATELET COUNT 228 10^3/uL (150-400); RED BLOOD CELL COUNT 2.93 10^6/uL (4.18-5.33); RED CELL DISTRIBUTION WIDTH 16.8 % (11.5-15.2)
[2017-05-01 05:29] LABS: ALANINE AMINOTRANSFERASE 26 IU/L (9-52); ALBUMIN 2.6 g/dL (3.5-5.0); ALKALINE PHOSPHATASE 121 IU/L (38-126); ANION GAP 10 mEq/L (8-16); ASPARTATE AMINOTRANSFERASE 16 IU/L (14-46); BILIRUBIN,TOTAL 0.4 mg/dL (0.1-1.4); CALCIUM 8.1 mg/dL (8.5-10.4); CARBON DIOXIDE 20 mEq/l (22-31); CHLORIDE 105 mEq/L (97-110); CREATININE 0.9 mg/dL (0.6-1.0); GLOMERULAR FILTRATION RATE > 60; GLUCOSE 122 mg/dL (70-100); MAGNESIUM 1.7 mg/dL (1.6-2.3); POTASSIUM 4.1 mEq/L (3.5-5.2); SODIUM 135 mEq/L (134-144); TOTAL PROTEIN 5.9 g/dL (6.3-8.2); TRIGLYCERIDE 223 mg/dL (35-135)
[2017-05-01 06:03] LABS: PLATELET ESTIMATE ADEQUATE (ADEQ)
[2017-05-01] MEDS: ONDANSETRON 4 MG/2 ML VIAL IVP PRN ×3 (08:29→20:35)
--- NOTE | 2017-05-01 08:57 | SOAPPROG ---
SOAP Progress Note Assessment/Plan: Assessment: 47yo female POD #14 s/p laparotomy, drainage of pelvic abscess, partial cecectomy and appendectomy 2/2 perforated colon with peritonitis and free air. Hx of cervical cancer on chemo/ rad originally presented with obstructed ureters and vaginal bleeding on lovenox. Hx of DVT, now with IVC filter. Nephrostomy tube in place. Staple removal Cont [place] Cont nephrostomy Cont TPN and enteral feeds Encourage PO intake Cont pain control S: Pt c/o nausea. Pain controlled. O: pt lying in bed, NAD No increased WOB Nephrostomy drainage normal appearing light yellow [place] c scant blood Abd soft, nontender Incision C/D/I with poonam and steris in place Objective: Vital Signs Temp Pulse Resp BP Pulse Ox 36.7 C 96 15 131/91 H 98 05/01/17 08:50 05/01/17 08:50 05/01/17 08:50 05/01/17 08:50 05/01/17 08:50 Laboratory Results 05/01/17 04:46 05/01/17 04:46 04/30/17 05/01/17 05/02/17 05:59 05:59 05:59 Intake Total 1045 1518 Output Total 1225 2925 275 Balance -180 -1407 -275 PT 14.8 SEC (12.0-15.0) 04/23/17 13:40 INR 1.16 (0.83-1.16) 04/23/17 13:40 ICD10 Worksheet Patient Problems: Problems Problem Status Onset Hemorrhage Acute Hypotension Acute 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
[2017-05-01] MEDS: APIXABAN 5 MG TAB PO SCH ×3 (09:40→21:02)
[2017-05-01] MEDS: PANTOPRAZOLE SODIUM 40 MG TAB PO SCH ×2 (09:40→21:01)
[2017-05-01] MEDS: FLUoxetine 10 MG CAP PO SCH (09:40)
[2017-05-01] MEDS: PROMETHAZINE HCL 25 MG/ML INJ IVP PRN ×2 (09:42→15:47)
--- NOTE | 2017-05-01 12:52 | SOAPPROG ---
SOAP Progress Note Assessment/Plan: Assessment: 1) [id number] stage 4 cervical cancer, s/p chemoRT, brachytx 2) Colonic perforation s/p surgery 04/16/17 3) Bilateral hydronephrosis with bilateral PCN's--replaced 04/27 4) Intermittent vaginal bleeding 5) Extensive Right LE DVT with IVC filter 6) Protein calorie malnutrition 7) Multifactorial anemia 8) Pseudomonas in urine (chronic) 9) Confusion (suspect toxic, metabolic encephalopathy) 10) Polyneuropathy of critical illness 11) Large vesiculovaginal fistula She is tolerating low volume DHT feedings thus far. Very slow improvement. Will eventually need rehab. 05/01/17 12:49 Subjective: ST from DHT. No increased AP. Tolerating DHT feedings thus far. No SOB. O: VSS, AF Gen: chronically ill appearing, NAD. CV: SCDs bilat. Lungs: CTA. Abd: +BS, NT. Incisions clean, dry, no erythema. Laboratory Tests 05/01/17 05/01/17 04:46 04:46 WBC 15.97 H Hgb 9.0 L Plt Count 228 Potassium 4.1 Creatinine 0.9 Objective: Vital Signs Temp Pulse Resp BP Pulse Ox 36.7 C 96 15 131/91 H 98 05/01/17 08:50 05/01/17 08:50 05/01/17 08:50 05/01/17 08:50 05/01/17 08:50 Laboratory Results 05/01/17 04:46 05/01/17 04:46 04/30/17 05/01/17 05/02/17 05:59 05:59 05:59 Intake Total 1045 1518 Output Total 1225 2925 275 Balance -180 -1407 -275 PT 14.8 SEC (12.0-15.0) 04/23/17 13:40 INR 1.16 (0.83-1.16) 04/23/17 13:40 ICD10 Worksheet Patient Problems: Problems Problem Status Onset Hemorrhage Acute Hypotension Acute 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
--- NOTE | 2017-05-01 15:58 | HOSPPROG ---
Hospitalist Progress Note Assessment/Plan: DIAGNOSES: -Status post cecal perforation with abscess, status post cecal resection appendectomy -Bilateral hydronephrosis from metastasis with bilateral percutaneous nephrostomies -Vaginal bleeding so far requiring 8 units of packed red cells, 3 units FFP, 2 units platelets -Right leg DVT, status post placement of IVC filter -Post hemorrhagic anemia -Acute encephalopathy, multifactorial -Severe protein calorie malnutrition -Vesicle vaginal fistula -Stage IV cervical cancer PLANS: -continue TPN and tube feeds -continue wound care -continue therapies -remains off anticoag with IVC filter in place SUBJECTIVE: remains quite weak and tired, with pain reasonably well controlled Tolerating tube feeds and TPN well so far Some flatus but no bowel movement, feels like she may be getting close to having bowel movement No fever symptoms OBJECTIVE Vitals reviewed: Stable without fever Exam: alert oriented but looks quite weak and fatigued skin warm dry with marked pallor resps not labored lungs clear BSs heart regular abd soft mildly tender, bowel sounds present limbs warm, no edema iv site ok Objective: Vital Signs Temp Pulse Resp BP Pulse Ox 36.8 C 104 H 16 132/93 H 97 05/01/17 15:51 05/01/17 15:51 05/01/17 15:51 05/01/17 15:51 05/01/17 15:51 Laboratory Results 05/01/17 04:46 05/01/17 04:46 04/30/17 05/01/17 05/02/17 06:59 06:59 06:59 Intake Total 1045 1518 108 Output Total 1225 3200 350 Balance -180 -1682 -242 PT 14.8 SEC (12.0-15.0) 04/23/17 13:40 INR 1.16 (0.83-1.16) 04/23/17 13:40 ICD10 Worksheet Patient Problems: Problems Problem Status Onset Hemorrhage Acute Hypotension Acute 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
--- NOTE | 2017-05-01 16:32 | ASMTCMCOM ---
CM Note CM Note Notes: Received call from Barbara Nicole at [facility] who said that because we have needed to delay discharge several times and they have had to get insurance to reauthorize admission they have decided to take pt off their list and C/M is to contact them for reassessment when it looks more probable that patien will discharge with in a few days. Pts nurse Jenise notified. Case management will continue to follow. Date Signed: 05/01/2017 04:32 PM Electronically Signed By:PETE eTixeira
[2017-05-01] MEDS: GABAPENTIN 300 MG CAP PO SCH ×2 (20:55→21:02)
[2017-05-01] MEDS: TPN 1 EA BAG IV SCH (22:06)
[2017-05-02 05:11] LABS: HEMATOCRIT 28.1 % (38.0-47.0); HEMOGLOBIN 9.4 g/dL (12.6-16.3)
[2017-05-02] MEDS: LEVOTHYROXINE 112 MCG TAB PO SCH (05:32)
[2017-05-02] MEDS: PANTOPRAZOLE SODIUM 40 MG TAB PO SCH ×2 (09:11→21:00)
[2017-05-02] MEDS: FLUoxetine 10 MG CAP PO SCH (09:11)
[2017-05-02] MEDS: APIXABAN 5 MG TAB PO SCH ×2 (09:11→21:00)
[2017-05-02] MEDS: ONDANSETRON DISINTEGRATING 4 MG TAB PO SCH ×3 (12:03→23:08)
[2017-05-02] MEDS ORDERED: BISACODYL 10 MG SUPP PR PRN (14:00)
[2017-05-02] MEDS ORDERED: POLYETHYLENE GLYCOL 3350 17 GM PKT PO PRN (14:00)
[2017-05-02] MEDS ORDERED: LACTULOSE 20 GM/30 ML UDCUP PO PRN (14:00)
[2017-05-02] MEDS ORDERED: MAGNESIUM HYDROXIDE 30 ML UDCUP PO PRN (14:00)
--- NOTE | 2017-05-02 14:10 | SOAPPROG ---
SOAP Progress Note Assessment/Plan: Assessment/Plan: 47 Y F metastatic cervical CA, high dose radiation therapy, hx DVT, now with IVC filter, s/p vaginal bleeding with lovenox, now s/p laparotomy with drainage and washout of abscess, partial cecectomy for perforated cecum with peritonitis. Nephrostomy tube in place. [place] and drains removed. On TPN. Persistently low appetite. No tolerating tube feeds well, tube now removed. D/w'ed nurse and possible LTAC soon? Will sign off for now but happy to help again if any questions/concerns. 05/02/17 14:07 Objective: Vital Signs Temp Pulse Resp BP Pulse Ox 37.0 C 105 H 18 120/92 H 99 05/02/17 08:00 05/02/17 08:00 05/02/17 08:00 05/02/17 08:00 05/02/17 08:00 Microbiology 04/27/17 10:08 Blood Culture - Final Blood 04/27/17 10:08 Blood Culture - Final Blood Laboratory Results 05/02/17 04:25 05/01/17 04:46 05/01/17 05/02/17 05/03/17 05:59 05:59 05:59 Intake Total 1518 1368 200 Output Total 2925 1950 550 Balance -1407 -582 -350 PT 14.8 SEC (12.0-15.0) 04/23/17 13:40 INR 1.16 (0.83-1.16) 04/23/17 13:40 ICD10 Worksheet Patient Problems: Problems Problem Status Onset Hemorrhage Acute Hypotension Acute 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
--- NOTE | 2017-05-02 16:49 | ASMTCMCOM ---
CM Note CM Note Notes: Patient pulled her feeding tube out last night. Patient is now on TPN. Discharge stiil unknown. [facility] when discharge date is clearer. They will need to come back to assess since it has been so long since initial referral. Case management will follo. Date Signed: 05/02/2017 04:48 PM Electronically Signed By:PETE Teixeira
--- NOTE | 2017-05-02 18:14 | HOSPPROG ---
Hospitalist Progress Note Assessment/Plan: DIAGNOSES: -Status post cecal perforation with abscess, status post cecal resection appendectomy -Bilateral hydronephrosis from metastasis with bilateral percutaneous nephrostomies -Vaginal bleeding so far requiring 8 units of packed red cells, 3 units FFP, 2 units platelets -Right leg DVT, status post placement of IVC filter -Post hemorrhagic anemia -Acute encephalopathy, multifactorial -Severe protein calorie malnutrition -Vesicle vaginal fistula -Stage IV cervical cancer PLANS: -continue TPN and encourage any po intake she can manage -continue wound care -continue therapies -remains off anticoag with IVC filter in place -potentially to LTAC soon, will review w surgery SUBJECTIVE: again weak and tired, with pain well controlled last night gagged on NG tube and had vomiting episodes so NG tube now out, and is getting TPN No fever symptoms OBJECTIVE Vitals reviewed: Stable without fever Exam: alert oriented but looks quite weak and fatigued skin warm dry with marked pallor resps not labored lungs clear BSs heart regular abd soft mildly tender, bowel sounds present limbs warm, no edema iv site ok Objective: Vital Signs Temp Pulse Resp BP Pulse Ox 36.8 C 94 18 121/78 H 99 05/02/17 15:39 05/02/17 15:39 05/02/17 15:39 05/02/17 15:39 05/02/17 15:39 Microbiology 04/27/17 10:08 Blood Culture - Final Blood 04/27/17 10:08 Blood Culture - Final Blood Laboratory Results 05/02/17 04:25 05/01/17 04:46 05/01/17 05/02/17 05/03/17 06:59 06:59 06:59 Intake Total 1518 1368 200 Output Total 3200 1675 550 Balance -1682 -307 -350 PT 14.8 SEC (12.0-15.0) 04/23/17 13:40 INR 1.16 (0.83-1.16) 04/23/17 13:40 ICD10 Worksheet Patient Problems: Problems Problem Status Onset Hemorrhage Acute Hypotension Acute 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
--- NOTE | 2017-05-02 19:16 | SOAPPROG ---
SOAP Progress Note Assessment/Plan: Assessment: SOAP Progress Note Assessment/Plan: Assessment: 1) [id number] stage 4 cervical cancer, s/p chemoRT, brachytx 2) Colonic perforation s/p surgery 04/16/17 3) Bilateral hydronephrosis with bilateral PCN's--replaced 04/27 4) Intermittent vaginal bleeding 5) Extensive Right LE DVT with IVC filter 6) Protein calorie malnutrition 7) Multifactorial anemia 8) Pseudomonas in urine (chronic) 9) Confusion (suspect toxic, metabolic encephalopathy) 10) Polyneuropathy of critical illness 11) Large vesiculovaginal fistula She did not tolerate tube feeds. TPN will continue for now. Very slow improvement. Will eventually need rehab. 05/01/17 12:49 Plan: 05/02/17 19:15 Subjective: nauseated. no new pain Objective: Vital Signs Temp Pulse Resp BP Pulse Ox 36.8 C 94 18 121/78 H 99 05/02/17 15:39 05/02/17 15:39 05/02/17 15:39 05/02/17 15:39 05/02/17 15:39 Microbiology 04/27/17 10:08 Blood Culture - Final Blood 04/27/17 10:08 Blood Culture - Final Blood Laboratory Results 05/02/17 04:25 05/01/17 04:46 05/01/17 05/02/17 05/03/17 05:59 05:59 05:59 Intake Total 1518 1368 700 Output Total 2925 1950 750 Balance -1407 -582 -50 PT 14.8 SEC (12.0-15.0) 04/23/17 13:40 INR 1.16 (0.83-1.16) 04/23/17 13:40 Physical Exam - Physical Exam General Appearance: other (flat affect) Respiratory: lungs clear Abdomen: non-tender, soft ICD10 Worksheet Patient Problems: Problems Problem Status Onset Hemorrhage Acute Hypotension Acute 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
[2017-05-02] MEDS: TPN 1 EA BAG IV SCH (20:58)
[2017-05-02] MEDS: SENNOSIDES/DOCUSATE SODIUM TAB PO SCH (21:00)
[2017-05-02] MEDS: GABAPENTIN 300 MG CAP PO SCH (21:00)
[2017-05-02] MEDS: oxyCODONE IR 5 MG TAB PO PRN (22:10)
[2017-05-03] MEDS: LEVOTHYROXINE 112 MCG TAB PO SCH (05:33)
[2017-05-03] MEDS: ONDANSETRON DISINTEGRATING 4 MG TAB PO SCH ×3 (05:33→18:01)
[2017-05-03 06:04] LABS: ANION GAP 11 mEq/L (8-16); CALCIUM 8.2 mg/dL (8.5-10.4); CARBON DIOXIDE 23 mEq/l (22-31); CHLORIDE 106 mEq/L (97-110); CREATININE 0.9 mg/dL (0.6-1.0); GLOMERULAR FILTRATION RATE > 60; GLUCOSE 100 mg/dL (70-100); MAGNESIUM 1.9 mg/dL (1.6-2.3); POTASSIUM 4.4 mEq/L (3.5-5.2); SODIUM 140 mEq/L (134-144)
[2017-05-03] MEDS: SENNOSIDES/DOCUSATE SODIUM TAB PO SCH ×2 (09:29→21:40)
[2017-05-03] MEDS: PANTOPRAZOLE SODIUM 40 MG TAB PO SCH ×2 (09:29→21:40)
[2017-05-03] MEDS: FLUoxetine 10 MG CAP PO SCH (09:29)
--- NOTE | 2017-05-03 10:12 | HOSPPROG ---
Hospitalist Progress Note Assessment/Plan: DIAGNOSES: -Status post cecal perforation with abscess, status post cecal resection appendectomy -Fall today with struck head, only evident change is subQ hematoma over L forehead but needs close following -Bilateral hydronephrosis from metastasis with bilateral percutaneous nephrostomies -Vaginal bleeding so far requiring 8 units of packed red cells, 3 units FFP, 2 units platelets -Right leg DVT, status post placement of IVC filter -Post hemorrhagic anemia -Acute encephalopathy, multifactorial -Severe protein calorie malnutrition -Vesicle vaginal fistula -Stage IV cervical cancer PLANS: -will recheck neuro status throughout day today -continue TPN and encourage any po intake she can manage -continue wound care -continue therapies -remains off anticoag with IVC filter in place -potentially to LTAC soon, will review w surgery and DC planning SUBJECTIVE: -Had a fall early this am trying to get from bedside commode back to bed, her foot twisted leading to imbalance and fall, no lightheadedness or dizziness or other preceding acute sxs. Struck forehead on floor now with local pain and swelling there, no diffuse SOLITARIO or increase in nausea, does not feel confused, no other sxs of facial injury -again weak and tired, with pain abd well controlled -No fever symptoms -very low levels of motivation for activity or eating OBJECTIVE Vitals reviewed: Stable without fever Exam: alert oriented but looks quite weak and fatigued wide awake with no change in mentation, no focal neuro sxs, pupils are round equal react normally to light there is a subQ hematoma over L forehead, no other evidence of head/facial injury skin warm dry with marked pallor resps not labored lungs clear BSs heart regular abd soft mildly tender, bowel sounds present limbs warm, no edema iv site ok Objective: Vital Signs Temp Pulse Resp BP Pulse Ox 36.4 C 118 H 20 130/96 H 98 05/03/17 07:39 05/03/17 07:39 05/03/17 07:39 05/03/17 07:39 05/03/17 07:39 Microbiology 04/27/17 10:08 Blood Culture - Final Blood 04/27/17 10:08 Blood Culture - Final Blood Laboratory Results 05/02/17 04:25 05/03/17 05:20 05/02/17 05/03/17 05/04/17 06:59 06:59 06:59 Intake Total 1368 1952 Output Total 1897 7896 200 Balance -307 502 -200 PT 14.8 SEC (12.0-15.0) 04/23/17 13:40 INR 1.16 (0.83-1.16) 04/23/17 13:40 ICD10 Worksheet Patient Problems: Problems Problem Status Onset Hemorrhage Acute Hypotension Acute 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
[2017-05-03] MEDS: APIXABAN 5 MG TAB PO SCH ×2 (11:59→21:40)
[2017-05-03] MEDS: TPN 1 EA BAG IV SCH (21:40)
[2017-05-03] MEDS: GABAPENTIN 300 MG CAP PO SCH (21:40)
[2017-05-04] MEDS: ONDANSETRON DISINTEGRATING 4 MG TAB PO SCH ×4 (01:03→17:34)
[2017-05-04] MEDS: oxyCODONE IR 5 MG TAB PO PRN ×3 (01:44→12:14)
[2017-05-04] MEDS: traMADol 50 MG TAB PO PRN ×2 (03:51→09:42)
[2017-05-04] MEDS: LEVOTHYROXINE 112 MCG TAB PO SCH (06:39)
[2017-05-04] MEDS: APIXABAN 5 MG TAB PO SCH ×2 (09:42→21:23)
[2017-05-04] MEDS: PANTOPRAZOLE SODIUM 40 MG TAB PO SCH ×2 (09:42→21:23)
[2017-05-04] MEDS: FLUoxetine 10 MG CAP PO SCH (09:42)
[2017-05-04] MEDS: SENNOSIDES/DOCUSATE SODIUM TAB PO SCH ×2 (09:43→21:23)
[2017-05-04] MEDS ORDERED: NS 1,000 ML IV ONE (09:45)
[2017-05-04] MEDS: METOCLOPRAMIDE 10 MG/2 ML VIAL IVP SCH ×3 (10:12→17:35)
--- NOTE | 2017-05-04 10:52 | HOSPPROG ---
Hospitalist Progress Note Assessment/Plan: DIAGNOSES: -Status post cecal perforation with abscess, status post cecal resection appendectomy -Fall today with struck head, only evident change is subQ hematoma over L forehead but needs close following -Bilateral hydronephrosis from metastasis with bilateral percutaneous nephrostomies -Vaginal bleeding so far requiring 8 units of packed red cells, 3 units FFP, 2 units platelets -Right leg DVT, status post placement of IVC filter -Post hemorrhagic anemia -Acute encephalopathy, multifactorial -Severe protein calorie malnutrition -Vesicle vaginal fistula -Stage IV cervical cancer Overall at this point when her main issues is that she is not taking anything in by mouth and I think she is actually getting somewhat dehydrated despite ongoing TPN and other IV medicines. I have reviewed her situation with her. Will try Reglan to see if that gets her bowels going better and works better for her nausea. I have strongly encouraged her to try to continually take small sips of her shakes or Ensure through the day to increase fluid and calorie intake and I have ordered some IV fluids to hydrate her and see if that helps. PLANS: -continue TPN and encourage any po intake she can manage -trial of Reglan -IV fluid bolus and ongoing IV fluid during the day -continue wound care -continue therapies -remains off anticoag with IVC filter in place -potentially to LTAC soon, will review w surgery and DC planning SUBJECTIVE: Headache resolved, no neurologic symptoms from her fall yesterday have emerged Still with ongoing nausea, despite antiemetics, and still with no appetite at all and taking in very little by mouth only small amount of water Remains with some abdominal pain unchanged from yesterday, no flatus or bowel movement but is having rumbling noises Still extremely weak but is getting up onto her feet somewhat and walking short distances with the therapists OBJECTIVE Vitals reviewed: Remains tachycardic at 100-110 Stable without fever Exam: alert oriented but looks quite weak and fatigued wide awake with no change in mentation, no focal neuro sxs, pupils are round equal react normally to light subQ hematoma over L forehead looks notably better today, no other evidence of head/facial injury skin warm dry with marked pallor resps not labored lungs clear BSs heart regular abd not as soft and a bit more tender today, bowel sounds present limbs warm, no edema iv site ok Lab data: Her creatinine continues to rise and is at 39 today with normal creatinine Objective: Vital Signs Temp Pulse Resp BP Pulse Ox 36.8 C 103 H 16 129/93 H 97 05/04/17 09:25 05/04/17 09:25 05/04/17 09:25 05/04/17 09:25 05/04/17 09:25 Laboratory Results 05/02/17 04:25 05/03/17 05:20 05/03/17 05/04/17 05/05/17 06:59 06:59 06:59 Intake Total 1952 1576 Output Total 1450 1325 125 Balance 502 251 -125 PT 14.8 SEC (12.0-15.0) 04/23/17 13:40 INR 1.16 (0.83-1.16) 04/23/17 13:40 ICD10 Worksheet Patient Problems: Problems Problem Status Onset Hemorrhage Acute Hypotension Acute 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
--- NOTE | 2017-05-04 16:40 | SOAPPROG ---
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 Very slow improvement. Will eventually need rehab. 05/01/17 12:49 Plan: 05/02/17 19:15 05/04/17 16:37 Subjective: continues to have difficulty with eating. Gags with texture, doesn't taste. Objective: Vital Signs Temp Pulse Resp BP Pulse Ox 36.8 C 103 H 16 129/93 H 97 05/04/17 09:25 05/04/17 09:25 05/04/17 09:25 05/04/17 09:25 05/04/17 09:25 Laboratory Results 05/02/17 04:25 05/03/17 05:20 05/03/17 05/04/17 05/05/17 05:59 05:59 05:59 Intake Total 1952 1576 Output Total 1450 1325 225 Balance 502 251 -225 PT 14.8 SEC (12.0-15.0) 04/23/17 13:40 INR 1.16 (0.83-1.16) 04/23/17 13:40 Physical Exam - Physical Exam General Appearance: no apparent distress, other (chronically ill appearing) Respiratory: lungs clear Abdomen: non-tender (well healed midline incision), soft, other Neuro/Psych: other (flat affect) ICD10 Worksheet Patient Problems: Problems Problem Status Onset Hemorrhage Acute Hypotension Acute 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
[2017-05-04] MEDS: GABAPENTIN 300 MG CAP PO SCH (21:23)
[2017-05-04] MEDS: TPN 1 EA BAG IV SCH (21:24)
[2017-05-05] MEDS: ONDANSETRON DISINTEGRATING 4 MG TAB PO SCH ×5 (01:06→23:58)
[2017-05-05] MEDS: METOCLOPRAMIDE 10 MG/2 ML VIAL IVP SCH ×5 (01:07→23:58)
[2017-05-05] MEDS: LEVOTHYROXINE 112 MCG TAB PO SCH (05:32)
[2017-05-05 06:11] LABS: ANION GAP 9 mEq/L (8-16); CARBON DIOXIDE 24 mEq/l (22-31); CHLORIDE 104 mEq/L (97-110); CREATININE 0.9 mg/dL (0.6-1.0); GLOMERULAR FILTRATION RATE > 60; GLUCOSE 105 mg/dL (70-100); POTASSIUM 3.9 mEq/L (3.5-5.2); SODIUM 137 mEq/L (134-144)
[2017-05-05] MEDS: FLUoxetine 10 MG CAP PO SCH (09:02)
[2017-05-05] MEDS: APIXABAN 5 MG TAB PO SCH ×2 (09:03→22:01)
[2017-05-05] MEDS: SENNOSIDES/DOCUSATE SODIUM TAB PO SCH ×2 (09:03→22:06)
[2017-05-05] MEDS: PANTOPRAZOLE SODIUM 40 MG TAB PO SCH ×2 (09:03→22:01)
--- NOTE | 2017-05-05 12:43 | ASMTCMCOM ---
CM Note CM Note Notes: Barbara at [facility] asked that new referral be sent for pt because they have to start over due to the time lapse from initial referral. This was faxed tooday. [facility] will not [facility] a bed until Monday. Pt is close to being ready for DC per Dr Boogie. C/M will continue to follow. Date Signed: 05/05/2017 12:42 PM Electronically Signed By:Kelly Tarango LCSW
[2017-05-05] MEDS ORDERED: SODIUM POLY SULF 15 GM/60 ML BOTTLE PR ONE (18:00)
--- NOTE | 2017-05-05 18:06 | HOSPPROG ---
Hospitalist Progress Note Assessment/Plan: DIAGNOSES: -Status post cecal perforation with abscess, status post cecal resection appendectomy -Fall today with struck head, only evident change is subQ hematoma over L forehead but needs close following -Bilateral hydronephrosis from metastasis with bilateral percutaneous nephrostomies -Vaginal bleeding so far requiring 8 units of packed red cells, 3 units FFP, 2 units platelets -Right leg DVT, status post placement of IVC filter -Post hemorrhagic anemia -Acute encephalopathy, multifactorial -Severe protein calorie malnutrition -Vesicle vaginal fistula -Stage IV cervical cancer At this point does continue to make some progress with slowly resolving ileus, however she also I think has significant obstipation and I think if we treat that she will be able to do better with eating. She I will continue IV fluids I think she is still a bit dehydrated. She still extremely weak. Otherwise I think at this point she is probably really ready for transfer to SNF for LTAC and I have talked with discharge planning today. PLANS: -at this time will need to give laxatives and enemas and suppositories to trying get her impaction treated and she may need disimpaction -continue TPN and encourage any po intake she can manage -trial of Reglan -continue IV fluid -continue wound care -continue therapies -remains off anticoag with IVC filter in place -potentially to LTAC soon, will review w surgery and DC planning SUBJECTIVE: Still with nausea around the clock but is better and she did eat a little bit of food today without vomiting. She has no abdominal pain per se. She has not had a bowel movement in some time that she recalls. Feels slightly stronger but still very weak and requiring assistance and walker to stand not able to really walk. No shortness of breath no fever symptoms OBJECTIVE Vitals reviewed: Pulse is fairly variable, average heart rate decreasing but still at times heart rate up to 120, otherwise Stable without fever Exam: alert oriented but looks quite weak and fatigued wide awake with no change in mentation, no focal neuro sxs, pupils are round equal react normally to light subQ hematoma over L forehead looks notably better today, no other evidence of head/facial injury skin warm dry with marked pallor resps not labored lungs clear BSs heart regular abd not as soft and a bit more tender today, bowel sounds present limbs warm, no edema iv site ok Abdominal x-rays today show evidence of obstipation with large very large amount of solid appearing stool in the rectum and sigmoid colon. There is some small bowel air potentially indicating ileus which she may have a single I that may be just related to her significant obstipation. Lab data: Her BUN decreased to 36 today, probably still some dehydration Objective: Vital Signs Temp Pulse Resp BP Pulse Ox 36.8 C 108 H 17 118/85 H 97 05/05/17 17:04 05/05/17 17:04 05/05/17 17:04 05/05/17 17:04 05/05/17 17:04 Laboratory Results 05/02/17 04:25 05/05/17 05:30 05/04/17 05/05/17 05/06/17 06:59 06:59 06:59 Intake Total 1576 3125 575 Output Total 1325 1200 975 Balance 251 1925 -400 PT 14.8 SEC (12.0-15.0) 04/23/17 13:40 INR 1.16 (0.83-1.16) 04/23/17 13:40 ICD10 Worksheet Patient Problems: Problems Problem Status Onset Hemorrhage Acute Hypotension Acute 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
[2017-05-05] MEDS: TPN 1 EA BAG IV SCH (21:44)
[2017-05-05] MEDS: PROMETHAZINE HCL 25 MG/ML INJ IVP PRN (21:54)
[2017-05-05] MEDS: GABAPENTIN 300 MG CAP PO SCH (22:01)
[2017-05-06] MEDS: LEVOTHYROXINE 112 MCG TAB PO SCH (06:03)
[2017-05-06] MEDS: ONDANSETRON DISINTEGRATING 4 MG TAB PO SCH ×3 (06:03→17:26)
[2017-05-06] MEDS: METOCLOPRAMIDE 10 MG/2 ML VIAL IVP SCH ×3 (06:03→17:26)
[2017-05-06 08:34] LABS: ANION GAP 11 mEq/L (8-16); CALCIUM 7.8 mg/dL (8.5-10.4); CARBON DIOXIDE 24 mEq/l (22-31); CHLORIDE 104 mEq/L (97-110); CREATININE 0.8 mg/dL (0.6-1.0); GLOMERULAR FILTRATION RATE > 60; GLUCOSE 116 mg/dL (70-100); POTASSIUM 3.5 mEq/L (3.5-5.2); SODIUM 139 mEq/L (134-144)
[2017-05-06] MEDS: FLUoxetine 10 MG CAP PO SCH (08:47)
[2017-05-06] MEDS: PANTOPRAZOLE SODIUM 40 MG TAB PO SCH ×2 (08:47→21:08)
[2017-05-06] MEDS: APIXABAN 5 MG TAB PO SCH ×2 (08:48→21:08)
[2017-05-06] MEDS: SENNOSIDES/DOCUSATE SODIUM TAB PO SCH ×2 (09:00→21:30)
[2017-05-06] MEDS: NS 1,000 ML IV SCH (11:16)
[2017-05-06] MEDS: oxyCODONE IR 5 MG TAB PO PRN ×2 (11:16→17:26)
--- NOTE | 2017-05-06 11:20 | SOAPPROG ---
SOAP Progress Note Assessment/Plan: E&M for cervical cancer * [id number] stage 4 cervical cancer, s/p chemoRT, brachytx and carbo/paclitaxel/ avastin: last chemo on 03/16. No further chemotherapy until completely recovered. No further avastin due to clotting and bleeding. * Colonic perforation s/p surgery 04/16/17 * Bilateral hydronephrosis with bilateral PCN's--replaced 04/27 * Intermittent vaginal bleeding * Extensive Right LE DVT with IVC filter * Protein calorie malnutrition: on TPN * Multifactorial anemia * Pseudomonas in urine (chronic) * Polyneuropathy of critical illness: needs rehab * Large vesiculovaginal fistula Subjective: Doing about the same. No new complaints. Still not eating. Objective: Vital Signs Temp Pulse Resp BP Pulse Ox 37.7 C 121 H 16 114/80 97 05/06/17 07:58 05/06/17 07:58 05/06/17 07:58 05/06/17 07:58 05/06/17 07:58 Laboratory Results 05/02/17 04:25 05/06/17 08:02 05/05/17 05/06/17 05/07/17 05:59 05:59 05:59 Intake Total 3125 875 Output Total 1200 1805 325 Balance 1925 -930 -325 PT 14.8 SEC (12.0-15.0) 04/23/17 13:40 INR 1.16 (0.83-1.16) 04/23/17 13:40 Physical Exam - Physical Exam General Appearance: no apparent distress Abdomen: normal bowel sounds, soft Skin: other (hematoma left forehead) ICD10 Worksheet Patient Problems: Problems Problem Status Onset Hemorrhage Acute Hypotension Acute 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
--- NOTE | 2017-05-06 15:06 | HOSPPROG ---
Hospitalist Progress Note Assessment/Plan: DIAGNOSES: -Status post cecal perforation with abscess, status post cecal resection appendectomy -Fall today with struck head, only evident change is subQ hematoma over L forehead but needs close following -Bilateral hydronephrosis from metastasis with bilateral percutaneous nephrostomies -Vaginal bleeding so far requiring 8 units of packed red cells, 3 units FFP, 2 units platelets -Right leg DVT, status post placement of IVC filter -Post hemorrhagic anemia -Acute encephalopathy, multifactorial -Severe protein calorie malnutrition -Vesicle vaginal fistula -Stage IV cervical cancer At this point does continue to make some progress with slowly resolving ileus, however she also I think has significant obstipation and I think if we treat that she will be able to do better with eating. She I will continue IV fluids I think she is still a bit dehydrated. She still extremely weak. Otherwise I think at this point she is probably really ready for transfer to SNF for LTAC and I have talked with discharge planning today. PLANS: -at this time will need to give laxatives and enemas and suppositories to trying get her impaction treated and she may need disimpaction -continue TPN and encourage any po intake she can manage -trial of Reglan -continue IV fluid -continue wound care -continue therapies -remains off anticoag with IVC filter in place -potentially to LTAC soon, will review w surgery and DC planning SUBJECTIVE: ongoing nausea and unable to eat from that, despite round the clock scheduled zofran AND reglan did have large evacuation of stool last night after enema but this has not helped OBJECTIVE Vitals reviewed: Pulse is fairly variable, average heart rate decreasing but still at times heart rate up to 120, otherwise Stable without fever Exam: alert oriented but looks quite weak and fatigued wide awake with no change in mentation, no focal neuro sxs, pupils are round equal react normally to light subQ hematoma over L forehead looks notably better today, no other evidence of head/facial injury skin warm dry with marked pallor resps not labored lungs clear BSs heart regular abd not as soft and a bit more tender today, bowel sounds present limbs warm, no edema iv site ok Abdominal x-rays today show evidence of obstipation with large very large amount of solid appearing stool in the rectum and sigmoid colon. There is some small bowel air potentially indicating ileus which she may have a single I that may be just related to her significant obstipation. Lab data: Her BUN decreased to 36 today, probably still some dehydration Objective: Vital Signs Temp Pulse Resp BP Pulse Ox 37.7 C 121 H 16 114/80 97 05/06/17 07:58 05/06/17 07:58 05/06/17 07:58 05/06/17 07:58 05/06/17 07:58 Laboratory Results 05/02/17 04:25 05/06/17 08:02 05/05/17 05/06/17 05/07/17 06:59 06:59 06:59 Intake Total 3125 875 Output Total 1200 1805 325 Balance 1925 -930 -325 PT 14.8 SEC (12.0-15.0) 04/23/17 13:40 INR 1.16 (0.83-1.16) 04/23/17 13:40 ICD10 Worksheet Patient Problems: Problems Problem Status Onset Hemorrhage Acute Hypotension Acute 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
[2017-05-06] MEDS: SCOPOLAMINE HYDROBROMIDE 1 MG/3 DAYS PATCH TD SCH (16:12)
--- NOTE | 2017-05-06 16:29 | ASMTCMCOM ---
CM Note CM Note Notes: PT who worked with pt today is recommedning that pt get an inpt rehab consult. RN placed order. C/M will continue to follow. Date Signed: 05/06/2017 04:28 PM Electronically Signed By:Kelly Tarango LCSW
--- NOTE | 2017-05-06 16:46 | ASMTCMCOM ---
CM Note CM Note Notes: Previous note for pt indicating inpt rehab referral was for another pt. Plan for pt is still [facility] if they re able to accept pt. Otherwise, pt may go to [facility]. Date Signed: 05/06/2017 04:46 PM Electronically Signed By:Kelly Tarango LCSW
[2017-05-06] MEDS: GABAPENTIN 300 MG CAP PO SCH (21:08)
[2017-05-06] MEDS: TPN 1 EA BAG IV SCH (21:08)
[2017-05-07] MEDS: METOCLOPRAMIDE 10 MG/2 ML VIAL IVP SCH ×5 (01:19→23:37)
[2017-05-07] MEDS: ONDANSETRON DISINTEGRATING 4 MG TAB PO SCH ×5 (01:19→23:37)
[2017-05-07] MEDS: oxyCODONE IR 5 MG TAB PO PRN ×4 (04:42→23:46)
[2017-05-07] MEDS: LEVOTHYROXINE 112 MCG TAB PO SCH (06:21)
[2017-05-07] MEDS: APIXABAN 5 MG TAB PO SCH ×2 (10:21→21:03)
[2017-05-07] MEDS: PANTOPRAZOLE SODIUM 40 MG TAB PO SCH ×2 (10:22→21:03)
[2017-05-07] MEDS: FLUoxetine 10 MG CAP PO SCH (10:22)
[2017-05-07] MEDS: SENNOSIDES/DOCUSATE SODIUM TAB PO SCH ×2 (10:22→20:53)
--- NOTE | 2017-05-07 11:37 | HOSPPROG ---
Hospitalist Progress Note Assessment/Plan: 47 yo female post cecal perforation, bilateral hydronephrosis, and vaginal bleeding. Very weak, poor appetite, and obstipation. Patient is new to me today. -Status post cecal perforation with abscess, status post cecal resection appendectomy -Fall today with struck head, only evident change is subQ hematoma over L forehead but needs close following. No LOC yet patient reports she hit the floor twice in fall to floor. Will obtain CT scan -Bilateral hydronephrosis from metastasis with bilateral percutaneous nephrostomies. WBC persists elevated without fever. Will check urine -Vaginal bleeding so far requiring 8 units of packed red cells, 3 units FFP, 2 units platelets -Right leg DVT, status post placement of IVC filter; improving -Post hemorrhagic anemia -Acute encephalopathy, multifactorial -Severe protein calorie malnutrition -Vesicle vaginal fistula -Stage IV cervical cancer She appears euvolemic at this point. Will obtain a CT scan of the head to rule out a bleed as the patient was on Eliquis at the time of the incident. WBC continues to be elevated obtain urine from the nephrostomy tubes and the Alejandro for culture. She appears to be eating slightly better today. Subjective: No complaints of headache loss of consciousness nausea or vomiting. She is eating slightly better than she did yesterday with abdominal pain Objective: Vital Signs Temp Pulse Resp BP Pulse Ox 37.3 C 108 H 16 117/79 96 05/07/17 08:00 05/07/17 08:00 05/07/17 08:00 05/07/17 08:00 05/07/17 08:00 Laboratory Results 05/02/17 04:25 05/06/17 08:02 05/06/17 05/07/17 05/08/17 05:59 05:59 05:59 Intake Total 875 977 Output Total 1805 1700 350 Balance -930 -723 -350 PT 14.8 SEC (12.0-15.0) 04/23/17 13:40 INR 1.16 (0.83-1.16) 04/23/17 13:40 Laboratory Tests 04/15/17 04/23/17 04/27/17 06:00 13:40 05:10 WBC 15.19 H Hgb 8.1 L INR 1.68 H 1.16 Iron TIBC Iron Saturation Ferritin 04/30/17 04/30/17 05/01/17 05:10 11:45 04:46 WBC 16.18 H 15.97 H Hgb INR Iron 21.0 L TIBC 154 L Iron Saturation 14 L Ferritin 2520.0 H 05/02/17 04:25 WBC Hgb 9.4 L INR Iron TIBC Iron Saturation Ferritin - Time Spent With Patient Time Spent with Patient: greater than 35 minutes Time Spent with Patient: Greater than 35 minutes spent on this patients care, greater than 50% of time spent counseling, educating, and coordinating care regarding the above mentioned plan. - Pending Discharge Pending Discharge Within 24 Hours: No Pending Discharge Within 48 Hours: Yes Pending Discharge Date: 05/09/17 Pending Discharge Time: 11:00 - Physical Exam Constitutional: no apparent distress, chronically ill appearing Eyes: PERRL Ears, Nose, Mouth, Throat: moist mucous membranes, hearing normal Cardiovascular: regular rate and rhythym, no murmur, rub, or gallop Respiratory: no respiratory distress, no rales or rhonchi, clear to auscultation Gastrointestinal: normoactive bowel sounds, soft, non-tender abdomen Genitourinary: no bladder fullness Skin: warm Musculoskeletal: generalized weakness Neurologic: AAOx3, CN II-XII Intact Psychiatric: interacting appropriately ICD10 Worksheet Patient Problems: Problems Problem Status Onset 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 Hemorrhage Acute Hypotension Acute
[2017-05-07] MEDS: OLANZapine 2.5 MG TAB PO SCH (12:53)
[2017-05-07] MEDS: NS 1,000 ML IV SCH (18:49)
[2017-05-07] MEDS: traMADol 50 MG TAB PO PRN (21:03)
[2017-05-07] MEDS: GABAPENTIN 300 MG CAP PO SCH (21:03)
[2017-05-07] MEDS: TPN 1 EA BAG IV SCH (21:04)
[2017-05-08 05:07] LABS: ADD DIFF? YES; ADD MORPH? NO; ADD SCAN? NO; ATYPICAL LYMPHOCYTE FLAG 20 (0-99); FRAGMENT RBC FLAG 0 (0-99); HEMATOCRIT 23.5 % (38.0-47.0); HEMOGLOBIN 7.6 g/dL (12.6-16.3); LEFT SHIFT FLG 20 (0-99); LIPEMIA HEMOLYSIS FLAG 80 (0-99); MEAN CELL HEMOGLOBIN 30.8 pg (27.9-34.1); MEAN CELL HEMOGLOBIN CONCENTR. 32.3 g/dL (32.4-36.7); MEAN CELL VOLUME 95.1 fL (81.5-99.8); MEAN PLATELET VOLUME 9.8 fL (8.7-11.7); PLATELET CLUMPS FLAG 0 (0-99); PLATELET COUNT 236 10^3/uL (150-400); RED BLOOD CELL COUNT 2.47 10^6/uL (4.18-5.33); RED CELL DISTRIBUTION WIDTH 15.8 % (11.5-15.2)
[2017-05-08 05:17] LABS: INR 1.96 (0.83-1.16); PROTIME(PATIENT) 22.4 SEC (12.0-15.0)
[2017-05-08 05:18] LABS: ALANINE AMINOTRANSFERASE 26 IU/L (9-52); ALBUMIN 2.3 g/dL (3.5-5.0); ALKALINE PHOSPHATASE 113 IU/L (38-126); ANION GAP 7 mEq/L (8-16); APTT 51.6 SEC (23.0-38.0); ASPARTATE AMINOTRANSFERASE 13 IU/L (14-46); BILIRUBIN,TOTAL 0.3 mg/dL (0.1-1.4); CALCIUM 7.7 mg/dL (8.5-10.4); CARBON DIOXIDE 25 mEq/l (22-31); CHLORIDE 104 mEq/L (97-110); CREATININE 0.8 mg/dL (0.6-1.0); GLOMERULAR FILTRATION RATE > 60; GLUCOSE 102 mg/dL (70-100); MAGNESIUM 1.8 mg/dL (1.6-2.3); POTASSIUM 3.5 mEq/L (3.5-5.2); SODIUM 136 mEq/L (134-144); TOTAL PROTEIN 5.3 g/dL (6.3-8.2); TRIGLYCERIDE 124 mg/dL (35-135)
[2017-05-08 05:28] LABS: PLATELET ESTIMATE ADEQUATE (ADEQ); POLYCHROMASIA 1+
[2017-05-08] MEDS: ONDANSETRON DISINTEGRATING 4 MG TAB PO SCH ×3 (06:22→18:13)
[2017-05-08] MEDS: METOCLOPRAMIDE 10 MG/2 ML VIAL IVP SCH ×3 (06:22→18:13)
[2017-05-08] MEDS: LEVOTHYROXINE 112 MCG TAB PO SCH (06:22)
[2017-05-08] MEDS ORDERED: MAGNESIUM SULF 1 GM/DEXTROSE 100 ML IV ONE (09:00)
[2017-05-08] MEDS: PANTOPRAZOLE SODIUM 40 MG TAB PO SCH ×2 (09:57→20:12)
[2017-05-08] MEDS: FLUoxetine 10 MG CAP PO SCH (09:59)
[2017-05-08] MEDS: OLANZapine 2.5 MG TAB PO SCH (10:05)
[2017-05-08] MEDS: APIXABAN 5 MG TAB PO SCH ×2 (10:05→20:12)
[2017-05-08] MEDS: SENNOSIDES/DOCUSATE SODIUM TAB PO SCH ×2 (11:37→20:13)
--- NOTE | 2017-05-08 11:56 | SOAPPROG ---
SOAP Progress Note Assessment/Plan: Assessment: 1.) Cervical Carcinoma, [id number], having completed prior multiagent chemotherapy and XRT. ( Carboplatin + Taxol + Bevicizumab) 2.) Vesicovaginal fistula 3.) DVT RLE with IVC filter 4.) Obstructive hydroureter, S/P Bilateral Perc. Nephrostomy tube drainage. 5.) Bowel perforation, 04/16/17 6.) Wt. loss 7.) Physical debility secondary to the above. 8.) UTI, previously Pseudomonas. Plan: 1.) Continue supportive measures. 2.) When stable, transfer to [facility] if feasible. 05/08/17 11:52 Subjective: Relatively comfortable given overall circumstances. Had some bloody rectal output this AM. Objective: in NAD, sitting up in bedside lounge chair. HEENT- large left forehead hematoma, anicteric, no oral lesions, skin diffusely pale Neck- supple Chest- clear anteriorly bilat. R mediport accessed/NT CVS- RSR, no extra HS ABD- BS diminished, NT EXT- no change in LE edema Labs as noted here: Hgb 7.6 Vital Signs Temp Pulse Resp BP Pulse Ox 37.2 C 110 H 16 120/79 96 05/08/17 08:40 05/08/17 08:40 05/08/17 08:40 05/08/17 08:40 05/08/17 08:40 Laboratory Results 05/08/17 04:50 05/08/17 04:50 05/07/17 05/08/17 05/09/17 05:59 05:59 05:59 Intake Total 977 3146 300 Output Total 1700 1590 800 Balance -723 1556 -500 PT 22.4 SEC (12.0-15.0) H 05/08/17 04:50 INR 1.96 (0.83-1.16) H 05/08/17 04:50 ICD10 Worksheet Patient Problems: Problems Problem Status Onset Hemorrhage Acute Hypotension Acute 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
[2017-05-08 13:12] LABS: ADD DIFF? YES; ADD MORPH? NO; ADD SCAN? NO; ATYPICAL LYMPHOCYTE FLAG 20 (0-99); FRAGMENT RBC FLAG 0 (0-99); HEMATOCRIT 26.8 % (38.0-47.0); HEMOGLOBIN 8.6 g/dL (12.6-16.3); LEFT SHIFT FLG 50 (0-99); LIPEMIA HEMOLYSIS FLAG 80 (0-99); MEAN CELL HEMOGLOBIN 30.3 pg (27.9-34.1); MEAN CELL HEMOGLOBIN CONCENTR. 32.1 g/dL (32.4-36.7); MEAN CELL VOLUME 94.4 fL (81.5-99.8); MEAN PLATELET VOLUME 10.1 fL (8.7-11.7); PLATELET CLUMPS FLAG 0 (0-99); PLATELET COUNT 299 10^3/uL (150-400); RED BLOOD CELL COUNT 2.84 10^6/uL (4.18-5.33); RED CELL DISTRIBUTION WIDTH 15.9 % (11.5-15.2)
[2017-05-08 13:58] LABS: PLATELET ESTIMATE ADEQUATE (ADEQ)
[2017-05-08 13:59] LABS: HYPOCHROMIA 1+; POLYCHROMASIA 1+
--- NOTE | 2017-05-08 16:15 | HOSPPROG ---
Hospitalist Progress Note Assessment/Plan: 47 yo female post cecal perforation, bilateral hydronephrosis, and vaginal bleeding. Very weak, poor appetite, and obstipation. Patient has a poor appetite and is eating poorly. X-ray of abdomen shows persistence but improvement in ileus -Status post cecal perforation on 04/16/17 with abscess, status post cecal resection appendectomy -Fall today with struck head, only evident change is subQ hematoma over L forehead but needs close following. No LOC yet patient reports she hit the floor twice in fall to floor. CT scan showed no evidence for dense of injury or intracranial hemorrhage. -Bilateral hydronephrosis from metastasis with bilateral percutaneous nephrostomies. WBC persists elevated without fever. Urine shows from the Alejandro catheter in her bladder Pseudomonas and Enterococcus faecium. Cultures from the nephrostomy tubes go own staphylococcal and I lactose fermenting GNR in and non lactose fermenting GNR. White count is continued to be elevated without a fever. Plan: Consult ID -Vaginal bleeding so far requiring 8 units of packed red cells, 3 units FFP, 2 units platelets -Right leg DVT, status post placement of IVC filter; improving -Post hemorrhagic anemia -Acute encephalopathy, multifactorial -Severe protein calorie malnutrition; on TPN -Vesicle vaginal fistula -Stage IV cervical cancer; [id number], completed prior multiagent chemotherpay and XRT (carboplatin + Taxol + Bevicizumab) Plan -LTAC placement. -discussed with her POA Young Wilson, uncle. [phone]. He suggest a straight forward conversation requesting her ;participation in her own care. Time: 55 minutes for full care. Discussed with Oncology, ID, and GORDON Zimmermanam Subjective: Reports she still has no appetite and a slight feeling of nausea without fever chills shortness of breath chest pain or increasing abdominal pain. Objective: Vital Signs Temp Pulse Resp BP Pulse Ox 36.8 C 106 H 16 127/81 H 98 05/08/17 15:26 05/08/17 15:26 05/08/17 15:26 05/08/17 15:26 05/08/17 15:26 Laboratory Results 05/08/17 12:45 05/08/17 04:50 05/07/17 05/08/17 05/09/17 05:59 05:59 05:59 Intake Total 977 3146 300 Output Total 1700 1590 800 Balance -723 1556 -500 PT 22.4 SEC (12.0-15.0) H 05/08/17 04:50 INR 1.96 (0.83-1.16) H 05/08/17 04:50 - Time Spent With Patient Time Spent with Patient: greater than 35 minutes Time Spent with Patient: Greater than 35 minutes spent on this patients care, greater than 50% of time spent counseling, educating, and coordinating care regarding the above mentioned plan. - Pending Discharge Pending Discharge Within 24 Hours: No Pending Discharge Within 48 Hours: No - Physical Exam Constitutional: not in pain, chronically ill appearing, cachectic Eyes: PERRL, anicteric sclera Ears, Nose, Mouth, Throat: moist mucous membranes, hearing normal, other ( Ecchymosis about the left eye and a raised hematoma which is now healing well) Cardiovascular: regular rate and rhythym, no murmur, rub, or gallop Respiratory: no respiratory distress, no rales or rhonchi, clear to auscultation , reduced air movement Gastrointestinal: normoactive bowel sounds, soft, non-tender abdomen, no palpable masses, distension Genitourinary: no bladder fullness, other (Alejandro in place. 2 nephrostomy tubes are in place and draining well. Culture results are noted.) Skin: warm Musculoskeletal: generalized weakness Neurologic: AAOx3, CN II-XII Intact Psychiatric: interacting appropriately ICD10 Worksheet Patient Problems: Problems Problem Status Onset Hemorrhage Acute Hypotension Acute 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
--- NOTE | 2017-05-08 19:21 | PCMIDPN ---
Assessment/Plan: Assessment: Called to see patient secondary to rising white count. She has no fever but never had a fever even during her earlier part of her stay. Patient has a polymicrobial urine culture from 3 sources. Will repeat blood culture today. Will also start empiric meropenem 1 g q.8 hours and follow white count as well as culture results. Plan: 1. Start meropenem 1 g IV q.8 hours. 2. Follow maturing culture data. 3. Follow leukocytosis and clinical course. 04/17/17 16:21 05/08/17 19:16 Subjective: Patient is resting in hospital bed. She denies any subjective fevers or chills. States that she started feels nauseous abdominal E. she relates that a few days ago she had medication for constipation which resulted in liquid stooling for the better part of a day. She still however feels constipated. No significant abdominal pain. Concerns for the primary physician about multiple bacteria growing in all urine samples. Objective: No antibiotics Vital Signs Temp Pulse Resp BP Pulse Ox 36.8 C 106 H 16 127/81 H 98 05/08/17 15:26 05/08/17 15:26 05/08/17 15:26 05/08/17 15:26 05/08/17 15:26 Laboratory Results 05/08/17 12:45 05/08/17 04:50 05/07/17 05/08/17 05/09/17 05:59 05:59 05:59 Intake Total 977 3146 637 Output Total 1700 1590 800 Balance -723 1556 -163 - Physical Exam General Appearance: WD/WN, alert, no apparent distress, non-toxic, other (Tired and chronically ill-appearing) Respiratory: lungs clear, normal breath sounds, No respiratory distress Cardiac/Chest: regular rate, rhythm, tachycardia, No irregularly irregular Abdomen: soft, No non-tender, No mass Skin: normal color, warm/dry, No rash Neuro/Psych: alert, normal mood/affect, oriented x 3 ICD10 Worksheet Patient Problems: Problems Problem Status Onset Hemorrhage Acute Hypotension Acute 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
[2017-05-08] MEDS: MEROPENEM 1 GM in NS 100 ML IV SCH (20:08)
[2017-05-08] MEDS: GABAPENTIN 300 MG CAP PO SCH (20:12)
[2017-05-08] MEDS: TPN 1 EA BAG IV SCH (21:30)
[2017-05-08 21:39] LABS: HEMATOCRIT 23.4 % (38.0-47.0); HEMOGLOBIN 7.7 g/dL (12.6-16.3)
[2017-05-09] MEDS: oxyCODONE IR 5 MG TAB PO PRN ×5 (00:05→21:01)
[2017-05-09] MEDS: ONDANSETRON DISINTEGRATING 4 MG TAB PO SCH ×4 (00:06→18:24)
[2017-05-09] MEDS: METOCLOPRAMIDE 10 MG/2 ML VIAL IVP SCH ×4 (00:08→18:24)
[2017-05-09] MEDS: MEROPENEM 1 GM in NS 100 ML IV SCH ×3 (04:15→19:51)
[2017-05-09 04:57] LABS: ADD DIFF? YES; ADD MORPH? NO; ADD SCAN? NO; ATYPICAL LYMPHOCYTE FLAG 20 (0-99); FRAGMENT RBC FLAG 0 (0-99); HEMATOCRIT 22.9 % (38.0-47.0); HEMOGLOBIN 7.5 g/dL (12.6-16.3); LEFT SHIFT FLG 30 (0-99); LIPEMIA HEMOLYSIS FLAG 80 (0-99); MEAN CELL HEMOGLOBIN CONCENTR. 32.8 g/dL (32.4-36.7); MEAN CELL VOLUME 94.6 fL (81.5-99.8); MEAN PLATELET VOLUME 10.2 fL (8.7-11.7); PLATELET CLUMPS FLAG 20 (0-99); PLATELET COUNT 260 10^3/uL (150-400); RED BLOOD CELL COUNT 2.42 10^6/uL (4.18-5.33); RED CELL DISTRIBUTION WIDTH 15.9 % (11.5-15.2)
[2017-05-09] MEDS: LEVOTHYROXINE 112 MCG TAB PO SCH (05:21)
[2017-05-09 05:27] LABS: ANION GAP 10 mEq/L (8-16); CALCIUM 7.7 mg/dL (8.5-10.4); CARBON DIOXIDE 23 mEq/l (22-31); CHLORIDE 105 mEq/L (97-110); CREATININE 0.8 mg/dL (0.6-1.0); GLOMERULAR FILTRATION RATE > 60; GLUCOSE 101 mg/dL (70-100); MAGNESIUM 1.8 mg/dL (1.6-2.3); POTASSIUM 3.6 mEq/L (3.5-5.2); SODIUM 138 mEq/L (134-144)
[2017-05-09 06:52] LABS: PLATELET ESTIMATE ADEQUATE (ADEQ)
[2017-05-09 07:15] LABS: HYPOCHROMIA 1+; POLYCHROMASIA 1+
[2017-05-09] MEDS: OLANZapine 2.5 MG TAB PO SCH (07:51)
[2017-05-09] MEDS: FLUoxetine 10 MG CAP PO SCH (07:52)
[2017-05-09] MEDS: PANTOPRAZOLE SODIUM 40 MG TAB PO SCH ×2 (07:52→21:02)
[2017-05-09] MEDS: APIXABAN 5 MG TAB PO SCH ×2 (07:52→21:01)
[2017-05-09] MEDS: SENNOSIDES/DOCUSATE SODIUM TAB PO SCH ×2 (08:03→21:02)
--- NOTE | 2017-05-09 10:21 | PCMIDPN ---
Assessment/Plan: Assessment/Plan: 1. Leukocytosis: likely multifactorial - d/d: related to recent fall with strike to head/significant bruisiing around eyes/with small hematoma to forehead, recurrent vaginal bleeding, possible subcutaneous abscess related to lower pole of incision site vs intraabd collection, vs urinary - Records reviewed. REcent change of nephrostomy tubes on 04/27/17 with empiric cefepime (3 bags ) given around timing of procedure. -wbc has flucutated since 04/23/17. - Recommend check f/u Ct abd/pelvis to further evaluate above 2. URine culture with Polymicrobial growth: MRSA, PsA, E. fecium, Klebsiella -Patient with b/l nephrostomy tubes (changed on 04/27/17), stents ( changed at [facility]) -Pt started on Merem yesterday. -Check Ct abd/pel to further evalute, collections, fistulas etc. -Will decided on whether to continue/adjust atbx after review of her CT. 3.Recent Sepsis secondary to perforated cecum/peritonitis/pelvic abscess: - s/p wash out, cecectomy 04/14/17 - s/p treatment with invanz, fluconzole. Ended on 04/25/17 4. Recurrent Vaginal bleeding: - defer to primary team to manage. Shelly burris Subjective: afebrile. feels a little better today but can't tell me what feels better. significant brusiing around eyes (L>r) with small hematom over forehead. not as tender as past previous days. denies sob. having some nausea ongoing. hasn't moved bowels in three days. having vaginal bleeding again. b/l nephrostomy tubes plus paniagua. apparently leaking around one of her nephrostomy tubes. Objective: Vital Signs Temp Pulse Resp BP Pulse Ox 36.8 C 105 H 15 120/78 97 05/09/17 07:59 05/09/17 07:59 05/09/17 07:59 05/09/17 07:59 05/09/17 07:59 Laboratory Results 05/09/17 04:08 05/09/17 04:08 05/08/17 05/09/17 05/10/17 05:59 05:59 05:59 Intake Total 3146 1622 Output Total 1590 1685 Balance 6285 -931 - Physical Exam General Appearance: alert, no apparent distress EENT: pharynx normal Respiratory: lungs clear Cardiac/Chest: regular rate, rhythm Extremities: No swelling Abdomen: normal bowel sounds, soft, tender, other (erythema noted involving lower pole of previous incision site, with warmth and induration. tender to palpate. ) Skin: other (see aBOve. ) - Time Spent With Patient Time Spent with Patient: greater than 35 minutes Time Spent with Patient: Greater than 35 minutes spent on this patients care, greater than 50% of time spent counseling, educating, and coordinating care regarding the above mentioned plan. 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
[2017-05-09] MEDS ORDERED: ALTEPLASE 2 MG VIAL IVP PRN (11:00)
[2017-05-09] MEDS ORDERED: IOPAMIDOL (ISOVUE-300) 100 ML BTL ONE (12:15)
--- NOTE | 2017-05-09 14:34 | HOSPPROG ---
Hospitalist Progress Note Assessment/Plan: 47 yo female post cecal perforation, bilateral hydronephrosis, and vaginal bleeding. Known metastatic cervical carcinoma. Very weak, poor appetite, and obstipation. X-ray of abdomen shows persistence but improvement in ileus. Still unable to eat. Today having increased bloody paniagua output. Also growing three different organism for urine at nephrostomy site and paniagua. -Status post cecal perforation on 04/16/17 with abscess, status post cecal resection appendectomy -Fall today with struck head, only evident change is subQ hematoma over L forehead but needs close following. No LOC yet patient reports she hit the floor twice in fall to floor. CT scan showed no evidence for dense of injury or intracranial hemorrhage. -Leukocytosis at 18,000, afebrile yet does not mount a fever; has nephrostomy x2 and paniagua and question of a pelvic/abdomenal abscess. Plan: CT abdomen-pelvis; Abx Merrem -Bilateral hydronephrosis from metastasis with bilateral percutaneous nephrostomies. WBC persists elevated without fever. Urine shows from the [place] catheter in her bladder Pseudomonas and Enterococcus faecium. Cultures from the nephrostomy tubes go own staphylococcal and I lactose fermenting GNR in and non lactose fermenting GNR. White count is continued to be elevated without a fever. Plan: ID consultation appreciated; CT abdomen and continue merrem -Vaginal bleeding so far requiring 8 units of packed red cells, 3 units FFP, 2 units platelets. Bloody urine. Plan: Consult credentials specialist for possible removal of radiation shield placed at an outside facility -Right leg DVT, status post placement of IVC filter; improving -Post hemorrhagic anemia -Acute encephalopathy, multifactorial -Severe protein calorie malnutrition; on TPN -Vesicle vaginal fistula -Stage IV cervical cancer; [id number], completed prior multiagent chemotherpay and XRT (carboplatin + Taxol + Bevicizumab) Plan -LTAC placement. -discussed with her POA Young Wilson, uncle. [phone]. He suggest a straight forward conversation requesting her ;participation in her own care. Time: 55 minutes for full care. Discussed with Oncology, ID, and POA Young Wilson Subjective: no complaints other than she has no appetite. Objective: Vital Signs Temp Pulse Resp BP Pulse Ox 36.8 C 105 H 15 120/78 97 05/09/17 07:59 05/09/17 07:59 05/09/17 07:59 05/09/17 07:59 05/09/17 07:59 Microbiology 05/07/17 12:58 Urine Culture - Final Urine,Catheterized Klebsiella Pneumoniae Pseudomonas Aeruginosa Enterococcus Faecium Laboratory Results 05/09/17 04:08 05/09/17 04:08 05/08/17 05/09/17 05/10/17 05:59 05:59 05:59 Intake Total 3146 1622 Output Total 1590 2075 400 Balance 1556 -453 -400 PT 22.4 SEC (12.0-15.0) H 05/08/17 04:50 INR 1.96 (0.83-1.16) H 05/08/17 04:50 - Time Spent With Patient Time Spent with Patient: greater than 35 minutes Time Spent with Patient: Greater than 35 minutes spent on this patients care, greater than 50% of time spent counseling, educating, and coordinating care regarding the above mentioned plan. - Pending Discharge Pending Discharge Within 24 Hours: No Pending Discharge Within 48 Hours: No - Physical Exam Constitutional: chronically ill appearing, cachectic Eyes: PERRL, anicteric sclera Ears, Nose, Mouth, Throat: moist mucous membranes, hearing normal Cardiovascular: regular rate and rhythym, no murmur, rub, or gallop Respiratory: no respiratory distress, no rales or rhonchi, clear to auscultation , reduced air movement Gastrointestinal: soft, non-tender abdomen, no palpable masses, distension Genitourinary: no bladder fullness, other (Will then general region is very swollen with a mucus 0 bloody discharge. The vaginal entered cannot be seen or examined. Paniagua catheter is draining bloody urine.) Skin: warm Musculoskeletal: generalized weakness Neurologic: AAOx3, CN II-XII Intact Psychiatric: interacting appropriately ICD10 Worksheet Patient Problems: Problems Problem Status Onset Hemorrhage Acute Hypotension Acute 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
[2017-05-09] MEDS ORDERED: HYDROmorphONE/DILAUDID 2 MG/ML INJ ONE (16:36)
[2017-05-09] MEDS ORDERED: HYDROmorphONE/DILAUDID 1 MG/ML INJ IVP PRN (16:39)
[2017-05-09] MEDS: SCOPOLAMINE HYDROBROMIDE 1 MG/3 DAYS PATCH TD SCH (16:46)
--- NOTE | 2017-05-09 16:50 | SOAPPROG ---
SOAP Progress Note Assessment/Plan: Assessment: UNFORTUNATE 47 FEMALE WITH CERVICAL CANCER ON CHEMO AND RADIATION AND OBSTRUCTED URETERS/ PRESENTED WITH VAGINAL BLEEDING APPEARS TO HAVE PERFED COLON WITH PERITONITIS AND SMALL AMOUNT OF FREE AIR THROMBOCYTOPENIA, ANEMIA, INR 1.7 LACTATE OK, AFEBRILE TACHY AT 140/ ABD SOFT BUT VERY TENDER LLQ RISKS AND OPTIONS FULLY DISCUSSED WITH PT AND POA Plan:LAPAROTOMY, PROBABLE COLOSTOMY 04/14/17 04:50 04/14/17 17:29 POSTOP REASONABLY STABLE / BP 103 PULSE 100 / AFEBRILE / MODERATE SEROUS DRAINAGE FROM THE ROSA / WOUND OKAY / TRANSFUSING 2 UNITS FOR HEMATOCRIT OF 16 04/15/17 10:50 ALERT/ VS IMPROVED AND STABLE/ LARGE SEROUS ROSA OUTPUT/ AFEBRILE/ WOUND OK/ UO ADEQUATE/ HCT 25,STABLE PLAN ADD DIFLUCAN/ ID CONSULT 04/16/17 08:37 more alert/ vs stable/ afebrile/ hct stable 27/ wounds ok/ rosa serous drainage/ +bs, -flatus or bm/ ng minimal out 04/18/17 10:46 afebrile/ eating poorly/ abd soft/ wound ok/ +bs and flatus/ confused/ large serous rosa out/ large uo/ start tpn 04/19/17 12:05 Afebrile but much more tender today/patient is also fully alert today for a change/wound okay/urine output good/ROSA drainage serous/WBC 5 K with normal ANC Will plan on abdominal pelvic CT scan to rule out recurrent abscess 04/21/17 10:26 Afebrile but still eating poorly/abdomen soft/wound okay/midline drain DC'd/ anorexia has been longstanding/may need to try Marinol or some other diet stimulant 04/29/17 17:15 STABLE TODAY, AFEBRILE/ABDOMEN SOFT AN WOUND OKAY/NEPHROSOSTOMY OUTPUT GOOD/ FULLY CATHETER IN PLACE TO HELP CONTROL HER CYSTO VAGINAL FISTULA NUTRITION STILL MAJOR ISSUE WITH MARGINAL P.O. INTAKE/MENTAL CONFUSION SEEMS TO BE RESOLVED 04/30/17 11:42 AFEBRILE/ABDOMEN SOFT/WOUND OKAY/HEMATOCRIT 21 WITH NO OBVIOUS SIGNS OF BLEEDING /WILL RECHECK HEMATOCRIT 04/30/17 14:58 FOLLOW-UP HEMATOCRIT IS 27 WHICH IS MORE CONSISTENT WITH THE CLINICAL PICTURE 05/09/17 16:45 PATIENT SEEN IN FOLLOW-UP FOR I AND D OF ABDOMINAL ABSCESS SECONDARY TO PERFORATED CECUM/SHE PRESENTS TODAY WITH ERYTHEMA LOWER ASPECT OF HER PREVIOUS OLD ABDOMINAL INCISION. CT SCAN REVEALS A SUBFASCIAL ABSCESS WELL A DEEPER ILIOPSOAS ABSCESS/SHE WILL NEED IR FOR DRAINAGE OF THE DEEPER ABSCESS BUT THE SUPERFICIAL ABSCESS COMPLETE DRAINED THROUGH HER OLD INCISION. RISKS AND OPTIONS FULLY DISCUSSED AND SHE WISHED TO PROCEED Objective: Vital Signs Temp Pulse Resp BP Pulse Ox 36.7 C 104 H 17 119/87 H 97 05/09/17 15:52 05/09/17 15:52 05/09/17 15:52 05/09/17 15:52 05/09/17 15:52 Microbiology 05/07/17 12:58 Urine Culture - Final Urine,Catheterized Klebsiella Pneumoniae Pseudomonas Aeruginosa Enterococcus Faecium Laboratory Results 05/09/17 04:08 05/09/17 04:08 05/08/17 05/09/17 05/10/17 05:59 05:59 05:59 Intake Total 3146 1622 Output Total 1590 2075 400 Balance 1556 -453 -400 PT 22.4 SEC (12.0-15.0) H 05/08/17 04:50 INR 1.96 (0.83-1.16) H 05/08/17 04:50 ICD10 Worksheet Patient Problems: Problems Problem Status Onset Hemorrhage Acute Hypotension Acute 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
--- NOTE | 2017-05-09 16:52 | POSTOPPROG ---
Post Op Note Date of Operation: 05/09/17 Surgeon: Hung Gamez Traffic Routing Engineer: BERYL Anesthesia: Local (Specify) Pre-op Diagnosis: ABDOMINAL ABSCESS Post-op Diagnosis: SAME Indication: INFECTION Procedure: INCISION AND DRAINAGE OF SUBFASCIAL LOWER ABDOMINAL ABSCESS Findings: OVER 50 CC OF PURULENT MATERIAL Inf/Abcess present in the surg proc area at time of surgery?: Yes Depth: Deep Incisional (Fascial) EBL: Minimal Complications: NONE Specimen(s): CULTURE, ROUTINE AND FUNGAL
[2017-05-09] MEDS: HYDROmorphONE/DILAUDID 2 MG/ML INJ IVP PRN ×2 (17:33→18:22)
--- NOTE | 2017-05-09 18:34 | ASMTCMCOM ---
CM Note CM Note Notes: Dr. Gamez here to drain vaginal abcess today. Patient to undergo another procedure on in IR. C/m spoke with Barbara Espinal at [facility] and she said she submitted paperwork to patients insurance again and is waiting their assessment. The procedure happened after conversation with the Lt[facility] so they would probalby want to know in their consideration of acceptance. Case management will continue to follow. Date Signed: 05/09/2017 06:33 PM Electronically Signed By:PETE Teixeira
[2017-05-09] MEDS: GABAPENTIN 300 MG CAP PO SCH (21:01)
[2017-05-09] MEDS: TPN 1 EA BAG IV SCH (21:21)
[2017-05-10] MEDS: ONDANSETRON DISINTEGRATING 4 MG TAB PO SCH ×5 (00:45→23:33)
[2017-05-10] MEDS: METOCLOPRAMIDE 10 MG/2 ML VIAL IVP SCH ×5 (00:45→23:33)
[2017-05-10] MEDS: MEROPENEM 1 GM in NS 100 ML IV SCH ×2 (03:08→13:28)
--- NOTE | 2017-05-10 04:12 | GOP ---
[f rep st] OPERATIVE REPORT DATE OF OPERATION: 05/09/2017 SURGEON: Hung Gamez MD SOURCING ASSISTANT: Ashley Arriaga PA-C. PREOPERATIVE DIAGNOSIS: Subfascial abscess. POSTOPERATIVE DIAGNOSIS: Subfascial abscess. PROCEDURE PERFORMED: Incision and drainage of an intra-abdominal abscess. FINDINGS: The patient was found to have a lower incisional abscess, extending down through the fasci a to a blank space, which contained approximately 50 cc of purulent fluid. DESCRIPTION OF PROCEDURE: Patient was prepped in a sterile fashion and anesthetized with 1% Xylocain e. A short incision was made through a previous old incision. Dissection extended down through the subcutaneous tissue and into the abscess pocket. The wound was further infiltrated with Xylocaine. The pocket was opened even wider with evacuation of a large amount of fluid. Two [place] drains were placed in the depths of the wound and secured to the skin with nylon sutures. She tolerated the pro cedure well. There were no complications. /[id number]/MODL
[2017-05-10] MEDS: oxyCODONE IR 5 MG TAB PO PRN ×4 (05:23→23:32)
[2017-05-10] MEDS: LEVOTHYROXINE 112 MCG TAB PO SCH (05:24)
[2017-05-10 05:47] LABS: ADD DIFF? YES; ADD MORPH? NO; ADD SCAN? NO; ATYPICAL LYMPHOCYTE FLAG 30 (0-99); FRAGMENT RBC FLAG 0 (0-99); HEMATOCRIT 29.9 % (38.0-47.0); HEMOGLOBIN 9.9 g/dL (12.6-16.3); LEFT SHIFT FLG 40 (0-99); LIPEMIA HEMOLYSIS FLAG 80 (0-99); MEAN CELL HEMOGLOBIN 30.7 pg (27.9-34.1); MEAN CELL HEMOGLOBIN CONCENTR. 33.1 g/dL (32.4-36.7); MEAN CELL VOLUME 92.9 fL (81.5-99.8); PLATELET CLUMPS FLAG 0 (0-99); PLATELET COUNT 260 10^3/uL (150-400); RED BLOOD CELL COUNT 3.22 10^6/uL (4.18-5.33); RED CELL DISTRIBUTION WIDTH 15.9 % (11.5-15.2)
[2017-05-10 05:53] LABS: ALANINE AMINOTRANSFERASE 21 IU/L (9-52); ALBUMIN 2.4 g/dL (3.5-5.0); ALKALINE PHOSPHATASE 113 IU/L (38-126); ANION GAP 10 mEq/L (8-16); ASPARTATE AMINOTRANSFERASE 14 IU/L (14-46); BILIRUBIN,TOTAL 0.5 mg/dL (0.1-1.4); CALCIUM 7.7 mg/dL (8.5-10.4); CARBON DIOXIDE 24 mEq/l (22-31); CHLORIDE 104 mEq/L (97-110); CREATININE 0.8 mg/dL (0.6-1.0); GLOMERULAR FILTRATION RATE > 60; GLUCOSE 186 mg/dL (70-100); MAGNESIUM 2.1 mg/dL (1.6-2.3); POTASSIUM 5.3 mEq/L (3.5-5.2); SODIUM 138 mEq/L (134-144); TOTAL PROTEIN 5.5 g/dL (6.3-8.2)
[2017-05-10 07:04] LABS: PLATELET ESTIMATE ADEQUATE (ADEQ)
--- NOTE | 2017-05-10 08:21 | SOAPPROG ---
SOAP Progress Note Assessment/Plan: Assessment/Plan: 47 Y F metastatic cervical CA, high dose radiation therapy, hx DVT, now with IVC filter, s/p vaginal bleeding with lovenox, now s/p laparotomy with drainage and washout of abscess, partial cecectomy for perforated cecum with peritonitis. Nephrostomy tubes in place. S/p bedside I&D of subfascial abdominal wall abscess yesterday. W[place] drain in place. Less induration and erythema today. Orders in for bid irrigation. Likely to go to OR today for deeper R ileopsoas collection. D/w'ed ID and medicine. 05/10/17 08:20 Objective: Vital Signs Temp Pulse Resp BP Pulse Ox 36.7 C 106 H 16 142/89 H 96 05/10/17 05:07 05/10/17 05:07 05/10/17 05:07 05/10/17 05:07 05/10/17 05:07 Microbiology 05/07/17 13:30 Urine Culture - Final Urine,Kidney - Aspirate MRSA Pseudomonas Aeruginosa Klebsiella Pneumoniae Enterococcus Faecium 05/09/17 16:50 Gram Stain - Final Abdomen - Swab 05/07/17 12:58 Urine Culture - Final Urine,Catheterized Klebsiella Pneumoniae Pseudomonas Aeruginosa Enterococcus Faecium Laboratory Results 05/10/17 05:10 05/10/17 05:10 05/09/17 05/10/17 05/11/17 05:59 05:59 05:59 Intake Total 1622 3404 Output Total 2079 1875 Balance -453 1529 PT 22.4 SEC (12.0-15.0) H 05/08/17 04:50 INR 1.96 (0.83-1.16) H 05/08/17 04:50 ICD10 Worksheet Patient Problems: Problems Problem Status Onset Hemorrhage Acute Hypotension Acute 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
--- NOTE | 2017-05-10 08:24 | GCON ---
[f rep st] CONSULTATION DATE OF CONSULTATION: 05/09/2017 LATE NOTE - NOT DICTATED UNTIL 05/10/17 HISTORY: I was consulted by Dr. Guevara to review the patient's CAT scan, and assess for removal of a Caio sleeve located in the patient's cervix. The patient is a 47-year-old white female with stage 3B cervical cancer, who has been hospitalized since April 10, with very complicated hospital course. The patient has had recurrent infections in her urinary system with bilateral nephrostomies due to obstructive problems with her cancer extending to the side torrez. The patient also had a perforated GI, requiring surgery during this hospitalization and now has intraabdominal abscesses. One was previously drained on 05/[address] Gamez. The patient was diagnosed in October of this year with cervical cancer and has been seen by Dr. Sheba Cazares at [facility]. Had a Caio's sleeve placed within the cervix to help target brachytherapy in December. The radiation was throughout January. Dr. Cazares reports that she has had repetitive attempts to have the patient come into her office to remove the Caio's sleeve and the patient was noncompliant, as the patient has multiple social issues. The Caio sleeve is no longer necessary, as the patient has completed the radiation therapy, and Dr. Cazares has recommended that it be removed to reduce the foreign body in the patient's tissue. Dr. Cazares reports that during placement she put stay sutures at 6, 9, and 12 o'clock, with 2-0 Prolene. I have discussed this with the patient and she agrees to my attempting to remove the Caio's sleeve. She understands this is not a device I use in my practice, but that I will attempt to remove it. The patient was given 0.4 of Dilaudid to help with discomfort during the procedure. EXAM - the patient is currently afebrile with stable vital signs, she often has nausea but declines a zofran at this time. She is anemic and currently receiving blood. PROCEDURE NOTE: The patient was placed in dorsal lithotomy position. A sterile speculum was placed vaginally. There was a putrid odor from the vagina and dark discharge is noted. This was wiped out of the vaginal vault with sterile gauze. The stay sutures were identified and were clipped free. The 12 and 6 o'clock stitches were removed, and then with tension on the 9 o'clock stitch, the Caio sleeve actually pulled free of the cervix. Other than the brown dark discharge, there was no active bleeding noted after the sleeve was removed. The patient tolerated the procedure with the Dilaudid. ASSESSMENT: Stage 3B cervical cancer. Caio sleeve was removed on the evening of 05/09, without complication. PLAN: Please let me know if there is anything further that our office can do for the patient. The management of her cervical cancer and the complications are, however, outside the scope of our practice. A total of 1 hour was spent reviewing the patient's chart, films, discussing with Dr Cazares, and positioning the patient for removal of the Caio Sleeve. /[id number]/MODL MTDD
[2017-05-10 09:33] LABS: ANION GAP 7 mEq/L (8-16); CALCIUM 8.3 mg/dL (8.5-10.4); CARBON DIOXIDE 25 mEq/l (22-31); CHLORIDE 104 mEq/L (97-110); CREATININE 0.8 mg/dL (0.6-1.0); GLOMERULAR FILTRATION RATE > 60; GLUCOSE 107 mg/dL (70-100); POTASSIUM 5.1 mEq/L (3.5-5.2); SODIUM 136 mEq/L (134-144)
[2017-05-10 10:06] LABS: MAGNESIUM 2.1 mg/dL (1.6-2.3)
[2017-05-10] MEDS: SENNOSIDES/DOCUSATE SODIUM TAB PO SCH ×2 (10:39→21:40)
[2017-05-10] MEDS: PANTOPRAZOLE SODIUM 40 MG TAB PO SCH ×2 (10:40→21:40)
[2017-05-10] MEDS: FLUoxetine 10 MG CAP PO SCH (10:41)
[2017-05-10] MEDS: OLANZapine 2.5 MG TAB PO SCH (10:42)
--- NOTE | 2017-05-10 10:42 | HOSPPROG ---
Hospitalist Progress Note Assessment/Plan: 47 yo female post cecal perforation, bilateral hydronephrosis, and vaginal bleeding. Known metastatic cervical carcinoma. Very weak, poor appetite, and obstipation. X-ray of abdomen shows persistence but improvement in ileus. Still unable to eat. Also growing three different organism for urine at nephrostomy site and pani[place]. placed on daptomycin monotherapy for Pseudomonas. -Status post cecal perforation on 04/16/17 with abscess, status post cecal resection appendectomy -Leukocytosis at 14,000, afebrile yet does not mount a fever; has nephrostomy x2 and [place] and question of a pelvic/abdomenal abscess. - Abscess an anterior abdominal wall has been drained. - The [place] sleeve in her vagina has been removed by Dr. Trevino. - There remains a right psoas abscess to be drained either by IR or surgery and this is being determined. -Bilateral hydronephrosis from metastasis with bilateral percutaneous nephrostomies. Both nephrostomy tubes are poorly positioned now and probably need to be changed. Urine shows from the [place] catheter in her bladder Pseudomonas and Enterococcus faecium. Cultures from the nephrostomy tubes go own staphylococcal and I lactose fermenting GNR in and non lactose fermenting GNR. White count is continued to be elevated without a fever. - Suggest urology consultation for replacement of the nephrostomy tubes or have them replaced by IR. - She is on monotherapy of daptomycin for her multiple organisms and being followed by ID. -Vaginal bleeding so far requiring 8 units of packed red cells, 3 units FFP, 2 units platelets. Bloody urine. - She has a mucus 0 bloody drainage from her [place] though no active heavy bleeding. -Right leg DVT, status post placement of IVC filter; improving -Post hemorrhagic anemia -Acute encephalopathy, multifactorial-Fall today with struck head, only evident change is subQ hematoma over L Forehead. CT scan was negative and her mental status has come to baseline she is alert and oriented -Severe protein calorie malnutrition; on TPN -Vesicle vaginal fistula -Stage IV cervical cancer; D3VLMM3, completed prior multiagent chemotherpay and XRT (carboplatin + Taxol + Bevicizumab) Plan -LTAC placement ultimately. -discussed with her POA Young Wilson, uncle. [phone]. He suggest a straight forward conversation requesting her ;participation in her own care. Time: 55 minutes for full care. Discussed with Oncology, ID, and GORDON Wilson And spoke with frank Wilson. Current summary approach: - the nephrostomy tubes need to be replaced by Nephrology or IR. - Id needs to resolve what antibiotic she needs to be on to cover her multiple organisms - the right psoas abscess needs to be drained by IR or surgery - continue TPN for nutrition as I do not believe her bowel were successfully. - Ultimate oncology care has been through [facility] though I do not believe she will be returning there and Oncology here should follow her. - Discharge to an LTAC per case management. Subjective: She is alert oriented and without complaints. She still reports she cannot eat. It is unclear she cannot eat her does not want eat but she does not obtain adequate caloric nutrition and therefore needs TPN Objective: Vital Signs Temp Pulse Resp BP Pulse Ox 36.5 C 102 H 16 125/79 H 96 05/10/17 09:03 05/10/17 09:03 05/10/17 09:03 05/10/17 09:03 05/10/17 09:03 Microbiology 05/07/17 13:30 Urine Culture - Final Urine,Kidney - Aspirate MRSA Pseudomonas Aeruginosa Klebsiella Pneumoniae Enterococcus Faecium 05/09/17 16:50 Gram Stain - Final Abdomen - Swab 05/07/17 12:58 Urine Culture - Final Urine,Catheterized Klebsiella Pneumoniae Pseudomonas Aeruginosa Enterococcus Faecium Laboratory Results 05/10/17 05:10 05/10/17 08:55 05/09/17 05/10/17 05/11/17 05:59 05:59 05:59 Intake Total 1622 3404 Output Total 2075 1875 Balance -453 1529 PT 22.4 SEC (12.0-15.0) H 05/08/17 04:50 INR 1.96 (0.83-1.16) H 05/08/17 04:50 Microbiology 05/07/17 12:58 Urine,Catheterized Urine Culture - Preliminary Gram Neg Artur Lactose King Maker Pseudomonas Aeruginosa Enterococcus Faecium Laboratory Tests 04/21/17 05/01/17 05/08/17 03:45 04:46 04:50 WBC 15.97 H 14.34 H Hgb 9.0 L INR 1.25 H Albumin 05/08/17 05/08/17 05/08/17 04:50 04:50 12:45 WBC 18.87 H Hgb 8.6 L INR 1.96 H Albumin 2.3 L 05/09/17 05/10/17 05/10/17 04:08 05:10 05:10 WBC 15.86 H 14.19 H Hgb 7.5 L 9.9 L INR Albumin 2.4 L WBC continues to be elevated, patient is afebrile. Status post drainage of an anterior abdominal abscess on 05/09. Will attempt drainage of the right psoas abscess by CT guidance today. INR noted to be elevated for unclear reasons probably secondary to liver disease. Severe protein caloric malnutrition noted and the patient is on TPN caloric replacement Laboratory Tests 05/08/17 05/08/17 05/09/17 04:50 12:45 04:08 WBC 14.34 H 18.87 H 15.86 H 05/10/17 05:10 WBC 14.19 H - Time Spent With Patient Time Spent with Patient: greater than 35 minutes Time Spent with Patient: Greater than 35 minutes spent on this patients care, greater than 50% of time spent counseling, educating, and coordinating care regarding the above mentioned plan. - Pending Discharge Pending Discharge Within 24 Hours: No Pending Discharge Within 48 Hours: No - Physical Exam Constitutional: no apparent distress, chronically ill appearing Eyes: PERRL, anicteric sclera Ears, Nose, Mouth, Throat: moist mucous membranes, hearing normal, no oral mucosal ulcers Cardiovascular: regular rate and rhythym, no murmur, rub, or gallop Respiratory: no respiratory distress, no rales or rhonchi, clear to auscultation , reduced air movement Gastrointestinal: other ( bowel sounds are present. There is a large surgical dressing on the anterior abdominal wall below the umbilicus without signs of surrounding erythema or induration. She has overall tenderness in the abdomen without a palpable or pulsatile mass and much of the abdomen is quite firm but this is her stable exam of her abdomen) Genitourinary: no bladder fullness, other ( [place] catheter is in place and draining a bloody watery discharge. This is inbound sales representative of a fascicular 0 vaginal fistula.) Skin: warm, other ( 2 nephrostomy Tubes are draining appropriately draining appropriately.) Musculoskeletal: generalized weakness Neurologic: AAOx3, CN II-XII Intact Psychiatric: interacting appropriately ICD10 Worksheet Patient Problems: Problems Problem Status Onset 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 Hemorrhage Acute Hypotension Acute
[2017-05-10] MEDS: APIXABAN 5 MG TAB PO SCH ×2 (10:43→21:40)
[2017-05-10] MEDS ORDERED: CEFEPIME HCL 1 GM in D5W 50 ML IV ONE (13:20)
[2017-05-10] MEDS ORDERED: CEFEPIME HCL 1 GM in D5W 50 ML IV SCH (13:30)
--- NOTE | 2017-05-10 14:30 | ASMTCMCOM ---
CM Note CM Note Notes: Trinity got a call from Barbara at [facility] . Barbara states authorization for LTAC is complete through [employer] insurance. Trinity consulted with . Pt. not yet ready for d/c. Let Barbara know and faxed updates via [employer] today. CM to follow. Date Signed: 05/10/2017 02:29 PM Electronically Signed By:Belinda Banks LCSW
--- NOTE | 2017-05-10 16:06 | PCMIDPN ---
Assessment/Plan: Assessment: Abdominal collection-aspirated yesterday. MRSA growing in culture. Patient is on daptomycin and cefepime. Will discontinue cefepime and continue with daptomycin monotherapy. Plan: 1. Discontinue cefepime. 2. Continue daptomycin monotherapy. 3. Follow clinical course and surgical opinion. Subjective: Patient is resting comfortably in her hospital bed. She still feels tired overall and wants to go home. Has some tenderness in the suprapubic area left of midline. No fevers or chills. Objective: Daptomycin # 1 Cefepime # 1 Vital Signs Temp Pulse Resp BP Pulse Ox 36.7 C 101 H 16 130/92 H 97 05/10/17 15:11 05/10/17 15:11 05/10/17 15:11 05/10/17 15:11 05/10/17 15:11 Microbiology 05/09/17 16:50 Gram Stain - Final Abdomen - Swab 05/07/17 13:30 Urine Culture - Final Urine,Kidney - Aspirate MRSA Pseudomonas Aeruginosa Klebsiella Pneumoniae Enterococcus Faecium 05/07/17 12:58 Urine Culture - Final Urine,Catheterized Klebsiella Pneumoniae Pseudomonas Aeruginosa Enterococcus Faecium Laboratory Results 05/10/17 05:10 05/10/17 08:55 05/09/17 05/10/17 05/11/17 05:59 05:59 05:59 Intake Total 1622 3404 Output Total 2075 1875 675 Balance -453 1529 -675 - Physical Exam General Appearance: WD/WN, alert, no apparent distress, other (Chronically ill- appearing) Respiratory: lungs clear, normal breath sounds, No respiratory distress Cardiac/Chest: regular rate, rhythm, No tachycardia Abdomen: soft, No non-tender, No mass, No rigid Skin: normal color, warm/dry, No rash Neuro/Psych: alert, normal mood/affect, oriented x 3 ICD10 Worksheet Patient Problems: Problems Problem Status Onset Hemorrhage Acute Hypotension Acute 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
[2017-05-10] MEDS: DAPTOmycin 480 MG in NS 100 ML IV SCH (17:37)
[2017-05-10] MEDS: TPN 1 EA BAG IV SCH (21:40)
[2017-05-10] MEDS: GABAPENTIN 300 MG CAP PO SCH (21:40)
[2017-05-11] MEDS: ONDANSETRON DISINTEGRATING 4 MG TAB PO SCH ×3 (06:17→17:12)
[2017-05-11] MEDS: METOCLOPRAMIDE 10 MG/2 ML VIAL IVP SCH ×3 (06:17→17:12)
[2017-05-11] MEDS: LEVOTHYROXINE 112 MCG TAB PO SCH (06:17)
[2017-05-11 06:46] LABS: ADD DIFF? YES; ADD MORPH? NO; ADD SCAN? NO; ATYPICAL LYMPHOCYTE FLAG 30 (0-99); FRAGMENT RBC FLAG 0 (0-99); HEMATOCRIT 29.8 % (38.0-47.0); HEMOGLOBIN 9.9 g/dL (12.6-16.3); LEFT SHIFT FLG 30 (0-99); LIPEMIA HEMOLYSIS FLAG 80 (0-99); MEAN CELL HEMOGLOBIN 31.2 pg (27.9-34.1); MEAN CELL HEMOGLOBIN CONCENTR. 33.2 g/dL (32.4-36.7); PLATELET CLUMPS FLAG 0 (0-99); PLATELET COUNT 254 10^3/uL (150-400); RED BLOOD CELL COUNT 3.17 10^6/uL (4.18-5.33); RED CELL DISTRIBUTION WIDTH 15.6 % (11.5-15.2)
[2017-05-11 07:07] LABS: ALANINE AMINOTRANSFERASE 26 IU/L (9-52); ALBUMIN 2.5 g/dL (3.5-5.0); ALKALINE PHOSPHATASE 126 IU/L (38-126); ANION GAP 9 mEq/L (8-16); ASPARTATE AMINOTRANSFERASE 15 IU/L (14-46); BILIRUBIN,TOTAL 0.4 mg/dL (0.1-1.4); CALCIUM 8.1 mg/dL (8.5-10.4); CARBON DIOXIDE 25 mEq/l (22-31); CHLORIDE 103 mEq/L (97-110); CREATININE 0.8 mg/dL (0.6-1.0); GLOMERULAR FILTRATION RATE > 60; GLUCOSE 116 mg/dL (70-100); MAGNESIUM 1.9 mg/dL (1.6-2.3); POTASSIUM 4.2 mEq/L (3.5-5.2); SODIUM 137 mEq/L (134-144); TOTAL PROTEIN 5.6 g/dL (6.3-8.2)
[2017-05-11 07:15] LABS: PLATELET ESTIMATE ADEQUATE (ADEQ)
[2017-05-11 07:44] LABS: INR 1.86 (0.83-1.16); PROTIME(PATIENT) 21.5 SEC (12.0-15.0)
[2017-05-11 07:45] LABS: APTT 54.8 SEC (23.0-38.0)
[2017-05-11] MEDS: oxyCODONE IR 5 MG TAB PO PRN ×2 (09:46→17:12)
[2017-05-11] MEDS: FLUoxetine 10 MG CAP PO SCH (10:05)
[2017-05-11] MEDS: APIXABAN 5 MG TAB PO SCH (10:05)
[2017-05-11] MEDS: OLANZapine 2.5 MG TAB PO SCH (10:05)
[2017-05-11] MEDS: PANTOPRAZOLE SODIUM 40 MG TAB PO SCH ×2 (10:05→20:33)
[2017-05-11] MEDS: SENNOSIDES/DOCUSATE SODIUM TAB PO SCH ×2 (10:54→22:43)
--- NOTE | 2017-05-11 11:49 | PCMIDPN ---
Assessment/Plan: #MRSA abdominal wall abscess: Currently patient is on daptomycin --will discuss with colleague transition to vancomycin plus with normal renal function and no other renal toxic agent --contact precautions # polymicrobial colonization of nephrotomy bags (VRE, Pseudomonas, Klebsiella). Unfortunately, One of nephrotomy tubes mal-aligned and will be exchanged today - chayo op cefepime times 24 hours. 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 She is ambulating with physical therapy. Objective: Vital Signs Temp Pulse Resp BP Pulse Ox 36.6 C 105 H 18 134/86 H 98 05/11/17 09:22 05/11/17 09:22 05/11/17 09:22 05/11/17 09:22 05/11/17 09:22 Microbiology 05/09/17 16:50 Gram Stain - Final Abdomen - Swab Wound Culture - Final MRSA 05/07/17 13:30 Urine Culture - Final Urine,Kidney - Aspirate MRSA Pseudomonas Aeruginosa Klebsiella Pneumoniae Enterococcus Faecium Laboratory Results 05/11/17 06:15 05/11/17 06:15 05/10/17 05/11/17 05/12/17 05:59 05:59 05:59 Intake Total 3404 860 Output Total 1875 1900 800 Balance 1529 -1900 60 - Physical Exam General Appearance: alert, no apparent distress EENT: pale conjunctiva Respiratory: other (Decreased breath sounds in the bases), No accessory muscle use Cardiac/Chest: tachycardia Extremities: pedal edema Abdomen: non-tender, soft, other (Midline incision healing, 2 small Seven drains distal part of incision) Pelvic Exam: other (Bilateral nephrostomy tubes) Skin: No rash Neuro/Psych: alert, normal mood/affect, oriented x 3 - Line/s RUE PICC Lines: No drainage, No erythema Mediport Lines: No drainage, No erythema ICD10 Worksheet Patient Problems: Problems Problem Status Onset Hemorrhage Acute Hypotension Acute 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
--- NOTE | 2017-05-11 12:05 | SOAPPROG ---
SOAP Progress Note Assessment/Plan: Assessment: 47yo female POD #14 s/p laparotomy, drainage of pelvic abscess, partial cecectomy and appendectomy 2/2 perforated colon with peritonitis and free air. Hx of cervical cancer on chemo/ rad originally presented with obstructed ureters and vaginal bleeding on lovenox. Hx of DVT, now with IVC filter. Nephrostomy tube in place. S/p bedside I&D of subfascial abdominal wall abscess 05/09. [place] drain in place. Orders in for bid irrigation. Likely to go to IR today for deeper R ileopsoas collection. D/w'ed medicine. Cont wound care with BID lencho irrigation and dressing changes S: No complaints O: Afebrile pt lying in bed, NAD No increased WOB Midline incision well healed with sterisi in place Dressing recently changed-minimal drainage from lencho on the gauze. No erythema/induration. Objective: Vital Signs Temp Pulse Resp BP Pulse Ox 36.6 C 105 H 18 134/86 H 98 05/11/17 09:22 05/11/17 09:22 05/11/17 09:22 05/11/17 09:22 05/11/17 09:22 Microbiology 05/09/17 16:50 Gram Stain - Final Abdomen - Swab Wound Culture - Final MRSA 05/07/17 13:30 Urine Culture - Final Urine,Kidney - Aspirate MRSA Pseudomonas Aeruginosa Klebsiella Pneumoniae Enterococcus Faecium Laboratory Results 05/11/17 06:15 05/11/17 06:15 05/10/17 05/11/17 05/12/17 05:59 05:59 05:59 Intake Total 3404 860 Output Total 1875 1900 800 Balance 1529 -1900 60 PT 21.5 SEC (12.0-15.0) H 05/11/17 07:28 INR 1.86 (0.83-1.16) H 05/11/17 07:28 ICD10 Worksheet Patient Problems: Problems Problem Status Onset Hemorrhage Acute Hypotension Acute 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
[2017-05-11] MEDS: CEFEPIME HCL 2 GM in D5W 100 ML IV SCH ×2 (12:32→22:42)
--- NOTE | 2017-05-11 13:11 | HOSPPROG ---
Hospitalist Progress Note Assessment/Plan: #Sepsis: resolved. Due to perforated cecum/peritonitis/pelvic abscess, I/D by Dr. Gamez 04/14 -bedside debridement 05/09. [place] in place -IR to drain deeper iliopsoas abscess tomorrow since received Eliquis -IV Daptomycin, may be able to switch to Vanc. Per ID #Polymicrobial colonization of nephrostomy tubes: VRE/Klebs/Pseudomonas. IR to change tube today bc misaligned #Acute blood loss anemia: last transfusion 05/09. #Stage 4 cervical cancer: completed chemo, XRT #Recurrent DVT: filter in place. Hold AC with acute blood loss #depression: increase Prozac to 20mg. Mood is affecting motivation. Trial Ritalin tomorrow #Neuropathy: Gabapentin. #Acute encephalopathy: resolved. #Diet: regular #Deconditioning: will need SNF #DVT ppx: SCDs #Disp: cont inpt admission for IR procedure tomorrow, IV abx Subjective: no acute events. Objective: Vital Signs Temp Pulse Resp BP Pulse Ox 36.6 C 105 H 18 134/86 H 98 05/11/17 09:22 05/11/17 09:22 05/11/17 09:22 05/11/17 09:22 05/11/17 09:22 Microbiology 05/09/17 16:50 Gram Stain - Final Abdomen - Swab Wound Culture - Final MRSA 05/07/17 13:30 Urine Culture - Final Urine,Kidney - Aspirate MRSA Pseudomonas Aeruginosa Klebsiella Pneumoniae Enterococcus Faecium Laboratory Results 05/11/17 06:15 05/11/17 06:15 05/10/17 05/11/17 05/12/17 05:59 05:59 05:59 Intake Total 3404 860 Output Total 1875 1900 800 Balance 1529 -1900 60 PT 21.5 SEC (12.0-15.0) H 05/11/17 07:28 INR 1.86 (0.83-1.16) H 05/11/17 07:28 - Physical Exam Constitutional: no apparent distress, chronically ill appearing Eyes: PERRL Ears, Nose, Mouth, Throat: other (hematoma left forehead) Cardiovascular: regular rate and rhythym Respiratory: no respiratory distress Gastrointestinal: other (surgical incision dressed, CDI. [place] drains in place ) Genitourinary: other (BL nephrostomies in place) Skin: warm Musculoskeletal: full muscle strength Neurologic: AAOx3, CN II-XII Intact Psychiatric: interacting appropriately, flat affect ICD10 Worksheet Patient Problems: Problems Problem Status Onset Hemorrhage Acute Hypotension Acute 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
[2017-05-11] MEDS: HYDROmorphONE/DILAUDID 2 MG/ML INJ IVP PRN (13:41)
[2017-05-11] MEDS ORDERED: fentaNYL 100 MCG/2 ML INJ ONE (14:31)
[2017-05-11] MEDS ORDERED: PROPOFOL 200 MG/20 ML VIAL ONE (14:34)
[2017-05-11] MEDS ORDERED: NALOXONE HCL 0.4 MG/ML INJ IVP PRN (14:59)
[2017-05-11] MEDS ORDERED: HYDROCODONE/APAP 5/325 TAB PO PRN (14:59)
[2017-05-11] MEDS ORDERED: LABETALOL HCL 50 MG/10 ML SYR IVP PRN (14:59)
[2017-05-11] MEDS ORDERED: DEXAMETHASONE 4 MG/ML VIAL IVP PRN (14:59)
[2017-05-11] MEDS ORDERED: fentaNYL 100 MCG/2 ML INJ IVP PRN (14:59)
--- NOTE | 2017-05-11 15:05 | PDANEPAE ---
ANE History of Present Illness 47 year old woman with cervical cancer for placement of nephrostomy tubes B. ANE Past Medical History - Cardiovascular History Hx Hypertension: No Hx Arrhythmias: No Hx Chest Pain: No Hx Coronary Artery / Peripheral Vascular Disease: No Hx CHF / Valvular Disease: No Hx Palpitations: No - Pulmonary History Hx COPD: No Hx Asthma/Reactive Airway Disease: No Hx Recent Upper Respiratory Infection: No Hx Oxygen in Use at Home: No Hx Sleep Apnea: No Sleep Apnea Screening Result - Last Documented: Negative - Neurologic History Hx Cerebrovascular Accident: No Hx Seizures: No Hx Dementia: No - Endocrine History Hx Diabetes: No Hypothyroid: No Hyperthyroid: No Obesity: moderate - Renal History Hx Renal Disorders: Yes Renal History Comment: bilateral ureteral obstruction. Bilateral nephrostomy tubes - Liver History Hx Hepatic Disorders: No - Neurological & Psychiatric Hx Hx Neurological and Psychiatric Disorders: Yes Neurological / Psychiatric History Comment: acute mental status changes overnight, Bipolar - Cancer History Hx Cancer: Yes Cancer History Comment: cervical cancer s/p chemo radiation - Congenital Disorder History Hx Congenital Disorders: No - GI History Hx Gastrointestinal Disorders: No - Other Health History Other Health History: history of DVT s/p IVC filter - Chronic Pain History Chronic Pain: Yes - Surgical History Prior Surgeries: nephrostomy tubes, IVC filter ANE Review of Systems Review of Systems: ANE Patient History - Allergies Allergies/Adverse Reactions: No Known Allergies Allergy (Unverified 04/10/17 22:48) - Home Medications Home Medications: Enoxaparin [Lovenox 100 MG (*)] 100 mg SQ BID@,17 04/10/17 [Last Taken 17:00] FLUoxetine [Prozac 10 MG (*)] 10 mg PO DAILY 04/10/17 [Last Taken 04/10/17 08:00 ] Gabapentin [Neurontin 300 MG (*)] 300 mg PO TID 04/10/17 [Last Taken 04/10/17 17 :00] Levothyroxine [Synthroid 112 mcg (*)] 112 mcg PO DAILY06 04/10/17 [Last Taken 07:00] OLANZapine [Zyprexa] 5 mg PO HS 04/10/17 [Last Taken 04/09/17 21:00] Pantoprazole Sodium [Protonix 40mg (*)] 40 mg PO DAILY 04/10/17 [Last Taken 11/21 08:00] oxyCODONE IR [Oxycodone Ir (*)] 5 - 10 mg PO Q4 PRN 04/10/17 [Last Taken 13:00] traMADol [Ultram 50 mg (*)] 50 mg PO Q8 PRN 04/10/17 [Last Taken Unknown] Acetaminophen [Tylenol 325mg (*)] 650 mg PO Q4 PRN 04/11/17 [Last Taken Unknown] Herbals/Supplements -Info Only 1 ea PO DAILY 04/11/17 [Last Taken 04/10/17 08:00 ] Loperamide HCl [Imodium 2 mg (*)] 2 mg PO PRN PRN 04/11/17 [Last Taken Unknown] Ondansetron [Ondansetron Odt] 8 mg PO Q8 PRN 04/11/17 [Last Taken 04/10/17 08:30 ] - Smoking Hx Smoking Status: Never smoked - Alcohol Use Alcohol Use: Sober ANE Labs/Vital Signs - Labs Result Diagrams: 05/11/17 06:15 05/11/17 06:15 - Vital Signs Blood Pressure: 134/86 Heart Rate: 105 Respiratory Rate: 18 O2 Sat (%): 98 Height: 167.64 cm Weight: 76.3 kg ANE Physical Exam - Airway Mallampati Score: Class 2 Mouth exam: normal dental/mouth exam - Pulmonary Pulmonary: no respiratory distress - Cardiovascular Cardiovascular: tachycardia - ASA Status ASA Status: III ANE Anesthesia Plan Anesthesia Plan: MAC (MRSA positive)
--- NOTE | 2017-05-11 15:12 | PDIAF ---
- Diagnosis Diagnosis: MRSA R Psoas and abdominal wall abscess Code Status: Full Code - Medication Management Discharge Medications: Medications to Continue on Transfer Enoxaparin [Lovenox 100 MG (*)] 100 mg SQ BID@04/10/17 [Last Taken 17:00] FLUoxetine [Prozac 10 MG (*)] 10 mg PO DAILY 04/10/17 [Last Taken 04/10/17 08:00 ] Gabapentin [Neurontin 300 MG (*)] 300 mg PO TID 04/10/17 [Last Taken 04/10/17 17 :00] Levothyroxine [Synthroid 112 mcg (*)] 112 mcg PO DAILY06 04/10/17 [Last Taken 07:00] OLANZapine [Zyprexa] 5 mg PO HS 04/10/17 [Last Taken 04/09/17 21:00] Pantoprazole Sodium [Protonix 40mg (*)] 40 mg PO DAILY 04/10/17 [Last Taken 11/21 08:00] oxyCODONE IR [Oxycodone Ir (*)] 5 - 10 mg PO Q4 PRN 04/10/17 [Last Taken 13:00] traMADol [Ultram 50 mg (*)] 50 mg PO Q8 PRN 04/10/17 [Last Taken Unknown] Acetaminophen [Tylenol 325mg (*)] 650 mg PO Q4 PRN 04/11/17 [Last Taken Unknown] Herbals/Supplements -Info Only 1 ea PO DAILY 04/11/17 [Last Taken 04/10/17 08:00 ] Loperamide HCl [Imodium 2 mg (*)] 2 mg PO PRN PRN 04/11/17 [Last Taken Unknown] Ondansetron [Ondansetron Odt] 8 mg PO Q8 PRN 04/11/17 [Last Taken 04/10/17 08:30 ] Retirement Antibiotics: vancomycin 1gm IV q12h Line Person Antibiotic Stop Date: 05/25/17 Discharge Medications: Refer to the Discharge Home Medication list for PRN reason. PICC Care - Routine: N/A (patient has port) - Orders Diet Texture: Regular Texture Diet, Thin Liquids - Follow Up Care Current Providers and Referrals: Patient,NotPresent [Unknown] - As per Instructions
[2017-05-11] MEDS ORDERED: IOPAMIDOL (ISOVUE-300) 100 ML BTL ONE (15:38)
--- NOTE | 2017-05-11 16:29 | ASMTCMCOM ---
CM Note CM Note Notes: Pt had nephrostomy tubes changed today and will have ileopsoas abscess drained by IR tomorrow. would like to keep pt until Monday. Alerted Barbara at [facility] and faxed updates. C/M to follow Date Signed: 05/11/2017 04:29 PM Electronically Signed By:Kelly Tarango LCSW
[2017-05-11] MEDS: DAPTOmycin 480 MG in NS 100 ML IV SCH (17:12)
[2017-05-11] MEDS: GABAPENTIN 300 MG CAP PO SCH (20:33)
[2017-05-11] MEDS: TPN 1 EA BAG IV SCH (20:34)
[2017-05-12] MEDS: METOCLOPRAMIDE 10 MG/2 ML VIAL IVP SCH ×5 (00:26→23:52)
[2017-05-12] MEDS: ONDANSETRON DISINTEGRATING 4 MG TAB PO SCH ×5 (00:26→23:50)
[2017-05-12] MEDS: LEVOTHYROXINE 112 MCG TAB PO SCH (03:24)
[2017-05-12] MEDS ORDERED: ONDANSETRON 4 MG/2 ML VIAL ONE (03:34)
[2017-05-12] MEDS: CEFEPIME HCL 2 GM in D5W 100 ML IV SCH ×3 (03:38→22:11)
[2017-05-12 04:39] LABS: ADD DIFF? YES; ADD MORPH? NO; ADD SCAN? NO; ATYPICAL LYMPHOCYTE FLAG 20 (0-99); FRAGMENT RBC FLAG 0 (0-99); HEMATOCRIT 29.7 % (38.0-47.0); HEMOGLOBIN 9.8 g/dL (12.6-16.3); LEFT SHIFT FLG 30 (0-99); LIPEMIA HEMOLYSIS FLAG 80 (0-99); PLATELET CLUMPS FLAG 0 (0-99); PLATELET COUNT 256 10^3/uL (150-400); RED BLOOD CELL COUNT 3.16 10^6/uL (4.18-5.33); RED CELL DISTRIBUTION WIDTH 15.3 % (11.5-15.2)
[2017-05-12 04:59] LABS: ANION GAP 11 mEq/L (8-16); CALCIUM 8.3 mg/dL (8.5-10.4); CARBON DIOXIDE 24 mEq/l (22-31); CHLORIDE 102 mEq/L (97-110); CREATININE 0.8 mg/dL (0.6-1.0); GLOMERULAR FILTRATION RATE > 60; GLUCOSE 107 mg/dL (70-100); MAGNESIUM 1.9 mg/dL (1.6-2.3); POTASSIUM 3.8 mEq/L (3.5-5.2); SODIUM 137 mEq/L (134-144)
[2017-05-12 05:22] LABS: PLATELET ESTIMATE ADEQUATE (ADEQ)
--- NOTE | 2017-05-12 08:31 | HOSPPROG ---
Hospitalist Progress Note Assessment/Plan: #Sepsis: resolved. Due to perforated cecum/peritonitis/pelvic abscess, I/D by Dr. Gamez 04/14 -bedside debridement 05/09. [place] in place -IR to drain deeper iliopsoas abscess today. Give unit FFP prior; discussed with Dr. Bautista -IV Daptomycin, may be able to switch to Vanc. Per ID #Polymicrobial colonization of nephrostomy tubes: VRE/Klebs/Pseudomonas. IR changed tubes yesterday #Acute blood loss anemia: last transfusion 05/09. #Stage 4 cervical cancer: completed chemo, XRT #Recurrent DVT: filter in place. Hold AC until tomorrow #depression: increase Prozac to 20mg. Mood is affecting motivation. Trial Ritalin tomorrow #Neuropathy: Gabapentin. #Acute encephalopathy: resolved. #Diet: ADAT, TPN #Deconditioning: will need SNF #DVT ppx: SCDs #Disp: cont inpt admission for IR procedure tomorrow, IV abx Subjective: achey in lower abdomen. No N/V Objective: Vital Signs Temp Pulse Resp BP Pulse Ox 37.2 C 101 H 16 129/86 H 95 05/12/17 03:52 05/12/17 03:52 05/12/17 03:52 05/12/17 03:52 05/12/17 03:52 Microbiology 05/07/17 13:30 Urine Culture - Final Urine,Kidney - Aspirate MRSA Pseudomonas Aeruginosa Klebsiella Pneumoniae Enterococcus Faecium Vre 05/09/17 16:50 Gram Stain - Final Abdomen - Swab Wound Culture - Final MRSA Laboratory Results 05/12/17 03:49 05/12/17 03:49 05/11/17 05/12/17 05/13/17 05:59 05:59 05:59 Intake Total 2736 Output Total 1900 1875 Balance -1900 861 PT 21.5 SEC (12.0-15.0) H 05/11/17 07:28 INR 1.86 (0.83-1.16) H 05/11/17 07:28 - Physical Exam Constitutional: no apparent distress Eyes: PERRL Ears, Nose, Mouth, Throat: moist mucous membranes, hearing normal, other ( hematoma left hematoma) Cardiovascular: regular rate and rhythym, no murmur, rub, or gallop Respiratory: no respiratory distress, no rales or rhonchi Gastrointestinal: normoactive bowel sounds, other (midline incision stapled, CDI. lencho in place.) Genitourinary: other (BL nephrostomy tubes) Skin: warm Musculoskeletal: full muscle strength Neurologic: AAOx3, CN II-XII Intact Psychiatric: flat affect ICD10 Worksheet Patient Problems: Problems Problem Status Onset Hemorrhage Acute Hypotension Acute Infection due to carbapenem resistant Pseudomonas aeruginosa Acute ~05/07/17 MRSA (methicillin resistant Staphylococcus aureus) Acute ~05/09/17 VRE (vancomycin-resistant Enterococci) Acute ~05/07/17
[2017-05-12] MEDS: VANCOMYCIN HCL/NORMAL SALINE 250 ML IV SCH ×2 (08:41→22:12)
[2017-05-12 10:42] LABS: INR 1.5 (0.83-1.16); PROTIME(PATIENT) 18.1 SEC (12.0-15.0)
[2017-05-12 10:43] LABS: APTT 51.4 SEC (23.0-38.0)
--- NOTE | 2017-05-12 13:30 | SOAPPROG ---
SOAP Progress Note Assessment/Plan: Assessment: 47yo female POD #15 s/p laparotomy, drainage of pelvic abscess, partial cecectomy and appendectomy 2/2 perforated colon with peritonitis and free air. Hx of cervical cancer on chemo/ rad originally presented with obstructed ureters and vaginal bleeding on lovenox. Hx of DVT, now with IVC filter. Nephrostomy tube in place. S/p bedside I&D of subfascial abdominal wall abscess 05/09. [place] drain in place. Orders in for bid irrigation. Cont wound care with BID lencho irrigation and dressing changes S: No complaints O: Afebrile pt lying in bed, NAD No increased WOB Midline incision well healed Dressing with minimal yellow/white drainage from lencho on the gauze. No erythema/induration. Objective: Vital Signs Temp Pulse Resp BP Pulse Ox 36.7 C 103 H 18 142/90 H 96 05/12/17 08:54 05/12/17 08:54 05/12/17 08:54 05/12/17 08:54 05/12/17 08:54 Microbiology 04/14/17 01:00 Blood Culture - Final Blood Gram Positive Cocci In Pairs Blood Panel (PCR) - Final No Organism Detected 05/07/17 13:30 Urine Culture - Final Urine,Kidney - Aspirate MRSA Pseudomonas Aeruginosa Klebsiella Pneumoniae Enterococcus Faecium Vre 05/09/17 16:50 Gram Stain - Final Abdomen - Swab Wound Culture - Final MRSA Laboratory Results 05/12/17 03:49 05/12/17 03:49 05/11/17 05/12/17 05/13/17 05:59 05:59 05:59 Intake Total 2736 Output Total 1900 1875 Balance -1900 861 PT 18.1 SEC (12.0-15.0) H 05/12/17 10:25 INR 1.50 (0.83-1.16) H 05/12/17 10:25 ICD10 Worksheet Patient Problems: Problems Problem Status Onset Hemorrhage Acute Hypotension Acute Infection due to carbapenem resistant Pseudomonas aeruginosa Acute ~05/07/17 MRSA (methicillin resistant Staphylococcus aureus) Acute ~05/09/17 VRE (vancomycin-resistant Enterococci) Acute ~05/07/17
[2017-05-12] MEDS ORDERED: NALOXONE HCL 0.4 MG/ML INJ ONE (14:41)
[2017-05-12] MEDS ORDERED: FLUMAZENIL 0.5 MG/5 ML MDV IVP ONE (14:41)
[2017-05-12] MEDS ORDERED: MIDAZOLAM 2 MG/2 ML VIAL ONE (14:42)
[2017-05-12] MEDS ORDERED: fentaNYL 100 MCG/2 ML INJ ONE (14:42)
--- NOTE | 2017-05-12 16:10 | ASMTCMCOM ---
CM Note CM Note Notes: Spoke with Barbara at [facility] and she stated that they will need to wait until Monday to get am insNanette sebastian for pt. Also spoke to pt's uncle aranza at [phone] and gave hime an update. C/M to follow. Date Signed: 05/12/2017 04:09 PM Electronically Signed By:Kelly Tarango LCSW
[2017-05-12] MEDS: SENNOSIDES/DOCUSATE SODIUM TAB PO SCH ×2 (17:08→22:35)
[2017-05-12] MEDS: PANTOPRAZOLE SODIUM 40 MG TAB PO SCH ×2 (17:14→22:11)
--- NOTE | 2017-05-12 17:37 | POSTOPPROG ---
Post Op Note Date of Operation: 05/12/17 Surgeon: Heriberto Bautista Entry Analyst: VINICIO Anton Anesthesia: IV Sedation (Versed and Fentanyl) Pre-op Diagnosis: Right pelvic fluid collection Post-op Diagnosis: Absces vs lymphocele Indication: Right pelvic fluid collection. possible abscess Procedure: CT guided placement of 10Fr percutaneous drain in RT pelvic fluid Findings: good placement of drain Inf/Abcess present in the surg proc area at time of surgery?: No Total fluids administered: None Complications: None Drains: Other (10 [place] percutaneous pigtail drain)
[2017-05-12] MEDS: SCOPOLAMINE HYDROBROMIDE 1 MG/3 DAYS PATCH TD SCH (18:07)
[2017-05-12] MEDS: FLUoxetine 10 MG CAP PO SCH (18:08)
[2017-05-12] MEDS: OLANZapine 2.5 MG TAB PO SCH (18:09)
[2017-05-12] MEDS: GABAPENTIN 300 MG CAP PO SCH (22:11)
[2017-05-12] MEDS: TPN 1 EA BAG IV SCH (22:12)
[2017-05-12] MEDS: oxyCODONE IR 5 MG TAB PO PRN (22:42)
[2017-05-13] MEDS: PROMETHAZINE HCL 25 MG/ML INJ IVP PRN (04:48)
[2017-05-13] MEDS: LEVOTHYROXINE 112 MCG TAB PO SCH (05:06)
[2017-05-13] MEDS: METOCLOPRAMIDE 10 MG/2 ML VIAL IVP SCH ×4 (05:07→23:29)
[2017-05-13] MEDS: ONDANSETRON DISINTEGRATING 4 MG TAB PO SCH ×4 (05:07→23:29)
[2017-05-13] MEDS: CEFEPIME HCL 2 GM in D5W 100 ML IV SCH (05:07)
[2017-05-13 05:31] LABS: ANION GAP 10 mEq/L (8-16); CALCIUM 8.3 mg/dL (8.5-10.4); CARBON DIOXIDE 23 mEq/l (22-31); CHLORIDE 107 mEq/L (97-110); CREATININE 0.8 mg/dL (0.6-1.0); GLOMERULAR FILTRATION RATE > 60; GLUCOSE 111 mg/dL (70-100); MAGNESIUM 1.9 mg/dL (1.6-2.3); POTASSIUM 3.9 mEq/L (3.5-5.2); SODIUM 140 mEq/L (134-144)
[2017-05-13] MEDS: PANTOPRAZOLE SODIUM 40 MG TAB PO SCH ×2 (08:45→21:53)
[2017-05-13] MEDS: SENNOSIDES/DOCUSATE SODIUM TAB PO SCH ×2 (08:45→21:53)
[2017-05-13] MEDS: OLANZapine 2.5 MG TAB PO SCH (08:46)
[2017-05-13] MEDS: FLUoxetine 10 MG CAP PO SCH (08:46)
[2017-05-13] MEDS: VANCOMYCIN HCL/NORMAL SALINE 250 ML IV SCH ×2 (08:54→21:53)
[2017-05-13] MEDS: oxyCODONE IR 5 MG TAB PO PRN ×3 (10:43→23:29)
--- NOTE | 2017-05-13 10:49 | SOAPPROG ---
SOAP Progress Note Assessment/Plan: Assessment: 1. Recurrent cervical cancer with mutiple pelvic fistulae: drainage and IV abx. I cant tell how much if any active disease she has. I did a chart review. Plan: [facility] LTAC 05/13/17 10:37 Subjective: This is an unfortunate 47 you W with stage IIIB cervix (T3bN0 M1) G3. She was initially diagnosed at [facility] in August 2016 with ARF and saw Dr. oHpkins and had taz ureteral obstruction. She had taxol/carbo/Bevv on 10/13. She had a partial resonse and then had intracavitary therapy. That was complicated by mutliple fistulae. She has had DVT and has a IVC filter. Now we are managing her infections and abscesses and wound infection from an appy. She is stable and comfortable but very weak and anorectic. Objective: Vital Signs Temp Pulse Resp BP Pulse Ox 36.8 C 107 H 18 137/96 H 97 05/13/17 09:44 05/13/17 09:44 05/13/17 09:44 05/13/17 09:44 05/13/17 09:44 Microbiology 05/12/17 16:25 Gram Stain - Final Pelvis - Aspirate 05/07/17 13:30 Urine Culture - Final Urine,Kidney - Aspirate MRSA Pseudomonas Aeruginosa Enterococcus Faecium Vre 04/14/17 01:00 Blood Culture - Final Blood Gram Positive Cocci In Pairs Blood Panel (PCR) - Final No Organism Detected Laboratory Results 05/12/17 03:49 05/13/17 04:55 05/12/17 05/13/17 05/14/17 05:59 05:59 05:59 Intake Total 2736 1660 Output Total 1875 2720 1100 Balance 861 -1060 -1100 PT 18.1 SEC (12.0-15.0) H 05/12/17 10:25 INR 1.50 (0.83-1.16) H 05/12/17 10:25 Awake. No cervical or inguinal LN. Lungs clear CVS neg. abd full in uppper abdomen SOCO edema. - Time Spent With Patient Time Spent With Patient: 35 min ICD10 Worksheet Patient Problems: Problems Problem Status Onset VRE (vancomycin-resistant Enterococci) Acute ~05/07/17 MRSA (methicillin resistant Staphylococcus aureus) Acute ~05/09/17 Infection due to carbapenem resistant Pseudomonas aeruginosa Acute ~05/07/17 Hemorrhage Acute Hypotension Acute
[2017-05-13] MEDS: traMADol 50 MG TAB PO PRN (12:55)
--- NOTE | 2017-05-13 13:24 | HOSPPROG ---
Hospitalist Progress Note Assessment/Plan: #Sepsis: resolved. Due to perforated cecum/peritonitis/pelvic abscess, I/D by Dr. Gamez 04/14 -bedside debridement 05/09. [place] in place -IR to drained deeper iliopsoas abscess 05/12. Pigtail in place with min drainage -Changed to IV Vanc #Polymicrobial colonization of nephrostomy tubes: VRE/Klebs/Pseudomonas. IR changed tubes #Acute blood loss anemia: last transfusion 05/09. CBC pending #Hematuria: has been ongoing. H/H remains; monitor closely with Eliquis #Stage 4 cervical cancer: completed chemo, XRT. 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 Restart Eliquis #depression: increase Prozac to 20mg. Mood is affecting motivation. Trial Ritalin tomorrow #Neuropathy: Gabapentin. #Acute encephalopathy: resolved. #Diet: ADAT, TPN #Deconditioning: will need SNF #DVT ppx: SCDs #Disp: cont inpt admission, IV abx. DC to LTAC once medically stable, likely in 1-2 days Subjective: feeling tired. No acute abd pain Objective: Vital Signs Temp Pulse Resp BP Pulse Ox 36.8 C 107 H 18 137/96 H 97 05/13/17 09:44 05/13/17 09:44 05/13/17 09:44 05/13/17 09:44 05/13/17 09:44 Microbiology 05/12/17 16:25 Gram Stain - Final Pelvis - Aspirate 05/07/17 13:30 Urine Culture - Final Urine,Kidney - Aspirate MRSA Pseudomonas Aeruginosa Enterococcus Faecium Vre 04/14/17 01:00 Blood Culture - Final Blood Gram Positive Cocci In Pairs Blood Panel (PCR) - Final No Organism Detected Laboratory Results 05/12/17 03:49 05/13/17 04:55 05/12/17 05/13/17 05/14/17 05:59 05:59 05:59 Intake Total 2736 1660 478 Output Total 1875 2720 1100 Balance 861 -1060 -622 PT 18.1 SEC (12.0-15.0) H 05/12/17 10:25 INR 1.50 (0.83-1.16) H 05/12/17 10:25 - Physical Exam Constitutional: chronically ill appearing Eyes: PERRL Ears, Nose, Mouth, Throat: moist mucous membranes Cardiovascular: regular rate and rhythym, no murmur, rub, or gallop Respiratory: no respiratory distress, no rales or rhonchi Gastrointestinal: normoactive bowel sounds, other (abd incision, CDI. Right pelvic drain in place with min clear drainage. Nephrostomy tubes ) ICD10 Worksheet Patient Problems: Problems Problem Status Onset Hemorrhage Acute Hypotension Acute Infection due to carbapenem resistant Pseudomonas aeruginosa Acute ~05/07/17 MRSA (methicillin resistant Staphylococcus aureus) Acute ~05/09/17 VRE (vancomycin-resistant Enterococci) Acute ~05/07/17
[2017-05-13 14:55] LABS: ADD DIFF? YES; ADD MORPH? NO; ADD SCAN? NO; ATYPICAL LYMPHOCYTE FLAG 20 (0-99); FRAGMENT RBC FLAG 0 (0-99); HEMATOCRIT 29.7 % (38.0-47.0); HEMOGLOBIN 9.7 g/dL (12.6-16.3); LEFT SHIFT FLG 30 (0-99); LIPEMIA HEMOLYSIS FLAG 80 (0-99); MEAN CELL HEMOGLOBIN 30.5 pg (27.9-34.1); MEAN CELL HEMOGLOBIN CONCENTR. 32.7 g/dL (32.4-36.7); MEAN CELL VOLUME 93.4 fL (81.5-99.8); MEAN PLATELET VOLUME 9.4 fL (8.7-11.7); PLATELET CLUMPS FLAG 20 (0-99); PLATELET COUNT 218 10^3/uL (150-400); RED BLOOD CELL COUNT 3.18 10^6/uL (4.18-5.33); RED CELL DISTRIBUTION WIDTH 15.3 % (11.5-15.2)
[2017-05-13 15:08] LABS: ANION GAP 11 mEq/L (8-16); CALCIUM 8.3 mg/dL (8.5-10.4); CARBON DIOXIDE 23 mEq/l (22-31); CHLORIDE 104 mEq/L (97-110); CREATININE 0.8 mg/dL (0.6-1.0); GLOMERULAR FILTRATION RATE > 60; GLUCOSE 107 mg/dL (70-100); POTASSIUM 3.9 mEq/L (3.5-5.2); SODIUM 138 mEq/L (134-144)
[2017-05-13 15:38] LABS: PLATELET ESTIMATE ADEQUATE (ADEQ)
[2017-05-13] MEDS: APIXABAN 5 MG TAB PO SCH (21:53)
[2017-05-13] MEDS: GABAPENTIN 300 MG CAP PO SCH (21:53)
[2017-05-13] MEDS: TPN 1 EA BAG IV SCH (21:53)
[2017-05-14] MEDS ORDERED: ALTEPLASE 2 MG VIAL IVP ONE (01:45)
[2017-05-14] MEDS: ONDANSETRON DISINTEGRATING 4 MG TAB PO SCH ×3 (05:26→17:08)
[2017-05-14] MEDS: LEVOTHYROXINE 112 MCG TAB PO SCH (05:27)
[2017-05-14] MEDS: METOCLOPRAMIDE 10 MG/2 ML VIAL IVP SCH ×3 (05:27→17:10)
[2017-05-14] MEDS: oxyCODONE IR 5 MG TAB PO PRN ×2 (06:06→12:12)
[2017-05-14 06:17] LABS: HEMATOCRIT 27.4 % (38.0-47.0); HEMOGLOBIN 9.1 g/dL (12.6-16.3); MEAN CELL HEMOGLOBIN 31.3 pg (27.9-34.1); MEAN CELL HEMOGLOBIN CONCENTR. 33.2 g/dL (32.4-36.7); MEAN CELL VOLUME 94.2 fL (81.5-99.8); RED BLOOD CELL COUNT 2.91 10^6/uL (4.18-5.33); RED CELL DISTRIBUTION WIDTH 15.2 % (11.5-15.2)
[2017-05-14] MEDS: OLANZapine 2.5 MG TAB PO SCH (09:57)
[2017-05-14] MEDS: SENNOSIDES/DOCUSATE SODIUM TAB PO SCH ×2 (09:58→21:44)
[2017-05-14] MEDS: PANTOPRAZOLE SODIUM 40 MG TAB PO SCH ×2 (09:58→21:43)
[2017-05-14] MEDS: FLUoxetine 10 MG CAP PO SCH (09:58)
[2017-05-14] MEDS: APIXABAN 5 MG TAB PO SCH ×2 (09:58→21:43)
[2017-05-14] MEDS ORDERED: VANCOMYCIN HCL/NORMAL SALINE 250 ML IV SCH (10:00)
--- NOTE | 2017-05-14 12:12 | SOAPPROG ---
CAM Progress Note Assessment/Plan: Assessment: 1. Recurrent cervical cancer with mutiple pelvic fistulae: drainage and IV abx. I cant tell how much if any active disease she has. I did a chart review. She is having trouble finding a comfortable position. Plan: Probable LTAC 05/13/17 10:37 05/14/17 12:59 Subjective: This is an unfortunate 47 you W with stage IIIB cervix (T3bN0 M1) G3. She was initially diagnosed at [facility] in August 2016 with ARF and [address] Dr[address] Hopkins and had taz ureteral obstruction. She had taxol/carbo/Bevv on 10/13. She had a partial response and then had intracavitary therapy. That was complicated by mutliple fistulae. She has had DVT and has a IVC filter. Now we are managing her infections and abscesses and wound infection from an appy. She is stable and having trouble finding a comfortable position. She is very weak and anorectic. Objective: Vital Signs Temp Pulse Resp BP Pulse Ox 37.1 C 112 H 17 123/80 H 96 05/14/17 08:55 05/14/17 08:55 05/14/17 08:55 05/14/17 08:55 05/14/17 08:55 Microbiology 05/08/17 20:00 Blood Culture - Final Blood 05/08/17 20:00 Blood Culture - Final Blood 05/12/17 16:25 Gram Stain - Final Pelvis - Aspirate Laboratory Results 05/14/17 06:05 05/13/17 14:45 05/13/17 05/14/17 05/15/17 05:59 05:59 05:59 Intake Total 1660 1935 681 Output Total 2720 3325 475 Balance -1060 -1390 206 PT 18.1 SEC (12.0-15.0) H 05/12/17 10:25 INR 1.50 (0.83-1.16) H 05/12/17 10:25 Abdomen distended in the upper abdomen. drain in midline ICD10 Worksheet Patient Problems: Problems Problem Status Onset VRE (vancomycin-resistant Enterococci) Acute ~05/07/17 MRSA (methicillin resistant Staphylococcus aureus) Acute ~05/09/17 Infection due to carbapenem resistant Pseudomonas aeruginosa Acute ~05/07/17 Hemorrhage Acute Hypotension Acute
--- NOTE | 2017-05-14 12:54 | HOSPPROG ---
Hospitalist Progress Note Assessment/Plan: #Sepsis: resolved. Due to perforated cecum/peritonitis/pelvic abscess, I/D by Dr. Gamez 04/14 -bedside debridement 05/09. [place] in place -IR to drained deeper iliopsoas abscess 05/12. Pigtail in place with min drainage -Vanc trough 20. Pharm to help adjust dosage #Polymicrobial colonization of nephrostomy tubes: VRE/Klebs/Pseudomonas. IR changed tubes #Acute blood loss anemia: last transfusion 05/09. CBC pending #Hematuria: has been ongoing. H/H remains; monitor closely with Eliquis #Stage 4 cervical cancer: completed chemo, XRT. 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 Restarted Eliquis, H/H remains stable #depression: increase Prozac to 20mg. Mood is affecting motivation. Trial Ritalin tomorrow #Neuropathy: Gabapentin. #Acute encephalopathy: resolved. #Diet: ADAT, TPN #Deconditioning: plan for LTAC at DC #DVT ppx: SCDs #Disp: cont inpt admission, IV abx. DC to LTAC once medically stable, likely in 1-2 days Subjective: nauseated and dry heaves this morning Objective: Vital Signs Temp Pulse Resp BP Pulse Ox 37.1 C 112 H 17 123/80 H 96 05/14/17 08:55 05/14/17 08:55 05/14/17 08:55 05/14/17 08:55 05/14/17 08:55 Microbiology 05/12/17 16:25 Gram Stain - Final Pelvis - Aspirate 05/08/17 20:00 Blood Culture - Final Blood 05/08/17 20:00 Blood Culture - Final Blood Laboratory Results 05/14/17 06:05 05/13/17 14:45 05/13/17 05/14/17 05/15/17 05:59 05:59 05:59 Intake Total 1660 1935 681 Output Total 2720 3325 475 Balance -1060 -1390 206 PT 18.1 SEC (12.0-15.0) H 05/12/17 10:25 INR 1.50 (0.83-1.16) H 05/12/17 10:25 - Physical Exam Constitutional: chronically ill appearing Eyes: PERRL Ears, Nose, Mouth, Throat: other (hemtoma left forehead) Cardiovascular: regular rate and rhythym, no murmur, rub, or gallop Respiratory: no respiratory distress, no rales or rhonchi Gastrointestinal: other (surgical incision healing well. [place] with mild purlence, serosan drainage. Right pelvic drain in place with min output) Genitourinary: [place] in urethra (with bloody urine), other (nephrostomy tube in place) Skin: warm Musculoskeletal: generalized weakness Neurologic: AAOx3, CN II-XII Intact Psychiatric: flat affect ICD10 Worksheet Patient Problems: Problems Problem Status Onset Hemorrhage Acute Hypotension Acute Infection due to carbapenem resistant Pseudomonas aeruginosa Acute ~05/07/17 MRSA (methicillin resistant Staphylococcus aureus) Acute ~05/09/17 VRE (vancomycin-resistant Enterococci) Acute ~05/07/17
--- NOTE | 2017-05-14 17:12 | ASMTCMCOM ---
CM Note CM Note Notes: Reviewed chart, spoke w/ TORRES Martinez re: d/c poc, pt's progress. Per MD notes, pt remains on IV antibiotics. Pt to discharge to [facility] in 1-2 days. CARMEN Mendoza spoke w/ [facility] Monday; they will need to resubmit for insurance authorization on 05/15/17. CM will cont to follow. Date Signed: 05/14/2017 05:11 PM Electronically Signed By:Bianca Perez RN
[2017-05-14] MEDS: GABAPENTIN 300 MG CAP PO SCH (21:43)
[2017-05-14] MEDS: TPN 1 EA BAG IV SCH (21:45)
[2017-05-15] MEDS: METOCLOPRAMIDE 10 MG/2 ML VIAL IVP SCH ×5 (00:10→23:28)
[2017-05-15] MEDS: ONDANSETRON DISINTEGRATING 4 MG TAB PO SCH ×5 (00:10→23:24)
[2017-05-15] MEDS: HYDROmorphONE/DILAUDID 2 MG/ML INJ IVP PRN ×3 (05:38→13:07)
[2017-05-15] MEDS: LEVOTHYROXINE 112 MCG TAB PO SCH (05:40)
[2017-05-15 05:48] LABS: % IMMATURE GRANULYOCYTES 2.6 % (0.0-1.1); ADD DIFF? NO; ADD MORPH? NO; ADD SCAN? NO; ATYPICAL LYMPHOCYTE FLAG 10 (0-99); FRAGMENT RBC FLAG 0 (0-99); HEMATOCRIT 26.6 % (38.0-47.0); HEMOGLOBIN 8.8 g/dL (12.6-16.3); LEFT SHIFT FLG 20 (0-99); LIPEMIA HEMOLYSIS FLAG 80 (0-99); MEAN CELL HEMOGLOBIN CONCENTR. 33.1 g/dL (32.4-36.7); MEAN CELL VOLUME 93.7 fL (81.5-99.8); MEAN PLATELET VOLUME 9.7 fL (8.7-11.7); PLATELET CLUMPS FLAG 0 (0-99); PLATELET COUNT 195 10^3/uL (150-400); RED BLOOD CELL COUNT 2.84 10^6/uL (4.18-5.33)
[2017-05-15 05:56] LABS: ALANINE AMINOTRANSFERASE 24 IU/L (9-52); ALBUMIN 2.3 g/dL (3.5-5.0); ALKALINE PHOSPHATASE 110 IU/L (38-126); ASPARTATE AMINOTRANSFERASE 13 IU/L (14-46); BILIRUBIN,TOTAL 0.3 mg/dL (0.1-1.4); CALCIUM 8.3 mg/dL (8.5-10.4); CARBON DIOXIDE 26 mEq/l (22-31); CHLORIDE 102 mEq/L (97-110); CREATININE 0.9 mg/dL (0.6-1.0); GLOMERULAR FILTRATION RATE > 60; GLUCOSE 113 mg/dL (70-100); MAGNESIUM 1.9 mg/dL (1.6-2.3); SODIUM 134 mEq/L (134-144); TOTAL PROTEIN 5.6 g/dL (6.3-8.2); TRIGLYCERIDE 166 mg/dL (35-135)
[2017-05-15 05:57] LABS: ANION GAP 6 mEq/L (8-16); POTASSIUM 3.8 mEq/L (3.5-5.2)
[2017-05-15 05:59] LABS: INR 1.85 (0.83-1.16); PROTIME(PATIENT) 21.4 SEC (12.0-15.0)
[2017-05-15 06:00] LABS: APTT 54.5 SEC (23.0-38.0)
--- NOTE | 2017-05-15 07:25 | SOAPPROG ---
CAM Progress Note Assessment/Plan: Assessment: 1. Recurrent cervical cancer with mutiple pelvic fistulae: drainage and IV abx. I cant tell how much if any active disease she has. She is comfortable now. She is having trouble finding a comfortable position. Plan: Probable LTAC placement due to care needs. 05/13/17 10:37 05/14/17 12:59 05/15/17 07:27 Subjective: This is an unfortunate 47 you W with stage IIIB cervix (T3bN0 M1) G3. She was initially diagnosed at [facility] in August 2016 with ARF and saw Dr. Hopkins and had taz ureteral obstruction. She had taxol/carbo/Joan on 10/13. She had a partial response and then had intracavitary therapy. That was complicated by multiple fistulae. She has had a DVT and has a IVC filter. Now we are managing her infections and abscesses and wound infection from an appy. She is stable and having trouble finding a comfortable position. She is very weak and anorectic. Objective: Vital Signs Temp Pulse Resp BP Pulse Ox 36.8 C 107 H 18 130/83 H 96 05/15/17 05:24 05/15/17 05:24 05/15/17 05:24 05/15/17 05:24 05/15/17 05:24 Microbiology 05/12/17 16:25 Gram Stain - Final Pelvis - Aspirate 05/08/17 20:00 Blood Culture - Final Blood 05/08/17 20:00 Blood Culture - Final Blood Laboratory Results 05/15/17 05:20 05/15/17 05:20 05/14/17 05/15/17 05/16/17 05:59 05:59 05:59 Intake Total 1935 1811 Output Total 3325 2110 Balance -1390 -299 PT 21.4 SEC (12.0-15.0) H 05/15/17 05:20 INR 1.85 (0.83-1.16) H 05/15/17 05:20 ICD10 Worksheet Patient Problems: Problems Problem Status Onset Hemorrhage Acute Hypotension Acute Infection due to carbapenem resistant Pseudomonas aeruginosa Acute ~05/07/17 MRSA (methicillin resistant Staphylococcus aureus) Acute ~05/09/17 VRE (vancomycin-resistant Enterococci) Acute ~05/07/17
[2017-05-15] MEDS: OLANZapine 2.5 MG TAB PO SCH (08:57)
[2017-05-15] MEDS: APIXABAN 5 MG TAB PO SCH ×2 (08:57→21:59)
[2017-05-15] MEDS: FLUoxetine 10 MG CAP PO SCH (08:57)
[2017-05-15] MEDS: PANTOPRAZOLE SODIUM 40 MG TAB PO SCH ×2 (08:57→21:58)
[2017-05-15] MEDS: SENNOSIDES/DOCUSATE SODIUM TAB PO SCH ×2 (09:02→21:58)
--- NOTE | 2017-05-15 10:47 | SOAPPROG ---
SOAP Progress Note Assessment/Plan: Assessment: 47yo female s/p laparotomy, drainage of pelvic abscess, partial cecectomy and appendectomy 2/2 perforated colon with peritonitis and free air. Hx of cervical cancer on chemo/ rad originally presented with obstructed ureters and vaginal bleeding on lovenox. Hx of DVT, now with IVC filter. Nephrostomy tube in place. S/p bedside I&D of subfascial abdominal wall abscess 05/09. [place] drain in place. Orders in for bid irrigation. Cont wound care with BID len[place] irrigation and dressing changes Seen c Dr. Gamez S: No complaints O: Afebrile pt lying in bed, NAD No increased WOB Midline incision well healed Dressing with moderate yellow/white drainage from lencho. No erythema/ induration. Objective: Vital Signs Temp Pulse Resp BP Pulse Ox 36.8 C 104 H 18 126/77 H 95 05/15/17 08:00 05/15/17 08:00 05/15/17 08:00 05/15/17 08:00 05/15/17 08:00 Microbiology 05/12/17 16:25 Gram Stain - Final Pelvis - Aspirate 05/08/17 20:00 Blood Culture - Final Blood 05/08/17 20:00 Blood Culture - Final Blood Laboratory Results 05/15/17 05:20 05/15/17 05:20 05/14/17 05/15/17 05/16/17 05:59 05:59 05:59 Intake Total 1935 1811 419 Output Total 3325 2110 340 Balance -1390 -299 79 PT 21.4 SEC (12.0-15.0) H 05/15/17 05:20 INR 1.85 (0.83-1.16) H 05/15/17 05:20 ICD10 Worksheet Patient Problems: Problems Problem Status Onset Hemorrhage Acute Hypotension Acute Infection due to carbapenem resistant Pseudomonas aeruginosa Acute ~05/07/17 MRSA (methicillin resistant Staphylococcus aureus) Acute ~05/09/17 VRE (vancomycin-resistant Enterococci) Acute ~05/07/17
--- NOTE | 2017-05-15 12:42 | ASMTCMCOM ---
CM Note CM Note Notes: DC poc is still for pt to go to [facility]. Met w/pt to discuss and she is still in agreement w/ this plan. Spoke w/Barbara from [facility] and faxed updated notes. Notified manhole builder of this pt as it seemed she could benefit from visit w/[facility]; Kary from [facility] met w/pt. Discussed case w/Dr Reyna who said pt may be ready for dc to LTAC tomorrow. KATHY w/f. Date Signed: 05/15/2017 12:41 PM Electronically Signed By:Sue Coker RN
[2017-05-15] MEDS: PROMETHAZINE HCL 25 MG/ML INJ IVP PRN ×2 (15:23→23:22)
[2017-05-15] MEDS: SCOPOLAMINE HYDROBROMIDE 1 MG/3 DAYS PATCH TD SCH (15:24)
[2017-05-15] MEDS: traMADol 50 MG TAB PO PRN (15:24)
--- NOTE | 2017-05-15 15:33 | HOSPPROG ---
Hospitalist Progress Note Assessment/Plan: #Sepsis: resolved. Due to perforated cecum/peritonitis/pelvic abscess, I/D by Dr. Gamez 04/14 -bedside debridement 05/09. [place] in place -IR to drained deeper iliopsoas abscess 05/12. Pigtail in place with min drainage. Surgery will help assess when this can be pulled. -Vanc trough 20. Pharm to help adjust dosage #Polymicrobial colonization of nephrostomy tubes: VRE/Klebs/Pseudomonas. IR changed tubes #Acute blood loss anemia: last transfusion 05/09. H/H down a little #Hematuria: has been ongoing. H/H remains; monitor closely with Eliquis. #Stage 4 cervical cancer: completed chemo, XRT. 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 Restarted Eliquis, H/H has dropped a bit today. If cont to drop, will have to hold again #Depression: increase Prozac to 40mg. Mood is affecting motivation. #Protein caloric malnutrition: not eating much. #Neuropathy: Gabapentin. #Acute encephalopathy: resolved. #Diet: ADAT #Deconditioning: plan for LTAC at DC #DVT ppx: SCDs #Goals: she is willing to talk with Palliative Care. Her goal is to take of herself and get back to work #Disp: cont inpt admission, IV abx. DC to LTAC once medically stable, likely in 1-2 days Subjective: no dizziness or lightheadedness Objective: Vital Signs Temp Pulse Resp BP Pulse Ox 36.8 C 104 H 18 126/77 H 95 05/15/17 08:00 05/15/17 08:00 05/15/17 08:00 05/15/17 08:00 05/15/17 08:00 Microbiology 05/12/17 16:25 Gram Stain - Final Pelvis - Aspirate Laboratory Results 05/15/17 05:20 05/15/17 05:20 05/14/17 05/15/17 05/16/17 05:59 05:59 05:59 Intake Total 1935 1811 669 Output Total 3325 2110 590 Balance -1390 -299 79 PT 21.4 SEC (12.0-15.0) H 05/15/17 05:20 INR 1.85 (0.83-1.16) H 05/15/17 05:20 - Physical Exam Constitutional: chronically ill appearing Eyes: PERRL Ears, Nose, Mouth, Throat: moist mucous membranes Cardiovascular: regular rate and rhythym Respiratory: no respiratory distress Gastrointestinal: other (abdominal incision with [place] drain. right pelvic pigtail in place) Genitourinary: [place] in urethra (bloody urine), other (nephrostomy in place) Skin: warm Musculoskeletal: full muscle strength, generalized weakness Neurologic: AAOx3 Psychiatric: depressed, flat affect ICD10 Worksheet Patient Problems: Problems Problem Status Onset Hemorrhage Acute Hypotension Acute Infection due to carbapenem resistant Pseudomonas aeruginosa Acute ~05/07/17 MRSA (methicillin resistant Staphylococcus aureus) Acute ~05/09/17 VRE (vancomycin-resistant Enterococci) Acute ~05/07/17
--- NOTE | 2017-05-15 18:31 | PCMIDPN ---
Assessment/Plan: Assessment/Plan: * MRSA abdominal wall abscess status post drainage: Completing 2 weeks of vancomycin post drainage of MRSA abdominal wall abscess. Still with some purulent drainage around Seven. Vancomycin trough elevated yesterday and vancomycin has been held. Will resume at 1 g IV Q 24 hours tomorrow. Creatinine remains stable. Stop date for vancomycin 05/25/2017. * Peritonitis/ pelvic abscess due to perforated cecum status post incision and drainage and course of antibiotic therapy for anaerobic bacteremia * Urinary colonization with multidrug resistant Pseudomonas/Enterobacter cloacae /VRE and bilateral nephrostomies: [place] to be most compatible colonization. 05/15/17 18:28 05/15/17 18:29 05/15/17 18:30 Subjective: Patient complains of feeling fatigue. Objective: Vital Signs Temp Pulse Resp BP Pulse Ox 36.9 C 105 H 19 130/80 H 98 05/15/17 16:30 05/15/17 16:30 05/15/17 16:30 05/15/17 16:30 05/15/17 16:30 Microbiology 05/12/17 16:25 Gram Stain - Final Pelvis - Aspirate Laboratory Results 05/15/17 05:20 05/15/17 05:20 05/14/17 05/15/17 05/16/17 05:59 05:59 05:59 Intake Total 1935 1811 669 Output Total 3325 2110 800 Balance -1390 -299 -131 Vancomycin # 4 Laboratory Tests 05/14/17 09:45 Vancomycin Trough 20.8 H* - Physical Exam General Appearance: alert, No no apparent distress EENT: No scleral icterus, No thrush Cardiac/Chest: tachycardia Abdomen: non-tender, other (Abdominal wall abscess drainage site with [place] drains in place with some purulence exuding around [place]), No distended - Line/s RUE PICC Lines: No drainage, No erythema ICD10 Worksheet Patient Problems: Problems Problem Status Onset Hemorrhage Acute Hypotension Acute Infection due to carbapenem resistant Pseudomonas aeruginosa Acute ~05/07/17 MRSA (methicillin resistant Staphylococcus aureus) Acute ~05/09/17 VRE (vancomycin-resistant Enterococci) Acute ~05/07/17
[2017-05-15] MEDS: TPN 1 EA BAG IV SCH (21:57)
[2017-05-15] MEDS: GABAPENTIN 300 MG CAP PO SCH (21:58)
[2017-05-15] MEDS: oxyCODONE IR 5 MG TAB PO PRN (23:29)
[2017-05-15] MEDS: NS 1,000 ML IV SCH (23:56)
[2017-05-16] MEDS: METOCLOPRAMIDE 10 MG/2 ML VIAL IVP SCH ×4 (05:01→23:59)
[2017-05-16] MEDS: ONDANSETRON DISINTEGRATING 4 MG TAB PO SCH ×4 (05:03→23:59)
[2017-05-16] MEDS: LEVOTHYROXINE 112 MCG TAB PO SCH (05:04)
[2017-05-16] MEDS: oxyCODONE IR 5 MG TAB PO PRN ×2 (05:04→21:21)
[2017-05-16 05:50] LABS: HEMATOCRIT 26.3 % (38.0-47.0); HEMOGLOBIN 8.7 g/dL (12.6-16.3); MEAN CELL HEMOGLOBIN 31.4 pg (27.9-34.1); MEAN CELL HEMOGLOBIN CONCENTR. 33.1 g/dL (32.4-36.7); MEAN CELL VOLUME 94.9 fL (81.5-99.8); RED BLOOD CELL COUNT 2.77 10^6/uL (4.18-5.33); RED CELL DISTRIBUTION WIDTH 14.8 % (11.5-15.2)
[2017-05-16] MEDS: HYDROmorphONE/DILAUDID 2 MG/ML INJ IVP PRN ×2 (06:04→17:13)
[2017-05-16 07:23] LABS: ANION GAP 8 mEq/L (8-16); CALCIUM 8.2 mg/dL (8.5-10.4); CARBON DIOXIDE 25 mEq/l (22-31); CHLORIDE 103 mEq/L (97-110); CREATININE 0.9 mg/dL (0.6-1.0); GLOMERULAR FILTRATION RATE > 60; GLUCOSE 106 mg/dL (70-100); SODIUM 136 mEq/L (134-144)
--- NOTE | 2017-05-16 08:17 | PDIAF ---
- Diagnosis Diagnosis: MRSA R Psoas and abdominal wall abscess Code Status: Full Code - Medication Management Discharge Medications: Medications to Continue on Transfer Enoxaparin [Lovenox 100 MG (*)] 100 mg SQ BID@04/10/17 [Last Taken 17:00] FLUoxetine [Prozac 10 MG (*)] 10 mg PO DAILY 04/10/17 [Last Taken 04/10/17 08:00 ] Gabapentin [Neurontin 300 MG (*)] 300 mg PO TID 04/10/17 [Last Taken 04/10/17 17 :00] Levothyroxine [Synthroid 112 mcg (*)] 112 mcg PO DAILY06 04/10/17 [Last Taken 07:00] OLANZapine [Zyprexa] 5 mg PO HS 04/10/17 [Last Taken 04/09/17 21:00] Pantoprazole Sodium [Protonix 40mg (*)] 40 mg PO DAILY 04/10/17 [Last Taken 11/21 08:00] oxyCODONE IR [Oxycodone Ir (*)] 5 - 10 mg PO Q4 PRN 04/10/17 [Last Taken 13:00] traMADol [Ultram 50 mg (*)] 50 mg PO Q8 PRN 04/10/17 [Last Taken Unknown] Acetaminophen [Tylenol 325mg (*)] 650 mg PO Q4 PRN 04/11/17 [Last Taken Unknown] Herbals/Supplements -Info Only 1 ea PO DAILY 04/11/17 [Last Taken 04/10/17 08:00 ] Loperamide HCl [Imodium 2 mg (*)] 2 mg PO PRN PRN 04/11/17 [Last Taken Unknown] Ondansetron [Ondansetron Odt] 8 mg PO Q8 PRN 04/11/17 [Last Taken 04/10/17 08:30 ] Assisted Antibiotics: vancomycin 1gm IV q24 hours Assisted Antibiotic Stop Date: 05/25/17 Discharge Medications: Refer to the Discharge Home Medication list for PRN reason. PICC Care - Routine: Yes (patient has port) - Orders Diet Texture: Regular Texture Diet, Thin Liquids - Follow Up Care Current Providers and Referrals: Patient,NotPresent [Unknown] - As per Instructions
[2017-05-16] MEDS: SENNOSIDES/DOCUSATE SODIUM TAB PO SCH ×2 (08:26→21:22)
[2017-05-16] MEDS: APIXABAN 5 MG TAB PO SCH ×2 (08:26→21:20)
[2017-05-16] MEDS: FLUoxetine 20 MG CAP PO SCH (08:26)
[2017-05-16] MEDS: OLANZapine 2.5 MG TAB PO SCH (08:26)
[2017-05-16] MEDS: PANTOPRAZOLE SODIUM 40 MG TAB PO SCH ×2 (08:26→21:20)
[2017-05-16] MEDS: VANCOMYCIN HCL/NORMAL SALINE 250 ML IV SCH (08:27)
--- NOTE | 2017-05-16 09:46 | SOAPPROG ---
CAM Progress Note Assessment/Plan: Assessment: 1. Recurrent cervical cancer with mutiple pelvic fistulae: drainage and IV abx. I cant tell how much if any active disease she has. She is comfortable now. She is in some discomfort but it is managable. Plan: Probable LTAC placement due to care needs. She was instructed to contact Dr. Joshua after she transfers care so that her primary oncologist can follow up. The question is whether she has residual disease playing a role in her fistulae. So far there is no visible or bx evidence of recurrence/ peristence. 05/13/17 10:37 05/14/17 12:59 05/15/17 07:27 05/16/17 09:42 Subjective: This is an unfortunate 47 you W with stage IIIB cervix (T3bN0 M1) G3. She was initially diagnosed at [facility] in August 2016 with ARF and [address] Dr. Hopkins and had taz ureteral obstruction. She had taxol/carbo/Joan on 10/13. She had a partial response and then had intracavitary therapy. That was complicated by multiple fistulae. She has had a DVT and has a IVC filter. Now we are managing her infections and abscesses and wound infection from an appy. She is stable and having trouble finding a comfortable position. She is very weak and anorectic. She is getting a little better. Objective: Vital Signs Temp Pulse Resp BP Pulse Ox 36.8 C 110 H 16 124/74 H 95 05/16/17 08:22 05/16/17 08:22 05/16/17 08:22 05/16/17 08:22 05/16/17 08:22 Microbiology 05/12/17 16:25 Gram Stain - Final Pelvis - Aspirate Laboratory Results 05/16/17 05:00 05/16/17 05:00 05/15/17 05/16/17 05/17/17 05:59 05:59 05:59 Intake Total 1811 2428 Output Total 2109 2024 400 Balance -299 403 -400 PT 21.4 SEC (12.0-15.0) H 05/15/17 05:20 INR 1.85 (0.83-1.16) H 05/15/17 05:20 Alert cheerful ICD10 Worksheet Patient Problems: Problems Problem Status Onset VRE (vancomycin-resistant Enterococci) Acute ~05/07/17 MRSA (methicillin resistant Staphylococcus aureus) Acute ~05/09/17 Infection due to carbapenem resistant Pseudomonas aeruginosa Acute ~05/07/17 Hemorrhage Acute Hypotension Acute
--- NOTE | 2017-05-16 10:49 | SOAPPROG ---
SOAP Progress Note Assessment/Plan: Assessment/Plan: 47 Y F metastatic cervical CA, high dose radiation therapy, hx DVT, now with IVC filter, s/p vaginal bleeding with lovenox, now s/p laparotomy with drainage and washout of abscess, partial cecectomy for perforated cecum with peritonitis. Nephrostomy tubes in place. Continue Seven drain and irrigation as ordered. May remove IR placed TAYE drain. S: no new complaints. O: alert, nad no wob rrr abd soft midline inc intact. I&D site with seropurulent drainage. no erythema, no induration. TAYE drain with scant thin clear fluid. Nephrostomy tubes in place. 05/16/17 10:46 Objective: Vital Signs Temp Pulse Resp BP Pulse Ox 36.8 C 110 H 16 124/74 H 95 05/16/17 08:22 05/16/17 08:22 05/16/17 08:22 05/16/17 08:22 05/16/17 08:22 Microbiology 05/12/17 16:25 Gram Stain - Final Pelvis - Aspirate Laboratory Results 05/16/17 05:00 05/16/17 05:00 05/15/17 05/16/17 05/17/17 05:59 05:59 05:59 Intake Total 1811 2428 Output Total 2109 2024 400 Balance -299 403 -400 PT 21.4 SEC (12.0-15.0) H 05/15/17 05:20 INR 1.85 (0.83-1.16) H 05/15/17 05:20 ICD10 Worksheet Patient Problems: Problems Problem Status Onset Hemorrhage Acute Hypotension Acute Infection due to carbapenem resistant Pseudomonas aeruginosa Acute ~05/07/17 MRSA (methicillin resistant Staphylococcus aureus) Acute ~05/09/17 VRE (vancomycin-resistant Enterococci) Acute ~05/07/17
--- NOTE | 2017-05-16 11:52 | PDPCPN ---
Palliative Care Progress Note Assessment/Plan: Referring provider: Dr Reyna Reason for consult: Complex medical decision making Symptom control HPI: Ronna Martinez is a 47 yo female with PMH stage IIIB cervical cancer dx 09/2016, DVT s/p IVC filter, depression, neuropathy, and morbid obesity admitted to the hospital for vaginal bleeding. Has been in a hospital or SNF since August for complications related to her cancer. Has completed treatment of chemo and RXT with no current evidence of disease but also not able to confirm HEATH due to multiple complications. Here in the hospital developed sepsis 2/2 perforated cecum s/p laparotomy with peritonitis and pelvic abscess s/p multiple drains. Hospitalization also complicated by polymicrobial colonization of nephrostomy tubes, hematuria, and deconditioning with weakness and poor appetite. Currently still receiving antibiotics for infection with drains still in place. On TPN for nutritional support and working a little with therapies. Palliative care consulted for complex medical decision making. Met with ronna this morning. She stated she feels like she is doing ok and believes she will get better. She has hopes of being independent again. She states the last time she felt independent was August before her dx. since then she has only been at home for a total of 5 weeks. She feels very weak and with shaky legs. She wants to get up but fears falling again or bleeding that is from her vagina. She feels very supported by the entire staff here and states there is nothing else she is needing to start her recovery. She shared her story of her dx and the complications that have gone on since then. she has a good understanding of her current medical situation. She also knows she has to eat but feels everytime she eats she vomits and so therefore she doesn't eat out of fear. Discussed if she does not improve what that might mean to her but she had never thought about this and did not want to answer. She feels she has good telephone support from her Uncle and Aunt. She wants to try to improve and get better at this time. Assessment: Physical: - Pain: occasional leg pain - on gabapentin 300mg QHS - has dilaudid RPN, oxy PRN and tramadol PRN - might also consider using tylenol for occasional leg soreness - Weakness: - PT/OT working with patient - encourage activity - suspect poor coping mech also to be contributing to fear and anxiety of falling and having more complications as a result of getting out of bed - Nausea/vomiting: - hx of morbid obesity s/p gastric bypass - has fears of vomiting which are contributing to lack of appetite - likely needs counseling support to continue to help with fears around eating and mobility - on zyprexa which can also be helpful for uncontrolled nausea. - on [place] reglan with phenergan PRN and scop patch - constipation - at risk with opiates on bowel regimen with senna and colace Emotional/psychological: Hx of depression - would benefit the most from weekly (at least) counseling support for coping mech as well as fears Advanced Care Planning: Is patient decisional?: Yes Code Status: Full MD POA: Her uncle Young is MDPOA Plan: CP LTAC when medically ready. Suggested having medical social consultant or counselor follow there for ongoing support. She has never thought about what she would want if she does not recover. 05/16/17 14:09 Subjective: I'm doing ok Objective: Social History: Never . Moved from [place] about 15 years ago due to her daughter's allergies. 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 Has 1 adult daughter. Uncle and Aunt involved in [place]. Also has a sister Anna involved. Medication list reviewed ROS: General: fatigue, weakness, weight loss ENT: negative Resp: negative GI: poor appetite, nausea : vaginal bleeding MS: occasional leg pain Skin: negative Neuro: negative Psych: anxiety, depression Functional assessment: PPS: 40% Functional status: dependent on ADLs, IADLs Vital Signs Temp Pulse Resp BP Pulse Ox 36.8 C 110 H 16 124/74 H 95 05/16/17 08:22 05/16/17 08:22 05/16/17 08:22 05/16/17 08:22 05/16/17 08:22 Microbiology 05/12/17 16:25 Gram Stain - Final Pelvis - Aspirate Laboratory Results 05/16/17 05:00 05/16/17 05:00 05/15/17 05/16/17 05/17/17 05:59 05:59 05:59 Intake Total 1 242 Output Total 2109 2024 400 Balance -299 403 -400 PT 21.4 SEC (12.0-15.0) H 05/15/17 05:20 INR 1.85 (0.83-1.16) H 05/15/17 05:20 Physical Exam - Physical Exam General Appearance: alert, no apparent distress Respiratory: No respiratory distress, No accessory muscle use Skin: normal color, warm/dry Extremities: pedal edema Neuro/Psych: alert, oriented x 3, other (flat affect) ICD10 Worksheet Patient Problems: Problems Problem Status Onset Hemorrhage Acute Hypotension Acute Infection due to carbapenem resistant Pseudomonas aeruginosa Acute ~05/07/17 MRSA (methicillin resistant Staphylococcus aureus) Acute ~05/09/17 Palliative care encounter Acute VRE (vancomycin-resistant Enterococci) Acute ~05/07/17 - ICD10 Problem Qualifiers (1) Palliative care encounter
--- NOTE | 2017-05-16 17:30 | HOSPPROG ---
Hospitalist Progress Note Assessment/Plan: DIAGNOSES: -ongoing nausea vomiting and inability to get more than a bite or two of food in before "gagging": As I review this with her today, this has actually been going on for months, starting in August and progressing now to this point. She states she was able only to get in "occaisional spoonful of peanut butter" in during the time before this admission. I have reviewed her most recent CT scan 05/09, and it is read as partial mechanical small bowel obstruction. I am not sure we could really differentiate between this and ileus or other cause of her distension, as there was no oral contrast. However, given her story obstruction seems fairly likely and should be assessd with SBFT (would need NG for that). I discussed this w her in detail, and recommended it; she is not sure she wants to have this but will consider it overnight. 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 of obstruction SUBJECTIVE: ongoing nausea and unable to eat from that, despite round the clock scheduled zofran, reglan remains very weak OBJECTIVE Vitals reviewed: Pulse is fairly variable, average heart rate decreasing but still at times heart rate up to 120, otherwise Stable without fever Exam: alert oriented but looks quite weak and fatigued wide awake with no change in mentation, no focal neuro sxs, pupils are round equal react normally to light subQ hematoma over L forehead looks notably better today, no other evidence of head/facial injury skin warm dry with marked pallor resps not labored lungs clear BSs heart regular abd not as soft and a bit more tender today, bowel sounds present limbs warm, no edema iv site ok Objective: Vital Signs Temp Pulse Resp BP Pulse Ox 36.8 C 106 H 18 112/80 98 05/16/17 16:00 05/16/17 16:00 05/16/17 16:00 05/16/17 16:00 05/16/17 16:00 Microbiology 05/12/17 16:25 Gram Stain - Final Pelvis - Aspirate Laboratory Results 05/16/17 05:00 05/16/17 05:00 05/15/17 05/16/17 05/17/17 06:59 06:59 06:59 Intake Total 1811 2428 Output Total 2110 2024 900 Balance -299 403 -900 PT 21.4 SEC (12.0-15.0) H 05/15/17 05:20 INR 1.85 (0.83-1.16) H 05/15/17 05:20 - Time Spent With Patient Time Spent with Patient: greater than 35 minutes Time Spent with Patient: Greater than 35 minutes spent on this patients care, greater than 50% of time spent counseling, educating, and coordinating care regarding the above mentioned plan. ICD10 Worksheet Patient Problems: Problems Problem Status Onset Hemorrhage Acute Hypotension Acute Infection due to carbapenem resistant Pseudomonas aeruginosa Acute ~05/07/17 MRSA (methicillin resistant Staphylococcus aureus) Acute ~05/09/17 Palliative care encounter Acute VRE (vancomycin-resistant Enterococci) Acute ~05/07/17
[2017-05-16] MEDS: TPN 1 EA BAG IV SCH (21:19)
[2017-05-16] MEDS: NS 1,000 ML IV SCH (21:19)
[2017-05-16] MEDS: GABAPENTIN 300 MG CAP PO SCH (21:20)
[2017-05-17] MEDS: oxyCODONE IR 5 MG TAB PO PRN ×2 (02:36→08:40)
[2017-05-17] MEDS: PROMETHAZINE HCL 25 MG/ML INJ IVP PRN (05:31)
[2017-05-17] MEDS: METOCLOPRAMIDE 10 MG/2 ML VIAL IVP SCH ×3 (05:32→17:35)
[2017-05-17] MEDS: ONDANSETRON DISINTEGRATING 4 MG TAB PO SCH ×3 (05:32→17:35)
[2017-05-17] MEDS: LEVOTHYROXINE 112 MCG TAB PO SCH (05:33)
[2017-05-17 06:35] LABS: ANION GAP 9 mEq/L (8-16); CALCIUM 8.2 mg/dL (8.5-10.4); CARBON DIOXIDE 25 mEq/l (22-31); CHLORIDE 103 mEq/L (97-110); CREATININE 0.8 mg/dL (0.6-1.0); GLOMERULAR FILTRATION RATE > 60; GLUCOSE 110 mg/dL (70-100); MAGNESIUM 1.8 mg/dL (1.6-2.3); POTASSIUM 4.3 mEq/L (3.5-5.2); SODIUM 137 mEq/L (134-144)
--- NOTE | 2017-05-17 07:12 | SOAPPROG ---
CAM Progress Note Assessment/Plan: Assessment: 1. Recurrent cervical cancer with mutiple pelvic fistulae: drainage and IV abx. I reviewed her old Ct and it mentions paraaortic LN and liver met and bone mets. If this is true that changes the situation and expectations. I will reopeat the CT today and seh is agreement. I cant tell how much if any active disease she has and whether there is a SBO. Symptomatically it is hard to tell. Plan: Where we go from here depends on whether she has metastatic disease and whether there is a SBO 05/13/17 10:37 05/14/17 12:59 05/15/17 07:27 05/16/17 09:42 05/17/17 08:08 Subjective: This is an unfortunate 47 you W with stage IIIB cervix (T3bN0 M1) G3. She was initially diagnosed at [facility] in August 2016 with ARF and saw Dr. Hopkins and had taz ureteral obstruction. She had taxol/carbo/Joan on 10/13. She had a partial response and then had intracavitary therapy. That was complicated by multiple fistulae. She has had a DVT and has a IVC filter. Now we are managing her infections and abscesses and wound infection from an appy. She is stable and having trouble finding a comfortable position. She is very weak and anorectic. She is getting a little better. Objective: Vital Signs Temp Pulse Resp BP Pulse Ox 36.9 C 111 H 16 108/78 95 05/17/17 04:00 05/17/17 04:00 05/17/17 04:00 05/17/17 04:00 05/17/17 04:00 Microbiology 05/12/17 16:25 Gram Stain - Final Pelvis - Aspirate Laboratory Results 05/16/17 05:00 05/17/17 05:29 05/16/17 05/17/17 05/18/17 05:59 05:59 05:59 Intake Total 2427 1215 Output Total 2024 1974 Balance 403 -759 PT 21.4 SEC (12.0-15.0) H 05/15/17 05:20 INR 1.85 (0.83-1.16) H 05/15/17 05:20 upper abdomen is flatter withe fullness in the lower abdomen. Bs are hypoactive. The abdomen is non tender. - Time Spent With Patient Time Spent With Patient: 30 min and reviewed the CTs ICD10 Worksheet Patient Problems: Problems Problem Status Onset Palliative care encounter Acute VRE (vancomycin-resistant Enterococci) Acute ~05/07/17 MRSA (methicillin resistant Staphylococcus aureus) Acute ~05/09/17 Infection due to carbapenem resistant Pseudomonas aeruginosa Acute ~05/07/17 Hemorrhage Acute Hypotension Acute
[2017-05-17] MEDS: VANCOMYCIN HCL/NORMAL SALINE 250 ML IV SCH (08:40)
[2017-05-17] MEDS: SENNOSIDES/DOCUSATE SODIUM TAB PO SCH ×3 (08:40→21:08)
[2017-05-17] MEDS: PANTOPRAZOLE SODIUM 40 MG TAB PO SCH ×2 (08:40→10:13)
[2017-05-17] MEDS: APIXABAN 5 MG TAB PO SCH ×3 (08:41→21:07)
[2017-05-17] MEDS: FLUoxetine 20 MG CAP PO SCH ×2 (08:41→10:12)
[2017-05-17] MEDS: OLANZapine 2.5 MG TAB PO SCH (10:14)
[2017-05-17] MEDS ORDERED: IOPAMIDOL (ISOVUE-300) 100 ML BTL ONE (10:23)
[2017-05-17] MEDS: HYDROmorphONE/DILAUDID 2 MG/ML INJ IVP PRN ×2 (13:06→17:35)
--- NOTE | 2017-05-17 16:43 | ASMTCMCOM ---
CM Note CM Note Notes: [facility] called to satte they have insurance auth for pt. Pt not ready for DC. Sent updates to [facility] Palliative ELEMENT WINDING MACHINE TENDER, Linnea, spoke with Dr Boogie about having a family conference with hospitalist and oncologist to determine pt's prognosis and so she and her aunt and uncle can make the best decision regarding her DC plan. C/M to follow. Date Signed: 05/17/2017 04:43 PM Electronically Signed By:Kelly Tarango LCSW
--- NOTE | 2017-05-17 17:57 | HOSPPROG ---
Hospitalist Progress Note Assessment/Plan: DIAGNOSES: -ongoing nausea vomiting and inability to get more than a bite or two of food in before "gagging": As I review this with her, this has actually been going on for months, starting in August and progressing now to this point. She states she was able only to get in "occaisional spoonful of peanut butter" in during the time before this admission. Reviewing her CT scan today I could not say that there is a obstruction based on that study but would still have some at least low suspicion for that is possibly. I simply cannot at this time explain her several months of being and unable to swallow and ingest foods and fluids. Today she again mentions a lot of gagging trying to drink even the contrast fluid for the CT scan and she did vomit a good bit of that. She has really had nothing else to eat today. At this point I will consult with Gastroenterology to see if they have any further ideas about this illness. I also will order a CT scan as she does have a distended gallbladder that was possibly with slight thickening of the wall in the CT scan to make sure she does not appear to have cholecystitis. 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 of obstruction SUBJECTIVE: ongoing nausea and unable to eat from that, despite round the clock scheduled zofran, reglan remains very weak Really no change in symptoms at all today OBJECTIVE Vitals reviewed: Pulse is fairly variable, average heart rate decreasing but still at times heart rate up to 120, otherwise Stable without fever Exam: alert oriented but looks quite weak and fatigued wide awake with no change in mentation, no focal neuro sxs, pupils are round equal react normally to light subQ hematoma over L forehead looks notably better today, no other evidence of head/facial injury skin warm dry with marked pallor resps not labored lungs clear BSs heart regular abd not as soft and a bit more tender today, bowel sounds present limbs warm, no edema iv site ok CT scan of abdomen done today, I reviewed the images and my interpretation: There is now fluid collection in both psoas muscles as well as the lateral pelvic wall muscle use. In addition there is a small hypodensity that shows that in today's CT in the lower portion of the right lobe of the liver. This was seen smaller 1 week ago but was not seen on her previous to CTs during this admission. This could be fluid or tumor. There is certainly still diffuse bowel distention but no notable sign to suggest any definite obstruction, the cause is not clearly seen. Ileus is possible. On the May 09 CT scan there was mention of some sclerotic lesions in the skeleton suggesting possible metastatic disease. These were not mentioned by today's radiologist on today's CT scan, but I do see some abnormalities in the spine and iliac bones. There is some adenopathy but this is not surprising given her overall picture is of uncertain etiology. Objective: Vital Signs Temp Pulse Resp BP Pulse Ox 36.9 C 104 H 20 131/87 H 97 05/17/17 04:00 05/17/17 17:06 05/17/17 17:06 05/17/17 17:06 05/17/17 17:06 Microbiology 05/12/17 16:25 Gram Stain - Final Pelvis - Aspirate Laboratory Results 05/16/17 05:00 05/17/17 05:29 05/16/17 05/17/17 05/18/17 06:59 06:59 06:59 Intake Total 2428 1216 Output Total 2024 1975 850 Balance 403 759 -850 PT 21.4 SEC (12.0-15.0) H 05/15/17 05:20 INR 1.85 (0.83-1.16) H 05/15/17 05:20 - Time Spent With Patient Time Spent with Patient: greater than 35 minutes Time Spent with Patient: Greater than 35 minutes spent on this patients care, greater than 50% of time spent counseling, educating, and coordinating care regarding the above mentioned plan. ICD10 Worksheet Patient Problems: Problems Problem Status Onset Hemorrhage Acute Hypotension Acute Infection due to carbapenem resistant Pseudomonas aeruginosa Acute ~05/07/17 MRSA (methicillin resistant Staphylococcus aureus) Acute ~05/09/17 Palliative care encounter Acute VRE (vancomycin-resistant Enterococci) Acute ~05/07/17
[2017-05-17] MEDS: GABAPENTIN 300 MG CAP PO SCH (21:07)
[2017-05-17] MEDS: TPN 1 EA BAG IV SCH (21:08)
[2017-05-18] MEDS: ONDANSETRON DISINTEGRATING 4 MG TAB PO SCH ×4 (00:14→18:14)
[2017-05-18] MEDS: HYDROmorphONE/DILAUDID 2 MG/ML INJ IVP PRN ×3 (00:25→12:22)
[2017-05-18] MEDS: METOCLOPRAMIDE 10 MG/2 ML VIAL IVP SCH ×4 (00:25→18:14)
[2017-05-18] MEDS: NS 1,000 ML IV SCH (00:31)
[2017-05-18] MEDS: LEVOTHYROXINE 112 MCG TAB PO SCH (06:04)
--- NOTE | 2017-05-18 06:49 | SOAPPROG ---
SOKENDAL Progress Note Assessment/Plan: Assessment: 1. Recurrent cervical cancer with mutiple pelvic fistulae: drainage and IV abx. I told her today that the CT and U/S demonstrate the lesion in the liver looks like a metastasis as does the LEFT Paraaortic LNs. I told her that it is not appropriate to consider chemotherapy now due to her KPS and active infection. I asked her how aggressive she wants to be at this point, and she says says she still wants to have aggressive interventions. That means that she wants to have more drainage procedures if needed. Realistically she is not curable and the prognosis from cancer WO active infection would probably be in months. Her goals of controlling infection and restarting chemotherapy would be unfortunately hard to achieve. Since for the time being she wants to continue IV Abx, i would probably put another drain in the ilacus abscess. I think it is reasonable for palliative care to discuss with her goal setting in light of the new information about worsening cancer. She does NOT have a SBO. Plan: Where we go from here depends on her goals. 05/13/17 10:37 05/14/17 12:59 05/15/17 07:27 05/16/17 09:42 05/17/17 08:08 05/18/17 07:11 Subjective: This is an unfortunate 47 you W with stage IIIB cervix (T3bN0 M1) G3. She was initially diagnosed at [facility] in August 2016 with ARF and saw Dr. Hopkins and had taz ureteral obstruction. She had taxol/carbo/Joan on 10/13. She had a partial response and then had intracavitary therapy. That was complicated by multiple fistulae. She has had a DVT and has a IVC filter. Now we are managing her infections and abscesses and wound infection from an appy. She is stable and having trouble finding a comfortable position. She is very weak and anorectic. Today I told her what the CT reveals. Objective: Vital Signs Temp Pulse Resp BP Pulse Ox 36.9 C 114 H 16 133/83 H 96 05/18/17 04:37 05/18/17 04:37 05/18/17 04:37 05/18/17 04:37 05/18/17 04:37 Microbiology 05/12/17 16:25 Gram Stain - Final Pelvis - Aspirate Laboratory Results 05/16/17 05:00 05/17/17 05:29 05/17/17 05/18/17 05/19/17 05:59 05:59 05:59 Intake Total 4840 222 8909 Output Total 4000 3045 Balance -759 -1370 1414 PT 21.4 SEC (12.0-15.0) H 05/15/17 05:20 INR 1.85 (0.83-1.16) H 05/15/17 05:20 Alert. Responded appropriately to the information today. Lungs clear. abdmen non tender to palpation. Moderate distension. ICD10 Worksheet Patient Problems: Problems Problem Status Onset Hemorrhage Acute Hypotension Acute Infection due to carbapenem resistant Pseudomonas aeruginosa Acute ~05/07/17 MRSA (methicillin resistant Staphylococcus aureus) Acute ~05/09/17 Palliative care encounter Acute VRE (vancomycin-resistant Enterococci) Acute ~05/07/17
[2017-05-18] MEDS: oxyCODONE IR 5 MG TAB PO PRN ×2 (07:50→18:14)
[2017-05-18] MEDS: OLANZapine 2.5 MG TAB PO SCH (08:31)
[2017-05-18] MEDS: APIXABAN 5 MG TAB PO SCH ×2 (08:31→20:47)
[2017-05-18] MEDS: FLUoxetine 20 MG CAP PO SCH (08:31)
[2017-05-18] MEDS: VANCOMYCIN HCL/NORMAL SALINE 250 ML IV SCH (08:31)
[2017-05-18] MEDS: PANTOPRAZOLE SODIUM 40 MG TAB PO SCH ×2 (08:31→20:47)
[2017-05-18] MEDS: SENNOSIDES/DOCUSATE SODIUM TAB PO SCH ×2 (08:31→22:13)
--- NOTE | 2017-05-18 10:03 | SOAPPROG ---
SOAP Progress Note Assessment/Plan: Assessment: 47yo female s/p laparotomy, drainage of pelvic abscess, partial cecectomy and appendectomy 2/2 perforated colon with peritonitis and free air. Hx of cervical cancer on chemo/ rad originally presented with obstructed ureters and vaginal bleeding on lovenox. Hx of DVT, now with IVC filter. Nephrostomy tube in place. S/p bedside I&D of subfascial abdominal wall abscess 05/09. [place] drain in place. Orders in for bid irrigation. Cont wound care with BID lencho irrigation and dressing changes IR TAYE drain removed. Discussed c Dr. Gamez S: No complaints O: Afebrile pt lying in bed, NAD No increased WOB Midline incision well healed Dressing with moderate seropurulent drainage from lencho. No erythema/ induration. Objective: Vital Signs Temp Pulse Resp BP Pulse Ox 37.1 C 116 H 16 118/78 94 05/18/17 08:36 05/18/17 08:36 05/18/17 08:36 05/18/17 08:36 05/18/17 08:36 Microbiology 05/12/17 16:25 Gram Stain - Final Pelvis - Aspirate Laboratory Results 05/16/17 05:00 05/17/17 05:29 05/17/17 05/18/17 05/19/17 05:59 05:59 05:59 Intake Total 7800 498 6141 Output Total 6953 1925 Balance -759 -1379 1414 PT 21.4 SEC (12.0-15.0) H 05/15/17 05:20 INR 1.85 (0.83-1.16) H 05/15/17 05:20 ICD10 Worksheet Patient Problems: Problems Problem Status Onset Hemorrhage Acute Hypotension Acute Infection due to carbapenem resistant Pseudomonas aeruginosa Acute ~05/07/17 MRSA (methicillin resistant Staphylococcus aureus) Acute ~05/09/17 Palliative care encounter Acute VRE (vancomycin-resistant Enterococci) Acute ~05/07/17
--- NOTE | 2017-05-18 11:46 | GCON ---
[f rep st] CONSULTATION DATE OF CONSULTATION: 05/18/2017 REFERRING PHYSICIAN: Yusuf Boogie MD REASON FOR CONSULTATION: Dysphagia. Dear Dr. Boogie: Thank you very kindly for asking me to evaluate this patient in consultation for a chief complaint of nausea, vomiting, and an inability to eat or drink. This has been progressively worsening since Aug. She is an unfortunate 47-year-old female with advanced cervical cancer, whose most severe comp lication on this hospitalization was found to be a cecal perforation requiring laparotomy that has be en associated with peritonitis and pelvic abscess requiring drainage. She has been on TPN for nutrit ional support due to what is thought to be a postoperative ileus. The patient has had a gastric bypa ss over 10 years ago for obesity management. She describes a successful bypass with weight loss and did not have any problems with nausea, vomiting, abdominal pain, or regurgitation up until August. She does not feel her chemotherapy or radiation treatment has in any way affected her ability to eat and swallow. She describes problems with regurgitation of food and vomiting that occur early in a me al. She will take 2 or 3 bites of food. She says there is no oral pain or difficulty chewing. She is able to transition the food bolus easily into her esophagus. She does not feel like the food stic ks in her esophagus but she says after a couple of bites she has a feeling of fullness and then there is regurgitation of the food and spontaneous vomiting that occurs. There is no abdominal pain with eating. She denies any heartburn or chest pain either. I am asked to assist with further evaluation and management. PAST MEDICAL HISTORY: Includes advanced cervical cancer status post chemotherapy, radiation. A DVT with IVC filter placement. Ureteral obstruction bilaterally from malignancy. Bilateral nephrostomy tube placements. Multidrug-resistant chronic urinary infection. Cecal perforation with surgery. Di arrhea-predominant irritable bowel syndrome. Morbid obesity status post gastric bypass. PAST SURGICAL HISTORY: A cecal resection. Multiple drain placements for pelvic abscess. IVC filter placement. Nephrostomy tube placement. Ureteral stent placement bilaterally. Port placement to th e right chest. Gastric bypass likely Claudia-en-Y, but the surgical type is unknown. MEDICATIONS ON ADMISSION: Were Lovenox, oxycodone, Protonix, Prozac, Synthroid, tramadol, gabapentin , and Zyprexa. Also probiotic. ALLERGIES: None. FAMILY HISTORY: Negative for gastrointestinal disorders such as heartburn, esophageal cancer, peptic ulcer, gallbladder disease, pancreatic illness, or colon cancer. SOCIAL HISTORY: The patient resides in a halfway facility. She was recently admitted from [facility]. No tobacco, alcohol, or substance abuse. CURRENT MEDICATIONS: Include: 1. DuoNeb. 2. Alteplase for her port. 3. Eliquis. 4. Bisacodyl. 5. Prozac. 6. Neurontin. 7. Dilaudid. 8. Lactulose. 9. Synthroid. 10. Milk of magnesia. 11. Reglan. 12. Zofran. 13. Protonix. 14. Phenergan p.r.n. 15. Scopolamine patch. 16. Senokot. 17. Tramadol. 18. Vancomycin. REVIEW OF SYSTEMS: CONSTITUTIONAL: She feels weak, tired, fatigued. No fever, chills. She is uncl ear about any weight loss. She has no appetite and feels nauseated fairly much chronically HEENT: S he has left-sided headache from a recent fall with a small trauma to her forehead. She says her mout h feels dry. There is no oral pain, no throat pain. There is no pain with swallowing. No neck pain or tenderness. PULMONARY: Denies shortness of breath or cough. CARDIOVASCULAR: Denies chest pain or palpitations. GI: She reports having history of chronic diarrhea that she says is related to ir ritable bowel syndrome. She denies any constipation, melena, hematochezia, or hematemesis. There is no abdominal pain. She feels her abdominal surgical site is healing well. RHEUMATOLOGIC: No joint pain. DERMATOLOGIC: No pruritus, hives, or rash. NEURO: She feels alert. She is little sleepy b ut describes feeling oriented. She denies any confusion. She denies any focal paresthesias. She do es feel diffusely weak. GENITOURINARY: She has bilateral nephrostomy tubes to gravity bag drainage. She says there is some minor discomfort around the tube insertion sites but nothing new or differen t. PHYSICAL EXAM: VITAL SIGNS: Blood pressure is 118/78, pulse is 116, oxygenation is 94% on room air, temperature is 37.1, respirations are 16. GENERAL: Chronically ill-appearing female. Obese but in no acute distress. HEENT: She has a hematoma on her left forehead with some bruising in the perior bital area. The oropharynx is clear. The mucous membranes are actually moist without thrush. The t rachea is midline. No lymphadenopathy. NECK: Supple. PULMONARY: Good air exchange anteriorly. C ARDIOVASCULAR: Regular rate and rhythm without murmur. ABDOMEN: Centrally a bit distended with luiza e tympany. The abdomen is compressible. There is no tenderness. I did not appreciate organomegaly or ascites. There is a previous midline surgical site that is well healed. There is a lower abdomin al incision that is bandaged and is clean. EXTREMITIES: No deformity or joint swelling. SKIN: Wit hout jaundice or rash. NEURO: She is alert to person, place, and time. Speech is normal and fluid. Affect seems depressed. Motor is nonfocal. GYNECOLOGIC: She has nephrostomy tubes to drainage wi th an roselyn-colored urine. LABORATORY DATA: Includes white blood count 10.7, hematocrit is 26.3 with an MCV of 94, platelets ar e 195. INR is 1.85 with a PT of 21.4. PTT is 54.5. Sodium 137, potassium 4.3, chloride 103, bicarb graham 25, BUN 33, with a creatinine of 0.8. Calcium 8.2, glucose 110, AST 13, ALT 24, alkaline phosp hatase 110, total bilirubin 0.3. She has had a lipase on May 10 which is 12. IMAGING: Includes an abdominal ultrasound on May 17, 2017: This shows a distended gallbladder w ith stones. No evidence of gallbladder wall thickening. The common bile duct is normal at 4 mm. Th ere is a subcapsular 1.8 x 1.7 x 1.4 cm right lobe liver lesion that is nondescript on ultrasound. M oderate right-sided hydronephrosis with cortical thinning. The left collecting system is normal. Th e spleen is unremarkable. IVC is normal caliber. Pancreas is not visualized. CT scan of the abdome n on May 17, 2017: This is performed with IV contrast. Patient is unable to drink oral contrast . There is a hypodense collection next to the right iliopsoas that has reaccumulated after removal o f the drainage catheter. There is also a hypodense collection on the left lateral pelvic sidewall. Packing material is seen in the anterior pelvic abdominal wall collection. There is a right-sided le karsten in the right lobe suspicious for metastasis. There is periaortic lymphadenopathy and left exter nal iliac lymphadenopathy that has increased in size since April. Bilateral percutaneous nephros neelam stents are in place and seen normally positioned. There is a markedly thickened bladder with a Alejandro in place. There is a fistula present which is known and unchanged. There are dilat ed small bowel loops, likely ileus. The gallbladder is distended, but without intrahepatic biliary d ilatation or extrahepatic dilatation. IMPRESSION: 1. Nausea with vomiting. 2. Regurgitation of food. 3. Anorexia. 4. Metastatic cervical cancer complicated by a fistula and pelvic abscess with recent cec al perforation and intervention. 5. Small-bowel ileus. 6. History of gastric bypass for morbid obesity. RECOMMENDATIONS: 1. I believe an upper endoscopy would be most helpful to evaluate the likely Claudia-en-Y gastric bypas s to see if there is an anatomic reason for her regurgitation of food and inability to eat. 2. The patient is not willing to proceed with endoscopy today although she is not opposed to having the procedure done at some point during this hospitalization, although she could not describe to me w hen she might be willing to do it. 3. Further options of upper GI imaging or ongoing supportive care were also presented. I do not bel ieve upper GI imaging would be successful given her inability to tolerate oral intake and the recent failure of her even being able to drink oral contrast with the CT scan. Therefore, I think endoscopy would still be the best modality. 4. She is being supported nutritionally with TPN which should continue. She can eat and drink what she likes in the interim for comfort. 5. We will continue to follow along with the patient to see when she might entertain the concept of endoscopy to evaluate her symptoms. 6. Please call with any other urgent questions in the interim. /[id number]/MODL
[2017-05-18] MEDS: SCOPOLAMINE HYDROBROMIDE 1 MG/3 DAYS PATCH TD SCH (16:26)
--- NOTE | 2017-05-18 17:07 | HOSPPROG ---
Hospitalist Progress Note Assessment/Plan: DIAGNOSES: -ongoing nausea vomiting and inability to get more than a bite or two of food in before "gagging", a chronic symptom complex starting 10 months ago; no obstruction of bowel, no other readily identifiable cause, no cholecystitis. ? if there is esophageal pathology, ? psychologic component. I have reviewed with Dr Quiroga and he will see pt in consultation today, consider EGD. She at present does not want to consider a barium swallow; at this time she remains completely dependent on TPN for fluid and food -Status post cecal perforation with abscess, status post cecal resection appendectomy -apparent recurrence of psoas abscess but now bilateral -Bilateral hydronephrosis from metastasis, s/p placement and replacement of bilateral percutaneous nephrostomies -Vaginal bleeding so far requiring 8 units of packed red cells, 3 units FFP, 2 units platelets -Right leg DVT, status post placement of IVC filter -Post hemorrhagic anemia -Acute encephalopathy, multifactorial -Severe protein calorie malnutrition -Vesicle vaginal fistula -Stage IV cervical cancer PLANS: -will review after Dr Quiroga sees her -I have spoken with the palliative care team, and with Dr Smiley. It is really very hard to get a true handle on what she wants us to do, or how much further intervention she wants. She has repeatedly stated even today that she wants to have all aggressive measures taken, and that her goal is to get back to her normal life. However she has declined a number of recommended procedures , and delcines to really engage in discussion of her prognosis. I have reivewed with her in detail repeatedly that we really are not finding anything treatable in order to fix her swallowing issues. She tells me she wants to do what is necessary to fix this but again has declined important parts of the work up needed. SUBJECTIVE: ongoing nausea and unable to eat from that, despite round the clock scheduled zofran, anahy remains very weak Really no change in symptoms at all today still barely able to walk OBJECTIVE Vitals reviewed: still some tachycardia, no fever, otherwise ok Exam: alert oriented wide awake with no change in mentation, no focal neuro sxs, pupils are round equal react normally to light subQ hematoma over L forehead looks notably better today, no other evidence of head/facial injury skin warm dry with marked pallor resps not labored lungs clear BSs heart regular abd not as soft and a bit more tender today, bowel sounds present limbs warm, no edema iv site ok Objective: Vital Signs Temp Pulse Resp BP Pulse Ox 36.7 C 107 H 16 115/92 H 96 05/18/17 15:42 05/18/17 15:42 05/18/17 15:42 05/18/17 15:42 05/18/17 15:42 Microbiology 05/12/17 16:25 Gram Stain - Final Pelvis - Aspirate Laboratory Results 05/16/17 05:00 05/17/17 05:29 05/17/17 05/18/17 05/19/17 06:59 06:59 06:59 Intake Total 1216 1964 50 Output Total 1975 1925 850 Balance -759 39 -800 PT 21.4 SEC (12.0-15.0) H 05/15/17 05:20 INR 1.85 (0.83-1.16) H 05/15/17 05:20 ICD10 Worksheet Patient Problems: Problems Problem Status Onset Hemorrhage Acute Hypotension Acute Infection due to carbapenem resistant Pseudomonas aeruginosa Acute ~05/07/17 MRSA (methicillin resistant Staphylococcus aureus) Acute ~05/09/17 Palliative care encounter Acute VRE (vancomycin-resistant Enterococci) Acute ~05/07/17
--- NOTE | 2017-05-18 18:16 | PDHOSCONS ---
Hospitalist Consult Hospitalist Consult: FAMILY CARE CONFERENCE I attended family care conference today with nursing, palliative care team, casework manager, and his brother and sister. We reviewed medical condition, lack of progress, new finding of likely metastatic recurrence of cancer, prognosis, the patients previous decision making strategies and chioces, and where to go forwrd from here. Many questions asked and answered all around. > 70 minutes in conference total
--- NOTE | 2017-05-18 19:07 | ASMTCMCOM ---
CM Note CM Note Notes: Met with pt's uncle Young and aunt Mitali today to discuss pt's plan and goals of care going forward as well as DC plan. Dr Smiley talked with pt early in the day about her probably cancer progression. Palliative team of [facility] also spoke with pt about goals of care if she only had a few months to live. Pt wanted to have family mtg to discuss this. Prior to mtg with pt, viscosity tester Ian and Dr Boogie discussed pt's medical situation with pt's aunt and uncle . Also present were chaplain Kary Jacobson and this CM. Dr Boogie said that pt's inability to eat is his biggest concern. He would like pt to agree to an upper endo tomorrow. Aunt and uncle wanted to understand if there is any further treatment for pt's cancer. Answer was probably not. Due to pt's need for TPN at this point, it is likely that a LTAC is still the most appropriate place for her [place] unless she chooses to go with hospice. Meeting then held in pts' room. Everyone else was present except for MD and charge authorizer. Pt stated her goals were to make sure her dtr Cheyeene, dogs and house were taken care of. She also understand that she will most likely need LTAC if she remains on TPN. Either way, she knows she will likely remain in some institution due to her medical needs. Spoke with Barbara at [facility] who stated they can still take pt within the next few days without need for ins reauth. C/M to follow. Date Signed: 05/18/2017 05:36 PM Electronically Signed By:Kelly Tarango LCSW
[2017-05-18] MEDS: TPN 1 EA BAG IV SCH (20:47)
[2017-05-18] MEDS: GABAPENTIN 300 MG CAP PO SCH (20:47)
[2017-05-19] MEDS: NS 1,000 ML IV SCH (00:18)
[2017-05-19] MEDS: HYDROmorphONE/DILAUDID 2 MG/ML INJ IVP PRN ×3 (00:20→14:07)
[2017-05-19] MEDS: METOCLOPRAMIDE 10 MG/2 ML VIAL IVP SCH ×4 (00:20→17:05)
[2017-05-19] MEDS: ONDANSETRON DISINTEGRATING 4 MG TAB PO SCH ×4 (00:21→17:05)
[2017-05-19] MEDS: ALTEPLASE 2 MG VIAL IVP PRN (04:23)
[2017-05-19] MEDS: LEVOTHYROXINE 112 MCG TAB PO SCH (05:33)
[2017-05-19 06:13] LABS: ANION GAP 7 mEq/L (8-16); CALCIUM 8.1 mg/dL (8.5-10.4); CARBON DIOXIDE 25 mEq/l (22-31); CHLORIDE 103 mEq/L (97-110); CREATININE 0.8 mg/dL (0.6-1.0); GLOMERULAR FILTRATION RATE > 60; GLUCOSE 108 mg/dL (70-100); MAGNESIUM 1.7 mg/dL (1.6-2.3); POTASSIUM 4.4 mEq/L (3.5-5.2); SODIUM 135 mEq/L (134-144)
--- NOTE | 2017-05-19 07:44 | SOAPPROG ---
SOKENDAL Progress Note Assessment/Plan: Assessment: 1. Recurrent cervical cancer with mutiple pelvic fistulae: drainage and IV abx. She understands that the lesion in the liver looks like a metastasis as does the LEFT Paraaortic LNs. I told her that it is not appropriate to consider chemotherapy now due to her KPS and active infection. I asked her how aggressive she wants to be at this point, and she says says she still wants to have aggressive interventions. That means that she wants to have more drainage procedures if needed. She wants to go to a LTAC. Realistically she is not curable and the prognosis from cancer WO active infection would probably be in months. Her goals of controlling infection and restarting chemotherapy would be unfortunately hard to achieve. Since for the time being she wants to continue IV Abx, i would probably put another drain in the ilacus abscess. I think it is reasonable for palliative care to discuss with her goal setting in light of the new information about worsening cancer. She does NOT have a SBO. But she agrees to have an EGD to eval for gastic outlet obstruction from old gastrojejunostomy for weight loss. Plan: EGD and LTAC. 05/13/17 10:37 05/14/17 12:59 05/15/17 07:27 05/16/17 09:42 05/17/17 08:08 05/18/17 07:11 05/19/17 07:42 Subjective: This is an unfortunate 47 you W with stage IIIB cervix (T3bN0 M1) G3. She was initially diagnosed at [facility] in August 2016 with ARF and saw Dr. Hopkins and had taz ureteral obstruction. She had taxol/carbo/Joan on 10/13. She had a partial response and then had intracavitary therapy. That was complicated by multiple fistulae either from disease or radiation. She has had a DVT and has a IVC filter. Now we are managing her infections and abscesses and wound infection from an appy. She is stable and having trouble finding a comfortable position. She is very weak and anorectic. She had a family meeting yesterday and has made some decisions about her care. Objective: Vital Signs Temp Pulse Resp BP Pulse Ox 37.0 C 110 H 16 116/83 H 96 05/19/17 04:37 05/19/17 04:37 05/19/17 04:37 05/19/17 04:37 05/19/17 04:37 Microbiology 05/12/17 16:25 Gram Stain - Final Pelvis - Aspirate Laboratory Results 05/16/17 05:00 05/19/17 05:30 05/18/17 05/19/17 05/20/17 05:59 05:59 05:59 Intake Total 550 2189 2134 Output Total 1925 2200 Balance -1375 -11 2134 PT 21.4 SEC (12.0-15.0) H 05/15/17 05:20 INR 1.85 (0.83-1.16) H 05/15/17 05:20 Distended in the upper abdomen. ICD10 Worksheet Patient Problems: Problems Problem Status Onset Palliative care encounter Acute VRE (vancomycin-resistant Enterococci) Acute ~05/07/17 MRSA (methicillin resistant Staphylococcus aureus) Acute ~05/09/17 Infection due to carbapenem resistant Pseudomonas aeruginosa Acute ~05/07/17 Hemorrhage Acute Hypotension Acute
[2017-05-19] MEDS: FLUoxetine 20 MG CAP PO SCH (08:13)
[2017-05-19] MEDS: APIXABAN 5 MG TAB PO SCH (08:13)
[2017-05-19] MEDS: OLANZapine 2.5 MG TAB PO SCH (08:13)
[2017-05-19] MEDS: SENNOSIDES/DOCUSATE SODIUM TAB PO SCH ×3 (08:14→22:10)
[2017-05-19] MEDS: VANCOMYCIN HCL/NORMAL SALINE 250 ML IV SCH (08:14)
[2017-05-19] MEDS: PANTOPRAZOLE SODIUM 40 MG TAB PO SCH ×2 (08:41→21:22)
[2017-05-19] MEDS: oxyCODONE IR 5 MG TAB PO PRN ×3 (10:35→21:23)
--- NOTE | 2017-05-19 13:13 | SOAPPROG ---
SOAP Progress Note Assessment/Plan: Assessment: 47yo female s/p laparotomy, drainage of pelvic abscess, partial cecectomy and appendectomy 2/2 perforated colon with peritonitis and free air. Hx of cervical cancer on chemo/ rad originally presented with obstructed ureters and vaginal bleeding on lovenox. Hx of DVT, now with IVC filter. Nephrostomy tube in place. S/p bedside I&D of subfascial abdominal wall abscess 05/09. [place] drain in place. Orders in for bid irrigation. Cont wound care with BID lencho irrigation and dressing changes. Discussed c Dr. Gamez S: Complaining of nausea. O: Afebrile pt lying in bed, NAD No increased WOB Midline incision well healed Dressing with moderate seropurulent drainage from lencho. No erythema/ induration. 05/19/17 13:12 Objective: Vital Signs Temp Pulse Resp BP Pulse Ox 37.6 C 112 H 16 124/76 H 95 05/19/17 08:00 05/19/17 08:00 05/19/17 08:00 05/19/17 08:00 05/19/17 08:00 Microbiology 05/12/17 16:25 Gram Stain - Final Pelvis - Aspirate Laboratory Results 05/16/17 05:00 05/19/17 05:30 05/18/17 05/19/17 05/20/17 05:59 05:59 05:59 Intake Total 550 2189 2134 Output Total 1925 2200 300 Balance -1375 -11 1834 PT 21.4 SEC (12.0-15.0) H 05/15/17 05:20 INR 1.85 (0.83-1.16) H 05/15/17 05:20 ICD10 Worksheet Patient Problems: Problems Problem Status Onset Hemorrhage Acute Hypotension Acute Infection due to carbapenem resistant Pseudomonas aeruginosa Acute ~05/07/17 MRSA (methicillin resistant Staphylococcus aureus) Acute ~05/09/17 Palliative care encounter Acute VRE (vancomycin-resistant Enterococci) Acute ~05/07/17
--- NOTE | 2017-05-19 15:17 | PDPCPN ---
Palliative Care Progress Note Assessment/Plan: HPI: Ronna Martinez is a 47 yo female with PMH stage IIIB cervical cancer dx 09/2016, DVT s/p IVC filter, depression, neuropathy, and morbid obesity admitted to the hospital for vaginal bleeding. Has been in a hospital or SNF since August for complications related to her cancer. Has completed treatment of chemo and RXT with no current evidence of disease but also not able to confirm HEATH due to multiple complications. Here in the hospital developed sepsis 2/2 perforated cecum s/p laparotomy with peritonitis and pelvic abscess s/p multiple drains. Hospitalization also complicated by polymicrobial colonization of nephrostomy tubes, hematuria, and deconditioning with weakness and poor appetite. Currently still receiving antibiotics for infection with drains still in place. On TPN for nutritional support and working a little with therapies. Palliative care consulted for complex medical decision making. Ronna seen this afternoon. She states she is feeling nauseated today but doing ok otherwise. She would like to undergo EGD and a drain if needed and hopes to get it over with as soon as possible. She would like to be closer to her family which is what means the most to her. She understands her prognosis is limited but has goals of setting up estate planning and therefore would like some life prolonging measures in order to accomplish this goal. Assessment: Physical: - Pain: occasional leg pain - on gabapentin 300mg QHS - has dilaudid RPN, oxy PRN and tramadol PRN - might also consider using tylenol for occasional leg soreness - Weakness: - PT/OT working with patient - encourage activity - family support is very important for her - Nausea/vomiting: - hx of morbid obesity s/p gastric bypass - has fears of vomiting which are contributing to lack of appetite - on zyprexa which can also be helpful for uncontrolled nausea. - on rancho reglan with phenergan PRN and scop patch - constipation - at risk with opiates on bowel regimen with senna and colace Emotional/psychological: Hx of depression - would benefit the most from weekly (at least) counseling support for coping mech as well as fears Advanced Care Planning: Is patient decisional?: Yes Code Status: Full MD POA: Her uncle Young is MDPOA Plan: [facility] when medically ready. She does want an EGD as well as additional drain if needed medically. She is hoping to get to LTAC soon so she can be closer to her family which is what matters most to her at this time. Subjective: I'm feeling nauseated Objective: Vital Signs Temp Pulse Resp BP Pulse Ox 37.1 C 132 H 16 130/100 H 95 05/19/17 12:00 05/19/17 12:00 05/19/17 12:00 05/19/17 12:00 05/19/17 12:00 Microbiology 05/12/17 16:25 Gram Stain - Final Pelvis - Aspirate Anaerobic Culture - Final Laboratory Results 05/16/17 05:00 05/19/17 05:30 05/18/17 05/19/17 05/20/17 05:59 05:59 05:59 Intake Total 550 2189 2134 Output Total 1925 2200 775 Balance -1375 -11 1359 PT 21.4 SEC (12.0-15.0) H 05/15/17 05:20 INR 1.85 (0.83-1.16) H 05/15/17 05:20 Physical Exam - Physical Exam General Appearance: alert, no apparent distress Respiratory: No respiratory distress, No accessory muscle use Skin: normal color, warm/dry Extremities: No pedal edema Neuro/Psych: alert, oriented x 3, other (flat affect) ICD10 Worksheet Patient Problems: Problems Problem Status Onset Hemorrhage Acute Hypotension Acute Infection due to carbapenem resistant Pseudomonas aeruginosa Acute ~05/07/17 MRSA (methicillin resistant Staphylococcus aureus) Acute ~05/09/17 Palliative care encounter Acute VRE (vancomycin-resistant Enterococci) Acute ~05/07/17 - ICD10 Problem Qualifiers (1) Palliative care encounter
[2017-05-19] MEDS: traMADol 50 MG TAB PO PRN (17:17)
--- NOTE | 2017-05-19 17:25 | SOAPPROG ---
SOAP Progress Note Assessment/Plan: Assessment: Plan: 05/19/17 17:23 A/P 1. Nausea- with dysphagia/regurgitation> History of RNY gastric bypass. Etiology ? Anastomotic stricture versus ulceration versus gastroparesis versus other? Recommend EGD for further evaluation. The risks, benefits,and alternatives of the procedure were discussed in detail with her. The risks, benefits, and alternatives were discussed with her in detail. The risks of infection, bleeding , perforation, and sedation were discussed. Due to her advanced metastatic cervical cancer with ureteral obstruction as well as other comorbidities, she is at an increased risk of sedation. Will recommend anesthesiology support. Subjective: cc: Follow up nausea Still complains of nausea. Objective: Vital Signs Temp Pulse Resp BP Pulse Ox 36.7 C 104 H 16 136/81 H 96 05/19/17 16:47 05/19/17 16:47 05/19/17 16:47 05/19/17 16:47 05/19/17 16:47 Microbiology 05/12/17 16:25 Gram Stain - Final Pelvis - Aspirate Anaerobic Culture - Final Laboratory Results 05/16/17 05:00 05/19/17 05:30 05/18/17 05/19/17 05/20/17 05:59 05:59 05:59 Intake Total 550 2189 2134 Output Total 1925 2200 775 Balance -1375 -11 1359 PT 21.4 SEC (12.0-15.0) H 05/15/17 05:20 INR 1.85 (0.83-1.16) H 05/15/17 05:20 Physical Exam - Physical Exam General Appearance: alert, no apparent distress EENT: No scleral icterus (R) (+ forehead bruise), No scleral icterus (L) Neck: normal inspection Respiratory: normal breath sounds, No crackles, No rales, No rhonchi Cardiac/Chest: regular rate, rhythm, No bradycardia, No tachycardia, No diastolic murmur, No systolic murmur Abdomen: soft, distended, other (+ surgical scar), No guarding, No rebound Skin: normal color, warm/dry Extremities: pedal edema Neuro/Psych: normal mood/affect, oriented x 3, 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
--- NOTE | 2017-05-19 17:48 | ASMTCMCOM ---
CM Note CM Note Notes: Met with pt this morning and she wants to get an EGD tomorrow. Pt also needs to get a drain placed before DC and Dr Boogie will schedule that. Pt indicated to C/M and palliative team that she is ready to go to LTAC. She wants to be closer to her aunt and uncle. Updated [place]. They have insurance auth through Monday 05/21. After that they will need to get reauth. Spoke with pts aunt Mitali twice today. She was updated on plan and next steps. Faxed last two days of MD notes to [facility]. C/M to follow. Date Signed: 05/19/2017 05:48 PM Electronically Signed By:Kelly Tarango LCSW
--- NOTE | 2017-05-19 18:35 | HOSPPROG ---
Hospitalist Progress Note Assessment/Plan: DIAGNOSES: -ongoing nausea vomiting and inability to get more than a bite or two of food in before "gagging", a chronic symptom complex starting 10 months ago; no obstruction of bowel, no other readily identifiable cause, no cholecystitis. ? if there is esophageal pathology, or related to her previous gastric bypass surgery?, ? psychologic component. Another possibility would be chemotherapy related side effects including neuropathic mechanism. The plan is for EGD scheduled for tomorrow May 20, which she is now consenting to -Status post cecal perforation with abscess, status post cecal resection appendectomy -bilateral psoas abscesses, the right-sided has been previously drain entering removed, but there are now reaccumulation of that and presence of fluid in the left; after discussion over 2 days she is now consenting to drainage of these and so that is scheduled for tomorrow -Bilateral hydronephrosis from metastasis, s/p placement and replacement of bilateral percutaneous nephrostomies -Vaginal bleeding so far requiring 8 units of packed red cells, 3 units FFP, 2 units platelets -Right leg DVT, status post placement of IVC filter -Post hemorrhagic anemia -Acute encephalopathy, multifactorial -Severe protein calorie malnutrition -Vesicle vaginal fistula -Stage IV cervical cancer now with evidence on most recent CT scan of a metastatic liver lesion, probably metastatic adenopathy, and some spine lesions as well; prior to this scan she had been without any direct evidence of recurrent disease PLANS: -holding Eliquis for now with pending procedures tomorrow -NPO after midnight -plan for both EGD and placement of bilateral psoas drains with Interventional Radiology tomorrow -the hope is then to trying get her to LTAC in the next day or 2 beyond this. -after much conversation will including family conferences with palliative care etc in the last few days she again is telling us that she would like to continue with aggressive care, would like to try to prolong life, would like to trying get back home and get his normal lifestyle as she can. She does understand that she probably has been recurrent metastatic disease and would not likely tolerate chemotherapy and so has a limited prognosis overall in the long run SUBJECTIVE: ongoing nausea and unable to eat from that, despite round the clock scheduled zofran, anahy remains very weak Really no change in symptoms at all today still barely able to walk OBJECTIVE Vitals reviewed: still some tachycardia, no fever, otherwise ok Exam: alert oriented wide awake with no change in mentation, no focal neuro sxs, pupils are round equal react normally to light subQ hematoma over L forehead looks notably better today, no other evidence of head/facial injury skin warm dry with marked pallor resps not labored lungs clear BSs heart regular abd not as soft and a bit more tender today, bowel sounds present limbs warm, no edema iv site ok Objective: Vital Signs Temp Pulse Resp BP Pulse Ox 36.7 C 104 H 16 136/81 H 96 05/19/17 16:47 05/19/17 16:47 05/19/17 16:47 05/19/17 16:47 05/19/17 16:47 Microbiology 05/12/17 16:25 Gram Stain - Final Pelvis - Aspirate Anaerobic Culture - Final Laboratory Results 05/16/17 05:00 05/19/17 05:30 05/18/17 05/19/17 05/20/17 06:59 06:59 06:59 Intake Total 1964 2909 Output Total 1925 2200 775 Balance 39 709 -775 PT 21.4 SEC (12.0-15.0) H 05/15/17 05:20 INR 1.85 (0.83-1.16) H 05/15/17 05:20 - Time Spent With Patient Time Spent with Patient: greater than 35 minutes Time Spent with Patient: Greater than 35 minutes spent on this patients care, greater than 50% of time spent counseling, educating, and coordinating care regarding the above mentioned plan. ICD10 Worksheet Patient Problems: Problems Problem Status Onset Hemorrhage Acute Hypotension Acute Infection due to carbapenem resistant Pseudomonas aeruginosa Acute ~05/07/17 MRSA (methicillin resistant Staphylococcus aureus) Acute ~05/09/17 Palliative care encounter Acute VRE (vancomycin-resistant Enterococci) Acute ~05/07/17
[2017-05-19 20:23] LABS: PROTIME(PATIENT) 22.8 SEC (12.0-15.0)
[2017-05-19] MEDS: GABAPENTIN 300 MG CAP PO SCH (21:22)
[2017-05-19] MEDS: TPN 1 EA BAG IV SCH (21:24)
[2017-05-20] MEDS: ONDANSETRON DISINTEGRATING 4 MG TAB PO SCH ×4 (00:10→18:45)
[2017-05-20] MEDS: METOCLOPRAMIDE 10 MG/2 ML VIAL IVP SCH ×4 (00:10→18:45)
[2017-05-20] MEDS: traMADol 50 MG TAB PO PRN ×3 (00:10→20:51)
[2017-05-20] MEDS: LEVOTHYROXINE 112 MCG TAB PO SCH (05:24)
[2017-05-20] MEDS: oxyCODONE IR 5 MG TAB PO PRN ×2 (05:24→20:31)
[2017-05-20 05:53] LABS: MEAN CELL HEMOGLOBIN 31.5 pg (27.9-34.1); MEAN CELL HEMOGLOBIN CONCENTR. 33.3 g/dL (32.4-36.7); MEAN CELL VOLUME 94.5 fL (81.5-99.8); RED BLOOD CELL COUNT 2.54 10^6/uL (4.18-5.33); RED CELL DISTRIBUTION WIDTH 14.8 % (11.5-15.2)
[2017-05-20 06:04] LABS: INR 1.79 (0.83-1.16); PROTIME(PATIENT) 20.9 SEC (12.0-15.0)
[2017-05-20] MEDS: OLANZapine 2.5 MG TAB PO SCH (09:58)
[2017-05-20] MEDS: FLUoxetine 20 MG CAP PO SCH (09:58)
[2017-05-20] MEDS: PANTOPRAZOLE SODIUM 40 MG TAB PO SCH ×2 (09:58→20:28)
[2017-05-20] MEDS: VANCOMYCIN HCL/NORMAL SALINE 250 ML IV SCH (10:01)
[2017-05-20] MEDS: SENNOSIDES/DOCUSATE SODIUM TAB PO SCH (10:12)
--- NOTE | 2017-05-20 12:28 | PDANEPAE ---
ANE Past Medical History - Cardiovascular History Hx Hypertension: No Hx Arrhythmias: No Hx Chest Pain: No Hx Coronary Artery / Peripheral Vascular Disease: No Hx CHF / Valvular Disease: No Hx Palpitations: No - Pulmonary History Hx COPD: No Hx Asthma/Reactive Airway Disease: No Hx Recent Upper Respiratory Infection: No Hx Oxygen in Use at Home: No Hx Sleep Apnea: No Sleep Apnea Screening Result - Last Documented: Negative - Neurologic History Hx Cerebrovascular Accident: No Hx Seizures: No Hx Dementia: No - Endocrine History Hx Diabetes: No Hypothyroid: No Hyperthyroid: No Obesity: moderate - Renal History Hx Renal Disorders: Yes Renal History Comment: bilateral ureteral obstruction. Bilateral nephrostomy tubes - Liver History Hx Hepatic Disorders: No - Neurological & Psychiatric Hx Hx Neurological and Psychiatric Disorders: Yes Neurological / Psychiatric History Comment: acute mental status changes overnight, Bipolar - Cancer History Hx Cancer: Yes Cancer History Comment: cervical cancer s/p chemo radiation - Congenital Disorder History Hx Congenital Disorders: No - GI History Hx Gastrointestinal Disorders: No - Other Health History Other Health History: history of DVT s/p IVC filter - Chronic Pain History Chronic Pain: Yes - Surgical History Prior Surgeries: nephrostomy tubes, IVC filter ANE Review of Systems Review of Systems: ANE Patient History - Allergies Allergies/Adverse Reactions: No Known Allergies Allergy (Unverified 04/10/17 22:48) - Home Medications Home Medications: Enoxaparin [Lovenox 100 MG (*)] 100 mg SQ BID@,04/10/17 [Last Taken 17:00] FLUoxetine [Prozac 10 MG (*)] 10 mg PO DAILY 04/10/17 [Last Taken 04/10/17 08:00 ] Gabapentin [Neurontin 300 MG (*)] 300 mg PO TID 04/10/17 [Last Taken 04/10/17 17 :00] Levothyroxine [Synthroid 112 mcg (*)] 112 mcg PO DAILY06 04/10/17 [Last Taken 07:00] OLANZapine [Zyprexa] 5 mg PO HS 04/10/17 [Last Taken 04/09/17 21:00] Pantoprazole Sodium [Protonix 40mg (*)] 40 mg PO DAILY 04/10/17 [Last Taken 11/21 08:00] oxyCODONE IR [Oxycodone Ir (*)] 5 - 10 mg PO Q4 PRN 04/10/17 [Last Taken 13:00] traMADol [Ultram 50 mg (*)] 50 mg PO Q8 PRN 04/10/17 [Last Taken Unknown] Acetaminophen [Tylenol 325mg (*)] 650 mg PO Q4 PRN 04/11/17 [Last Taken Unknown] Herbals/Supplements -Info Only 1 ea PO DAILY 04/11/17 [Last Taken 04/10/17 08:00 ] Loperamide HCl [Imodium 2 mg (*)] 2 mg PO PRN PRN 04/11/17 [Last Taken Unknown] Ondansetron [Ondansetron Odt] 8 mg PO Q8 PRN 04/11/17 [Last Taken 04/10/17 08:30 ] - Smoking Hx Smoking Status: Never smoked - Alcohol Use Alcohol Use: Sober ANE Labs/Vital Signs - Labs Result Diagrams: 05/20/17 05:45 05/19/17 05:30 - Vital Signs Blood Pressure: 122/85 Heart Rate: 110 Respiratory Rate: 16 O2 Sat (%): 96 Height: 167.64 cm Weight: 78.1 kg ANE Physical Exam - Airway Neck exam: FROM Mallampati Score: Class 1 Mouth exam: normal dental/mouth exam - Pulmonary Pulmonary: no respiratory distress - Cardiovascular Cardiovascular: regular rate and rhythym - ASA Status ASA Status: III ANE Anesthesia Plan Anesthesia Plan: GA with mask
[2017-05-20] MEDS ORDERED: PROPOFOL/EMULSION 500 MG/50 ML BOTTLE IV ONE (12:31)
[2017-05-20] MEDS ORDERED: FLUMAZENIL 0.5 MG/5 ML MDV IVP ONE (12:35)
[2017-05-20] MEDS ORDERED: NALOXONE HCL 0.4 MG/ML INJ ONE (12:35)
[2017-05-20] MEDS ORDERED: MIDAZOLAM 2 MG/2 ML VIAL ONE (12:35)
[2017-05-20] MEDS ORDERED: fentaNYL 100 MCG/2 ML INJ ONE (12:36)
--- NOTE | 2017-05-20 12:49 | GIREPORT ---
[facility] Surgical Services - Endoscopy Department Patient Name: GERTRUDE DIEGO Procedure Date: 05/20/2017 12:23 PM Patient Type: Inpatient Attending MD/ ER Physician: Dee Pinedo MD Procedure: Upper GI endoscopy Indications: Epigastric abdominal pain, Early satiety, Nausea, Weight loss Providers: Dee Pinedo MD Medicines: Sedation Administered by an Anesthesia Professional Complications: No immediate complications. Description of Procedure: After obtaining informed consent, the endoscope was passed under direct vision. Throughout the procedure, the patient's blood pressure, pulse, and oxygen saturations were monitored continuous ly. The Endoscope was introduced through the mouth, and advanced to the jejunum. The upper GI endosc opy was accomplished without difficulty. The patient tolerated the procedure well. Findings: The examined esophagus was normal. Evidence of a Claudia-en-Y gastrojejunostomy was found. The gastrojejunal anastomosis was character ized by healthy appearing mucosa. This was traversed. The lbnwv-to-qbykgjs limb was characterized by healthy appearing mucosa. The jejunojejunal anastomosis was characterized by healthy appearing mucosa. The oaksmikj-in-fpzlirv limb was not examined as it could not be found. Diffuse mild inflammation characterized by congestion (edema) and erythema was found in the enti re examined stomach. Biopsies were taken with a cold forceps for histology. Estimated Blood Loss: Estimated blood loss: none. Post Op Diagnosis: - Normal esophagus. - Claudia-en-Y gastrojejunostomy with gastrojejunal anastomosis characteri zed by healthy appearing mucosa. - Gastritis. Biopsied. Recommendation: - [facility]. - Await pathology results. Attending Participation: I personally performed the entire procedure. ,Electronically Sigened by Dee Pinedo MD> Dee Pinedo MD 05/20/2017 12:48:28 PM Number of Addenda: 0 Note Initiated On: 05/20/2017 12:23 PM [email or web address]
--- NOTE | 2017-05-20 12:55 | SUROPNOTE ---
[facility] Operative Report - Surgery BRIEF EGD NOTE (full report to follow) INDICATION: nausea, vomiting COMPLICATIONS: none acutely MEDS: per anesthesia FINDINGS 1. normal esophagus 2. Claudia-En-Y anatomy - mild gastritis in gastric pouch - bx'd - normal anastomosis, without stenosis or ulceration - normal loops of small bowel IMPRESSION/RECS 1. Nausea/Vomiting/Early satiety - no etiology discovered with EGD - continue supportive care - await gastric bx, although suspect will be unhelpful - symptoms likely multifactorial in the face of multiple acute/chronic and severe overlapping medical conditions - will sign off, call with questions
[2017-05-20] MEDS ORDERED: ONDANSETRON 4 MG/2 ML VIAL ONE (13:03)
[2017-05-20] MEDS ORDERED: HYDROmorphONE/DILAUDID 1 MG/ML INJ ONE (14:21)
[2017-05-20] MEDS: HYDROmorphONE/DILAUDID 2 MG/ML INJ IVP PRN ×2 (14:27→20:52)
--- NOTE | 2017-05-20 14:31 | POSTOPPROG ---
Post Op Note Date of Operation: 05/20/17 Surgeon: Hung Whitt Anesthesia: IV Sedation Pre-op Diagnosis: Recurrent right psoas abscess Post-op Diagnosis: same Indication: abscess drainage needed Procedure: Percutaneous CT-guided drainage of right psoas abscess Findings: Debris-laden fluid Inf/Abcess present in the surg proc area at time of surgery?: Yes Depth: Deep Incisional (Fascial) (right psoas) EBL: Minimal Drains: Other (10F multisidehole pigtail drainage tube) Specimen(s): 20 ml debris laden fluid sent for microbiology.
--- NOTE | 2017-05-20 16:35 | HOSPPROG ---
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 Then she developed an acute abdomen and was found to have peritonitis, pelvic abscess, perforated cecum and she underwent ex-lap. She also had ureteral obstruction (for which her previous ureteral stents failed)/ hydronephrosis. She was also found to have vesicular vaginal fistula, anasarca, psoas abscess bilaterally, abd wall abscess. ASSESSMENT/PLAN: Bilateral psoas abscess, status post drains -recurrent PCT drainage done today by IR for recurrent fluid collection on R psoas. -FU Cx results. Abd wall abscess, s/p I&D 05/09/17 --Cx grew MRSA - per Infectious disease - IV daily vanco 1gm to continue until 05/25/2017. Peritonitis and pelvic abscess, 2/2 perf'd cecum, s/p cecal resection/ appendectomy 04/14/2017. -s/p ex lap Uteretal obstruction/hydronephrosis, s/p b/l nephrostomy tubes -tubes revised 05/11/17. Recommended for routine replacement after 8-[address] IV cervical cancer, s/p Tx -previously thought to be in remission, but found to have abnl lesion in liver suspected to be a metastasis vs abscess. -Also has abnl paraaortic/iliac lymphadenopathy, suspected to be a/w spreading cancer. -had Caio sleeve for XRT brachyotherapy - was removed on 05/09/17. Vesiculovaginal fistula Anasarca, resolved Anemia Thrombocytopenia -status post multiple transfusions -8uPRBC, 3uFFP, 2uPlt -Check AM labs. Gen weakness, fatigue, FTT -Pt has nausea after 2 bites, meds not helping much. -EGD unremarkable, shows prior Claudia-en-Y anatomy. -Likely 2/2 inflammation from infections, cancer, blood clots. Severe protein calorie malnutrition Hypomagnesemia -on TPN which has mag replacement. -encouraged p.o. intake Recurrent DVT, sp R iliac vein stent -Eliquis Metabolic encephalopathy -stable. May be a little worse today w/ anesthesia from procedures. VTE prophylaxis: Restart Eliquis tonight. Code Status: Full code Status: Inpatient for greater than 2 midnight stay. Disposition: Inpatient with discharge to LTAC anticipated in the next 1-2 days. ____ SUBJECTIVE: Patient continues to have some abdominal pain, she just went for her IR drain her psoas abscess today. She also had an EGD. She admits to delirious thoughts-she thought she was making a hamburger until she realized there is no hamburger in her hands. OBJECTIVE: Physical Exam: General: The patient is fatigued appearing female who is alert and in no acute distress. HEENT: normocephalic, extraocular movements intact, conjunctivae clear. Mucous membranes moist. +temporal muscle wasting. Neck: trachea midline, no visible masses. CV: +S1/S2, RRR, no MRG. Resp: unlabored, CTAB no RRW. Abd: soft and mildly distended. Bowel sounds hypoactive. Mildly tender over recent abdominal incision, dressing CDI. Abdominal drains noted. Urostomy drains noted. Musculoskeletal: Reduced muscle tone/bulk. Neuro: cranial nerves II XII grossly intact. Intact gross motor and sensory function. Psych: Appropriate mood and appropriate affect. Skin: + pallor. No petechiae. Heme/lymph: No peripheral edema at bilateral lower extremities. Labs/Imaging/Other Tests: Personally reviewed/interpreted. Objective: Vital Signs Temp Pulse Resp BP Pulse Ox 36.9 C 106 H 18 119/82 H 97 05/20/17 14:58 05/20/17 14:58 05/20/17 14:58 05/20/17 14:58 05/20/17 14:58 Microbiology 05/12/17 16:25 Gram Stain - Final Pelvis - Aspirate Anaerobic Culture - Final Laboratory Results 05/20/17 05:45 05/19/17 05:30 05/19/17 05/20/17 05/21/17 05:59 05:59 05:59 Intake Total 2189 4169 400 Output Total 2200 2400 1075 Balance -11 1769 -675 PT 20.9 SEC (12.0-15.0) H 05/20/17 05:45 INR 1.79 (0.83-1.16) H 05/20/17 05:45 - Time Spent With Patient Time Spent with Patient: greater than 35 minutes Time Spent with Patient: Greater than 35 minutes spent on this patients care, greater than 50% of time spent counseling, educating, and coordinating care regarding the above mentioned plan. ICD10 Worksheet Patient Problems: Problems Problem Status Onset Hemorrhage Acute Hypotension Acute Infection due to carbapenem resistant Pseudomonas aeruginosa Acute ~05/07/17 MRSA (methicillin resistant Staphylococcus aureus) Acute ~05/09/17 Palliative care encounter Acute VRE (vancomycin-resistant Enterococci) Acute ~05/07/17
--- NOTE | 2017-05-20 17:28 | ASMTCMCOM ---
CM Note CM Note Notes: Recieved call from Mitali at [facility] but was with another patient and unable to talk at that time. C/M returned call but never heard back from Mitali. Please try to reach her again at [facility] number. Case management will continue to follow. Date Signed: 05/20/2017 05:27 PM Electronically Signed By:PETE Teixeira
[2017-05-20] MEDS: GABAPENTIN 300 MG CAP PO SCH (20:28)
[2017-05-20] MEDS: TPN 1 EA BAG IV SCH (20:31)
[2017-05-20] MEDS: PROMETHAZINE HCL 25 MG/ML INJ IVP PRN (20:49)
[2017-05-21] MEDS: ONDANSETRON DISINTEGRATING 4 MG TAB PO SCH ×4 (00:55→17:37)
[2017-05-21] MEDS: METOCLOPRAMIDE 10 MG/2 ML VIAL IVP SCH ×4 (00:55→17:37)
[2017-05-21] MEDS: SENNOSIDES/DOCUSATE SODIUM TAB PO SCH ×3 (00:57→22:08)
[2017-05-21] MEDS: LEVOTHYROXINE 112 MCG TAB PO SCH (05:32)
[2017-05-21] MEDS: oxyCODONE IR 5 MG TAB PO PRN (05:37)
[2017-05-21] MEDS: FLUoxetine 20 MG CAP PO SCH (10:18)
[2017-05-21] MEDS: PANTOPRAZOLE SODIUM 40 MG TAB PO SCH ×2 (10:18→22:07)
[2017-05-21] MEDS: OLANZapine 2.5 MG TAB PO SCH (10:19)
[2017-05-21] MEDS: traMADol 50 MG TAB PO SCH ×2 (10:19→22:06)
[2017-05-21] MEDS: APIXABAN 5 MG TAB PO SCH ×2 (10:19→22:07)
[2017-05-21 10:55] LABS: % IMMATURE GRANULYOCYTES 1.6 % (0.0-1.1); ABSOLUTE IMMATURE GRANULOCYTES 0.14 10^3/uL (0.00-0.10); ADD DIFF? NO; ADD MORPH? NO; ADD SCAN? NO; ATYPICAL LYMPHOCYTE FLAG 0 (0-99); FRAGMENT RBC FLAG 0 (0-99); HEMATOCRIT 23.7 % (38.0-47.0); HEMOGLOBIN 7.6 g/dL (12.6-16.3); LEFT SHIFT FLG 20 (0-99); LIPEMIA HEMOLYSIS FLAG 80 (0-99); MEAN CELL HEMOGLOBIN 30.5 pg (27.9-34.1); MEAN CELL HEMOGLOBIN CONCENTR. 32.1 g/dL (32.4-36.7); MEAN CELL VOLUME 95.2 fL (81.5-99.8); MEAN PLATELET VOLUME 9.7 fL (8.7-11.7); PLATELET CLUMPS FLAG 0 (0-99); PLATELET COUNT 177 10^3/uL (150-400); RED BLOOD CELL COUNT 2.49 10^6/uL (4.18-5.33); RED CELL DISTRIBUTION WIDTH 14.8 % (11.5-15.2)
[2017-05-21 11:08] LABS: ANION GAP 10 mEq/L (8-16); CALCIUM 7.8 mg/dL (8.5-10.4); CARBON DIOXIDE 25 mEq/l (22-31); CHLORIDE 102 mEq/L (97-110); CREATININE 0.8 mg/dL (0.6-1.0); GLOMERULAR FILTRATION RATE > 60; GLUCOSE 103 mg/dL (70-100); MAGNESIUM 1.8 mg/dL (1.6-2.3); POTASSIUM 4.3 mEq/L (3.5-5.2); SODIUM 137 mEq/L (134-144)
--- NOTE | 2017-05-21 11:13 | SOAPPROG ---
SOAP Progress Note Assessment/Plan: Assessment: 1. Cervical cancer, s/p chemoRT, now with likely liver and periaortic LN mets 2. Vesicovaginal fistula 3. Intestinal perforation (?related to Avastin therapy) 4. Psoas abscess 5. Nausea and vomiting. Unclear etiology. EGD normal. 6. DVT 7. Anemia of chronic inflammation / chemo Plan: - continue abx and other supportive care - continue Eliquis for DVT - likely transfer to LTAC - will defer additional chemo for now. Pt should f/u with her oncologist, Dr. Joshua, at [facility], to discuss further treatment. Although prognosis is poor, pt still says she is interested in further chemotherapy. 05/21/17 11:10 Subjective: c/o bone pain, neuropathy in toes. Objective: exam: thin, chronically ill Lungs CTAB CV RRR no MGR Abd: R drainage catheter. nontender, nondistended Ext: 1+ edema Neuro: a+ox3. Vital Signs Temp Pulse Resp BP Pulse Ox 37.1 C 113 H 15 115/77 95 05/21/17 07:26 05/21/17 07:26 05/21/17 07:26 05/21/17 07:26 05/21/17 07:26 Microbiology 05/20/17 13:45 Gram Stain - Final Pelvis - Aspirate Laboratory Results 05/21/17 10:30 05/21/17 10:30 05/20/17 05/21/17 05/22/17 05:59 05:59 05:59 Intake Total 4169 2379 Output Total 2400 1895 Balance 1769 484 PT 20.9 SEC (12.0-15.0) H 05/20/17 05:45 INR 1.79 (0.83-1.16) H 05/20/17 05:45 ICD10 Worksheet Patient Problems: Problems Problem Status Onset Hemorrhage Acute Hypotension Acute Infection due to carbapenem resistant Pseudomonas aeruginosa Acute ~05/07/17 MRSA (methicillin resistant Staphylococcus aureus) Acute ~05/09/17 Palliative care encounter Acute VRE (vancomycin-resistant Enterococci) Acute ~05/07/17
[2017-05-21] MEDS: VANCOMYCIN HCL/NORMAL SALINE 250 ML IV SCH (11:44)
--- NOTE | 2017-05-21 17:32 | HOSPPROG ---
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 Then she developed an acute abdomen and was found to have peritonitis, pelvic abscess, perforated cecum and she underwent ex-lap. She also had ureteral obstruction (for which her previous ureteral stents failed)/ hydronephrosis. She was also found to have vesicular vaginal fistula, anasarca, psoas abscess bilaterally, abd wall abscess. ASSESSMENT/PLAN: Bilateral psoas abscess, status post drains -recurrent PCT drainage done 05/20 by IR for recurrent fluid collection on R psoas. -FU Cx results. Abd wall abscess, s/p I&D 05/09/17 --Cx grew MRSA - per Infectious disease - IV daily vanco 1gm to continue until 05/25/2017. Peritonitis and pelvic abscess, 2/2 perf'd cecum, s/p cecal resection/ appendectomy 04/14/2017. -s/p ex lap Uteretal obstruction/hydronephrosis, s/p b/l nephrostomy tubes -tubes revised 05/11/17. Recommended for routine replacement after 8-[address] IV cervical cancer, s/p Tx -previously thought to be in remission, but found to have abnl lesion in liver suspected to be a metastasis vs abscess. -Also has abnl paraaortic/iliac lymphadenopathy, suspected to be a/w spreading cancer. -had Caio sleeve for XRT brachyotherapy - was removed on 05/09/17. Vesiculovaginal fistula Anasarca, resolved Anemia Thrombocytopenia -status post multiple transfusions -8uPRBC, 3uFFP, 2uPlt -Check AM labs. Gen weakness, fatigue, FTT -Pt has nausea after 2 bites, meds not helping much. -EGD on05/20 unremarkable, shows prior Claudia-en-Y anatomy. -Likely 2/2 inflammation from infections, cancer, blood clots. Severe protein calorie malnutrition Hypomagnesemia -on TPN which has mag replacement. -encouraged p.o. intake Recurrent DVT, sp R iliac vein stent -Eliquis Metabolic encephalopathy -improved. VTE prophylaxis: Eliquis. Code Status: Full code Status: Inpatient for greater than 2 midnight stay. Disposition: Inpatient with discharge to LTAC anticipated in the next 1-2 days. ____ SUBJECTIVE: Patient continues to have some abdominal pain, she just went for her IR drain her psoas abscess today. She also had an EGD. She admits to delirious thoughts-she thought she was making a hamburger until she realized there is no hamburger in her hands. OBJECTIVE: Physical Exam: General: The patient is fatigued appearing female who is alert and in no acute distress. HEENT: normocephalic, extraocular movements intact, conjunctivae clear. Mucous membranes moist. +temporal muscle wasting. Neck: trachea midline, no visible masses. CV: +S1/S2, RRR, no MRG. Resp: unlabored, CTAB no RRW. Abd: soft and mildly distended. Bowel sounds hypoactive. Mildly tender over recent abdominal incision, dressing CDI. Abdominal drains noted. Urostomy drains noted. Musculoskeletal: Reduced muscle tone/bulk. Neuro: cranial nerves II XII grossly intact. Intact gross motor and sensory function. Psych: Appropriate mood and appropriate affect. Skin: + pallor. No petechiae. Heme/lymph: No pitting peripheral edema at bilateral lower extremities. Labs/Imaging/Other Tests: Personally reviewed/interpreted. Objective: Vital Signs Temp Pulse Resp BP Pulse Ox 36.5 C 110 H 16 143/87 H 98 05/21/17 16:20 05/21/17 16:20 05/21/17 16:20 05/21/17 16:20 05/21/17 16:20 Microbiology 05/20/17 13:45 Gram Stain - Final Pelvis - Aspirate Laboratory Results 05/21/17 10:30 05/21/17 10:30 05/20/17 05/21/17 05/22/17 05:59 05:59 05:59 Intake Total 4169 2379 Output Total 2400 1895 550 Balance 1769 484 -550 PT 20.9 SEC (12.0-15.0) H 05/20/17 05:45 INR 1.79 (0.83-1.16) H 05/20/17 05:45 ICD10 Worksheet Patient Problems: Problems Problem Status Onset Hemorrhage Acute Hypotension Acute Infection due to carbapenem resistant Pseudomonas aeruginosa Acute ~05/07/17 MRSA (methicillin resistant Staphylococcus aureus) Acute ~05/09/17 Palliative care encounter Acute VRE (vancomycin-resistant Enterococci) Acute ~05/07/17
[2017-05-21] MEDS: SCOPOLAMINE HYDROBROMIDE 1 MG/3 DAYS PATCH TD SCH (17:36)
[2017-05-21] MEDS: TPN 1 EA BAG IV SCH (20:48)
[2017-05-21] MEDS: GABAPENTIN 300 MG CAP PO SCH (22:07)
[2017-05-22] MEDS: METOCLOPRAMIDE 10 MG/2 ML VIAL IVP SCH ×4 (00:09→17:35)
[2017-05-22] MEDS: ONDANSETRON DISINTEGRATING 4 MG TAB PO SCH ×4 (00:09→17:34)
[2017-05-22] MEDS: ALTEPLASE 2 MG VIAL IVP PRN ×2 (00:41→00:42)
[2017-05-22] MEDS: HYDROmorphONE/DILAUDID 2 MG/ML INJ IVP PRN (02:19)
[2017-05-22] MEDS: LEVOTHYROXINE 112 MCG TAB PO SCH (05:36)
[2017-05-22 06:16] LABS: % IMMATURE GRANULYOCYTES 1.3 % (0.0-1.1); ABSOLUTE IMMATURE GRANULOCYTES 0.12 10^3/uL (0.00-0.10); ADD DIFF? NO; ADD MORPH? NO; ADD SCAN? NO; ATYPICAL LYMPHOCYTE FLAG 10 (0-99); FRAGMENT RBC FLAG 0 (0-99); HEMATOCRIT 22.7 % (38.0-47.0); HEMOGLOBIN 7.3 g/dL (12.6-16.3); LEFT SHIFT FLG 10 (0-99); LIPEMIA HEMOLYSIS FLAG 80 (0-99); MEAN CELL HEMOGLOBIN 30.4 pg (27.9-34.1); MEAN CELL HEMOGLOBIN CONCENTR. 32.2 g/dL (32.4-36.7); MEAN CELL VOLUME 94.6 fL (81.5-99.8); MEAN PLATELET VOLUME 9.9 fL (8.7-11.7); PLATELET CLUMPS FLAG 20 (0-99); PLATELET COUNT 174 10^3/uL (150-400); RED CELL DISTRIBUTION WIDTH 14.7 % (11.5-15.2)
[2017-05-22 06:25] LABS: INR 1.97 (0.83-1.16); PROTIME(PATIENT) 22.5 SEC (12.0-15.0)
[2017-05-22 06:26] LABS: APTT 47.6 SEC (23.0-38.0)
[2017-05-22 06:44] LABS: ALANINE AMINOTRANSFERASE 26 IU/L (9-52); ALBUMIN 2.4 g/dL (3.5-5.0); ALKALINE PHOSPHATASE 124 IU/L (38-126); ANION GAP 10 mEq/L (8-16); ASPARTATE AMINOTRANSFERASE 11 IU/L (14-46); BILIRUBIN,TOTAL 0.3 mg/dL (0.1-1.4); CALCIUM 7.8 mg/dL (8.5-10.4); CARBON DIOXIDE 23 mEq/l (22-31); CHLORIDE 103 mEq/L (97-110); CREATININE 0.8 mg/dL (0.6-1.0); GLOMERULAR FILTRATION RATE > 60; GLUCOSE 106 mg/dL (70-100); MAGNESIUM 1.8 mg/dL (1.6-2.3); POTASSIUM 4.1 mEq/L (3.5-5.2); SODIUM 136 mEq/L (134-144); TOTAL PROTEIN 5.5 g/dL (6.3-8.2); TRIGLYCERIDE 156 mg/dL (35-135)
--- NOTE | 2017-05-22 08:46 | SOAPPROG ---
SOAP Progress Note Assessment/Plan: Assessment: 47yo female s/p laparotomy, drainage of pelvic abscess, partial cecectomy and appendectomy 2/2 perforated colon with peritonitis and free air. Hx of cervical cancer on chemo/ rad originally presented with obstructed ureters and vaginal bleeding on lovenox. Hx of DVT, now with IVC filter. Nephrostomy tube in place. S/p bedside I&D of subfascial abdominal wall abscess 05/09. [place] drain in place. Orders in for bid irrigation. Cont wound care with BID lencho irrigation and dressing changes. Possible lencho drain removal within the next couple of days as drainage appears to have slowed. Discussed c Dr. Gamez S: No complaints. O: Afebrile pt lying in bed, NAD No increased WOB Midline incision well healed Dressing with minimal drainage from lencho. No erythema/induration. TAYE drain with serous output Objective: Vital Signs Temp Pulse Resp BP Pulse Ox 37.2 C 108 H 14 119/72 96 05/22/17 07:25 05/22/17 07:25 05/22/17 07:25 05/22/17 07:25 05/22/17 07:25 Microbiology 05/20/17 13:45 Gram Stain - Final Pelvis - Aspirate Laboratory Results 05/22/17 05:45 05/22/17 05:45 05/21/17 05/22/17 05/23/17 05:59 05:59 05:59 Intake Total 2379 620 Output Total 1895 1625 Balance 484 -1005 PT 22.5 SEC (12.0-15.0) H 05/22/17 05:45 INR 1.97 (0.83-1.16) H 05/22/17 05:45 ICD10 Worksheet Patient Problems: Problems Problem Status Onset Hemorrhage Acute Hypotension Acute Infection due to carbapenem resistant Pseudomonas aeruginosa Acute ~05/07/17 MRSA (methicillin resistant Staphylococcus aureus) Acute ~05/09/17 Palliative care encounter Acute VRE (vancomycin-resistant Enterococci) Acute ~05/07/17
[2017-05-22] MEDS: VANCOMYCIN HCL/NORMAL SALINE 250 ML IV SCH (09:06)
[2017-05-22] MEDS: oxyCODONE IR 5 MG TAB PO PRN ×2 (09:07→13:50)
[2017-05-22] MEDS: traMADol 50 MG TAB PO SCH ×2 (09:08→20:36)
[2017-05-22] MEDS: FLUoxetine 20 MG CAP PO SCH (09:09)
[2017-05-22] MEDS: PANTOPRAZOLE SODIUM 40 MG TAB PO SCH ×2 (09:09→20:37)
[2017-05-22] MEDS: OLANZapine 2.5 MG TAB PO SCH (09:09)
[2017-05-22] MEDS: PROMETHAZINE HCL 25 MG/ML INJ IVP PRN ×2 (09:43→22:38)
[2017-05-22] MEDS: SENNOSIDES/DOCUSATE SODIUM TAB PO SCH ×2 (10:12→20:36)
--- NOTE | 2017-05-22 11:49 | SOAPPROG ---
SOAP Progress Note Assessment/Plan: Assessment: Assessment: 1. Cervical cancer, s/p chemoRT, now with likely liver and periaortic LN mets 2. Vesicovaginal fistula 3. Intestinal perforation (?related to Avastin therapy) 4. Psoas abscess 5. Nausea and vomiting. Unclear etiology. EGD normal. 6. DVT 7. Anemia of chronic inflammation / chemo Plan: - continue abx and other supportive care - continue Eliquis for DVT - likely transfer to LTAC tomorrow - will defer additional chemo for now. Pt should f/u with her oncologist, Dr. Joshua, at [facility], to discuss further treatment. Although prognosis is poor, pt still says she is interested in further chemotherapy. Objective: Vital Signs Temp Pulse Resp BP Pulse Ox 99.0 F 108 H 14 119/72 96 05/22/17 07:25 05/22/17 07:25 05/22/17 07:25 05/22/17 07:25 05/22/17 07:25 Microbiology 05/20/17 13:45 Gram Stain - Final Pelvis - Aspirate Laboratory Results 05/22/17 05:45 05/22/17 05:45 05/21/17 05/22/17 05/23/17 05:59 05:59 05:59 Intake Total 2379 620 250 Output Total 1895 1625 Balance 484 -1005 250 PT 22.5 SEC (12.0-15.0) H 05/22/17 05:45 INR 1.97 (0.83-1.16) H 05/22/17 05:45 ICD10 Worksheet Patient Problems: Problems Problem Status Onset Hemorrhage Acute Hypotension Acute Infection due to carbapenem resistant Pseudomonas aeruginosa Acute ~05/07/17 MRSA (methicillin resistant Staphylococcus aureus) Acute ~05/09/17 Palliative care encounter Acute VRE (vancomycin-resistant Enterococci) Acute ~05/07/17
[2017-05-22] MEDS: APIXABAN 5 MG TAB PO SCH ×2 (12:14→20:41)
--- NOTE | 2017-05-22 13:34 | PCMIDPN ---
Assessment/Plan: Assessment/Plan: * MRSA abdominal wall abscess status post drainage: Completing 2 weeks of vancomycin post drainage of MRSA abdominal wall abscess. Reassess vancomycin trough in am prior to dose. Therapy to continue through 05/25/17. Recent CT shows stable size of collection. * Peritonitis/ pelvic abscess due to perforated cecum status post incision and drainage and course of antibiotic therapy for anaerobic bacteremia. Residual psoas collection drained with TAYE showing serous output and culture negative. Will observe off additional antibiotics. * Urinary colonization with multidrug resistant Pseudomonas/Enterobacter cloacae /VRE and bilateral nephrostomies: [place] to be most compatible colonization. 05/22/17 13:31 05/22/17 13:37 Subjective: Patient with persistent nausea. Had recurrent psoas fluid collection drained on 05/20/17. Objective: Vital Signs Temp Pulse Resp BP Pulse Ox 37.2 C 108 H 14 119/72 96 05/22/17 07:25 05/22/17 07:25 05/22/17 07:25 05/22/17 07:25 05/22/17 07:25 Microbiology 05/20/17 13:45 Gram Stain - Final Pelvis - Aspirate Laboratory Results 05/22/17 05:45 05/22/17 05:45 05/21/17 05/22/17 05/23/17 05:59 05:59 05:59 Intake Total 2379 620 250 Output Total 1895 1625 Balance 484 -1005 250 Vancomycin #11 (stop date = 05/25/17) Psoas collection 4+ WBC, gram stain negative; no growth to date Laboratory Tests 05/21/17 10:30 Vancomycin Trough 10.1 - Physical Exam General Appearance: alert, no apparent distress EENT: No scleral icterus, No thrush Cardiac/Chest: tachycardia Abdomen: non-tender, other (TAYE with serous output; seropurulent drainage in LLQ around lencho), No distended - Line/s RUE PICC Lines: No drainage, No erythema ICD10 Worksheet Patient Problems: Problems Problem Status Onset Hemorrhage Acute Hypotension Acute Infection due to carbapenem resistant Pseudomonas aeruginosa Acute ~05/07/17 MRSA (methicillin resistant Staphylococcus aureus) Acute ~05/09/17 Palliative care encounter Acute VRE (vancomycin-resistant Enterococci) Acute ~05/07/17
--- NOTE | 2017-05-22 14:25 | HOSPPROG ---
Hospitalist Progress Note Assessment/Plan: 47-year-old female with PMH stage IV cervical cancer and recurrent DVT on anticoagulation who was admitted for hemorrhagic shock w/ vaginal bleeding. # Cecal perforation with peritonitis/pelvic abscess- s/p cecal resection/ appendectomy 04/14/2017. CT abd (personally reviewed and interpreted) recurrent iliopsoas fluid accumulation - completing IV abx course 05/25/17 # MRSA abdominal wall and psoas abscess, status post drains-recurrent PCT drainage done 05/20 by IR for recurrent fluid collection on R psoas. -per ID Vancomycin through 05/25/17 # Abd wall abscess, s/p I&D 05/09/17 --Cx grew MRSA - per Infectious disease - IV daily vanco 1gm to continue until 05/25/2017. # Acute Ureteral obstruction/hydronephrosis, s/p bilateral nephrostomy tube exchange 05/11/17 -routine replacement after 8-10 weeks. # Stage IV cervical cancer, s/p chemotherapy and radiation-previously thought to be in remission, but found to have abnl lesion in liver suspected to be a metastasis -Also has abnl paraaortic/iliac lymphadenopathy, suspected to be a/w spreading cancer. - sleeve for XRT brachytherapy - was removed on 05/09/17. # Recurrent DVT, sp R iliac vein stent- IVC filter placed - cont Eliquis # Vesicovaginal fistula- paniagua in place # Anemia 2/2 acute blood loss -status post multiple transfusions -10uPRBC, 3uFFP , 2uPlt - H&H 7.2 this am - no significant bleeding in past several days - transfuse 2U PRBC today # Thrombocytopenia- stable -monitor AM labs. # Gen weakness, fatigue, FTT - EGD on 05/20 unremarkable, shows prior Claudia-en-Y anatomy. -Pt has nausea after 2 bites, meds not helping much. - cont TPN # Anasarca, resolved # Severe protein calorie malnutrition- TPN # Hypomagnesemia -on TPN which has mag replacement. -encouraged p.o. intake # Metabolic encephalopathy -improved. # VTE prophylaxis: Eliquis. # Code Status: Full code # Status: Inpatient for greater than 2 midnight stay. # Disposition: Inpatient with discharge to LTAC anticipated tomorrow I have discussed the case with Dr. Sury from LTAC today - we are anticipating transfer to LTAC tomorrow Subjective: nausea persists Objective: Vital Signs Temp Pulse Resp BP Pulse Ox 37.2 C 108 H 14 119/72 96 05/22/17 07:25 05/22/17 07:25 05/22/17 07:25 05/22/17 07:25 05/22/17 07:25 Microbiology 05/20/17 13:45 Gram Stain - Final Pelvis - Aspirate Laboratory Results 05/22/17 05:45 05/22/17 05:45 05/21/17 05/22/17 05/23/17 05:59 05:59 05:59 Intake Total 2379 620 250 Output Total 1895 1625 610 Balance 484 -1005 -360 PT 22.5 SEC (12.0-15.0) H 05/22/17 05:45 INR 1.97 (0.83-1.16) H 05/22/17 05:45 - Physical Exam Constitutional: chronically ill appearing Eyes: anicteric sclera Ears, Nose, Mouth, Throat: moist mucous membranes Cardiovascular: regular rate and rhythym Respiratory: no respiratory distress Gastrointestinal: normoactive bowel sounds, tenderness, other (TAYE RLQ) Genitourinary: no bladder fullness Skin: normal color Musculoskeletal: No asymmetric calves Neurologic: AAOx3 Psychiatric: depressed, flat affect Lymph, Heme, Immunologic: no cervical LAD ICD10 Worksheet Patient Problems: Problems Problem Status Onset Hemorrhage Acute Hypotension Acute Infection due to carbapenem resistant Pseudomonas aeruginosa Acute ~05/07/17 MRSA (methicillin resistant Staphylococcus aureus) Acute ~05/09/17 Palliative care encounter Acute VRE (vancomycin-resistant Enterococci) Acute ~05/07/17
--- NOTE | 2017-05-22 15:48 | PDPCPN ---
Palliative Care Progress Note Assessment/Plan: HPI: Ronna Martinez is a 47 yo female with PMH stage IIIB cervical cancer dx 09/2016, DVT s/p IVC filter, depression, neuropathy, and morbid obesity admitted to the hospital for vaginal bleeding. Has been in a hospital or SNF since August for complications related to her cancer. Has completed treatment of chemo and RXT with no current evidence of disease but also not able to confirm HEATH due to multiple complications. Here in the hospital developed sepsis 2/2 perforated cecum s/p laparotomy with peritonitis and pelvic abscess s/p multiple drains. Hospitalization also complicated by polymicrobial colonization of nephrostomy tubes, hematuria, and deconditioning with weakness and poor appetite. Currently still receiving antibiotics for infection with drains still in place. On TPN for nutritional support and working a little with therapies. Palliative care consulted for complex medical decision making. Saw Ronna this morning. She states she is feeling ok pain is about 6/10 which is typical for her and tolerable. She is hoping to go to the LTAC soon as she wants to be closer to her family. We spoke about her needs for improving. She has been trying to eat but gags on her medications this morning. Assessment: Physical: - Pain: occasional leg pain - on gabapentin 300mg QHS - has dilaudid RPN, oxy PRN and tramadol PRN - might also consider using tylenol for occasional leg soreness - Weakness: - PT/OT working with patient - encourage activity - family support is very important for her - Nausea/vomiting: - hx of morbid obesity s/p gastric bypass - has fears of vomiting which are contributing to lack of appetite - on zyprexa which can also be helpful for uncontrolled nausea. - on rancho reglan with phenergan PRN and scop patch - constipation - at risk with opiates on bowel regimen with senna and colace Emotional/psychological: Hx of depression - would benefit the most from weekly (at least) counseling support for coping mech as well as fears Advanced Care Planning: Is patient decisional?: Yes Code Status: Full MD POA: Her uncle Young is MDPOA Plan: [facility] when medically ready. Recommend having social support continue to follow at LTAC. Subjective: My pain is about 6/10 Objective: Vital Signs Temp Pulse Resp BP Pulse Ox 37.2 C 108 H 14 119/72 96 05/22/17 07:25 05/22/17 07:25 05/22/17 07:25 05/22/17 07:25 05/22/17 07:25 Microbiology 05/20/17 13:45 Gram Stain - Final Pelvis - Aspirate Laboratory Results 05/22/17 05:45 05/22/17 05:45 05/21/17 05/22/17 05/23/17 05:59 05:59 05:59 Intake Total 8937 689 250 Output Total 8594 1628 610 Balance 484 -4642 -360 PT 22.5 SEC (12.0-15.0) H 05/22/17 05:45 INR 1.97 (0.83-1.16) H 05/22/17 05:45 Physical Exam - Physical Exam General Appearance: alert, no apparent distress Respiratory: No respiratory distress, No accessory muscle use Skin: normal color, warm/dry Extremities: No pedal edema Neuro/Psych: alert, oriented x 3 ICD10 Worksheet Patient Problems: Problems Problem Status Onset Hemorrhage Acute Hypotension Acute Infection due to carbapenem resistant Pseudomonas aeruginosa Acute ~05/07/17 MRSA (methicillin resistant Staphylococcus aureus) Acute ~05/09/17 Palliative care encounter Acute VRE (vancomycin-resistant Enterococci) Acute ~05/07/17 - ICD10 Problem Qualifiers (1) Palliative care encounter
--- NOTE | 2017-05-22 16:50 | ASMTCMCOM ---
CM Note CM Note Notes: Spoke with Soledad from . [facility] who said she felt they may get insurance authorization today. Patient recieving reaansfusion of two Units today. Notified Dr. Isaacs of need for Doc to Doc with Dr. Ga [phone]. He requested the TPN formula be sent. Formula faxed to [facility] [phone]. [facility] indicated that they have all necessary documentation at this time and will only need final orders. Request Nurse to nurse on Monday to [phone]. The LTAC is requesting that transport be set up in the morning. Case management will follow in the morning . Date Signed: 05/22/2017 04:49 PM Electronically Signed By:PETE Teixeira
[2017-05-22] MEDS: TPN 1 EA BAG IV SCH (20:37)
[2017-05-22] MEDS: GABAPENTIN 300 MG CAP PO SCH (20:37)
[2017-05-23] MEDS: METOCLOPRAMIDE 10 MG/2 ML VIAL IVP SCH ×2 (00:48→05:45)
[2017-05-23] MEDS: ONDANSETRON DISINTEGRATING 4 MG TAB PO SCH ×2 (00:48→05:45)
[2017-05-23] MEDS: HYDROmorphONE/DILAUDID 2 MG/ML INJ IVP PRN (02:39)
[2017-05-23 05:22] VITALS: RESP 16
[2017-05-23] MEDS: LEVOTHYROXINE 112 MCG TAB PO SCH (05:45)
[2017-05-23 06:08] LABS: HEMATOCRIT 29.9 % (38.0-47.0); MEAN CELL HEMOGLOBIN 30.7 pg (27.9-34.1); MEAN CELL HEMOGLOBIN CONCENTR. 33.4 g/dL (32.4-36.7); MEAN CELL VOLUME 91.7 fL (81.5-99.8); RED BLOOD CELL COUNT 3.26 10^6/uL (4.18-5.33); RED CELL DISTRIBUTION WIDTH 15.7 % (11.5-15.2)
[2017-05-23 07:03] VITALS: BP 142/99; PULSE 111; TEMP 98.2; O2SAT 98
[2017-05-23] MEDS: SENNOSIDES/DOCUSATE SODIUM TAB PO SCH ×2 (07:08→08:30)
[2017-05-23] MEDS ORDERED: oxyCODONE IR 5 MG TAB PO PRN (08:01)
[2017-05-23] MEDS: FLUoxetine 20 MG CAP PO SCH (08:57)
[2017-05-23] MEDS: OLANZapine 2.5 MG TAB PO SCH (08:57)
[2017-05-23] MEDS: PANTOPRAZOLE SODIUM 40 MG TAB PO SCH (08:57)
[2017-05-23] MEDS: traMADol 50 MG TAB PO SCH (08:57)
[2017-05-23] MEDS: APIXABAN 5 MG TAB PO SCH (08:57)
--- NOTE | 2017-05-23 09:33 | PDIAF ---
- Diagnosis Diagnosis: MRSA R Psoas and abdominal wall abscess Code Status: Full Code - Medication Management Discharge Medications: Medications to Continue on Transfer Gabapentin [Neurontin 300 MG (*)] 300 mg PO TID 04/10/17 [Last Taken 04/10/17 17 :00] Levothyroxine [Synthroid 112 mcg (*)] 112 mcg PO DAILY06 04/10/17 [Last Taken 07:00] Acetaminophen [Tylenol 325mg (*)] 650 mg PO Q4 PRN 04/11/17 [Last Taken Unknown] Herbals/Supplements -Info Only 1 ea PO DAILY 04/11/17 [Last Taken 04/10/17 08:00 ] Loperamide HCl [Imodium 2 mg (*)] 2 mg PO PRN PRN 04/11/17 [Last Taken Unknown] Ondansetron [Ondansetron Odt] 8 mg PO Q8 PRN 04/11/17 [Last Taken 04/10/17 08:30 ] Apixaban [Eliquis] 5 mg PO BID tab 05/23/17 [Last Taken Unknown] FLUoxetine [Prozac 20 MG (*)] 40 mg PO DAILY cap 05/23/17 [Last Taken Unknown] HYDROmorphone HCL [Dilaudid Inj 2 mg/ml (*)] 0.2 - 0.4 mg IVP Q4 PRN inj [Last Taken Unknown] Metoclopramide [Reglan 10 mg IV (*)] 10 mg IVP Q6HRS vial 05/23/17 [Last Taken Unknown] OLANZapine [ZyPREXA 2.5 mg (*)] 2.5 mg PO DAILY tab 05/23/17 [Last Taken Unknown] Pantoprazole Sodium [Protonix 40mg (*)] 40 mg PO BID tab 05/23/17 [Last Taken Unknown] Promethazine HCl [Phenergan Injection] 6.25 mg IVP Q6HRS PRN inj 05/23/17 [ Last Taken Unknown] Scopolamine Hydrobromide [Scopolamine Patch] 1 patch TD Q72H patch 05/23/17 [ Last Taken Unknown] TPN [Hyperalimentation] 1 ea IV DAILY21 bag 05/23/17 [Last Taken Unknown] Vancomycin HCl/Normal Saline [Vancomycin 1 gm (Premix)] 1 gm IV Q24H bag [Last Taken Unknown] oxyCODONE IR [Oxycodone Ir (*)] 5 - 10 mg PO Q4HRS PRN tab 05/23/17 [Last Taken Unknown] traMADol [Ultram 50 mg (*)] 50 mg PO BID tab 05/23/17 [Last Taken Unknown] traMADol [Ultram 50 mg (*)] 50 mg PO Q6HRS PRN tab 05/23/17 [Last Taken Unknown ] Alf Antibiotics: vancomycin 1gm IV q12h Alf Antibiotic Stop Date: 05/25/17 Discharge Medications: Refer to the Discharge Home Medication list for PRN reason. PICC Care - Routine: N/A (patient has port) - Orders Services needed: Registered Nurse, Certified Audit Partner, Master Human Resource Statistician , Physical Therapy, Occupational Therapy, Speech Language Pathologist Diet Recommendation: other (please continue TPN per current orders) Diet Texture: Regular Texture Diet, Thin Liquids - Follow Up Care Current Providers and Referrals: Patient,NotPresent [Unknown] - As per Instructions
[2017-05-23] MEDS ORDERED: LOPERAMIDE HCL 2 MG CAP PO PRN (09:53)
[2017-05-23] MEDS: VANCOMYCIN HCL/NORMAL SALINE 250 ML IV SCH (10:18)
[2017-05-23] MEDS ORDERED: LOPERAMIDE HCL 2 MG CAP ONE (10:19)
--- NOTE | 2017-05-23 17:46 | GDS ---
[f rep st] DISCHARGE SUMMARY DISCHARGE DIAGNOSES: Include: 1. Cecal perforation with peritonitis and pelvic abscess, status post cecal resection and appendecto my. 2. Methicillin-resistant Staphylococcus aureus, abdominal wall, and psoas abscess. 3. Bilateral ureteral obstruction, status post nephrostomy tube exchange. 4. Stage IV cervical cancer, status post chemotherapy and radiation. 5. Recurrent deep venous thrombosis, on anticoagulation. 6. Vesicovaginal fistula with chronic Alejandro. 7. Anemia secondary to acute blood loss. 8. Thrombocytopenia. 9. Severe protein-calorie malnutrition. 10. Anasarca. 11. Hypomagnesemia. 12. Metabolic encephalopathy. 13. Vaginal bleeding on anticoagulation with Lovenox. 14. Hemorrhagic shock secondary to vaginal bleeding. HISTORY OF PRESENT ILLNESS: A 47-year-old female who presented on 04/11/2017, presented with complai nts of vaginal bleeding. For details of the patient's initial presentation, please see the History a nd Physical from 04/11/2017. CONSULTATIONS: Included Pulmonary/Critical Care, Urology, Wound Care, General Surgery, Infectious Di sease, Hematology/Oncology. PROCEDURES: On 04/14/2017, the patient underwent laparotomy and drainage of a pelvic abscess, partia l cecectomy and appendectomy. On 04/27/2017, patient underwent bilateral nephrostomy tube exchange. On 05/09/2017, patient had a PICC line placed. On 05/09, patient underwent incision and drainage of an intraabdominal abscess/subfascial abscess. On 05/11/2017, patient underwent bilateral nephrostomy tube exchange. On 05/12/2017, patient underwent right iliopsoas abscess drainage. On 05/20/2017, adelina baldwin had recurrent drain placed to the right psoas abscess after reaccumulation. HOSPITAL COURSE: By issue: 1. Hemorrhagic shock secondary to vaginal bleeding: The patient underwent large volume transfusions . We withheld anticoagulation until hemodynamics stability. She was carefully monitored, and re-ini tiated on anticoagulation. She was discharged on oral Eliquis 5 twice daily with stable H and H prio r to disposition. 2. Cecal perforation with peritonitis and pelvic abscess: Patient underwent cecal resection, append ectomy, and a prolonged course of IV antibiotics. She was slowly titrated on oral intake; although m inimal, she was tolerating it with bowel movements at the time of disposition. She will complete her IV antibiotics in the outpatient setting with ongoing monitoring of her abdominal exam. 3. MRSA abdominal wall abscess, as well as right iliopsoas abscesses; both were mechanically drained . MRSA grew from the abdominal wall cultures. Patient was treated with IV vancomycin. Her complete 2-week course will complete on 05/25/2017. 4. Acute ureteral obstruction with hydronephrosis. Patient underwent bilateral nephrostomy tube exc hange and will undergo routine replacement at the [facility] post disposition. 5. Stage IV cervical cancer, status post chemotherapy and radiation. The patient was found to have new lesions of the liver suspected to be metastatic in origin. She will continue to follow with her outpatient oncologist from [facility]. 6. Recurrent DVT, status post IVC filter placement. The patient was very carefully re-initiated on anticoagulation. Filter was left in place at the time of disposition, in case a recurrent bleed deve loped. 7. Vesicovaginal fistula. The patient was discharged with a long-term Alejandro catheter and minimal he maturia on the day of disposition. 8. Anemia secondary to acute blood loss. The patient received 12 units of packed red blood cells. 3 units of FFP and 2 units of platelets during her hospital stay. She was hemodynamically stable wit h stable H and H at disposition. 9. Severe protein-calorie malnutrition. The patient had persistent troubles with nausea and vomitin g during her hospital stay. She was treated with TPN through her hospital length, and is being disch arged on TPN ongoing until she is able to better tolerate nutritional intake that can sustain her. 10. Depression. Patient had a titration of her Prozac during this hospital stay. She received very difficult news about her malignancy and was most appropriately situationally struggling with what char had ahead. 11. Metabolic encephalopathy. This did improve with acute treatment of her very complicated medical course. MEDICATIONS AT THE TIME OF TRANSFER: Please reference med rec printed on 05/23/2017. PENDING STUDIES: Include fungal and Gram stain as well as cultures from her pelvic aspirate and abdo shayna swab which are preliminary no growth at the time of her discharge. FOLLOWUP APPOINTMENTS: 1. Include with her outpatient oncology team. 2. Ongoing palliative care. 3. An LTAC MD who is assuming care of this complicated medical case, Dr. Ga. TIME SPENT: I spent greater than 30 minutes in the planning and coordination of this discharge. /[id number]/MODL
--- NOTE | 2017-05-24 10:59 | ASDISCHSUM ---
Discharge Information Plan Status:LTAC Medically Cleared to Leave:05/23/2017 Discharge Date:05/23/2017 11:10 AM D/C Disposition:[facility] D/C Disposition:Intermediate Facility Projected Discharge Date:05/23/2017 11:00 AM Transportation at D/C: Discharge Delay Reason: Follow-Up Date:05/23/2017 11:00 AM Discharge Slot: Final Diagnosis: Placement Information Referral Type:*Retirement/SNF Referral ID:[id number] Provider Name: Address 1: Phone Number: Address 2: Fax Number: City: Selection Factors: State: Referral Type:*Retirement/SNF Referral ID:[id number] Provider Name: Address 1: Phone Number: Address 2: Fax Number: City: Selection Factors: State: [facility] Type:[facility] Referral ID:[id number] Provider Name: Address 1: Phone Number: Address 2: Fax Number: City: Selection Factors: State: [facility]erral Type:[facility] Referral ID:[id number] Provider Name:[facility] Address 1:[address] Address 2: City:[place] Selection Factors: [place] Referral Type:[facility] Referral ID:[id number] Provider Name: Address 1: Phone Number: Address 2: Fax Number: City: Selection Factors: State: Patient Contact Information Contact Name:BERYL Relationship:Aunt Address: Work Phone: City: [facility] Phone: State/Zip Code: Email: Financial Information Financial Class:HMO and PPO Plans Primary Plan Desc:[facility] PPO HMO Primary Plan Number:[id number] Secondary Plan Desc: Secondary Plan Number: Assessment Information [facility] CM Progress Note CM Note CM Note Notes: 47 year old female recently at [facility] due to cervical CA -for chemo and discharged to [facility] for rehab. Admitted to [facility] for vaginal bleeding, hemorrhage, HTN, DVT's. Patient lives in [place] but family in [facility]. Patient would like to go to [facility] on discharge [phone] Family aware that they will have to transport patient to her doctor appointments in the [place] area. Spoke to admissions and they asked to go through their company, [employer]-[phone]. Left message at that number. also sent a referral through [email or web address] to [facility]. Date Signed: 04/11/2017 03:59 PM Electronically Signed By:Caron Lama LCSW [facility] CM Progress Note CM Note CM Note Notes: Lima from [facility] ([facility] [phone]) requested therapy notes and latest MD notes. They called back in PM after receiving updates. They have not decided whether or not they will take yet, mostly due to pt's continuing chemo treatments. Spoke with pt about treatment plan. She stated that she will not be receiving further chemo until after she regains her strength at a SNF. Alerted Lima to this. C/M to follow Date Signed: 04/12/2017 03:46 PM Electronically Signed By:Kelly Tarango LCSW [facility] CM Progress Note CM Note CM Note Notes: Lima from [facility] ([facility] [phone]) has called throughout yesterday and today requesting additional information as they make their decision whether to take pt. Their first question was about chemo. Spoke with pt about treatment plan. She stated that she will not be receiving further chemo until after she regains her strength at a SNF. Also spoke with her uncle Young ([phone]). He plans to take pt to appts in [place]. shaina finally agreed to accept but still awaiting ins auth. Level 2 PASRR submitted to Belinda Mcbride. She will evaluate tomorrow. If PASRR approved, and ins auth received, pt may be able to DC tomorrow. Transport to [facility] will need to be arranged. C/M to follow Date Signed: 04/13/2017 04:18 PM Electronically Signed By:Kelly Tarango LCSW [facility] CM Progress Note CM Note CM Note Notes: Pt had emergency surgery in middle of the night for a perforated bowel. Pt is now in ICU. Alerted [facility] that pt will not be going there at this time. LM with pt's Young to offer support. C/M will continue to follow. Date Signed: 04/14/2017 10:10 AM Electronically Signed By:Kelly Tarango LCSW [facility] CM Progress Note CM Note CM Note Notes: Pt tx to ICU for emergency surgery early this AM. Spoke with pt's uncle Young, who was present at bedside, for support. Young stated that pt's dtr is coming from [place] and her sister is coming from [place]. Both are due to arrive late this evening. Young's frank will ladylano be available. Young is scheduled to leave for a business trip tomorrow evening. C/M to follow. Date Signed: 04/14/2017 02:28 PM Electronically Signed By:Kelly Tarango LCSW [facility] Progress Note CM Note CM Note Notes: Spoke with Young, patient's uncle. Please see notes in patient chart for spiritual services. Patient's daughter and sister will arrive tonight. Made arrangements for Dr. Mejias to speak with Young re: the medical picture and prognosis so he is able to talk with her sister and daughter in a realistic manner. Informed Young of family meeting opportunities and let him know we can set that up to include Alise (daughter) and Roxy (sister). Daughter Alise may need Social Work support while she is here. She has just started college and hasn't been in close touch with her mom and what is going on. They have had a close relationship in the past. Alise is somewhat withdrawn currently and Young is concerned about her emotional process, how she is coping and how she is making decisions. CM will follow. Date Signed: 04/14/2017 04:22 PM Electronically Signed By:Hyun Fermin LCSW [facility] CM Progress Note CM Note CM Note Notes: Patient has had a colon perforation, pelvic abscess and partial colectomy-ID following. Cervical CA with ureteral obstruction, vaginal bleeding, DVT, Hypotension. Hospitalist wonders if patient should return to [facility] where MD's familar with her care are located. Patient would like to go to [facility] in [facility]. They have accepted her. The Pasrr Level 2 has been completed and in the chart. Case Management to follow. Date Signed: 04/16/2017 04:42 PM Electronically Signed By:Caron Lama LCSW [facility] CM Progress Note CM Note CM Note Notes: Contacted [facility] and faxed additional reports, Therapy Notes, etc. Lima with [facility] reported that they had taken patient off their referral list because they had heard she had taken a turn for the worse. Brigette lee concerned that patient is still acute care and may need an LTAC on discharge. This Hydraulic Dredge Operator reported back that patient is still in ICU not ready for discharge but would like the referral to stay open. Date Signed: 04/17/2017 05:04 PM Electronically Signed By:Caron Lama LCSW [facility] CM Progress Note CM Note CM Note Notes: Placed call to román Amato for [facility] [phone], to discuss pt's referral. She said the referral had been closed by the weekend liaison 09/08 being told pt's condition had worsened, even though the [facility] CM had called Monday and asked the referral to be kept open. Referral re-sent at Lima's request. They will continue to follow until pt's d/c plan and date is determined. Received call back from Lima - apparently they are working with their IT to reopen pt's file as they are unable to review the new referral documents. She will contact tomorrow with update. Date Signed: 04/19/2017 04:26 PM Electronically Signed By:PETE Funez [facility] CM Progress Note CM Note CM Note Notes: Spoke with Lima at [facility] yesterday. The previous referral in [facility] was closed and a new one started. They are willing to consider pt again. However, last week insurance based their approval on pt being able to work with therapies for 5 out of 7 days. Pt has not worked with PT/OT since Monday so [facility] will hold off getting insurance approval until they have more recent therapy notes. Pt may also benefit from an LTAC. Spoke with pt's uncle, Yuong last week about that possibility. Faxed referral to Barbara at [facility]. Barbara stated that she will need to submit ins. auth before Shaina does. Shaina aware of this. C/M should know by later today if LTAC approved. Latest PT/OT notes faxed to both [facility] and [facility]. C/M will continue to follow. Date Signed: 04/21/2017 12:42 PM Electronically Signed By:Kelly Tarango LCSW [facility] CM Progress Note CM Note CM Note Notes: Met with pt yesterday to discuss DC plans. Talked with pt about the possibility of going to [facility] [place]. Pt in agreement with plan and asked that C/M talk with her aunt as well. Spoke with pts aunt Frank at [phone]. She was happy with plan. [facility] has ins. Approval. Barbara [facility] will likely meet with pt on Monday. Contacted [facility] to let them know pt will likely go to [facility] but asked them to leave referral open until plan definite. They also stated they work well with [facility] for pts to come there at DC from LTAC. Also completed a distress with pt. She scored a 6. She checked her appearance And financial issues as her stressors. Spoke with RN Michelle about her appearance concerns. Discussed financial issues with her pt. Made a red lipstick request for pt. Also mailed her aunt al list of financial programs they can apply to. C/M will continue to follow. Date Signed: 04/22/2017 12:10 PM Electronically Signed By:Kelly Tarango LCSW [facility] CM Progress Note CM Note CM Note Notes: Updated information forwarded to Barbara at [facility] for renewed insurance review. They had thought patient would discharge last Monday so need to get new authorization from Insurance. Discharge time still TBD. Case management will follow. Date Signed: 04/25/2017 12:00 PM Electronically Signed By:PETE Teixeira [facility] CM Progress Note CM Note CM Note Notes: Pt mmay switch from TPN to tube feedings tomorrow. Sent MD zelaya notes from today to Barbara at [facility]. Date Signed: 04/26/2017 05:12 PM Electronically Signed By:Kelly Tarango LCSW [facility] CM Progress Note CM Note CM Note Notes: Per MD patient to have NG placed for nutritional support vs TPN. Per notes she has strong gag reflex and is reluctant to proceed will consider option overnight. Spoke with Beronica at [facility]. Pt is appropriate for admission to LTAC at this time. No definitive discharge date as of this time. CM to follow. Date Signed: 04/28/2017 03:19 PM Electronically Signed By:Sumaya Dhillon RN [facility] CM Progress Note CM Note CM Note Notes: Received call from Barbara Nicole at [facility] who said that because we have needed to delay discharge several times and they have had to get insurance to reauthorize admission they have decided to take pt off their list and C/M is to contact them for reassessment when it looks more probable that patien will discharge with in a few days. Pts nurse Jenise notified. Case management will continue to follow. Date Signed: 05/01/2017 04:32 PM Electronically Signed By:PETE Teixeira [facility] CM Progress Note CM Note CM Note Notes: Patient pulled her feeding tube out last night. Patient is now on TPN. Discharge stiil unknown. [facility] needs to be contacted when discharge date is clearer. They will need to come back to assess since it has been so long since initial referral. Case management will follo. Date Signed: 05/02/2017 04:48 PM Electronically Signed By:PETE Teixeira [facility] CM Progress Note CM Note CM Note Notes: Barbara at [facility] asked that new referral be sent for pt because they have to start over due to the time lapse from initial referral. This was faxed tooday. [facility] will not [facility] a bed until Monday. Pt is close to being ready for DC per Dr Boogie. C/M will continue to follow. Date Signed: 05/05/2017 12:42 PM Electronically Signed By:Kelly Tarango LCSW [facility] Progress Note CM Note CM Note Notes: PT who worked with pt today is recommedning that pt get an inpt rehab consult. TORRES garvey. C/M will continue to follow. Date Signed: 05/06/2017 04:28 PM Electronically Signed By:Kelly Tarango LCSW [facility] CM Progress Note CM Note CM Note Notes: Previous note for pt indicating inpt rehab referral was for another pt. Plan for pt is still [facility] if they re able to accept pt. Otherwise, pt may go to [facility]. Date Signed: 05/06/2017 04:46 PM Electronically Signed By:Kelly Tarango LCSW [facility] CM Progress Note CM Note CM Note Notes: Dr. Gamez here to drain vaginal abcess today. Patient to undergo another procedure on in IR. C/m spoke with Barbara Espinal at [facility] and she said she submitted paperwork to patients insurance again and is waiting their assessment. The procedure happened after conversation with the Ltac so they would probalby want to know in their consideration of acceptance. Case management will continue to follow. Date Signed: 05/09/2017 06:33 PM Electronically Signed By:PETE Teixeira [facility] CM Progress Note CM Note CM Note Notes: Trinity got a call from Barbara at [facility] . Barbara states authorization for LTAC is complete through [employer]. Trinity consulted with MD. Pt. not yet ready for d/c. Let Barbara know and faxed updates via [employer] today. CM to follow. Date Signed: 05/10/2017 02:29 PM Electronically Signed By:Belinda Banks LCSW [facility] CM Progress Note CM Note CM Note Notes: Pt had nephrostomy tubes changed today and will have ileopsoas abscess drained by IR tomorrow. would like to keep pt until Monday. Alerted Barbara at [facility] and faxed updates. C/M to follow Date Signed: 05/11/2017 04:29 PM Electronically Signed By:Kelly Tarango LCSW [facility] CM Progress Note CM Note CM Note Notes: Spoke with Barbara at [facility] and she stated that they will need to wait until Monday to get am ins. reauth for pt. Also spoke to pt's uncle young at [phone] and gave hime an update. C/M to follow. Date Signed: 05/12/2017 04:09 PM Electronically Signed By:Kelly Tarango LCSW [facility] CM Progress Note CM Note CM Note Notes: Reviewed chart, spoke w/ TORRES Martinez re: d/c poc, pt's progress. Per MD notes, pt remains on IV antibiotics. Pt to discharge to [facility] in 1-2 days. CARMEN Mendoza spoke w/ [facility] Monday; they will need to resubmit for insurance authorization on Mon05/15/17. CM will cont to follow. Date Signed: 05/14/2017 05:11 PM Electronically Signed By:Bianca Perez RN [facility] CM Progress Note CM Note CM Note Notes: DC poc is still for pt to go to [facility]. Met w/pt to discuss and she is still in agreement w/ this plan. Spoke w/Barbara from LTAC and faxed updated notes. Notified health equipment servicer of this pt as it seemed she could benefit from visit w/Spiritual Care; Kary from [facility] met w/pt. Discussed case w/Dr Reyna who said pt may be ready for dc to LTAC tomorrow. CM w/f. Date Signed: 05/15/2017 12:41 PM Electronically Signed By:Sue Coker RN [facility] CM Progress Note CM Note CM Note Notes: Barbara porras [facility] called to satte they have insurance auth for pt. Pt not ready for DC. Sent updates to [facility]. Palliative LINING INSERTER, Linnea, spoke with Dr Boogie about having a family conference with hospitalist and oncologist to determine pt's prognosis and so she and her aunt and uncle can make the best decision regarding her DC plan. C/M to follow. Date Signed: 05/17/2017 04:43 PM Electronically Signed By:Kelly Tarango LCSW [facility] Progress Note CM Note CM Note Notes: Met with pt's uncle Young and aunt Frank today to discuss pt's plan and goals of care going forward as well as DC plan. Dr Smiley talked with pt early in the day about her probably cancer progression. Palliative team of Kavon and Linnea also spoke with pt about goals of care if she only had a few months to live. Pt wanted to have family mtg to discuss this. Prior to mtg with pt, senior health consultant Ian and Dr Boogie discussed pt's medical situation with pt's aunt and uncle . Also present were chaplain Kary Jacobson and this CM. Dr Boogie said that pt's inability to eat is his biggest concern. He would like pt to agree to an upper endo tomorrow. Aunt and uncle wanted to understand if there is any further treatment for pt's cancer. Answer was probably not. Due to pt's need for TPN at this point, it is likely that a LTAC is still the most appropriate place for her at [place] unless she chooses to go with hospice. Meeting then held in pts' room. Everyone else was present except for MD and dry charge process attendant. Pt stated her goals were to make sure her dtr Cheyeene, dogs and house were taken care of. She also understand that she will most likely need LTAC if she remains on TPN. Either way, she knows she will likely remain in some institution due to her medical needs. Spoke with Barbara at [facility] who stated they can still take pt within the next few days without need for ins reauth. C/M to follow. Date Signed: 05/18/2017 05:36 PM Electronically Signed By:Kelly Tarango LCSW [facility] CM Progress Note CM Note CM Note Notes: Met with pt this morning and she wants to get an EGD tomorrow. Pt also needs to get a drain placed before DC and Dr Boogie will schedule that. Pt indicated to C/M and palliative team that she is ready to go to LTAC. She wants to be closer to her aunt and uncle. Nehemiah Bailon at [facility]. They have insurance auth through Monday 05/21. After that they will need to get reauth. Spoke with pts aunt Frank twice today. She was updated on plan and next steps. Faxed last two days of MD notes to [facility]. C/M to follow. Date Signed: 05/19/2017 05:48 PM Electronically Signed By:Kelly Tarango LCSW [facility] CM Progress Note CM Note CM Note Notes: Recieved call from Frank at [facility] but was with another patient and unable to talk at that time. C/M returned call but never heard back from Frank. Please try to reach her again at Barbara lund. Case management will continue to follow. Date Signed: 05/20/2017 05:27 PM Electronically Signed By:PETE Teixeira [facility] CM Progress Note CM Note CM Note Notes: Spoke with Soledad from [facility] who said she felt they may get insurance authorization today. Patient recieving reaansfusion of two Units today. Notified Dr. Isaacs of need for Doc to Doc with Dr. Ga [phone]. He requested the TPN formula be sent. Formula faxed to Frank [phone]. Frank indicated that they have all necessary documentation at this time and will only need final orders. Request Nurse to nurse on Monday to [phone]. The LT is requesting that transport be set up in the morning. Case management will follow in the morning . Date Signed: 05/22/2017 04:49 PM Electronically Signed By:PETE Teixeira Intervention Information
--- NOTE | 2017-05-26 16:59 | PQFORM ---
PHYSICIAN QUERY FORM Needs Your Response This query form is being sent to you to assure this patient record is coded properly. Please respond to the question below: REFERENCE ARCHIVIST QUESTION: Dear Dr. Isaacs, In reviewing this patients medical record it is noted the patient had the diagnosis of 'Sepsis' not documented till day 5 of patients stay. Patient was noted to have Hypotension, Tachycardia, blood pressure of 80/84 and WBC of 12.09 in 's 04/15 consultation report . Infectious Disease Progress notes dated 04/16-04/26 document patient had the diagnosis of 'Sepsis secondary to perforated cecum, treated with Invanz and fluconazole.' Hospitalist Progress Notes dated 04/17-05/15 document patient had 'Sepsis: resolved, due to perforated cecum, treated with Ertapenem, fluconazole.' After Study, should the diagnosis of 'Sepsis, Not Present On admission' be included in the discharge summary? ___x_ Yes ____ No ____ Unable to determine Other more appropriate diagnosis Thank you [facility] HIM/Coding Dept. [phone] INSTRUCTIONS FOR RESPONSE: Answer question by clicking on the "Edit Document" button. Move cursor to area below the stars. When complete, hit "Save." Click on the "Sign" button, then click "Sign" again. Type in your PIN and hit "Enter." MTDD
--- NOTE | 2017-06-08 17:35 | GPROG ---
[f rep st] PROGRESS NOTE POSTANESTHESIA CARE UNIT NOTE The patient was brought to the postanesthesia care unit and transfer information was provided to the receiving registered nurse. The patient was in stable condition, breathing spontaneously, utilizing oxygen by mask. Vital signs were stable. There was no issue with pain, nausea or vomiting. No comp lications were noted. /[id number]/MODL
== END 2017-05-23 11:10 | DRG 329 ==
LOC: EDUNIT# → OBSVTOIN 04-11 00:41 → F2N 04-11 00:48 → F1N 04-11 17:08 → F2N 04-14 02:30 → F1N 04-18 17:23
PROVIDERS: ADMIT Student in an Organized Health Care Education/Training Program; ATTEND Student in an Organized Health Care Education/Training Program
PROC: 02HV3DZ Insertion of Intraluminal Device into Superior Vena Cava, Percutaneous Approach (ICD-10-PCS; 2017-04-10)
PROC: 30233N1 Transfusion of Nonautologous Red Blood Cells into Peripheral Vein, Percutaneous Approach (ICD-10-PCS; 2017-04-10)
PROC: 30233R1 Transfusion of Nonautologous Platelets into Peripheral Vein, Percutaneous Approach (ICD-10-PCS; 2017-04-12)
PROC: 30233L1 Transfusion of Nonautologous Fresh Plasma into Peripheral Vein, Percutaneous Approach (ICD-10-PCS; 2017-04-14)
PROC: 0DBH0ZZ Excision of Cecum, Open Approach (ICD-10-PCS; principal; 2017-04-14 05:30)
PROC: 0DTJ0ZZ Resection of Appendix, Open Approach (ICD-10-PCS; principal; 2017-04-14 05:30)
PROC: 0TP930Z Removal of Drainage Device from Ureter, Percutaneous Approach (ICD-10-PCS; 2017-04-27)
PROC: 0T9030Z Drainage of Right Kidney with Drainage Device, Percutaneous Approach (ICD-10-PCS; 2017-04-27)
PROC: 0T9130Z Drainage of Left Kidney with Drainage Device, Percutaneous Approach (ICD-10-PCS; 2017-04-27)
PROC: 0J980ZZ Drainage of Abdomen Subcutaneous Tissue and Fascia, Open Approach (ICD-10-PCS; 2017-05-09)
PROC: 0UP Female Reproductive System, Removal (ICD-10-PCS; 2017-05-09)
PROC: 02HV3DZ Insertion of Intraluminal Device into Superior Vena Cava, Percutaneous Approach (ICD-10-PCS; 2017-05-10)
PROC: 0T9130Z Drainage of Left Kidney with Drainage Device, Percutaneous Approach (ICD-10-PCS; 2017-05-11)
PROC: 0T9030Z Drainage of Right Kidney with Drainage Device, Percutaneous Approach (ICD-10-PCS; 2017-05-11)
PROC: 0TP530Z Removal of Drainage Device from Kidney, Percutaneous Approach (ICD-10-PCS; 2017-05-11)
PROC: 0K9N3ZZ Drainage of Right Hip Muscle, Percutaneous Approach (ICD-10-PCS; 2017-05-12)
PROC: 0DB68ZX Excision of Stomach, Via Natural or Artificial Opening Endoscopic, Diagnostic (ICD-10-PCS; 2017-05-20)
PROC: 0K9N3ZZ Drainage of Right Hip Muscle, Percutaneous Approach (ICD-10-PCS; 2017-05-20)
DX: K35.3 Acute appendicitis with localized peritonitis (principal); A41.9 Sepsis, unspecified organism; K68.12 Psoas muscle abscess; E43 Unspecified severe protein-calorie malnutrition; G93.41 Metabolic encephalopathy; R57.8 Other shock; C78.7 Secondary malignant neoplasm of liver and intrahepatic bile duct; L02.211 Cutaneous abscess of abdominal wall; D62 Acute posthemorrhagic anemia; N82.0 Vesicovaginal fistula; N73.9 Female pelvic inflammatory disease, unspecified; B95.62 Methicillin resistant Staphylococcus aureus infection as the cause of diseases classified elsewhere; C53.9 Malignant neoplasm of cervix uteri, unspecified; F32.9 Major depressive disorder, single episode, unspecified; E83.42 Hypomagnesemia; D69.6 Thrombocytopenia, unspecified; Z79.01 Long term (current) use of anticoagulants; Z98.84 Bariatric surgery status; S00.83XA Contusion of other part of head, initial encounter; W01.0XXA Fall on same level from slipping, tripping and stumbling without subsequent striking against object, initial encounter
CPT/HCPCS: 82607-90; 82947-QW; 92507-GN; 92523-GN; 92526-GN; 92610-GN; 96365; 96366; 97110-GO; 97110-GP; 97116-GP; 97162-GP; 97166-GO; 97530-GO; 97530-GP; 97535-GO; A9585; C1729; C1751; C1758; C1769; C1894; J0610; J0692; J0878; J1100; J1170; J1335; J1450; J1644; J1650; J1940; J2060; J2185; J2250; J2310; J2405; J2550; J2704; J2720; J2765; J2997; J3010; J3370; J3475; P9016; P9017; P9021; P9035; P9041; P9047; Q9967; Q9988